=== PATIENT | female | born 1985 | race African-American/Black ===

== ENCOUNTER 2016-09-30 21:04 | Emergency (ER) | payer SELFPAY ==
[~2016-09-30] VITALS: Ht 172.7 cm; Wt 75.0 kg
[~2016-09-30 21:04] MED LIST: ACYC200C66 PO; AZIT600T PO; BACT800T5 PO; CYCL1TAB29 PO; DIFL200T PO; MAGICADU2 SWISH-SWAL; MAGN400T2 PO; OMEP40CA2 PO; SUCR1S PO; [UNRECOGNIZED DRUG - CODE] PO
[2016-09-30 21:11] VITALS: BP 135/87; PULSE 88; RESP 18; TEMP 98.5; O2SAT 100
--- NOTE | 2016-09-30 21:22 | PD ---
HPI Chief Complaint: Chest Pain Time Seen by Provider: 21:22 (Sharron Weiner) Time Seen by Provider: 21:09 (Elvis Doan MD) Travel History International Travel<30 days: No Contact w/Intl Traveler<30days: No Traveled to known affect area: No (Sharron Weiner) International Travel<30 days: No Contact w/Intl Traveler<30days: No (Elvis Doan MD) History of Present Illness HPI 30-year-old female with a history of HIV, hypertension and crack cocaine abuse presents to the emergency department for evaluation of chest pressure. States she has had this pressure since yesterday. She admits to using crack cocaine but states she hasn't smoked any in 2 days. She denies any fever, chills, nausea, vomiting, shortness of breath, abdominal pain, lightheadedness, dizziness. She states she is not taking any medications because she doesn't have a PCP, not on CALL therapy. No other complaints. (Sharron Weiner) HPI I, Dr. Doan, have reviewed the advance practice practitioner's documentation and am in agreement, met with the patient face to face, made the diagnosis, and the medical decision making was done by me. *My assessment and Findings: Patient is seen here quite often. Case management spoke with the patient. The patient relieved she was homeless. Case management spoke with patient in some length and provision of information regarding local/available resources was provided. Reassurance and counselling was provided. (Elvis Doan MD) [facility] Past Medical History Asthma: Yes Autoimmune Disease: Yes (HIV +, AIDS ) Anxiety: No Depression: Yes Cancer: No Cardiovascular Problems: No Diminished Hearing: No Gastrointestinal Disorders: Yes (pancreatitis) Genitourinary: No Headaches: Yes Hypertension: Yes Implanted Vascular Access Dvce: No Musculoskeletal: No Neurologic: No Psychiatric: No Respiratory: Yes (BRONCHITIS) Immunizations Current: Yes Pancreatitis: Yes Tetanus Vaccination: Unknown Influenza Vaccination: No ?: Unknown : 3 Para: 3 Miscarriage: 0 : 0 (Sharron Weiner) Past Surgical History Section: Yes ( CS X 2 ) Gynecologic Surgery: Yes (c section) Oral Surgery: Yes (jaw surgery 2016) Other Surgery: Yes (Sharron Weiner) Social History Alcohol Use: Yes (FORMERLY DAILY) Tobacco Use: Yes (SOME DAYS CIGARETTES (1 PACK/MONTH)) Substance Use: Yes (Crack Cocaine) (Sharron Weiner) Allergies-Medications (Allergen,Severity, Reaction): Coded Allergies: No Known Allergies (Verified , 10/02/16) Reported Meds & Prescriptions Reported Meds & Active Scripts Active Flexeril (Cyclobenzaprine HCl) 10 Mg Tab 10 Mg PO TID Magic Mouthwash Adult Liq (Multi-Ingredient Mouthwash/Gargle) 120 Ml Susp 10 Ml SWISH-SWAL QID PRN 7 Days Pancreaze (Pancrelipase) 21,000-37,000-61,000 Units Cap 1 Cap PO TIDPC Acyclovir 200 Mg Cap 400 Mg PO Q8HR 14 Days Azithromycin 600 Mg Tab 1,200 Mg PO Q7D 30 Days Magnesium Oxide 400 Mg Tab 400 Mg PO DAILY 30 Days Diflucan (Fluconazole) 200 Mg Tab 200 Mg PO Q24H 3 Days Sucralfate Liq (Sucralfate) 1 Gm/10 Ml Susana 1 Gm PO ACHS 30 Days Omeprazole 40 Mg Cap 40 Mg PO DAILY Bactrim DS (Sulfamethoxazole-Trimethoprim) 800-160 Mg Tab 1 Tab PO MOWEFR@09 30 Days (Elvis Doan MD) Review of Systems Except as stated in HPI: all other systems reviewed are Neg (Sharron Weiner) Physical Exam Narrative GENERAL: Well-nourished and well-developed pleasant female patient in no acute distress who is nontoxic appearing. SKIN: Warm and dry. HEAD: Normocephalic and atraumatic. EYES: No injection, drainage, or hyphema noted. PERRLA. EOMI. ENT: No nasal drainage noted. Oropharynx is clear. NECK: Supple and the trachea is midline. CARDIOVASCULAR: Regular rate and rhythm. RESPIRATORY: Breath sounds are equal bilaterally with no accessory muscle use, wheezing, rhonchi, or crackles. GASTROINTESTINAL: Abdomen is soft, non-tender, and nondistended. MUSCULOSKELETAL: No obvious deformities, swelling, cyanosis, or ecchymosis is present throughout the upper and lower extremities. NEUROLOGICAL: Awake, alert, and oriented. Normal speech and gait. Cranial nerves are grossly intact. (Sharron Weiner) Narrative Please refer to the above documentation. (Elvis Doan MD) Data Data Orders Basic Metabolic Panel (Bmp) (09/30/16 21:20) Complete Blood Count With Diff (09/30/16 21:20) Troponin I (09/30/16 21:20) Chest, Single Ap (09/30/16 21:20) Ecg Monitoring (09/30/16 21:20) Iv Access Insert/Monitor (09/30/16 21:20) Oximetry (09/30/16 21:20) Sodium Chloride 0.9% Flush (Ns Flush) (09/30/16 21:30) Potassium Cl 40 Meq/30 Ml Liq (Kcl 40 Me (09/30/16 23:00) Potassium Cl 40 Meq/30 Ml Liq (Kcl 40 Me (09/30/16 23:00) Electrocardiogram (09/30/16 21:13) (Elvis Doan MD) MDM Medical Decision Making Medical Screen Exam Complete: Yes Emergency Medical Condition: Yes Differential Diagnosis Pleurisy versus chest wall pain versus bronchitis versus ACS unlikely versus malingering Narrative Course 30-year-old female with history of HIV and crack cocaine abuse presents to the emergency department for evaluation of chest pain. Patient is afebrile, vital signs are stable. She has been seen 3 times in our emergency department in the last 24 hours, this being her fourth visit. IV access is obtained, labs have been drawn and sent. EKG shows normal sinus rhythm with no acute ST elevations or depressions. CBC shows a slightly decreased white blood for count of 3.5, anemia with a hemoglobin of 9.4, hematocrit 27.7. This is the patient's baseline. BMP shows hypokalemia with a potassium of 2.9. This is repleted with 60 mEq orally per recommendation of my attending physician Dr. Doan. Chest x-ray is unremarkable. Patient has remained stable and without complaint while here in the emergency department. Labs and imaging are all reassuring. Patient will be allowed to rest here in our emergency department for a few hours and then she will be stable for discharge. I discussed the case with my attending physician Dr. Doan who is aware of the patients history, physical examination findings, and treatment plan. ( Sharron Weiner) Medical Screen Exam Complete: Yes Emergency Medical Condition: Yes Differential Diagnosis As listed by alternate provider Narrative Course Please refer to HPI. At this time there is no indication for admission or additional diagnostic/therapeutic utilization. Pt is considered medically stable for discharge. (Elvis Doan MD) Diagnosis Primary Impression: Atypical chest pain Additional Impression: Hypokalemia Referrals: [facility] Patient Instructions: General Instructions Additional Instructions: Follow-up with your Primary Care Physician. Return to the ED for any acute worsening of symptoms. Med/Other Pt SpecificInfo: No Change to Meds (Sharron Weiner) Disposition: 01 DISCHARGE HOME Condition: Stable Sharron Weiner Sep 30, 2016 21:22 Elvis Doan MD Oct 06, 2016 19:30 Blood Urea Nitrogen 6 MG/DL Creatinine 0.62 MG/DL Estimat Glomerular Filtration 139 ML/MIN Rate Random Glucose 77 MG/DL Calcium Level 9.0 MG/DL [facility] Medical Decision Making Medical Screen Exam Complete: Yes Emergency Medical Condition: Yes Differential Diagnosis Pleurisy versus chest wall pain versus bronchitis versus ACS unlikely versus malingering Narrative Course 30-year-old female with history of HIV and crack cocaine abuse presents to the emergency department for evaluation of chest pain. Patient is afebrile, vital signs are stable. She has been seen 3 times in our emergency department in the last 24 hours, this being her fourth visit. IV access is obtained, labs have been drawn and sent. EKG shows normal sinus rhythm with no acute ST elevations or depressions. CBC shows a slightly decreased white blood for count of 3.5, anemia with a hemoglobin of 9.4, hematocrit 27.7. This is the patient's baseline. BMP shows hypokalemia with a potassium of 2.9. This is repleted with 60 mEq orally per recommendation of my attending physician Dr. Doan. Chest x-ray is unremarkable. Diagnosis Primary Impression: Atypical chest pain Additional Impression: Hypokalemia Referrals: [facility] Patient Instructions: General Instructions Additional Instructions: Follow-up with your Primary Care Physician. Return to the ED for any acute worsening of symptoms. Med/Other Pt SpecificInfo: No Change to Meds Disposition: 01 DISCHARGE HOME Condition: Stable Sharron Weiner Sep 30, 2016 21:22
[2016-09-30] MEDS ORDERED: SODIUM CHLORIDE 0.9% FLUSH 5 ML FLUSH IVF PRN (21:30)
[2016-09-30 21:44] VITALS: RESP 16; O2SAT 99
--- NOTE | 2016-09-30 21:50 | RADRPT ---
EXAM DATE/TIME: 09/30/2016 21:21 [facility] COMPARISON: No previous studies available for comparison. INDICATIONS : Chest Pain, Short of Breath. MEDICAL HISTORY : Hypertension. HIV. SURGICAL HISTORY : None. ENCOUNTER: Subsequent ACUITY: 2 days PAIN SCORE: 10/10 LOCATION: Bilateral chest FINDINGS: A single view of the chest demonstrates the lungs to be symmetrically aerated without evidence of mas s, infiltrate or effusion. The cardiomediastinal contours are unremarkable. Osseous structures are intact. CONCLUSION: No evidence of acute cardiopulmonary disease. Fredo Nicole MD on September 30, 2016 at 21:48 Board Certified Radiologist. This report was verified electronically.
[2016-09-30 22:18] LABS: AUTOMATED NEUTROPHIL # 2.1 TH/MM3 (1.8-7.7); BASOPHIL % 1.3 % (0.0-2.0); HEMATOCRIT 27.7 % (35.0-46.0); HEMO FLAGS DIFF FINAL; LYMPH % 28.5 % (9.0-44.0); MEAN CELL VOLUME 81.2 FL (80.0-100.0); MEAN CORPUSCULAR HEMOGLOBIN 27.5 PG (27.0-34.0); MEAN CORPUSCULAR HGB CONC 33.9 % (32.0-36.0); MONO % 10.6 % (0.0-8.0); NEUT % 59.6 % (16.0-70.0); PLATELET COUNT 252 TH/MM3 (150-450); RED BLOOD COUNT 3.42 MIL/MM3 (4.00-5.30); RED CELL DISTRIBUTION WIDTH 17.3 % (11.6-17.2); WHITE BLOOD COUNT 3.5 TH/MM3 (4.0-11.0)
[2016-09-30 22:49] LABS: ANION GAP 13 MEQ/L (5-15); BICARBONATE 21.5 MEQ/L (21.0-32.0); BLOOD UREA NITROGEN 6 MG/DL (7-18); CHLORIDE 105 MEQ/L (98-107); GLOMERULAR FILTRATION RATE 139 ML/MIN (>89); SODIUM (NA) 139 MEQ/L (136-145)
[2016-09-30 22:51] LABS: POTASSIUM 2.9 MEQ/L (3.5-5.1)
[2016-09-30] MEDS ORDERED: POTASSIUM CL 40 MEQ/30 ML LIQ UDC PO ONE ×2 (23:00)
--- NOTE | 2016-10-01 13:40 | EKG ---
Date Performed: 09/30/2016 Time Performed: 21:13:40 PTAGE: 30 years EKG: Sinus rhythm WITH FIRST DEGREE AV BLOCK Since previous tracing, no significant change noted ABNORMAL ECG PREVIOUS TRACING : 09/30/2016 13.46.07 DOCTOR: Christine Avina Interpretating Date/Time 10/01/2016 13:38:17
== END 2016-10-01 02:49 | disposition home or self-care (01) ==
LOC: NEPC 21:04 → NEPA 10-01 02:49
DX: R07.89 Other chest pain (principal); B20 Human immunodeficiency virus [HIV] disease; E87.6 Hypokalemia; F14.10 Cocaine abuse, uncomplicated; I10 Essential (primary) hypertension; F17.210 Nicotine dependence, cigarettes, uncomplicated
CPT/HCPCS: 71010; 80048; 84484; 85025; 93005; 99285

== ENCOUNTER 2016-10-01 15:00 | Emergency (ER) | payer SELFPAY ==
[~2016-10-01] VITALS: Ht 175.3 cm; Wt 100.0 kg
[2016-10-01 15:05] VITALS: BP 138/88; PULSE 107; RESP 16; TEMP 97.8; O2SAT 100
--- NOTE | 2016-10-01 16:20 | PD ---
HPI Chief Complaint: Chest Pain Time Seen by Provider: 16:08 Travel History International Travel<30 days: No Contact w/Intl Traveler<30days: No Traveled to known affect area: No History of Present Illness HPI This is a 30-year-old female who presents for evaluation of chest pain. She says that symptoms started 1 hour ago. She points to the middle of her chest as the location of the pain. She says that it is an aching pain with no obvious aggravating or relieving factors. She endorses some dyspnea as well. Denies cough, congestion, abdominal pain, nausea, vomiting. She was seen here 4 times yesterday for evaluation of these symptoms and also once had an outside emergency room. She had normal EKGs, negative cardiac enzymes, 2 normal chest x -rays. Her potassium was 2.9 yesterday and she was given 60 mEq of oral potassium chloride. She denies calf swelling, recent travel, recent surgery. She denies being on any oral contraceptives. She is a poor historian. She admits to smoking crack a few days ago but denies smoking any crack yesterday or today. She has no other complaints. PFSH Past Medical History Asthma: Yes Autoimmune Disease: Yes (HIV +, AIDS ) Anxiety: No Depression: Yes Cancer: No Cardiovascular Problems: No Diminished Hearing: No Gastrointestinal Disorders: Yes (pancreatitis) Genitourinary: No Headaches: Yes Hypertension: Yes Implanted Vascular Access Dvce: No Musculoskeletal: No Neurologic: No Psychiatric: No Respiratory: Yes (BRONCHITIS) Immunizations Current: Yes Pancreatitis: Yes ?: Not : 3 Para: 3 Miscarriage: 0 : 0 Past Surgical History Section: Yes ( CS X 2 ) Gynecologic Surgery: Yes (c section) Oral Surgery: Yes (jaw surgery 2016) Other Surgery: Yes Social History Alcohol Use: Yes (FORMERLY DAILY) Tobacco Use: Yes (SOME DAYS CIGARETTES (1 PACK/MONTH)) Substance Use: Yes (Crack Cocaine) Allergies-Medications (Allergen,Severity, Reaction): Coded Allergies: No Known Allergies (Verified , 09/30/16) Reported Meds & Prescriptions Reported Meds & Active Scripts Active Flexeril (Cyclobenzaprine HCl) 10 Mg Tab 10 Mg PO TID Magic Mouthwash Adult Liq (Multi-Ingredient Mouthwash/Gargle) 120 Ml Susp 10 Ml SWISH-SWAL QID PRN 7 Days Pancreaze (Pancrelipase) 21,000-37,000-61,000 Units Cap 1 Cap PO TIDPC Acyclovir 200 Mg Cap 400 Mg PO Q8HR 14 Days Azithromycin 600 Mg Tab 1,200 Mg PO Q7D 30 Days Magnesium Oxide 400 Mg Tab 400 Mg PO DAILY 30 Days Diflucan (Fluconazole) 200 Mg Tab 200 Mg PO Q24H 3 Days Sucralfate Liq (Sucralfate) 1 Gm/10 Ml Susana 1 Gm PO ACHS 30 Days Omeprazole 40 Mg Cap 40 Mg PO DAILY Bactrim DS (Sulfamethoxazole-Trimethoprim) 800-160 Mg Tab 1 Tab PO MOWEFR@09 30 Days Review of Systems ROS Limitations: Poor Historian Physical Exam Exam Limitations: Poor Historian Narrative GENERAL: This is a well-developed well-nourished female who is in no acute distress. SKIN: Warm and dry. HEAD: Atraumatic. Normocephalic. EYES: Pupils equal and round. No scleral icterus. No injection or drainage. ENT: No nasal bleeding or discharge. Mucous membranes pink and moist. NECK: Trachea midline. No JVD. CARDIOVASCULAR: Regular rate and rhythm. No murmur appreciated. RESPIRATORY: No accessory muscle use. Clear to auscultation. Breath sounds equal bilaterally. GASTROINTESTINAL: Abdomen soft, non-tender, nondistended. Hepatic and splenic margins not palpable. No guarding. MUSCULOSKELETAL: No obvious deformities. She has some midsternal tenderness to palpation. No lower extremity edema. NEUROLOGICAL: Awake and alert. No obvious cranial nerve deficits. Motor grossly within normal limits. Normal speech. Data Data Last Documented VS Vital Signs Date Time Temp Pulse Resp B/P Pulse Ox O2 Delivery O2 Flow Rate FiO2 10/01/16 16:25 76 18 98 Room Air 10/01/16 15:05 97.8 138/88 Orders Electrocardiogram (10/01/16 ) D-Dimer (10/01/16 16:16) Ed Urine Pregnancytest Poc (10/01/16 16:16) Ct Pulmonary Angiogram (10/01/16 17:28) Iohexol 350 Inj (Omnipaque 350 Inj) (10/01/16 18:31) Labs Laboratory Tests Test 10/01/16 16:10 D-Dimer Quantitative (PE/DVT) 0.56 MG/L [facility] Medical Decision Making Medical Screen Exam Complete: Yes Emergency Medical Condition: Yes Medical Record Reviewed: Yes Interpretation(s) EKG sinus rhythm CT pulmonary angiogram CONCLUSION: No pulmonary embolus or other acute cardiopulmonary disease demonstrated. Left ventricular enlargement. Differential Diagnosis Malingering, PE, pneumothorax, costochondritis, pericarditis, myocarditis Narrative Course 30-year-old female returns for evaluation of chest pain. She was here 4 times yesterday. This examination is unremarkable, she appears comfortable. Reviewed her chart from yesterday with 2 normal chest x-rays, lab work notable for potassium of 2.9, given 60 mEq of potassium chloride yesterday. In triage she is mildly tachycardic and therefore d-dimer has been ordered. I don't feel that the patient needs repeat cardiac enzyme testing or repeat chest x-ray. Her EKG is reassuring with no ischemic pattern. The patient's d-dimer was mildly elevated and therefore CT pulmonary angiogram was ordered and this was negative. The patient is stable for discharge. Procedures EKG Prior to Arrival: Yes Diagnosis Primary Impression: Atypical chest pain Additional Instructions: Avoid crack use. Follow-up with primary care physician. Return for any emergent medical conditions. Med/Other Pt SpecificInfo: No Change to Meds Disposition: 01 DISCHARGE HOME Condition: Stable Deepak Ba Oct 01, 2016 16:20
--- NOTE | 2016-10-01 16:30 | PD ---
Physical Exam Date Seen by Provider: Oct 01, 2016 Narrative I, Dr. Mcmahon, have reviewed the advance practice practitioner's documentation and am in agreement, met with the patient face to face, made the diagnosis, and the medical decision making was done by me. *My assessment and Findings: This patient is being seen in our system for the fifth time in 24 hours. One of the nurses here also works at another facility and reports that the patient has been seen there as well. The patient is ambulatory about the department with no distress. Data Data Last Documented VS Vital Signs Date Time Temp Pulse Resp B/P Pulse Ox O2 Delivery O2 Flow Rate FiO2 10/01/16 15:05 97.8 107 16 138/88 100 Orders Electrocardiogram (10/01/16 ) D-Dimer (10/01/16 16:16) Ed Urine Pregnancytest Poc (10/01/16 16:16) MDM Supervised Visit with ESTRELLA: Yes Georgia Mcmahon MD Oct 01, 2016 16:30
[2016-10-01] MEDS ORDERED: IOHEXOL 350 MG/ML 10 ML VIAL (for RAD DIAG) IV ONE (18:31)
--- NOTE | 2016-10-01 18:48 | RADRPT ---
EXAM DATE/TIME: 10/01/2016 18:30 [facility] COMPARISON: No previous studies available for comparison. INDICATIONS : Chest pain; evaluate for pulmonary emboli. IV CONTRAST: 75 cc Omnipaque 350 (iohexol) IV RADIATION DOSE: 23.06 CTDIvol (mGy) MEDICAL HISTORY : None SURGICAL HISTORY : None. ENCOUNTER: Initial ACUITY: 1 day PAIN SCALE: 5/10 LOCATION: Bilateral chest TECHNIQUE: Volumetric scanning of the chest was performed using a pulmonary embolism protocol MIP images were re constructed. Using automated exposure control and adjustment of the mA and/or kV according to patien t size, radiation dose was kept as low as reasonably achievable to obtain optimal diagnostic quality images. FINDINGS: PULMONARY ARTERIES: No filling defects are seen in the pulmonary arteries through the segmental level. LUNGS: There is no consolidation or pneumothorax . No concerning pulmonary nodule is visualized. PLEURAE: There is no pleural thickening or pleural effusion. MEDIASTINUM: There is good visualization of the great vessels of the middle mediastinum. No evidence of mediastin al or hilar adenopathy/mass. Left ventricle appears enlarged. MUSCULOSKELETAL: Within normal limits for patient age. MISCELLANEOUS: The visualized upper abdominal organs demonstrate no acute abnormality. CONCLUSION: No pulmonary embolus or other acute cardiopulmonary disease demonstrated. Left ventricular enlargemen t. Fredo Nicole MD on October 01, 2016 at 18:46 Board Certified Radiologist. This report was verified electronically.
[2016-10-01 19:08] VITALS: BP 120/77; TEMP 97.8
--- NOTE | 2016-10-02 18:15 | EKG ---
Date Performed: 10/01/2016 Time Performed: 15:23:39 PTAGE: 30 years EKG: Sinus rhythm Since previous tracing, no significant change noted NORMAL ECG PREVIOUS TRACING 09/30/16 @ 21.13.40 DOCTOR: Yesi Wolfe Interpretating Date/Time 10/02/2016 18:14:35
== END 2016-10-01 19:08 | disposition home or self-care (01) ==
LOC: NEPE 15:00
DX: R07.89 Other chest pain (principal)
CPT/HCPCS: 71275; 84703; 85379; 93005; 99285; Q9967

== ENCOUNTER 2016-10-01 20:27 | Emergency (ER) | payer SELFPAY ==
[2016-10-01 20:33] VITALS: BP 131/77; PULSE 92; RESP 12; TEMP 96.7; O2SAT 100
--- NOTE | 2016-10-01 21:48 | PD ---
HPI Chief Complaint: Chest Pain Time Seen by Provider: 21:35 Travel History International Travel<30 days: No Contact w/Intl Traveler<30days: No Traveled to known affect area: No History of Present Illness HPI This is a 30-year-old female with history of HIV, crack abuse, asthma who presents for evaluation of chest pain. This is the sixth visit for these symptoms in the past 2 days at this facility and she was seen once at an outside emergency room for the same symptoms yesterday. She describes it as a tightness in the center of her chest which is constant. She was discharged here a few hours ago. At the time of discharge she said that she was having no pain. She reports that she went home and her mother's boyfriend brought her a plate of food. She reports that he was smoking cigarettes and the cigarette smoke caused her to have chest pain again. She is requesting some food. No nausea, vomiting, abdominal pain, fevers, chills. She has no other complaints at this time. PFSH Past Medical History Asthma: Yes Autoimmune Disease: Yes (HIV +, AIDS ) Anxiety: Yes Depression: Yes Cancer: No Cardiovascular Problems: No Diminished Hearing: No Gastrointestinal Disorders: Yes (pancreatitis) Genitourinary: No Headaches: Yes Hypertension: Yes Implanted Vascular Access Dvce: No Musculoskeletal: No Neurologic: No Psychiatric: No Respiratory: Yes (BRONCHITIS) Immunizations Current: Yes Pancreatitis: Yes : 3 Para: 3 Miscarriage: 0 : 0 Past Surgical History Section: Yes ( CS X 2 ) Gynecologic Surgery: Yes (c section) Oral Surgery: Yes (jaw surgery 2016) Other Surgery: Yes Social History Alcohol Use: Yes (FORMERLY DAILY) Tobacco Use: Yes (SOME DAYS CIGARETTES (1 PACK/MONTH)) Substance Use: Yes (Crack Cocaine) Allergies-Medications (Allergen,Severity, Reaction): Coded Allergies: No Known Allergies (Verified , 10/01/16) Reported Meds & Prescriptions Reported Meds & Active Scripts Active Flexeril (Cyclobenzaprine HCl) 10 Mg Tab 10 Mg PO TID Magic Mouthwash Adult Liq (Multi-Ingredient Mouthwash/Gargle) 120 Ml Susp 10 Ml SWISH-SWAL QID PRN 7 Days Pancreaze (Pancrelipase) 21,000-37,000-61,000 Units Cap 1 Cap PO TIDPC Acyclovir 200 Mg Cap 400 Mg PO Q8HR 14 Days Azithromycin 600 Mg Tab 1,200 Mg PO Q7D 30 Days Magnesium Oxide 400 Mg Tab 400 Mg PO DAILY 30 Days Diflucan (Fluconazole) 200 Mg Tab 200 Mg PO Q24H 3 Days Sucralfate Liq (Sucralfate) 1 Gm/10 Ml Susana 1 Gm PO ACHS 30 Days Omeprazole 40 Mg Cap 40 Mg PO DAILY Bactrim DS (Sulfamethoxazole-Trimethoprim) 800-160 Mg Tab 1 Tab PO MOWEFR@09 30 Days Review of Systems Except as stated in HPI: all other systems reviewed are Neg Physical Exam Narrative GENERAL: Well-developed well-nourished female in no acute distress SKIN: Warm and dry. HEAD: Atraumatic. Normocephalic. EYES: Pupils equal and round. No scleral icterus. No injection or drainage. ENT: No nasal bleeding or discharge. Mucous membranes pink and moist. NECK: Trachea midline. No JVD. CARDIOVASCULAR: Regular rate and rhythm. No murmur appreciated. RESPIRATORY: No accessory muscle use. Clear to auscultation. Breath sounds equal bilaterally. No crackles no wheezing or rhonchi GASTROINTESTINAL: Abdomen soft, non-tender, nondistended. Hepatic and splenic margins not palpable. MUSCULOSKELETAL: No obvious deformities. No edema NEUROLOGICAL: Awake and alert. No obvious cranial nerve deficits. Motor grossly within normal limits. Normal speech. Data Data Last Documented VS Vital Signs Date Time Temp Pulse Resp B/P Pulse Ox O2 Delivery O2 Flow Rate FiO2 10/01/16 21:48 18 10/01/16 20:33 96.7 92 131/77 100 Room Air Orders NPO (10/01/16 21:33) [facility] Medical Decision Making Medical Screen Exam Complete: Yes Emergency Medical Condition: Yes Medical Record Reviewed: Yes Differential Diagnosis Malingering, anxiety, bronchospasm, asthma exacerbation, bronchitis, pulmonary embolism, spontaneous pneumothorax Narrative Course 30-year-old female presents after developing chest pain from breathing in secondhand smoke. This is her seventh visit for evaluation of chest pain symptoms in the emergency room setting in the past 48 hours. Most recently she was seen here a few hours ago and had a negative CT pulmonary angiogram. She has had negative cardiac enzymes, normal chest x-rays in this facility. She has had normal 12-lead EKGs. The patient has requested food within the first few minutes of my examination of her and during her last ER visit I observed her eating several packets of tyshawn crackers. I feel that malingering may be contributed to her multiple visits to this facility. I have suggested that she follow-up with medication the clinic as needed. She requires no further emergent studies at this time. Diagnosis Primary Impression: Atypical chest pain Referrals: Anahy Yousif MD Additional Instructions: Follow-up with Dr. Yousif. Return for any emergent medical conditions. Med/Other Pt SpecificInfo: No Change to Meds Disposition: 01 DISCHARGE HOME Condition: Stable Deepak Ba Oct 01, 2016 21:47
== END 2016-10-01 22:14 | disposition home or self-care (01) ==
LOC: NEPE 20:27
DX: R07.89 Other chest pain (principal)
CPT/HCPCS: 99283

== ENCOUNTER 2016-10-02 15:09 | Emergency (ER) | payer SELFPAY ==
[~2016-10-02] VITALS: Ht 172.7 cm; Wt 100.0 kg
[2016-10-02 15:10] VITALS: BP 124/80; PULSE 92; RESP 14; TEMP 98; O2SAT 99
== END 2016-10-02 18:50 | disposition left against medical advice (07) ==
LOC: NED 15:09
DX: R07.9 Chest pain, unspecified (principal); Z53.21 Procedure and treatment not carried out due to patient leaving prior to being seen by health care provider
CPT/HCPCS: 99281

== ENCOUNTER 2016-10-07 06:48 | Emergency (ER) | payer SELFPAY ==
[~2016-10-07] VITALS: Ht 170.2 cm; Wt 100.0 kg
[2016-10-07 07:21] VITALS: BP 156/87; PULSE 110; RESP 18; TEMP 97.9; O2SAT 100
[2016-10-07 07:25] VITALS: BP 156/87; PULSE 108; RESP 18; TEMP 97.9; O2SAT 100
--- NOTE | 2016-10-07 08:29 | PD ---
HPI Chief Complaint: Chest Pain Time Seen by Provider: 08:18 Travel History International Travel<30 days: No Contact w/Intl Traveler<30days: No Traveled to known affect area: No History of Present Illness HPI 30-year-old female here with complaint of chest pain. Patient is a frequent flier to our emergency department well-known by myself and ER staff. She presents the emergency department today with complaint of severe sharp chest pain that has been present for several weeks in duration. Patient has been seen here 9 times recently for similar complaints with negative EKG, laboratory workup for both cardiac pathology as well as negative CT pulmonary angiograms. Patient states that the pain is unbearable, and requests something for pain. She also requests getting access to a homeless half-way or somewhere to live as she is currently domiciled and an area with frequent use of crack cocaine. Patient states that it feels like "my heart is crawling around in my body". PFSH Past Medical History Asthma: Yes Autoimmune Disease: Yes (HIV +, AIDS ) Anxiety: Yes Depression: Yes Cancer: No Cardiovascular Problems: No Diminished Hearing: No Gastrointestinal Disorders: Yes (pancreatitis) Genitourinary: No Headaches: Yes Hypertension: Yes Implanted Vascular Access Dvce: No Musculoskeletal: No Neurologic: No Psychiatric: No Respiratory: Yes (BRONCHITIS) Immunizations Current: Yes Pancreatitis: Yes ?: Not : 3 Para: 3 Miscarriage: 0 : 0 Past Surgical History Section: Yes ( CS X 2 ) Gynecologic Surgery: Yes (c section) Oral Surgery: Yes (jaw surgery 2016) Other Surgery: Yes Social History Alcohol Use: Yes (FORMERLY DAILY) Tobacco Use: Yes (SOME DAYS CIGARETTES (1 PACK/MONTH)) Substance Use: Yes (Crack Cocaine daily) Allergies-Medications (Allergen,Severity, Reaction): Coded Allergies: No Known Allergies (Verified , 10/02/16) Reported Meds & Prescriptions Reported Meds & Active Scripts Active Flexeril (Cyclobenzaprine HCl) 10 Mg Tab 10 Mg PO TID Magic Mouthwash Adult Liq (Multi-Ingredient Mouthwash/Gargle) 120 Ml Susp 10 Ml SWISH-SWAL QID PRN 7 Days Pancreaze (Pancrelipase) 21,000-37,000-61,000 Units Cap 1 Cap PO TIDPC Acyclovir 200 Mg Cap 400 Mg PO Q8HR 14 Days Azithromycin 600 Mg Tab 1,200 Mg PO Q7D 30 Days Magnesium Oxide 400 Mg Tab 400 Mg PO DAILY 30 Days Diflucan (Fluconazole) 200 Mg Tab 200 Mg PO Q24H 3 Days Sucralfate Liq (Sucralfate) 1 Gm/10 Ml Susana 1 Gm PO ACHS 30 Days Omeprazole 40 Mg Cap 40 Mg PO DAILY Bactrim DS (Sulfamethoxazole-Trimethoprim) 800-160 Mg Tab 1 Tab PO MOWEFR@09 30 Days Review of Systems Except as stated in HPI: all other systems reviewed are Neg Physical Exam Narrative GENERAL: Disheveled female in no acute distress. Patient is restless in bed, frequently yelling out for nursing for her analgesics, food. Patient is on her call mclean no less frequent than every 2 minutes. SKIN: Warm and dry. HEAD: Normocephalic. EYES: No scleral icterus. No injection or drainage. ENT: Mucous membranes pink and moist. NECK: Supple CARDIOVASCULAR: Borderline tachycardia with heart rate in the 90s to 100s, regular rhythm. No murmur appreciated. Reproducible tenderness. RESPIRATORY: No accessory muscle use. Clear to auscultation. Breath sounds equal bilaterally. GASTROINTESTINAL: Abdomen soft, non-tender, nondistended. MUSCULOSKELETAL: Moves all extremities normally. NEUROLOGICAL: Awake and alert. Normal speech. PSYCHIATRIC: Poor insight and judgment Data Data Last Documented VS Vital Signs Date Time Temp Pulse Resp B/P Pulse Ox O2 Delivery O2 Flow Rate FiO2 10/07/16 07:25 97.9 108 18 156/87 100 Nasal Cannula 2 MDM Medical Decision Making Medical Screen Exam Complete: Yes Emergency Medical Condition: Yes Medical Record Reviewed: Yes Differential Diagnosis 30-year-old female here with complaint that her "heart is crawling around inside my chest". Patient has been seen here multiple times recently with negative cardiac and pulmonary embolism workups. Her pain is reproducible, as it typically is. Differential includes musculoskeletal versus malingering versus atypical chest pain. I do not think patient warrants any further workup for cardiac or pulmonary pathology at this time. She does not have symptoms consistent with GI symptomatology. Patient primarily at this time is requesting assistance given her lack of domicile. I spoke with case management , and unfortunately our only options are to for the address for the [facility] [email or web address], where she can present before 4 PM to standing in line for potential bed for overnight. Narrative Course Patient placed on monitor. Twelve-lead EKG shows sinus tachycardia, rate [address] abnormalities, normal intervals. I spoke with case management, as above, and patient will be discharged home. Diagnosis Primary Impression: Malingering Additional Impressions: Atypical chest pain Crack cocaine poisoning Qualified Code: T40.5X1A - Crack cocaine poisoning, accidental or unintentional, initial encounter Additional Instructions: Go to the [facility] as discussed in order to get a bed for tonight. You need to be present there by 4 PM. Med/Other Pt SpecificInfo: No Change to Meds Disposition: 01 DISCHARGE HOME Condition: Stable Mayte Merritt MD Oct 07, 2016 08:29
--- NOTE | 2016-10-07 14:09 | EKG ---
Date Performed: 10/07/2016 Time Performed: 07:01:43 PTAGE: 30 years EKG: SINUS TACHYCARDIA POSSIBLE LEFT ATRIAL ENLARGEMENT NONSPECIFIC ST & T-WAVE ABNORMALITY ABNO RMAL RHYTHM ECG PREVIOUS TRACING : 10/01/2016 15.23 Compared to the previous tracing, rate has increased DOCTOR: Chucho Doan Interpretating Date/Time 10/07/2016 14:08:18
== END 2016-10-07 09:28 | disposition home or self-care (01) ==
LOC: NEPE 06:48
DX: R07.89 Other chest pain (principal); R00.0 Tachycardia, unspecified; Z72.0 Tobacco use; F14.90 Cocaine use, unspecified, uncomplicated; T40.5X1A Poisoning by cocaine, accidental (unintentional), initial encounter; Z76.5 Malingerer [conscious simulation]
CPT/HCPCS: 93005

== ENCOUNTER 2016-10-09 18:28 | Emergency (ER) | payer SELFPAY ==
[2016-10-09 19:48] VITALS: BP 166/85; PULSE 83; RESP 16; TEMP 98.5; O2SAT 100
[2016-10-10] MEDS ORDERED: IBUPROFEN 400 MG TAB PO ONE (00:15)
--- NOTE | 2016-10-10 01:10 | PD ---
HPI Chief Complaint: Musculoskeletal Complaint Time Seen by Provider: 23:46 Travel History International Travel<30 days: No Contact w/Intl Traveler<30days: No Traveled to known affect area: No History of Present Illness HPI The patient is 30 year old female who presents to the [facility] emergency department with a history of left-sided sharp chest pain that she reports has been coming and going for weeks. The patient has been seen in the emergency department 9 times prior to this for evaluation. The patient has undergone a full workup including multiple sets of cardiac enzymes and EKGs, and a CTA to rule out PE which was negative. The patient reports that she has an appointment with the primary care doctor through patient assistance scheduled for October 12. She reports that she became concerned when the pain recurred. The patient denies taking anything for pain or any other medications as an outpatient at this time. The patient reports a history of having HIV. She reports that she was diagnosed with HIV several years ago. She reports that she was on retroviral medications in the past. The patient also reports having history of bronchitis and pancreatitis. The patient denies any recent fevers, cough, congestion, neck pain, abdominal pain, vomiting, diarrhea, urinary symptoms, or neurologic symptoms. LMP: She is currently on her cycle PFSH Past Medical History Narrative Medical The patient's past medical history is significant for bronchitis, history of HIV , history of asthma, anxiety disorder, depression, pancreatitis, headaches. Asthma: Yes Autoimmune Disease: Yes (HIV +, AIDS ) Anxiety: Yes Depression: Yes Cancer: No Cardiovascular Problems: No Diminished Hearing: No Gastrointestinal Disorders: Yes (pancreatitis) Genitourinary: No Headaches: Yes Hypertension: Yes Implanted Vascular Access Dvce: No Musculoskeletal: No Neurologic: No Psychiatric: No Respiratory: Yes (BRONCHITIS) Immunizations Current: Yes Pancreatitis: Yes Influenza Vaccination: No ?: Not : 3 Para: 3 Miscarriage: 0 : 0 Past Surgical History Narrative Surgical The patient's past surgical history is significant for C-sections 3, history of jaw surgery. Section: Yes ( CS X 2 ) Gynecologic Surgery: Yes (c section) Oral Surgery: Yes (jaw surgery 2015) Other Surgery: Yes Social History Alcohol Use: Yes (FORMERLY DAILY) Tobacco Use: Yes (SOME DAYS CIGARETTES (1 PACK/MONTH)) Substance Use: Yes (Crack Cocaine daily) Allergies-Medications (Allergen,Severity, Reaction): Coded Allergies: No Known Allergies (Verified , 10/09/16) Reported Meds & Prescriptions Reported Meds & Active Scripts Active Flexeril (Cyclobenzaprine HCl) 10 Mg Tab 10 Mg PO TID Magic Mouthwash Adult Liq (Multi-Ingredient Mouthwash/Gargle) 120 Ml Susp 10 Ml SWISH-SWAL QID PRN 7 Days Pancreaze (Pancrelipase) 21,000-37,000-61,000 Units Cap 1 Cap PO TIDPC Acyclovir 200 Mg Cap 400 Mg PO Q8HR 14 Days Azithromycin 600 Mg Tab 1,200 Mg PO Q7D 30 Days Magnesium Oxide 400 Mg Tab 400 Mg PO DAILY 30 Days Diflucan (Fluconazole) 200 Mg Tab 200 Mg PO Q24H 3 Days Sucralfate Liq (Sucralfate) 1 Gm/10 Ml Susana 1 Gm PO ACHS 30 Days Omeprazole 40 Mg Cap 40 Mg PO DAILY Bactrim DS (Sulfamethoxazole-Trimethoprim) 800-160 Mg Tab 1 Tab PO MOWEFR@09 30 Days Review of Systems Except as stated in HPI: all other systems reviewed are Neg General / Constitutional: No: Fever Eyes: No: Visual changes HENT: No: Headaches Cardiovascular: Positive: Chest Pain or Discomfort (chest wall pain) Respiratory: No: Shortness of Breath Gastrointestinal: No: Abdominal Pain Genitourinary: No: Dysuria Musculoskeletal: No: Pain Skin: No Rash Neurologic: No: Weakness Psychiatric: No: Depression Endocrine: No: Polydipsia Hematologic/Lymphatic: No: Easy Bruising Physical Exam Narrative General: The patient is well-developed well-nourished female in no acute distress.. Head and Neck exam: Head is normocephalic atraumatic. Eyes: Pupils are equal round and reactive to light. Nose: Midline septum with pink mucous membranes Mouth: Dentition unremarkable. Moist mucus membranes. Posterior oropharynx is not erythematous. No tonsillar hypertrophy. Uvula midline. Airway patent. Neck: No palpable lymphadenopathy. No nuchal rigidity. No thyromegaly. Cardiovascular: Regular rate and rhythm without murmurs, gallops, or rubs. No pulse deficit to the extremities and simultaneous auscultation and palpation of her radial artery. The patient reports having left-sided chest wall tenderness on palpation along the sternal border. There is no crepitus or step-off. No erythema or ecchymosis. No flail segment. Lungs: Clear to auscultation bilaterally. No wheezes, rhonchi, or rales. Abdomen: Soft, without tenderness to palpation in all 4 quadrants of the abdomen. No guarding, rebound, or rigidity. Normal bowel sounds are audible. Extremities: No clubbing, cyanosis, or edema. 2+ pulses in all 4 extremities. No Tenderness on palpation. Back: No spinous process tenderness to palpation. No costovertebral angle tenderness to palpation. Neurologic Exam: Grossly nonfocal. Skin Exam: No rash noted. Intact skin that is warm and dry. Data Data Last Documented VS Vital Signs Date Time Temp Pulse Resp B/P Pulse Ox O2 Delivery O2 Flow Rate FiO2 10/09/16 19:48 98.5 83 16 166/85 100 Orders Electrocardiogram (10/09/16 23:54) Ibuprofen (Motrin) (10/10/16 00:15) [facility] Medical Decision Making Medical Screen Exam Complete: Yes Emergency Medical Condition: No Medical Record Reviewed: Yes Differential Diagnosis Malingering, versus drug-seeking behavior, versus asthma exacerbation, versus costochondritis, versus pleurisy Narrative Course During the course of the patients emergency department visit, the patients history, examination, and differential diagnosis were reviewed with the patient. The patient's electronic medical record was reviewed. The patient has had multiple workups regarding the symptoms. I reiterated the importance of following up with a primary care physician for additional outpatient testing and treatment. The patient had an EKG done at this time that shows a sinus rhythm, no acute ST segment elevation, T waves inverted in V1 and V2. The patient was given ibuprofen 400 mg by mouth 1. The patient is diagnosed with chest wall pain. The patient is instructed regarding the importance of following up with the patient assistance doctor on October 12 as previously scheduled. The patient is resting comfortably and feels better, is alert and in no distress. The patients results and examination findings were discussed with the patient. The repeat examination is unremarkable and benign. The history, exam, diagnostic testing, and current condition do not suggest any significant pathology to warrant further testing, continued ED treatment, admission, or surgical evaluation at this point. The vital signs have been stable. The patient does not have uncontrollable pain, intractable vomiting, or other significant symptoms. The patient's condition is stable and appropriate for discharge. The patient will pursue further outpatient evaluation with a primary care physician or other designated or consulting physician as indicated in the discharge instructions. The patient expressed understanding and was agreeable with this plan. Diagnosis Primary Impression: Chest wall pain Referrals: Patient Assistance Program 3 days Patient Instructions: Chest Wall Pain (ED), General Instructions Additional Instructions: Take Motrin or Tylenol as needed for discomfort. Disposition: 01 DISCHARGE HOME Condition: Stable Akilah King MD Oct 10, 2016 01:10
--- NOTE | 2016-10-10 14:03 | EKG ---
Date Performed: 10/10/2016 Time Performed: 00:24:48 PTAGE: 30 years EKG: Sinus rhythm NORMAL ECG Since PREVIOUS TRACING , no significant change noted PREVIOUS TRACIN10/07/2016 07.01 DOCTOR: Ross Martin Interpretating Date/Time 10/10/2016 13:58:52
== END 2016-10-10 01:57 | disposition home or self-care (01) ==
LOC: NEPC 18:28
DX: R07.89 Other chest pain (principal); B20 Human immunodeficiency virus [HIV] disease
CPT/HCPCS: 93005

== ENCOUNTER 2016-10-11 22:03 | Emergency (ER) | payer SELFPAY ==
[~2016-10-11] VITALS: Ht 172.7 cm; Wt 100.0 kg
[2016-10-11 22:08] VITALS: BP 171/101; PULSE 71; RESP 21; TEMP 97.4; O2SAT 100
--- NOTE | 2016-10-11 22:16 | PD ---
HPI Chief Complaint: Chest Pain Time Seen by Provider: 22:16 Travel History International Travel<30 days: No Contact w/Intl Traveler<30days: No Traveled to known affect area: No History of Present Illness HPI 30 year-old female presents to emergency department for evaluation of chest pain. Patient has been seen several times in the emergency department for the exact same complaint. In fact she has been seen 11 times recently with complete cardiac workup; PE has been ruled out as well as any traumatic injury. She has not yet followed up outpatient. Denies any new symptoms. No recent illnesses, fever, chills. No other symptoms to report. PFSH Past Medical History Asthma: Yes Autoimmune Disease: Yes (HIV +, AIDS ) Anxiety: Yes Depression: Yes Cancer: No Cardiovascular Problems: No Diminished Hearing: No Gastrointestinal Disorders: Yes (pancreatitis) Genitourinary: No Headaches: Yes Hypertension: Yes Implanted Vascular Access Dvce: No Musculoskeletal: No Neurologic: No Psychiatric: No Respiratory: Yes (BRONCHITIS) Immunizations Current: Yes Pancreatitis: Yes ?: Not LMP: 10/07/16 : 3 Para: 3 Miscarriage: 0 : 0 Past Surgical History Section: Yes ( CS X 2 ) Gynecologic Surgery: Yes (c section) Oral Surgery: Yes (jaw surgery 2016) Other Surgery: Yes Social History Alcohol Use: Yes (FORMERLY DAILY) Tobacco Use: Yes (SOME DAYS CIGARETTES (1 PACK/MONTH)) Substance Use: Yes (Crack Cocaine daily) Allergies-Medications (Allergen,Severity, Reaction): Coded Allergies: No Known Allergies (Verified , 10/11/16) Reported Meds & Prescriptions Reported Meds & Active Scripts Active Flexeril (Cyclobenzaprine HCl) 10 Mg Tab 10 Mg PO TID Magic Mouthwash Adult Liq (Multi-Ingredient Mouthwash/Gargle) 120 Ml Susp 10 Ml SWISH-SWAL QID PRN 7 Days Pancreaze (Pancrelipase) 21,000-37,000-61,000 Units Cap 1 Cap PO TIDPC Acyclovir 200 Mg Cap 400 Mg PO Q8HR 14 Days Azithromycin 600 Mg Tab 1,200 Mg PO Q7D 30 Days Magnesium Oxide 400 Mg Tab 400 Mg PO DAILY 30 Days Diflucan (Fluconazole) 200 Mg Tab 200 Mg PO Q24H 3 Days Sucralfate Liq (Sucralfate) 1 Gm/10 Ml Susana 1 Gm PO ACHS 30 Days Omeprazole 40 Mg Cap 40 Mg PO DAILY Bactrim DS (Sulfamethoxazole-Trimethoprim) 800-160 Mg Tab 1 Tab PO MOWEFR@09 30 Days Review of Systems Except as stated in HPI: all other systems reviewed are Neg Physical Exam Narrative GENERAL: Well-nourished, well-developed FEmale patient lying in bed in no acute distress SKIN: Warm and dry. HEAD: Normocephalic. EYES: No scleral icterus. No injection or drainage. NECK: Supple, trachea midline. No JVD or lymphadenopathy. CARDIOVASCULAR: Regular rate and rhythm without murmurs, gallops, or rubs. RESPIRATORY: Breath sounds equal bilaterally. No accessory muscle use. GASTROINTESTINAL: Abdomen soft, non-tender, nondistended. MUSCULOSKELETAL: No cyanosis, or edema. BACK: Nontender without obvious deformity. No CVA tenderness. Data Data Last Documented VS Vital Signs Date Time Temp Pulse Resp B/P Pulse Ox O2 Delivery O2 Flow Rate FiO2 10/11/16 22:14 71 21 100 Room Air 10/11/16 22:08 97.4 171/101 MDM Medical Decision Making Medical Screen Exam Complete: Yes Emergency Medical Condition: Yes Medical Record Reviewed: Yes Differential Diagnosis Chest wall pain versus atypical chest pain versus malingering versus strain Narrative Course 30 year-old female presents to the emergency department for evaluation of chest pain. Patient has been seen several times in the emergency department and has had complete workup with positive findings. Patient appears well and without distress. There is no need for further emergent workup at this time. The patient needs to follow-up outpatient with primary care provider. She agrees to return immediately with any acute worsening of symptoms. Diagnosis Primary Impression: Atypical chest pain Additional Impression: Malingering Referrals: Primary Care Physician Patient Instructions: Chest Wall Pain (GEN), General Instructions Additional Instructions: It is important that you follow up with a primary care provider Return immediately to the emergency department with any acute worsening of symptoms Med/Other Pt SpecificInfo: No Change to Meds Disposition: 01 DISCHARGE HOME Condition: Stable GardunoMadelaineMarilynomid ARIAS Oct 11, 2016 22:16
[2016-10-11 22:53] VITALS: BP 160/79; PULSE 83; RESP 16; O2SAT 100
== END 2016-10-11 23:15 | disposition home or self-care (01) ==
LOC: NEDAMB 22:03
DX: R07.89 Other chest pain (principal); J45.909 Unspecified asthma, uncomplicated; I10 Essential (primary) hypertension; F17.210 Nicotine dependence, cigarettes, uncomplicated; B20 Human immunodeficiency virus [HIV] disease; Z76.5 Malingerer [conscious simulation]
CPT/HCPCS: 99284

== ENCOUNTER 2016-10-12 04:31 | Emergency (ER) | payer SELFPAY ==
[~2016-10-12] VITALS: Ht 172.7 cm; Wt 98.0 kg
[2016-10-12 04:58] VITALS: BP 120/80; PULSE 80; RESP 16; TEMP 97.5; O2SAT 99
[2016-10-12] MEDS ORDERED: SODIUM CHLORID 0.9% 500 ML INJ 500 ML IV ONE (07:45)
[2016-10-12] MEDS ORDERED: SODIUM CHLORIDE 0.9% FLUSH 5 ML FLUSH IVF PRN (07:45)
--- NOTE | 2016-10-12 07:47 | PD ---
HPI Chief Complaint: Pain: Acute or Chronic Time Seen by Provider: 07:27 Travel History International Travel<30 days: No Contact w/Intl Traveler<30days: No Traveled to known affect area: No History of Present Illness HPI Patient is a 30-year-old female who presents to emergency room with complaints of chest pain. This is patient's 11th visit to the emergency room for complaints of chest pain. Patient reports that for the past few months, she has been having persistent chest pain, reports that her chest pain is substernal in nature and feels like a sharp and stabbing pain. Patient reports the chest pain is nonradiating in nature. Patient with no cough or congestion. No fevers or chills. Patient reports that she sometimes feels short of breath with the pain. Patient reports that nothing makes pain better or worse. Patient was seen in the emergency room and had a workup including CT of her chest to rule out pulmonary embolism on October 01, 2016, CAT scan at that time showed no pulmonary embolus or acute cardiopulmonary disease. Previous labs as well as toxicology was reviewed. Patient does have history of opiates and cocaine abuse, patient reports that she last used cocaine a few weeks ago. She denies use of drugs in the past few days. Patient does have history of HIV, reports that she currently is not on any retrovirals. Patient did have immunology on September 05, 2016, patient has an absolute CD4 count of less than 20 and percent CD4 cells of less than 5. Patient reports that she follows with Dr. Yousif in the office. PFS Past Medical History Asthma: Yes Autoimmune Disease: Yes (HIV +, AIDS ) Anxiety: Yes Depression: Yes Cancer: No Cardiovascular Problems: No Diminished Hearing: No Gastrointestinal Disorders: Yes (pancreatitis) Genitourinary: No Headaches: Yes Hypertension: Yes Implanted Vascular Access Dvce: No Musculoskeletal: No Neurologic: No Psychiatric: No Respiratory: Yes (BRONCHITIS) Immunizations Current: Yes Pancreatitis: Yes ?: Not LMP: IRREGULAR : 3 Para: 3 Miscarriage: 0 : 0 Past Surgical History Section: Yes ( CS X 2 ) Gynecologic Surgery: Yes (c section) Oral Surgery: Yes (jaw surgery 2016) Other Surgery: Yes Social History Alcohol Use: Yes (FORMERLY DAILY) Tobacco Use: Yes (SOME DAYS CIGARETTES (1 PACK/MONTH)) Substance Use: Yes (Crack Cocaine daily) Allergies-Medications (Allergen,Severity, Reaction): Coded Allergies: No Known Allergies (Verified , 10/12/16) Reported Meds & Prescriptions Reported Meds & Active Scripts Active Flexeril (Cyclobenzaprine HCl) 10 Mg Tab 10 Mg PO TID Magic Mouthwash Adult Liq (Multi-Ingredient Mouthwash/Gargle) 120 Ml Susp 10 Ml SWISH-SWAL QID PRN 7 Days Pancreaze (Pancrelipase) 21,000-37,000-61,000 Units Cap 1 Cap PO TIDPC Acyclovir 200 Mg Cap 400 Mg PO Q8HR 14 Days Azithromycin 600 Mg Tab 1,200 Mg PO Q7D 30 Days Magnesium Oxide 400 Mg Tab 400 Mg PO DAILY 30 Days Diflucan (Fluconazole) 200 Mg Tab 200 Mg PO Q24H 3 Days Sucralfate Liq (Sucralfate) 1 Gm/10 Ml Susana 1 Gm PO ACHS 30 Days Omeprazole 40 Mg Cap 40 Mg PO DAILY Bactrim DS (Sulfamethoxazole-Trimethoprim) 800-160 Mg Tab 1 Tab PO MOWEFR@09 30 Days Review of Systems General / Constitutional: No: Fever Eyes: No: Visual changes HENT: No: Headaches Cardiovascular: Positive: Chest Pain or Discomfort Respiratory: Positive: Shortness of Breath Gastrointestinal: No: Abdominal Pain Genitourinary: No: Dysuria Musculoskeletal: No: Pain Skin: No Rash Neurologic: No: Weakness Psychiatric: Positive: Anxiety, No: Depression Endocrine: No: Polydipsia Hematologic/Lymphatic: No: Easy Bruising Physical Exam Narrative GENERAL: No acute distress SKIN: Warm and dry. HEAD: Atraumatic. Normocephalic. EYES: Pupils equal and round. No scleral icterus. No injection or drainage. ENT: No nasal bleeding or discharge. Mucous membranes pink and moist. NECK: Trachea midline. No JVD. CARDIOVASCULAR: Regular rate and rhythm. No murmur appreciated. RESPIRATORY: No accessory muscle use. Clear to auscultation. Breath sounds equal bilaterally. GASTROINTESTINAL: Abdomen soft, non-tender, nondistended. Hepatic and splenic margins not palpable. MUSCULOSKELETAL: No obvious deformities. No clubbing. No cyanosis. No edema. NEUROLOGICAL: Awake and alert. No obvious cranial nerve deficits. Motor grossly within normal limits. Normal speech. PSYCHIATRIC: Patient anxious on exam Data Data Last Documented VS Vital Signs Date Time Temp Pulse Resp B/P Pulse Ox O2 Delivery O2 Flow Rate FiO2 10/12/16 09:00 71 16 146/106 98 Room Air 10/12/16 04:58 97.5 Orders Electrocardiogram (10/12/16 05:48) Ckmb (Isoenzyme) Profile (10/12/16 07:36) Complete Blood Count With Diff (10/12/16 07:36) Comprehensive Metabolic Panel (10/12/16 07:36) Prothrombin Time / Inr (Pt) (10/12/16 07:36) Act Partial Throm Time (Ptt) (10/12/16 07:36) Troponin I (10/12/16 07:36) Chest, Single Ap (10/12/16 07:36) Ecg Monitoring (10/12/16 07:36) Iv Access Insert/Monitor (10/12/16 07:36) Sodium Chloride 0.9% Flush (Ns Flush) (10/12/16 07:45) Sodium Chlorid 0.9% 500 Ml Inj (Ns 500 M (10/12/16 07:45) Drug Screen, Random Urine (10/12/16 07:36) Ed Urine Pregnancytest Poc (10/12/16 07:37) Ketorolac Inj (Toradol Inj) (10/12/16 08:00) Labs Laboratory Tests Test 10/12/16 08:40 White Blood Count 1.9 TH/MM3 Red Blood Count 3.03 MIL/MM3 Hemoglobin 8.6 GM/DL Hematocrit 25.9 % Mean Corpuscular Volume 85.3 FL Mean Corpuscular Hemoglobin 28.4 PG Mean Corpuscular Hemoglobin 33.2 % Concent Red Cell Distribution Width 21.3 % Platelet Count 186 TH/MM3 Mean Platelet Volume 8.0 FL Neutrophils (%) (Auto) 57.1 % Lymphocytes (%) (Auto) 28.6 % Monocytes (%) (Auto) 11.3 % Eosinophils (%) (Auto) 2.5 % Basophils (%) (Auto) 0.5 % Neutrophils # (Auto) 1.1 TH/MM3 Lymphocytes # (Auto) 0.5 TH/MM3 Monocytes # (Auto) 0.2 TH/MM3 Eosinophils # (Auto) 0.0 TH/MM3 Basophils # (Auto) 0.0 TH/MM3 CBC Comment AUTO DIFF Differential Total Cells 100 Counted Neutrophils % (Manual) 59 % Band Neutrophils % 5 % Lymphocytes % 33 % Monocytes % 3 % Neutrophils # (Manual) 1.2 TH/MM3 Differential Comment FINAL DIFF MANUAL Platelet Estimate NORMAL Platelet Morphology Comment NORMAL Tear Drop Cells 1+ Ovalocytes 2+ Prothrombin Time 10.7 SEC Prothromb Time International 1.0 RATIO Ratio Activated Partial 24.3 SEC Thromboplast Time Sodium Level 141 MEQ/L Potassium Level 3.1 MEQ/L Chloride Level 106 MEQ/L Carbon Dioxide Level 26.5 MEQ/L Anion Gap 9 MEQ/L Blood Urea Nitrogen 6 MG/DL Creatinine 0.64 MG/DL Estimat Glomerular Filtration 134 ML/MIN Rate Random Glucose 80 MG/DL Calcium Level 8.3 MG/DL Total Bilirubin 0.4 MG/DL Aspartate Amino Transf 22 U/L (AST/SGOT) Alanine Aminotransferase 17 U/L (ALT/SGPT) Alkaline Phosphatase 59 U/L Total Creatine Kinase 65 U/L Troponin I LESS THAN 0.02 NG/ML Total Protein 6.6 GM/DL Albumin 2.7 GM/DL MDM Medical Decision Making Medical Screen Exam Complete: Yes Emergency Medical Condition: Yes Interpretation(s) EKG at 0636: Sinus bradycardia at 56 bpm, QT/QTc 477/470. No acute ST or T- wave changes. EKG comparable to EKG from October 07, 2016. Vital Signs Date Time Temp Pulse Resp B/P Pulse Ox O2 Delivery O2 Flow Rate FiO2 10/12/16 07:26 17 10/12/16 04:58 97.5 80 16 120/80 99 Room Air Differential Diagnosis Chest pain, cocaine abuse, arrhythmia, electrolyte abnormality, pneumothorax Narrative Course Patient is a 30-year-old female with hx of HIV, cocaine abuse, presents to ER with c/o of chest pain. Patient reports that her chest pain is sharp and stabbing in nature and is similar in nature as to her previous ER visits for chest pain. Patient was placed on vehicle monitor technician upon presentation to ER. EKG obtained, patient sinus bradycardia with no acute ST or T-wave changes. EKG compared to previous EKGs and there are no changes. X-ray chest ordered. CBC, BMP, cardiac enzymes, urine drug screen ordered for further evaluation symptoms. All labs and all studies reviewed with patient in detail. All incidental findings reviewed with patient. Patient currently with no chest pain in ER and reports complete resolution of symptoms. Patient currently refusing to give urine sample, patient continuous to use the restroom and keeps "forgetting" to give urine sample. Patient last use of cocaine was a few weeks ago. I do not think the patient is currently having cocaine chest pain at this time. EKG is stable with no changes when compared to previous EKGs. Patient most likely with atypical chest pain. Discussed need for patient to follow up with her primary care doctor as well as research pharmacist as outpatient. Signs and symptoms of when to return to the emergency room reviewed with patient. Patient also understands importance of following up with her infectious disease specialist for HIV is I did review her CD4 count from August with her. Diagnosis Primary Impression: Atypical chest pain Additional Impressions: Malingering Hypokalemia Referrals: Dereck Mercer MD, Eloisa G MD Patient Instructions: General Instructions Additional Instructions: *Please provide patient with a copy of her labs at discharge* Please follow-up with your primary care doctor as well as infectious disease and research pharmacist as soon as possible Please return to ER as needed Disposition: 01 DISCHARGE HOME Condition: Stable Joslyn Tamayo DO Oct 12, 2016 07:47
[2016-10-12] MEDS ORDERED: KETOROLAC TROMETHAMINE 30 MG/ML (IVP) VIAL IV PUSH ONE (08:00)
--- NOTE | 2016-10-12 08:12 | RADRPT ---
EXAM DATE/TIME: 10/12/2016 07:39 [facility] COMPARISON: CHEST SINGLE AP, September 30, 2016, 21:21. INDICATIONS : Chest pains radiating into left lateral rib area. MEDICAL HISTORY : None. SURGICAL HISTORY : None. ENCOUNTER: Initial ACUITY: 2 days PAIN SCORE: 8/10 LOCATION: Left chest FINDINGS: A single view of the chest demonstrates the lungs to be symmetrically aerated without evidence of mas s, infiltrate or effusion. The cardiomediastinal contours are unremarkable. Osseous structures are intact. CONCLUSION: No evidence of acute cardiopulmonary disease. Fredo Nicole MD on October 12, 2016 at 8:10 Board Certified Radiologist. This report was verified electronically.
[2016-10-12 08:55] LABS: AUTOMATED NEUTROPHIL # 1.1 TH/MM3 (1.8-7.7); BASOPHIL % 0.5 % (0.0-2.0); EOSINOPHIL % 2.5 % (0.0-4.0); HEMATOCRIT 25.9 % (35.0-46.0); LYMPH % 28.6 % (9.0-44.0); LYMPHOCYTE # 0.5 TH/MM3 (1.0-4.8); MEAN CELL VOLUME 85.3 FL (80.0-100.0); MEAN CORPUSCULAR HEMOGLOBIN 28.4 PG (27.0-34.0); MEAN CORPUSCULAR HGB CONC 33.2 % (32.0-36.0); MONO % 11.3 % (0.0-8.0); NEUT % 57.1 % (16.0-70.0); PLATELET COUNT 186 TH/MM3 (150-450); RED BLOOD COUNT 3.03 MIL/MM3 (4.00-5.30); RED CELL DISTRIBUTION WIDTH 21.3 % (11.6-17.2); WHITE BLOOD COUNT 1.9 TH/MM3 (4.0-11.0)
[2016-10-12 08:58] LABS: APTT (PATIENT) 24.3 SEC (24.3-30.1); PROTHROMBIN TIME - PATIENT 10.7 SEC (9.8-11.6)
[2016-10-12 09:00] VITALS: BP 146/106; PULSE 71; RESP 16; O2SAT 98
[2016-10-12 09:01] LABS: HEMO FLAGS AUTO DIFF
[2016-10-12 09:09] LABS: ANION GAP 9 MEQ/L (5-15); AST (GOT) 22 U/L (15-37); BICARBONATE 26.5 MEQ/L (21.0-32.0); BLOOD UREA NITROGEN 6 MG/DL (7-18); CHLORIDE 106 MEQ/L (98-107); GLOMERULAR FILTRATION RATE 134 ML/MIN (>89); SODIUM (NA) 141 MEQ/L (136-145)
[2016-10-12 09:12] LABS: POTASSIUM 3.1 MEQ/L (3.5-5.1)
[2016-10-12 09:16] LABS: ALKALINE PHOSPHATASE 59 U/L (45-117); ALT (GPT) 17 U/L (10-53); TOTAL BILIRUBIN ADULT 0.4 MG/DL (0.2-1.0)
[2016-10-12 09:20] LABS: CREATINE KINASE 65 U/L (26-192)
[2016-10-12 10:05] LABS: BANDS 5 % (0-6); NEUTROPHIL # MANUAL DIFF 1.2 TH/MM3 (1.8-7.7); POLYS (SEG NEUTROPHILS) 59 % (16-70); WBC DIFF SAMPLE 100
[2016-10-12 10:07] LABS: OVALOCYTES 2+ (NORMAL); PLATELET ESTIMATE SMEAR NORMAL (NORMAL); PLATELET MORPHOLOGY NORMAL (NORMAL); SCAN/DIFF FINAL DIFF MANUAL; TEARDROP RBCS 1+ (NORMAL)
--- NOTE | 2016-10-12 11:31 | EKG ---
Date Performed: 10/12/2016 Time Performed: 06:36:25 PTAGE: 30 years EKG: SINUS BRADYCARDIA PROLONGED QT INTERVAL Compared to previous tracing, QT interval has incre ased. ABNORMAL ECG PREVIOUS TRACING : 10/10/2016 00.24.48 DOCTOR: Brendon King Interpretating Date/Time 10/12/2016 11:31:04
[2016-10-13] MEDS ORDERED: LIDO4CRE5 RECTAL ×2 (00:55→00:56)
== END 2016-10-12 11:35 | disposition home or self-care (01) ==
LOC: NEPE 04:31
DX: R07.89 Other chest pain (principal); B20 Human immunodeficiency virus [HIV] disease; E87.6 Hypokalemia; Z76.5 Malingerer [conscious simulation]
CPT/HCPCS: 71010; 80053; 82550; 84484; 85007; 85027; 85610; 85730; 93005; 96361; 96374; 99284; J1885; J7040

== ENCOUNTER 2016-10-12 23:22 | Emergency (ER) | payer SELFPAY ==
[~2016-10-12] VITALS: Ht 175.3 cm; Wt 98.0 kg
[2016-10-12 23:31] VITALS: BP 141/93; PULSE 79; RESP 20; TEMP 97.8; O2SAT 99
[2016-10-12 23:39] VITALS: BP 141/93; PULSE 73; RESP 20; O2SAT 100
--- NOTE | 2016-10-13 00:54 | PD ---
HPI Chief Complaint: Chest Pain Time Seen by Provider: 23:37 Travel History International Travel<30 days: No Contact w/Intl Traveler<30days: No Traveled to known affect area: No History of Present Illness HPI 22-year-old female well known to this department for recurrent admissions for chest pain presents today with 2 complaints. First of all she's having her normal chest pain episodes. She has had multiple workups including a workup today which was negative troponin and negative EKG. She has a second complaint which is new for her which is rectal pain. Patient does have a history of HIV. Denies any rectal bleeding or rectal discharge. Denies any nausea vomiting or diarrhea or abdominal pain. Review of the records show the patient was seen earlier today had full workup including labs chest x-ray as well has EKG and troponin all of which were reassuring. She was discharged home. Patient has multiple complaints this month for very similar and has been worked up multiple times. PFSH Past Medical History Asthma: Yes Autoimmune Disease: Yes (HIV +, AIDS ) Anxiety: Yes Depression: Yes Cancer: No Cardiovascular Problems: No Diminished Hearing: No Gastrointestinal Disorders: Yes (pancreatitis) Genitourinary: No Headaches: Yes Hypertension: Yes Implanted Vascular Access Dvce: No Musculoskeletal: No Neurologic: No Psychiatric: No Respiratory: Yes (BRONCHITIS) Immunizations Current: Yes Pancreatitis: Yes ?: Not LMP: UNKNOWN : 3 Para: 3 Miscarriage: 0 : 0 Past Surgical History Section: Yes ( CS X 2 ) Gynecologic Surgery: Yes (c section) Oral Surgery: Yes (jaw surgery 2016) Other Surgery: Yes Social History Alcohol Use: Yes (FORMERLY DAILY) Tobacco Use: Yes (SOME DAYS CIGARETTES (1 PACK/MONTH)) Substance Use: Yes (Crack Cocaine daily) Allergies-Medications (Allergen,Severity, Reaction): Coded Allergies: No Known Allergies (Verified , 10/14/16) Reported Meds & Prescriptions Reported Meds & Active Scripts Active Lidocaine Rectal 5 % Cream 1 Applic RECTAL BID PRN Flexeril (Cyclobenzaprine HCl) 10 Mg Tab 10 Mg PO TID Magic Mouthwash Adult Liq (Multi-Ingredient Mouthwash/Gargle) 120 Ml Susp 10 Ml SWISH-SWAL QID PRN 7 Days Pancreaze (Pancrelipase) 21,000-37,000-61,000 Units Cap 1 Cap PO TIDPC Acyclovir 200 Mg Cap 400 Mg PO Q8HR 14 Days Azithromycin 600 Mg Tab 1,200 Mg PO Q7D 30 Days Magnesium Oxide 400 Mg Tab 400 Mg PO DAILY 30 Days Diflucan (Fluconazole) 200 Mg Tab 200 Mg PO Q24H 3 Days Sucralfate Liq (Sucralfate) 1 Gm/10 Ml Susana 1 Gm PO ACHS 30 Days Omeprazole 40 Mg Cap 40 Mg PO DAILY Bactrim DS (Sulfamethoxazole-Trimethoprim) 800-160 Mg Tab 1 Tab PO MOWEFR@09 30 Days Review of Systems Except as stated in HPI: all other systems reviewed are Neg Physical Exam Narrative GENERAL: Well-developed well-nourished in no apparent distress SKIN: Warm and dry. HEAD: Atraumatic. Normocephalic. EYES: Pupils equal and round. No scleral icterus. No injection or drainage. ENT: No nasal bleeding or discharge. Mucous membranes pink and moist. NECK: Trachea midline. No JVD. CARDIOVASCULAR: Regular rate and rhythm. No murmur appreciated. RESPIRATORY: No accessory muscle use. Clear to auscultation. Breath sounds equal bilaterally. GASTROINTESTINAL: Abdomen soft, non-tender, nondistended. Hepatic and splenic margins not palpable. Rectal exam: There is some mild irritation of the skin perirectally. There is no abscess no anal tears no discharge. Minimally tender to palpation. MUSCULOSKELETAL: No obvious deformities. No clubbing. No cyanosis. No edema. NEUROLOGICAL: Awake and alert. No obvious cranial nerve deficits. Motor grossly within normal limits. Normal speech. PSYCHIATRIC: Appropriate mood and affect; insight and judgment normal. Data Data Last Documented VS Vital Signs Date Time Temp Pulse Resp B/P Pulse Ox O2 Delivery O2 Flow Rate FiO2 10/13/16 01:22 65 17 132/87 100 Room Air 10/12/16 23:31 97.8 Orders Electrocardiogram (10/12/16 ) Lidocaine 2% Jelly (Xylocaine 2% Jelly) (10/13/16 01:00) [facility] Medical Decision Making Medical Screen Exam Complete: Yes Emergency Medical Condition: Yes Interpretation(s) EKG shows normal sinus rhythm with normal axis and normal R-wave progression. No concerning ST T changes time intervals within normal limits. This is a normal EKG and unchanged from previous. Differential Diagnosis Rectal pain, rectal fissure, rectal abscess highly unlikely, rectal mass highly unlikely, ACS is highly unlikely, PE highly unlikely. Narrative Course Patient was remembers department, she has multiple presentations emergency department for chest pain. Her new presentation today is rectal pain which is apparently started since this morning when she was seen here. She had complete labs at that time which are reassuring. She has no mass and no abscess that I can appreciate on her rectal exam. She is stable for discharge at this time. Discussed symptomatically management follow-up with the primary care physician and return to ED criteria. She was prescribed viscous lidocaine for her rectal pain. Diagnosis Primary Impression: Rectal pain Additional Impression: Chest pain Med/Other Pt SpecificInfo: Prescription(s) given Scripts Lidocaine Rectal 5 % Cream1 Applic RECTAL BID PRN (PAIN) #1 TUBE Ref 0 Prov:Terell Thompson MD 10/13/16 Disposition: 01 DISCHARGE HOME Condition: Stable Terell Thompson MD Oct 13, 2016 00:54
[2016-10-13] MEDS ORDERED: LIDO4CRE5 RECTAL ×2 (00:55→00:56)
[2016-10-13] MEDS ORDERED: LIDOCAINE 2% JELLY 30 ML TUBE TOPICAL ONE (01:00)
[2016-10-13 01:22] VITALS: BP 132/87; PULSE 65; RESP 17; O2SAT 100
--- NOTE | 2016-10-13 17:37 | EKG ---
Date Performed: 10/12/2016 Time Performed: 23:47:19 PTAGE: 30 years EKG: Sinus rhythm Possible left ventricular hypertrophy. When compared to previous tracing, the QT prolongation has Re solved. NORMAL ECG PREVIOUS TRACING : 10/12/2016 06.36 DOCTOR: Christine Avina Interpretating Date/Time 10/13/2016 17:37:13
== END 2016-10-13 01:25 | disposition home or self-care (01) ==
LOC: NEPE 23:22
DX: K62.89 Other specified diseases of anus and rectum (principal); B20 Human immunodeficiency virus [HIV] disease; R07.9 Chest pain, unspecified
CPT/HCPCS: 93005

== ENCOUNTER 2016-10-14 01:55 | Emergency (ER) | payer SELFPAY ==
[~2016-10-14] VITALS: Ht 172.7 cm; Wt 80.0 kg
[~2016-10-14 01:55] MED LIST changes: +LIDO4CRE5 RECTAL
[2016-10-14 01:58] VITALS: BP 162/97; PULSE 67; RESP 18; TEMP 98.9; O2SAT 100
[2016-10-14 03:39] LABS: AMPHETAMINE, URINE NEG (NEG); AUTOMATED NEUTROPHIL # 1.3 TH/MM3 (1.8-7.7); BARBITURATES, URINE NEG (NEG); BASOPHIL % 0.6 % (0.0-2.0); COCAINE, URINE NEG (NEG); EOSINOPHIL % 2.4 % (0.0-4.0); HEMATOCRIT 24.8 % (35.0-46.0); HEMO FLAGS DIFF FINAL; LYMPH % 25.7 % (9.0-44.0); LYMPHOCYTE # 0.5 TH/MM3 (1.0-4.8); MEAN CELL VOLUME 85.5 FL (80.0-100.0); MEAN CORPUSCULAR HEMOGLOBIN 28.8 PG (27.0-34.0); MEAN CORPUSCULAR HGB CONC 33.7 % (32.0-36.0); MONO % 9.6 % (0.0-8.0); NEUT % 61.7 % (16.0-70.0); PLATELET COUNT 189 TH/MM3 (150-450); RED BLOOD COUNT 2.89 MIL/MM3 (4.00-5.30); RED CELL DISTRIBUTION WIDTH 20.9 % (11.6-17.2)
[2016-10-14 03:53] LABS: ANION GAP 9 MEQ/L (5-15); AST (GOT) 26 U/L (15-37); BICARBONATE 26.7 MEQ/L (21.0-32.0); BLOOD UREA NITROGEN 5 MG/DL (7-18); CHLORIDE 108 MEQ/L (98-107); GLOMERULAR FILTRATION RATE 111 ML/MIN (>89); POTASSIUM 3.2 MEQ/L (3.5-5.1); SODIUM (NA) 144 MEQ/L (136-145)
[2016-10-14 03:56] LABS: ACETAMINOPHEN 5.6 MCG/ML (10.0-30.0); ALKALINE PHOSPHATASE 64 U/L (45-117); ALT (GPT) 21 U/L (10-53); TOTAL BILIRUBIN ADULT 0.4 MG/DL (0.2-1.0)
--- NOTE | 2016-10-14 06:35 | PD ---
HPI Chief Complaint: Psychiatric Symptoms Time Seen by Provider: 02:23 Travel History International Travel<30 days: No Contact w/Intl Traveler<30days: No Traveled to known affect area: No History of Present Illness HPI Patient is a 30-year-old female who has been to the emergency department multiple times the last few days. She was here yesterday morning yesterday evening and again now. She says she has been hallucinating and seeing animals where there are no animals. She is very vague on any complaints at this time. First she says she has some pain, then she says she can't sleep because she is having nightmares. She cannot really tell me why she is here what she wants. PFSH Past Medical History Asthma: Yes Autoimmune Disease: Yes (HIV +, AIDS ) Anxiety: Yes Depression: Yes Cancer: No Cardiovascular Problems: No Diminished Hearing: No Gastrointestinal Disorders: Yes (pancreatitis) Genitourinary: No Headaches: Yes Hypertension: Yes Implanted Vascular Access Dvce: No Musculoskeletal: No Neurologic: No Psychiatric: No Respiratory: Yes (BRONCHITIS) Immunizations Current: Yes Pancreatitis: Yes ?: Not : 4 Para: 4 Miscarriage: 0 : 0 Past Surgical History Section: Yes ( CS X 2 ) Gynecologic Surgery: Yes (c section) Oral Surgery: Yes (jaw surgery 2016) Other Surgery: Yes Social History Alcohol Use: Yes (FORMERLY DAILY) Tobacco Use: Yes (SOME DAYS CIGARETTES (1 PACK/MONTH)) Substance Use: Yes (Crack Cocaine daily) Allergies-Medications (Allergen,Severity, Reaction): Coded Allergies: No Known Allergies (Verified , 10/15/16) Reported Meds & Prescriptions Reported Meds & Active Scripts Active No Active Prescriptions or Reported Medications Review of Systems Except as stated in HPI: all other systems reviewed are Neg General / Constitutional: No: Fever, Chills Eyes: No: Diploplia HENT: No: Headaches, Lightheadedness Cardiovascular: No: Chest Pain or Discomfort Respiratory: No: Shortness of Breath Gastrointestinal: No: Nausea, Vomiting Musculoskeletal: Positive: Myalgias Skin: No Rash, No Change in Pigmentation Neurologic: No: Weakness, Dizziness Physical Exam Narrative GENERAL: Awake and alert in no acute distress. SKIN: Warm and dry. HEAD: Atraumatic. Normocephalic. EYES: Pupils equal and round. No scleral icterus. ENT: Mucous membranes pink and moist. NECK: Trachea midline. No JVD. CARDIOVASCULAR: Regular rate and rhythm. No murmur appreciated. RESPIRATORY: No accessory muscle use. Clear to auscultation. Breath sounds equal bilaterally. MUSCULOSKELETAL: No obvious deformities. No clubbing. No cyanosis. No edema. NEUROLOGICAL: Awake and alert. No obvious cranial nerve deficits. Motor grossly within normal limits. Normal speech. PSYCHIATRIC: Appropriate mood and affect; insight and judgment normal. Data Data Last Documented VS Vital Signs Date Time Temp Pulse Resp B/P Pulse Ox O2 Delivery O2 Flow Rate FiO2 10/14/16 08:44 66 16 150/70 99 Room Air 10/14/16 01:58 98.9 Orders Complete Blood Count With Diff (10/14/16 02:25) Comprehensive Metabolic Panel (10/14/16 02:25) Drug Screen, Random Urine (10/14/16 02:25) Alcohol (Ethanol) (10/14/16 02:25) Salicylates (Aspirin) (10/14/16 02:25) Tylenol (Acetaminophen) (10/14/16 02:25) Psych Screen (10/14/16 02:25) Labs Laboratory Tests Test 10/14/16 02:50 White Blood Count 2.0 TH/MM3 Red Blood Count 2.89 MIL/MM3 Hemoglobin 8.3 GM/DL Hematocrit 24.8 % Mean Corpuscular Volume 85.5 FL Mean Corpuscular Hemoglobin 28.8 PG Mean Corpuscular Hemoglobin 33.7 % Concent Red Cell Distribution Width 20.9 % Platelet Count 189 TH/MM3 Mean Platelet Volume 7.6 FL Neutrophils (%) (Auto) 61.7 % Lymphocytes (%) (Auto) 25.7 % Monocytes (%) (Auto) 9.6 % Eosinophils (%) (Auto) 2.4 % Basophils (%) (Auto) 0.6 % Neutrophils # (Auto) 1.3 TH/MM3 Lymphocytes # (Auto) 0.5 TH/MM3 Monocytes # (Auto) 0.2 TH/MM3 Eosinophils # (Auto) 0.0 TH/MM3 Basophils # (Auto) 0.0 TH/MM3 CBC Comment DIFF FINAL Differential Comment Sodium Level 144 MEQ/L Potassium Level 3.2 MEQ/L Chloride Level 108 MEQ/L Carbon Dioxide Level 26.7 MEQ/L Anion Gap 9 MEQ/L Blood Urea Nitrogen 5 MG/DL Creatinine 0.75 MG/DL Estimat Glomerular Filtration 111 ML/MIN Rate Random Glucose 75 MG/DL Calcium Level 8.3 MG/DL Total Bilirubin 0.4 MG/DL Aspartate Amino Transf 26 U/L (AST/SGOT) Alanine Aminotransferase 21 U/L (ALT/SGPT) Alkaline Phosphatase 64 U/L Total Protein 6.5 GM/DL Albumin 3.0 GM/DL Salicylates Level LESS THAN 1.7 MG/DL Urine Opiates Screen NEG Acetaminophen Level 5.6 MCG/ML Urine Barbiturates Screen NEG Urine Amphetamines Screen NEG Urine Benzodiazepines Screen NEG Urine Cocaine Screen NEG Urine Cannabinoids Screen NEG Ethyl Alcohol Level LESS THAN 3 MG/DL MDM Medical Decision Making Medical Screen Exam Complete: Yes Emergency Medical Condition: Yes Differential Diagnosis Psychosis versus drug abuse versus malingering Narrative Course Patient is a 30-year-old female who comes in with nonspecific complaints. Patient has been here many many times including 3 times within the past 24 hours. She has had extensive workups that have all been negative. Exam shows no acute abnormalities. Labs sent are unchanged from her previous labs. She was seen by the psych screener who does not feel she has any psychiatric issues at this time. Patient given community resource information. Patient will be discharged home. Diagnosis Primary Impression: Malingering Patient Instructions: General Instructions Additional Instructions: Follow up in a community clinic. Return as needed for any worsening symptoms. Scripts No Active Prescriptions or Reported Meds Disposition: DISCHARGE HOME Condition: Jessica Villa MD Oct 14, 2016 06:35 Additional Instructions: Follow up in a community clinic. Return as needed for any worsening symptoms. Disposition: 01 DISCHARGE HOME Condition: Jessica Villa MD Oct 14, 2016 06:35
[2016-10-14 08:44] VITALS: BP 150/70; PULSE 66; RESP 16; O2SAT 99
== END 2016-10-14 08:45 | disposition home or self-care (01) ==
LOC: NEPE 01:55
DX: Z76.5 Malingerer [conscious simulation] (principal); J45.909 Unspecified asthma, uncomplicated; I10 Essential (primary) hypertension; Z72.0 Tobacco use
CPT/HCPCS: 80053; 80307; 80320; 80329; 85025; 99284; G0480

== ENCOUNTER 2016-10-15 02:23 | Emergency (ER) | payer SELFPAY ==
[~2016-10-15] VITALS: Ht 172.7 cm; Wt 98.0 kg
[2016-10-15 02:25] VITALS: BP 168/92; PULSE 84; RESP 18; TEMP 98; O2SAT 99
--- NOTE | 2016-10-15 02:44 | PD ---
HPI Chief Complaint: Chest Pain Time Seen by Provider: 02:37 Travel History International Travel<30 days: No Contact w/Intl Traveler<30days: No Traveled to known affect area: No History of Present Illness HPI 30-year-old female here for the 15th time this month with complaint of chest pain. Pain is sharp, worse with movement. Patient has known history of crack abuse but states that she has not used recently. States that the pain is present for the better part of a month and she hasn't found anything that seems to help. Patient has had multiple ER workups with negative EKGs, cardiac enzymes and to previous CT pulmonary angiograms that were unremarkable. She is currently homeless and requests assistance with lack of domicile. PFSH Past Medical History Asthma: Yes Autoimmune Disease: Yes (HIV +, AIDS ) Anxiety: Yes Depression: Yes Cancer: No Cardiovascular Problems: No Diminished Hearing: No Gastrointestinal Disorders: Yes (pancreatitis) Genitourinary: No Headaches: Yes Hypertension: Yes Implanted Vascular Access Dvce: No Musculoskeletal: No Neurologic: No Psychiatric: No Respiratory: Yes (BRONCHITIS) Immunizations Current: Yes Pancreatitis: Yes ?: Not LMP: 10/12/16 : 4 Para: 4 Miscarriage: 0 : 0 Past Surgical History Section: Yes ( CS X 2 ) Gynecologic Surgery: Yes (c section) Oral Surgery: Yes (jaw surgery 2016) Other Surgery: Yes Social History Alcohol Use: Yes (FORMERLY DAILY) Tobacco Use: Yes (SOME DAYS CIGARETTES (1 PACK/MONTH)) Substance Use: Yes (Crack Cocaine daily) Allergies-Medications (Allergen,Severity, Reaction): Coded Allergies: No Known Allergies (Verified , 10/15/16) Reported Meds & Prescriptions Reported Meds & Active Scripts Active No Active Prescriptions or Reported Medications Review of Systems ROS Limitations: Poor Historian Except as stated in HPI: all other systems reviewed are Neg Physical Exam Exam Limitations: Poor Historian Narrative GENERAL: female in no acute distress, disheveled SKIN: Warm and dry. HEAD: Normocephalic. EYES: No scleral icterus. No injection or drainage. ENT: Mucous membranes pink and moist. NECK: Supple CARDIOVASCULAR: Regular rate and rhythm. No murmur appreciated. Reproducible tenderness to palpation of the chest wall RESPIRATORY: No accessory muscle use. Clear to auscultation. Breath sounds equal bilaterally. GASTROINTESTINAL: Abdomen soft, obese MUSCULOSKELETAL: Normal gait NEUROLOGICAL: Awake and alert. Normal speech. PSYCHIATRIC: Poor insight and judgment Data Data Last Documented VS Vital Signs Date Time Temp Pulse Resp B/P Pulse Ox O2 Delivery O2 Flow Rate FiO2 10/15/16 02:25 98.0 84 18 168/92 99 Room Air Orders Electrocardiogram (10/15/16 ) MDM Medical Decision Making Medical Screen Exam Complete: Yes Emergency Medical Condition: Yes Medical Record Reviewed: Yes Differential Diagnosis 30-year-old homeless female here for the 15th time this month with complaint of chest pain. Pain is very reproducible on exam, as it always is, consistent with musculoskeletal etiology. She has had a repetitive workups for coronary vascular disease, PEs all of which have been negative. Patient is currently homeless and requests assistance with lack of halfway, I suspect this is much of wits causing her to her frequent our emergency department. Narrative Course Twelve-lead EKG shows sinus rhythm without notable ST abnormalities, normal intervals. Patient reassured, instructed to take Tylenol and ibuprofen and discharged home. Diagnosis Primary Impression: Malingering Additional Impression: Chest wall pain Referrals: [facility] Additional Instructions: The emergency department is for use of emergent medical conditions. Recurrent visits for chronic pain and nonemergent complaints is an inappropriate use of the emergency department. You need to establish care with a primary care provider. Med/Other Pt SpecificInfo: No Change to Meds Scripts No Active Prescriptions or Reported Meds Disposition: DISCHARGE HOME Condition: Mayte Price MD Oct 15, 2016 02:44 The emergency department is for use of emergent medical conditions. Recurrent visits for chronic pain and nonemergent complaints is an inappropriate use of the emergency department. You need to establish care with a primary care provider. Med/Other Pt SpecificInfo: No Change to Meds Disposition: 01 DISCHARGE HOME Condition: Mayte Price MD Oct 15, 2016 02:44
[2016-10-15 03:09] VITALS: BP 160/90
--- NOTE | 2016-10-15 15:49 | EKG ---
Date Performed: 10/15/2016 Time Performed: 02:48:22 PTAGE: 30 years EKG: Sinus rhythm NONSPECIFIC T-WAVE ABNORMALITY Possible left ventricular hypertrophy with ST changes Largely unchang ed from prior tracing BORDERLINE ECG PREVIOUS TRACING : 10/12/2016 23.47 DOCTOR: Raymond Madrigal Interpretating Date/Time 10/15/2016 15:48:31
== END 2016-10-15 03:28 | disposition home or self-care (01) ==
LOC: NEPE 02:23
DX: R07.89 Other chest pain (principal); F17.210 Nicotine dependence, cigarettes, uncomplicated; B20 Human immunodeficiency virus [HIV] disease; I10 Essential (primary) hypertension; J45.909 Unspecified asthma, uncomplicated; R94.31 Abnormal electrocardiogram [ECG] [EKG]
CPT/HCPCS: 93005

== ENCOUNTER 2016-10-17 21:28 | Emergency (ER) | payer SELFPAY ==
[~2016-10-17] VITALS: Ht 175.3 cm; Wt 99.0 kg
[2016-10-17 21:30] VITALS: BP 139/85; PULSE 72; RESP 16; TEMP 98.3; O2SAT 100
[2016-10-17] MEDS ORDERED: NAPROXEN 500 MG TAB PO ONE (22:15)
[2016-10-17] MEDS ORDERED: diphenhydrAMINE HCL 50 MG CAP PO ONE (22:15)
--- NOTE | 2016-10-17 22:15 | PD ---
HPI Chief Complaint: Headache Time Seen by Provider: 22:12 Travel History International Travel<30 days: No Contact w/Intl Traveler<30days: No Traveled to known affect area: No History of Present Illness HPI 30-year-old black female presents to emergency department with complaints of headache. This is her 16th visit this past month. She has a history of substance abuse and chronic chest pain. She states that she developed a headache this evening when she went to lay down. She states it was in the back of her head around to the right side and behind her eyes. She denies any nausea vomiting. No numbness, tingling or weakness. No fever chills. No visual changes. PFSH Past Medical History Asthma: Yes Autoimmune Disease: Yes (HIV +, AIDS ) Anxiety: Yes Depression: Yes Cancer: No Cardiovascular Problems: Yes (CHEST PAIN) Diminished Hearing: No Gastrointestinal Disorders: Yes (pancreatitis) Genitourinary: No Headaches: Yes Hypertension: Yes Implanted Vascular Access Dvce: No Musculoskeletal: No Neurologic: No Psychiatric: No Respiratory: Yes (BRONCHITIS) Immunizations Current: Yes Pancreatitis: Yes : 4 Para: 4 Miscarriage: 0 : 0 Past Surgical History Section: Yes ( CS X 2 ) Gynecologic Surgery: Yes (c section) Oral Surgery: Yes (jaw surgery 2016) Other Surgery: Yes Social History Alcohol Use: Yes (FORMERLY DAILY) Tobacco Use: Yes (SOME DAYS CIGARETTES (1 PACK/MONTH)) Substance Use: Yes (Crack Cocaine daily) Allergies-Medications (Allergen,Severity, Reaction): Coded Allergies: No Known Allergies (Verified , 10/17/16) Reported Meds & Prescriptions Reported Meds & Active Scripts Active No Active Prescriptions or Reported Medications Review of Systems Except as stated in HPI: all other systems reviewed are Neg Physical Exam Narrative GENERAL: Well-developed, well-nourished in no acute distress. Nontoxic appearing. The patient is resting comfortable in examination room. She does not appear to be in any distress. HEAD: Normocephalic, atraumatic. EYES: Pupils equal round and reactive. Extraocular motions intact. No scleral icterus. No injection or drainage. ENT: TMs clear without erythema. The external auditory canals clear. Nose: clear . Posterior pharynx is pink and moist. No tonsillar edema or exudate. Uvula midline. Airway patent. NECK: Trachea midline.Supple, nontender, moves head freely. No central bony tenderness or spasm. CARDIOVASCULAR: Regular rate and rhythm without murmurs, gallops, or rubs. RESPIRATORY: Clear to auscultation. Breath sounds equal bilaterally. No wheezes , rales, or rhonchi. GASTROINTESTINAL: Abdomen soft, non-tender, nondistended. No hepato-splenomegaly , or palpable masses. No guarding. EXTREMITIES: No clubbing, cyanosis, or edema. No joint tenderness, effusion, or edema noted. BACK: Nontender without deformity or crepitance. No flank tenderness. Data Data Last Documented VS Vital Signs Date Time Temp Pulse Resp B/P Pulse Ox O2 Delivery O2 Flow Rate FiO2 10/17/16 21:30 98.3 72 16 139/85 100 Orders Diphenhydramine (Benadryl) (10/17/16 22:15) Naproxen (Naprosyn) (10/17/16 22:15) [facility] Medical Decision Making Medical Screen Exam Complete: Yes Emergency Medical Condition: Yes Medical Record Reviewed: Yes Differential Diagnosis MDM: High Differential diagnoses: Subarachnoid hemorrhage, intracranial bleed, aneurysm, pseudotumor, migraine, cluster headache, atypical migraine, temporal arteritis, connective tissue disorder, hypertension, temporal arteritis, sinusitis, sinus headache,malingering Narrative Course The patient is given Benadryl 50 mg and Naprosyn 500 mg by mouth. This is cephalgia Diagnosis Primary Impression: Cephalgia Qualified Code: R51 - Acute nonintractable headache, unspecified headache type Patient Instructions: General Instructions Additional Instructions: Rest. Increase fluids. Follow-up with a medical doctor in one week. Return to the ER for emergencies. Med/Other Pt SpecificInfo: No Meds Exist/No RX given Scripts No Active Prescriptions or Reported Meds Disposition: 01 DISCHARGE HOME Condition: Stable Samy Reyes Oct 17, 2016 22:15
== END 2016-10-17 22:34 | disposition home or self-care (01) ==
LOC: NEPB 21:28
DX: R51 Headache (principal); J45.909 Unspecified asthma, uncomplicated; I10 Essential (primary) hypertension; K85.90 Acute pancreatitis without necrosis or infection, unspecified; Z72.0 Tobacco use; F14.10 Cocaine abuse, uncomplicated
CPT/HCPCS: 99283; Q0163

== ENCOUNTER 2016-10-18 23:18 | Emergency (ER) | payer SELFPAY ==
[~2016-10-18] VITALS: Ht 177.8 cm; Wt 92.0 kg
[2016-10-18 23:25] VITALS: BP 125/63; PULSE 82; RESP 16; TEMP 98.3; O2SAT 100
[2016-10-19] MEDS ORDERED: KETOROLAC TROMETHAMINE 60 MG/2 ML (IM) VIAL IM ONE (01:15)
--- NOTE | 2016-10-19 01:16 | PD ---
HPI Chief Complaint: Pain: Acute or Chronic Time Seen by Provider: 01:08 Travel History International Travel<30 days: No Contact w/Intl Traveler<30days: No Traveled to known affect area: No History of Present Illness HPI 30-year-old female who has been seen here multiple times over the course of the past few months with the same complaint of chest pain. She presents here for evaluation of the same. She had a sharp midsternal chest pain this evening at 10 PM when she was in a car. It has mostly subsided. She wants to make sure that she can safely travel to [place] tomorrow. She occasionally uses Tylenol for symptom relief. She has a history of crack abuse in the past but says that she has not used it for "a while." Denies shortness of breath, abdominal pain, cough, congestion. No other complaints. PFSH Past Medical History Asthma: Yes Autoimmune Disease: Yes (HIV +, AIDS ) Anxiety: Yes Depression: Yes Cancer: No Cardiovascular Problems: Yes (CHEST PAIN) Diminished Hearing: No Gastrointestinal Disorders: Yes (pancreatitis) Genitourinary: No Headaches: Yes Hypertension: Yes Implanted Vascular Access Dvce: No Musculoskeletal: No Neurologic: No Psychiatric: No Respiratory: Yes (BRONCHITIS) Immunizations Current: Yes Pancreatitis: Yes Tetanus Vaccination: Unknown Influenza Vaccination: No ?: Unknown : 4 Para: 4 Miscarriage: 0 : 0 Past Surgical History Section: Yes ( CS X 2 ) Gynecologic Surgery: Yes (c section) Oral Surgery: Yes (jaw surgery 2016) Other Surgery: Yes Social History Alcohol Use: Yes (FORMERLY DAILY) Tobacco Use: Yes (SOME DAYS CIGARETTES (1 PACK/MONTH)) Substance Use: Yes (Crack Cocaine daily) Allergies-Medications (Allergen,Severity, Reaction): Coded Allergies: No Known Allergies (Verified , 10/18/16) Reported Meds & Prescriptions Reported Meds & Active Scripts Active No Active Prescriptions or Reported Medications Review of Systems Except as stated in HPI: all other systems reviewed are Neg Physical Exam Narrative GENERAL: Well-nourished female in no acute distress SKIN: Warm and dry. HEAD: Atraumatic. Normocephalic. EYES: Pupils equal and round. No scleral icterus. No injection or drainage. ENT: No nasal bleeding or discharge. Mucous membranes pink and moist. NECK: Trachea midline. No JVD. CARDIOVASCULAR: Regular rate and rhythm. No murmur appreciated. RESPIRATORY: No accessory muscle use. Clear to auscultation. Breath sounds equal bilaterally. GASTROINTESTINAL: Abdomen soft, non-tender, nondistended. Hepatic and splenic margins not palpable. MUSCULOSKELETAL: No obvious deformities. Tender to palpation right upper chest wall. NEUROLOGICAL: Awake and alert. No obvious cranial nerve deficits. Motor grossly within normal limits. Normal speech. PSYCHIATRIC: Appropriate mood and affect; insight and judgment normal. Data Data Last Documented VS Vital Signs Date Time Temp Pulse Resp B/P Pulse Ox O2 Delivery O2 Flow Rate FiO2 10/18/16 23:25 98.3 82 16 125/63 100 Orders Electrocardiogram (10/18/16 ) [facility] Medical Decision Making Medical Screen Exam Complete: Yes Emergency Medical Condition: Yes Medical Record Reviewed: Yes Interpretation(s) EKG sinus rhythm Differential Diagnosis Costochondritis, acute coronary syndrome, pulmonary embolism, rib fracture, pneumothorax, hemothorax Narrative Course 30-year-old female has been seen here multiple times for evaluation of chest pain. She has reproducible chest wall pain. Normal EKG. Toradol initiated. Stable for discharge. Diagnosis Primary Impression: Atypical chest pain Med/Other Pt SpecificInfo: No Change to Meds Scripts No Active Prescriptions or Reported Meds Disposition: DISCHARGE HOME Condition: Stable Deeapk Ba Oct 19, 2016 01:15
--- NOTE | 2016-10-19 21:03 | EKG ---
Date Performed: 10/18/2016 Time Performed: 22:37:17 PTAGE: 30 years EKG: Sinus rhythm POSSIBLE LEFT ATRIAL ENLARGEMENT BORDERLINE ECG PREVIOUS TRACING : 10/15/2016 02.48 DOCTOR: Dereck Mercer Interpretating Date/Time 10/19/2016 21:00:54
== END 2016-10-19 01:50 | disposition home or self-care (01) ==
LOC: NEPB 23:18
DX: R07.89 Other chest pain (principal); R94.31 Abnormal electrocardiogram [ECG] [EKG]; I10 Essential (primary) hypertension; B20 Human immunodeficiency virus [HIV] disease; Z87.09 Personal history of other diseases of the respiratory system; Z86.59 Personal history of other mental and behavioral disorders; Z87.19 Personal history of other diseases of the digestive system; Z72.0 Tobacco use
CPT/HCPCS: 93005; 96372; 99285; J1885

== ENCOUNTER 2016-10-20 20:50 | Emergency (ER) | payer SELFPAY ==
[2016-10-20 20:52] VITALS: BP 142/93; PULSE 82; RESP 14; TEMP 97.5; O2SAT 100
--- NOTE | 2016-10-20 21:36 | PD ---
HPI Chief Complaint: Medical Clearance Travel History International Travel<30 days: No Contact w/Intl Traveler<30days: No Traveled to known affect area: No History of Present Illness HPI This is a 30-year-old female frequent visitor to this emergency department for various complaints. She presents today requesting that her temperature rechecked. She reports that this evening she was at home lying on the couch with a blanket on. She felt "warm" and this lasted for several minutes. She now feels better. She was concerned that she may have a fever but she did not have a thermometer. She has no symptoms. She has no upper respiratory symptoms , sore throat, rash, abdominal pain, chest pain, nausea or vomiting, joint swelling, recent travel. This patient has been seen here [facility] Past Medical History Asthma: Yes Autoimmune Disease: Yes (HIV +, AIDS ) Anxiety: Yes Depression: Yes Cancer: No Cardiovascular Problems: Yes (CHEST PAIN) Diminished Hearing: No Gastrointestinal Disorders: Yes (pancreatitis) Genitourinary: No Headaches: Yes Hypertension: Yes Implanted Vascular Access Dvce: No Musculoskeletal: No Neurologic: No Psychiatric: No Respiratory: Yes (BRONCHITIS) Immunizations Current: Yes Pancreatitis: Yes : 4 Para: 4 Miscarriage: 0 : 0 Past Surgical History Section: Yes ( CS X 2 ) Gynecologic Surgery: Yes (c section) Oral Surgery: Yes (jaw surgery 2016) Other Surgery: Yes Social History Alcohol Use: Yes (FORMERLY DAILY) Tobacco Use: Yes (SOME DAYS CIGARETTES (1 PACK/MONTH)) Substance Use: Yes (Crack Cocaine daily) Allergies-Medications (Allergen,Severity, Reaction): Coded Allergies: No Known Allergies (Verified , 10/20/16) Reported Meds & Prescriptions Reported Meds & Active Scripts Active No Active Prescriptions or Reported Medications Data Data Last Documented VS Vital Signs Date Time Temp Pulse Resp B/P Pulse Ox O2 Delivery O2 Flow Rate FiO2 10/20/16 20:52 97.5 82 14 142/93 100 Room Air MDM Scripts No Active Prescriptions or Reported Meds Deepak Ba Oct 20, 2016 21:36
--- NOTE | 2016-10-20 21:38 | PD ---
HPI Chief Complaint: Medical Clearance Time Seen by Provider: 21:30 Travel History International Travel<30 days: No Contact w/Intl Traveler<30days: No Traveled to known affect area: No History of Present Illness HPI This is a 30-year-old female frequent visitor to this emergency department for various complaints. She presents today requesting that her temperature rechecked. She reports that this evening she was at home lying on the couch with a blanket on. She felt "warm" and this lasted for several minutes. She now feels better. She was concerned that she may have a fever but she did not have a thermometer. She has no symptoms. She has no upper respiratory symptoms , sore throat, rash, abdominal pain, chest pain, nausea or vomiting, joint swelling, recent travel. This patient has been seen here 17 times this month, most recently yesterday evening. She has no other complaints at this time. History Past Medical Histgory Hx Cancer: No Social History Alcohol Use: Yes (FORMERLY DAILY) Tobacco Use: Yes (SOME DAYS CIGARETTES (1 PACK/MONTH)) Allergies-Medications (Allergen,Severity, Reaction): Coded Allergies: No Known Allergies (Verified , 10/20/16) Reported Meds & Prescriptions Reported Meds & Active Scripts Active No Active Prescriptions or Reported Medications Review of Systems Except as stated in HPI: all other systems reviewed are Neg Physical Exam Narrative GENERAL: Well-developed well-nourished female in no acute distress talking on cellphone. Her vital signs have been reviewed. SKIN: Warm and dry. HEAD: Atraumatic. Normocephalic. EYES: Pupils equal and round. No scleral icterus. No injection or drainage. ENT: No nasal bleeding or discharge. Mucous membranes pink and moist. NECK: Trachea midline. No JVD. CARDIOVASCULAR: Regular rate and rhythm. No murmur appreciated. RESPIRATORY: No accessory muscle use. Clear to auscultation. Breath sounds equal bilaterally. GASTROINTESTINAL: Abdomen soft, non-tender, nondistended. Hepatic and splenic margins not palpable. MUSCULOSKELETAL: No obvious deformities. Normal steady gait. NEUROLOGICAL: Awake and alert. No obvious cranial nerve deficits. Motor grossly within normal limits. Normal speech. PSYCHIATRIC: Somewhat anxious. Data Data Last Documented VS Vital Signs Date Time Temp Pulse Resp B/P Pulse Ox O2 Delivery O2 Flow Rate FiO2 10/20/16 20:52 97.5 82 14 142/93 100 Room Air [facility] Medical Screen Exam Complete: Yes Emergency Medical Condition: No Narrative Course 30-year-old female frequent visitor to this emergency department presents because she felt subjectively "warm" while lying at home with a blanket on. She does not have a thermometer to check her temperature. She has no symptoms to suggest infectious process. Her vital signs are within normal limits. She is not tachycardic, febrile, tachypneic. The patient was reassured. She was encouraged to return here if she develops any acutely new or worsening symptoms. A medical screening exam was performed: At the time of evaluation the presenting medical condition was determined not to be of an emergent nature. The patient was given the option of receiving additional care, but declined. Patient was given options for additional community resources from which to obtain care. The Patient Has Been advised to seek medical attention for their presenting complaint. The patient has been advised to return to the ER at any time if an emergent condition develops. Primary Impression: Encounter for medical screening examination Scripts No Active Prescriptions or Reported Meds Deepak Ba Oct 20, 2016 21:38
== END 2016-10-20 21:47 | disposition left against medical advice (07) ==
LOC: NEPB 20:50
DX: Z03.89 Encounter for observation for other suspected diseases and conditions ruled out (principal)
CPT/HCPCS: 99281

== ENCOUNTER 2016-10-21 16:11 | Emergency (ER) | payer SELFPAY ==
[~2016-10-21] VITALS: Ht 175.3 cm; Wt 80.0 kg
[2016-10-21 16:14] VITALS: BP 124/83; PULSE 80; RESP 16; TEMP 98.2; O2SAT 100
--- NOTE | 2016-10-21 16:58 | PD ---
HPI Chief Complaint: Headache Time Seen by Provider: 16:30 Travel History International Travel<30 days: No Contact w/Intl Traveler<30days: No Traveled to known affect area: No History of Present Illness HPI Patient comes in complaining of headache ongoing for several months as well as chest pain ongoing for a while. Patient was seen and evaluated for this in the emergency department multiple times previously. Patient has been seen multiple times for same symptoms and she reports they are unchanged. Patient denies any new symptoms with this. Denies anything making it better or worse. Patient denies doing anything for this. Denies following up with anyone outside of the emergency department. History Past Medical Histgory Tetanus Vaccination: Unknown Hx Cancer: No Social History Alcohol Use: Yes (4 pk beer daily) Tobacco Use: Yes (SOME DAYS CIGARETTES (1 PACK/MONTH)) Allergies-Medications (Allergen,Severity, Reaction): Coded Allergies: No Known Allergies (Verified , 10/21/16) Reported Meds & Prescriptions Reported Meds & Active Scripts Active No Active Prescriptions or Reported Medications Review of Systems Except as stated in HPI: all other systems reviewed are Neg Physical Exam Narrative GENERAL: Well-developed, overly nourished, in no acute distress, and non-ill appearing. SKIN: Warm and dry. HEAD: Atraumatic. Normocephalic. EYES: Pupils equal and round. EOMI. No scleral icterus. No injection or drainage. ENT: No nasal bleeding or discharge. Mucous membranes pink and moist. NECK: Trachea midline. Supple. No nuclear rigidity. CARDIOVASCULAR: Regular rate and rhythm. No murmur appreciated. RESPIRATORY: No accessory muscle use. No respiratory distress. Clear to auscultation. Breath sounds equal bilaterally. MUSCULOSKELETAL: No obvious deformities. No clubbing. No cyanosis. No edema. Full range of motion. NEUROLOGICAL: Awake and alert. No obvious cranial nerve deficits. Motor grossly within normal limits. Normal speech. PSYCHIATRIC: Appropriate mood and affect; insight and judgment normal. Data Data Last Documented VS Vital Signs Date Time Temp Pulse Resp B/P Pulse Ox O2 Delivery O2 Flow Rate FiO2 10/21/16 16:14 98.2 80 16 124/83 100 Room Air MDM Medical Screen Exam Complete: Yes Emergency Medical Condition: No Narrative Course History and physical exam findings are not consistent with an emergent medical condition. Patient vital signs are stable. Previous medical records were reviewed. I did find a reason to do additional laboratory or radiological studies at this time. Discussed patient with Dr. Poon, who saw and evaluated patient and agrees patient does not need additional laboratory or radiological studies at this time. She was given the option of receiving additional care, but has declined. Therefore the appropriate counseling recommendations were discussed with the patient and she was instructed to follow-up with her primary care physician as soon as possible for reevaluation. Patient was also informed of community resources from which she can obtain additional care. She is agreeable and verbalizes an understanding of the proposed plan. The patient states she will immediately return to the emergency department if her current complaints do not improve, new symptoms arise, or emergent condition develops. Patient ambulated out of the emergency department without difficulty. Primary Impression: Encounter for medical screening examination Scripts No Active Prescriptions or Reported Meds Disposition: [facility]GO-ED USE ONLY Condition: Keagan Gómez Oct 21, 2016 16:58
== END 2016-10-21 17:09 | disposition left against medical advice (07) ==
LOC: NEPE 16:11
DX: R51 Headache (principal); Z72.0 Tobacco use
CPT/HCPCS: 99281

== ENCOUNTER 2016-10-24 07:47 | Emergency (ER) | payer SELFPAY ==
[~2016-10-24] VITALS: Ht 172.7 cm; Wt 97.5 kg
[2016-10-24 07:49] VITALS: BP 126/72; PULSE 77; RESP 16; TEMP 97.3; O2SAT 100
--- NOTE | 2016-10-24 09:12 | PD ---
HPI Chief Complaint: Injury Time Seen by Provider: 09:05 Travel History International Travel<30 days: No Contact w/Intl Traveler<30days: No Traveled to known affect area: No History of Present Illness HPI 31-year-old female presents to the emergency Department with complaint of left knee pain and swelling since last night. Denies injury. Said she was standing and cooking and noticed that her knee was swollen. She states that she had high blood pressure last night and thinks that the high blood pressure caused her need to swell and she wanted to get it checked out and make sure that she was okay. She has not taking any medications or tried any chance to review her symptoms. She denies paresthesias or loss of sensation, decreased range of motion, decreased strength to the affected extremity. Denies fever, chills, nausea, vomiting. No known aggravating or relieving factors. No known allergies. Dr. Yousif is her primary care provider. No other modifying factors or associated signs and symptoms. History Past Medical Histgory Hx Cancer: No Social History Alcohol Use: Yes (4 pk beer daily) Tobacco Use: Yes (SOME DAYS CIGARETTES (1 PACK/MONTH)) Allergies-Medications (Allergen,Severity, Reaction): Coded Allergies: No Known Allergies (Verified , 10/24/16) Reported Meds & Prescriptions Reported Meds & Active Scripts Active No Active Prescriptions or Reported Medications Review of Systems Except as stated in HPI: all other systems reviewed are Neg Physical Exam Narrative GENERAL: Well-nourished, well-developed female patient, in no acute distress SKIN: Warm and dry. HEAD: Atraumatic. Normocephalic. EYES: Pupils equal and round. No scleral icterus. No injection or drainage. ENT: Mucosa pink and moist. Airway patent. NECK: Trachea midline. CARDIOVASCULAR: Regular rate. RESPIRATORY: No accessory muscle use. MUSCULOSKELETAL: Left knee nonedematous and nonerythematous, without tenderness on palpation; with full range of motion and flexion to 90; no obvious deformity. Knee joints stable. Negative drawer test. Left lower extremity supple and non-tense without erythema, edema and with 2+ pedal pulses and sensory intact. Ambulatory at bedside with normal gait. NEUROLOGICAL: Awake and alert. Oriented 3. No obvious cranial nerve deficits. Motor grossly within normal limits. Normal speech. PSYCHIATRIC: Appropriate mood and affect; insight and judgment normal. Data Data Last Documented VS Vital Signs Date Time Temp Pulse Resp B/P Pulse Ox O2 Delivery O2 Flow Rate FiO2 10/24/16 07:49 97.3 77 16 126/72 100 Room Air [facility] Medical Screen Exam Complete: Yes Emergency Medical Condition: No Differential Diagnosis Malingering, medical clearance, normal exam Narrative Course 31-year-old female complaining of left knee pain and swelling since last night after standing and cooking. This was related to high blood pressure that she apparently had last night and wanted to be evaluated. Unremarkable examination of the left knee. It is nonerythematous and nonedematous when compared to the right knee. She is afebrile and vital signs are stable. She denies fever, chills, nausea, vomiting. She is ambulatory with a normal gait. The left lower extremity is supple and non-tense with 2+ pulses and sensory intact without erythema or edema. Vital signs are stable and the patient is stable for outpatient follow-up and treatment. The patient has no urgent or emergent medical complaints. There is no emergent or urgent medical need at this time. I instructed the patient to follow up with their primary care provider. A medical screening exam was performed: At the time of evaluation the presenting medical condition was determined not to be of an emergent nature. The patient was given the option of receiving additional care, but declined. Patient was given options for additional community resources from which to obtain care. The Patient Has Been advised to seek medical attention for their presenting complaint. The patient has been advised to return to the ER at any time if an emergent condition develops. Primary Impression: Encounter for medical screening examination Scripts No Active Prescriptions or Reported Meds Condition: Stable Sharron Marmolejo Oct 24, 2016 09:12
== END 2016-10-24 09:33 | disposition left against medical advice (07) ==
LOC: NEPB 07:47
DX: M25.562 Pain in left knee (principal); R22.42 Localized swelling, mass and lump, left lower limb; R03.0 Elevated blood-pressure reading, without diagnosis of hypertension; Z72.0 Tobacco use
CPT/HCPCS: 99281

== ENCOUNTER 2016-10-24 18:46 | Emergency (ER) | payer SELFPAY ==
[~2016-10-24] VITALS: Ht 172.7 cm; Wt 97.9 kg
[2016-10-24 18:49] VITALS: BP 172/93; PULSE 101; RESP 24; TEMP 98.6; O2SAT 100
[2016-10-24 19:25] VITALS: BP 129/80; PULSE 89; RESP 16; TEMP 97.1; O2SAT 100
--- NOTE | 2016-10-24 20:15 | PD ---
HPI Chief Complaint: Headache Time Seen by Provider: 20:12 Travel History International Travel<30 days: No Contact w/Intl Traveler<30days: No Traveled to known affect area: No History of Present Illness HPI 31 year-old female presents to emergency department for evaluation of chest pain. Patient has been seen multiple times emergency department for the same complaint. She states that the chest pain is right sided and when you push on the right anterior chest it makes it worse. She describes as an itching on the inside. Denies any shortness of breath. Pain does not radiate anywhere. No recent illnesses, fever, chills. No other symptoms to report. PFSH Past Medical History Asthma: Yes Autoimmune Disease: Yes (HIV +, AIDS ) Anxiety: Yes Depression: Yes Cancer: No Cardiovascular Problems: Yes (CHEST PAIN) Diminished Hearing: No Gastrointestinal Disorders: Yes (pancreatitis) Genitourinary: No Headaches: Yes Hypertension: Yes Implanted Vascular Access Dvce: No Musculoskeletal: No Neurologic: No Psychiatric: No Respiratory: Yes (BRONCHITIS) Immunizations Current: Yes Pancreatitis: Yes ?: Not LMP: 12-15-16 : 4 Para: 4 Miscarriage: 0 : 0 Past Surgical History Section: Yes ( CS X 2 ) Gynecologic Surgery: Yes (c section) Oral Surgery: Yes (jaw surgery 2016) Other Surgery: Yes Social History Alcohol Use: Yes (4 pk beer daily) Tobacco Use: Yes (SOME DAYS CIGARETTES (1 PACK/MONTH)) Substance Use: Yes (Crack Cocaine STATES UNSURE WHEN) Allergies-Medications (Allergen,Severity, Reaction): Coded Allergies: No Known Allergies (Verified , 10/24/16) Reported Meds & Prescriptions Reported Meds & Active Scripts Active No Active Prescriptions or Reported Medications Review of Systems Except as stated in HPI: all other systems reviewed are Neg Physical Exam Narrative GENERAL: Well-nourished female patient, ambulatory no acute distress SKIN: Warm and dry. HEAD: Atraumatic. Normocephalic. EYES: Pupils equal and round. No scleral icterus. No injection or drainage. ENT: No nasal bleeding or discharge. Mucous membranes pink and moist. NECK: Trachea midline. No JVD. CARDIOVASCULAR: Regular rate and rhythm. No murmur appreciated. RESPIRATORY: No accessory muscle use. Clear to auscultation. Breath sounds equal bilaterally. Tenderness elicited to palpation of the right anterior chest. No crepitus. GASTROINTESTINAL: Abdomen soft, non-tender, nondistended. Hepatic and splenic margins not palpable. MUSCULOSKELETAL: No obvious deformities. No clubbing. No cyanosis. No edema. NEUROLOGICAL: Awake and alert. No obvious cranial nerve deficits. Motor grossly within normal limits. Normal speech. Data Data Last Documented VS Vital Signs Date Time Temp Pulse Resp B/P Pulse Ox O2 Delivery O2 Flow Rate FiO2 10/24/16 19:25 97.1 89 16 129/80 100 10/24/16 18:49 Room Air MDM Medical Decision Making Medical Screen Exam Complete: Yes Emergency Medical Condition: Yes Medical Record Reviewed: Yes Differential Diagnosis Malingering versus chest wall pain versus muscle strain versus spasm versus local reaction Narrative Course 31 year-old female presents to emergency department for evaluation a right sided chest pain, exacerbated by touch. Patient appears well and had a stress. EKG is without acute concern. Patient will be discharged home at this time. Diagnosis Primary Impression: Chest wall pain Additional Impressions: Itching Malingering Referrals: Primary Care Physician Patient Instructions: Chest Wall Pain (ED), General Instructions Additional Instructions: [id number] Benadryl as directed on package as needed for itching Follow-up with primary care provider Return immediately with any acute worsening symptoms Med/Other Pt SpecificInfo: No Change to Meds Scripts No Active Prescriptions or Reported Meds Disposition: 01 DISCHARGE HOME Condition: Stable Marilyn Garduno Oct 24, 2016 20:15
--- NOTE | 2016-10-25 05:40 | EKG ---
Date Performed: 10/24/2016 Time Performed: 19:48:36 PTAGE: 31 years EKG: Sinus rhythm NONSPECIFIC T-WAVE ABNORMALITY BORDERLINE ECG NO SIGNIFICANT CHANGE FROM PRIOR ELECTROCARDIOGRAM. PREVIOUS TRACING : 10/18/2016 22.37 DOCTOR: Walt Gutierrez Interpretating Date/Time 10/25/2016 05:40:09
== END 2016-10-24 22:32 | disposition home or self-care (01) ==
LOC: NETRI 18:46
DX: R07.89 Other chest pain (principal); L29.9 Pruritus, unspecified; R94.31 Abnormal electrocardiogram [ECG] [EKG]; B20 Human immunodeficiency virus [HIV] disease; I10 Essential (primary) hypertension; Z76.5 Malingerer [conscious simulation]; Z72.0 Tobacco use; Z87.09 Personal history of other diseases of the respiratory system; Z86.59 Personal history of other mental and behavioral disorders; Z87.19 Personal history of other diseases of the digestive system
CPT/HCPCS: 93005

== ENCOUNTER 2016-10-25 17:47 | Emergency (ER) | payer SELFPAY ==
[~2016-10-25] VITALS: Ht 172.7 cm; Wt 100.0 kg
[2016-10-25 17:49] VITALS: BP 115/70; PULSE 90; RESP 20; TEMP 98.1; O2SAT 100
--- NOTE | 2016-10-25 18:07 | PD ---
HPI Chief Complaint: GI Complaint Time Seen by Provider: 18:07 Travel History International Travel<30 days: No Contact w/Intl Traveler<30days: No Traveled to known affect area: No History of Present Illness HPI 31-year-old female with history of crack cocaine abuse, migraine headaches, repeated visits to the emergency department for chest pain, presents again to this evening for possible anxiety. Patient states that she was prescribed Vistaril and she has not yet started to take it. She is uncertain if she can take it and how it will affect her. She states that she has been so anxious that is constantly nauseous. She denies any other recent illnesses, fever, or chills. States that she has not used crack cocaine recently. Denies any other symptoms at this time. PFSH Past Medical History Asthma: Yes Autoimmune Disease: Yes (HIV +, AIDS ) Anxiety: Yes Depression: Yes Cancer: No Cardiovascular Problems: Yes (CHEST PAIN) Diminished Hearing: No Gastrointestinal Disorders: Yes (pancreatitis) Genitourinary: No Headaches: Yes Hypertension: Yes Implanted Vascular Access Dvce: No Musculoskeletal: No Neurologic: No Psychiatric: No Respiratory: Yes (BRONCHITIS) Immunizations Current: Yes Pancreatitis: Yes ?: Not : 4 Para: 4 Miscarriage: 0 : 0 Past Surgical History Section: Yes ( CS X 2 ) Gynecologic Surgery: Yes (c section) Oral Surgery: Yes (jaw surgery 2016) Other Surgery: Yes Social History Alcohol Use: Yes (4 pk beer daily) Tobacco Use: Yes (SOME DAYS CIGARETTES (1 PACK/MONTH)) Substance Use: Yes (Crack Cocaine STATES UNSURE WHEN) Allergies-Medications (Allergen,Severity, Reaction): Coded Allergies: No Known Allergies (Verified , 10/25/16) Reported Meds & Prescriptions Reported Meds & Active Scripts Active Active Prescriptions or Reported Medications Unobtainable Review of Systems Except as stated in HPI: all other systems reviewed are Neg Physical Exam Narrative GENERAL: Well-nourished, well-developed female patient, ambulatory in no acute distress SKIN: Warm and dry. HEAD: Normocephalic. EYES: No scleral icterus. No injection or drainage. NECK: Supple, trachea midline. No JVD or lymphadenopathy. CARDIOVASCULAR: Regular rate and rhythm without murmurs, gallops, or rubs. RESPIRATORY: Breath sounds equal bilaterally. No accessory muscle use. GASTROINTESTINAL: Abdomen soft, non-tender, nondistended. MUSCULOSKELETAL: No cyanosis, or edema. BACK: Nontender without obvious deformity. No CVA tenderness. Data Data Last Documented VS Vital Signs Date Time Temp Pulse Resp B/P Pulse Ox O2 Delivery O2 Flow Rate FiO2 10/25/16 19:40 20 10/25/16 17:49 98.1 90 115/70 100 Room Air MDM Medical Decision Making Medical Screen Exam Complete: Yes Emergency Medical Condition: Yes Medical Record Reviewed: Yes Differential Diagnosis Malingering versus anxiety versus follicular abnormality versus normal examination Narrative Course 31-year-old female presents to emergency department for evaluation. Patient has been seen multiple times here in the emergency department for various vague complaints. Patient appears without distress. Vital signs are stable. She is offered reassurance and discharged home. Diagnosis Primary Impression: Malingering Additional Impression: Anxiety Referrals: Primary Care Physician Patient Instructions: Anxiety (ED), General Instructions Additional Instructions: Follow-up with a primary care provider Return immediately with any acute worsening of symptoms Med/Other Pt SpecificInfo: No Change to Meds Scripts No Active Prescriptions or Reported Meds Disposition: 01 DISCHARGE HOME Condition: Stable Marilyn Garduno JUANA Oct 25, 2016 18:07
== END 2016-10-25 20:54 | disposition home or self-care (01) ==
LOC: NETRI 17:47
DX: Z76.5 Malingerer [conscious simulation] (principal); F41.9 Anxiety disorder, unspecified; I10 Essential (primary) hypertension
CPT/HCPCS: 99283

== ENCOUNTER 2016-10-26 15:54 | Emergency (ER) | payer SELFPAY ==
[~2016-10-26] VITALS: Ht 172.7 cm; Wt 52.0 kg
[2016-10-26 15:55] VITALS: BP 116/69; PULSE 81; RESP 14; TEMP 98.4; O2SAT 100
--- NOTE | 2016-10-26 18:55 | PD ---
HPI Chief Complaint: Medication Refill Request Time Seen by Provider: 18:53 Travel History International Travel<30 days: No Contact w/Intl Traveler<30days: No Traveled to known affect area: No History of Present Illness HPI 31-year-old female with history of AIDS presents to the ED with multiple complaints. She states that she is anxious, despite taking Vistaril that was prescribed recently. She complains that she has been unable to establish primary care and "needs AIDS medications." She denies headaches, fevers, chills , chest pain, shortness breath, abdominal pain, nausea, vomiting, dysuria, vaginal discharge, weakness of the lower extremities. PFSH Past Medical History Asthma: Yes Autoimmune Disease: Yes (HIV +, AIDS ) Anxiety: Yes Depression: Yes Cancer: No Cardiovascular Problems: Yes (CHEST PAIN) Diabetes: No Diminished Hearing: No Gastrointestinal Disorders: Yes (pancreatitis) Genitourinary: No Headaches: Yes Hypertension: Yes Immune Disorder: Yes (AIDS) Implanted Vascular Access Dvce: No Musculoskeletal: No Neurologic: No Psychiatric: No Respiratory: Yes (BRONCHITIS) Immunizations Current: Yes Pancreatitis: Yes Tetanus Vaccination: Unknown Influenza Vaccination: No ?: Not : 4 Para: 4 Miscarriage: 0 : 0 Past Surgical History Section: Yes ( CS X 2 ) Gynecologic Surgery: Yes (c section) Oral Surgery: Yes (jaw surgery 2016) Other Surgery: Yes Social History Alcohol Use: Yes (4 pk beer daily) Tobacco Use: Yes (SOME DAYS CIGARETTES (1 PACK/MONTH)) Substance Use: Yes (Crack Cocaine ) Allergies-Medications (Allergen,Severity, Reaction): Coded Allergies: No Known Allergies (Verified , 10/27/16) Reported Meds & Prescriptions Reported Meds & Active Scripts Active No Active Prescriptions or Reported Medications Review of Systems Except as stated in HPI: all other systems reviewed are Neg Physical Exam Narrative GENERAL: Well-nourished, well-developed black female in no acute distress.. SKIN: Warm and dry. HEAD: Normocephalic. EYES: No scleral icterus. No injection or drainage. NECK: Supple, trachea midline. No JVD or lymphadenopathy. CARDIOVASCULAR: Regular rate and rhythm without murmurs, gallops, or rubs. Equal pulses in the extremities bilaterally. RESPIRATORY: Breath sounds clear and equal bilaterally. No accessory muscle use. GASTROINTESTINAL: Abdomen soft, non-tender, nondistended. Active bowel sounds MUSCULOSKELETAL: No cyanosis, or edema. Patient is ambulatory, moves extremities spontaneously. BACK: Nontender without obvious deformity. No CVA tenderness. Data Data Last Documented VS Vital Signs Date Time Temp Pulse Resp B/P Pulse Ox O2 Delivery O2 Flow Rate FiO2 10/26/16 15:55 98.4 81 14 116/69 100 Room Air MDM Medical Decision Making Medical Screen Exam Complete: Yes Emergency Medical Condition: Yes Differential Diagnosis Medication refill versus malingering versus drug seeking behavior versus medical screening exam versus other Narrative Course 31-year-old female presents to the ED for evaluation of anxiety, multiple vague complaints. Patient complains that she is still anxious despite taking Vistaril. After reviewing her medications I found that the patient has taken one dose of Vistaril, has been noncompliant with instructions to take every 6 hours as needed. Patient also complains that she has not established primary care. I asked the patient if she had completed the patient assistance program paperwork. She states that she has not. The ED financial counselor provided the patient with the needed paperwork and information. Review of the record reveals the patient has been seen in this ED 21 times in the last month. Vitals reviewed. Physical exam is reassuring. No medical emergency exists at this time. A medical screening exam was performed: At the time of evaluation the presenting medical condition was determined not to be of an emergent nature. The patient was given the option of receiving additional care, but declined. Patient was given options for additional community resources from which to obtain care. The Patient Has Been advised to seek medical attention for their presenting complaint. The patient has been advised to return to the ER at any time if an emergent condition develops. Diagnosis Primary Impression: Encounter for medical screening examination Additional Instructions: Take Vistaril as prescribed. When it known stressors where possible. Complete the patient assistance program paperwork so that you may establish primary care in the area. Return to the ED for any urgent or emergent medical condition. Scripts No Active Prescriptions or Reported Meds Disposition: 01 DISCHARGE HOME Condition: Stable Marylou Schumacher Oct 26, 2016 18:55
== END 2016-10-26 19:23 | disposition home or self-care (01) ==
LOC: NETRI 15:54
DX: F41.9 Anxiety disorder, unspecified (principal)
CPT/HCPCS: 99281

== ENCOUNTER 2016-10-27 01:53 | Emergency (ER) | payer SELFPAY ==
[~2016-10-27] VITALS: Ht 172.7 cm; Wt 95.0 kg
[2016-10-27 01:57] VITALS: BP 136/75; PULSE 84; RESP 18; TEMP 97.9; O2SAT 100
--- NOTE | 2016-10-27 03:03 | PD ---
HPI Chief Complaint: Medication Refill Request Time Seen by Provider: 02:54 Travel History International Travel<30 days: No Contact w/Intl Traveler<30days: No Traveled to known affect area: No History of Present Illness HPI This is a 31-year-old female who presents to the emergency department with a history of AIDS with multiple complaints including chest pain, abdominal pain, nausea, vomiting, headache, anxiety and having run out of her AIDS medication. I asked her what one thing I can do for her in the emergency department today would be that would help her the most and she said refill her AIDS medicine. She says that she's tried to get it through the [facility] but "nothing works out for her". She denies any fevers. PFSH Past Medical History Asthma: Yes Autoimmune Disease: Yes (HIV +, AIDS ) Anxiety: Yes Depression: Yes Cancer: No Cardiovascular Problems: Yes (CHEST PAIN) Diabetes: No Diminished Hearing: No Gastrointestinal Disorders: Yes (pancreatitis) Genitourinary: No Headaches: Yes Hypertension: Yes Immune Disorder: Yes (AIDS) Implanted Vascular Access Dvce: No Musculoskeletal: No Neurologic: No Psychiatric: No Respiratory: Yes (BRONCHITIS) Immunizations Current: Yes Pancreatitis: Yes Tetanus Vaccination: Unknown Influenza Vaccination: No ?: Unknown LMP: Beg of Oct : 4 Para: 4 Miscarriage: 0 : 0 Past Surgical History Section: Yes ( CS X 2 ) Gynecologic Surgery: Yes (c section) Oral Surgery: Yes (jaw surgery 2016) Other Surgery: Yes Social History Alcohol Use: Yes (4 pk beer daily) Tobacco Use: Yes (SOME DAYS CIGARETTES (1 PACK/MONTH)) Substance Use: Yes (Crack Cocaine ) Allergies-Medications (Allergen,Severity, Reaction): Coded Allergies: No Known Allergies (Verified , 10/27/16) Reported Meds & Prescriptions Reported Meds & Active Scripts Active No Active Prescriptions or Reported Medications Review of Systems Except as stated in HPI: all other systems reviewed are Neg Physical Exam Narrative GENERAL: Well-nourished, well-developed patient. SKIN: Warm and dry. HEAD: Normocephalic. EYES: No scleral icterus. No injection or drainage. NECK: Supple, trachea midline. CARDIOVASCULAR: Regular rate and rhythm without murmurs. RESPIRATORY: Breath sounds equal bilaterally. No accessory muscle use. GASTROINTESTINAL: Abdomen soft, non-tender, nondistended. MUSCULOSKELETAL: No cyanosis, or edema. Data Data Last Documented VS Vital Signs Date Time Temp Pulse Resp B/P Pulse Ox O2 Delivery O2 Flow Rate FiO2 10/27/16 01:57 97.9 84 18 136/75 100 Orders Complete Blood Count With Diff (10/27/16 03:03) Comprehensive Metabolic Panel (10/27/16 03:03) Lipase (10/27/16 03:03) Labs Laboratory Tests Test 10/27/16 03:15 White Blood Count 2.2 TH/MM3 Red Blood Count 3.30 MIL/MM3 Hemoglobin 9.8 GM/DL Hematocrit 29.2 % Mean Corpuscular Volume 88.5 FL Mean Corpuscular Hemoglobin 29.7 PG Mean Corpuscular Hemoglobin 33.6 % Concent Red Cell Distribution Width 18.8 % Platelet Count 187 TH/MM3 Mean Platelet Volume 7.1 FL Neutrophils (%) (Auto) 53.8 % Lymphocytes (%) (Auto) 29.9 % Monocytes (%) (Auto) 14.0 % Eosinophils (%) (Auto) 1.7 % Basophils (%) (Auto) 0.6 % Neutrophils # (Auto) 1.2 TH/MM3 Lymphocytes # (Auto) 0.6 TH/MM3 Monocytes # (Auto) 0.3 TH/MM3 Eosinophils # (Auto) 0.0 TH/MM3 Basophils # (Auto) 0.0 TH/MM3 CBC Comment DIFF FINAL Differential Comment Sodium Level 142 MEQ/L Potassium Level 3.5 MEQ/L Chloride Level 107 MEQ/L Carbon Dioxide Level 26.6 MEQ/L Anion Gap 8 MEQ/L Blood Urea Nitrogen 6 MG/DL Creatinine 0.69 MG/DL Estimat Glomerular Filtration 122 ML/MIN Rate Random Glucose 86 MG/DL Calcium Level 9.0 MG/DL Total Bilirubin 0.3 MG/DL Aspartate Amino Transf 14 U/L (AST/SGOT) Alanine Aminotransferase 20 U/L (ALT/SGPT) Alkaline Phosphatase 49 U/L Total Protein 6.7 GM/DL Albumin 3.3 GM/DL Lipase 603 U/L [facility] Medical Decision Making Medical Screen Exam Complete: Yes Emergency Medical Condition: Yes Interpretation(s) Afebrile, no tachycardia, normotensive, no hypoxia Differential Diagnosis Meningitis, gastritis, pancreatitis, appendicitis Narrative Course This is a 31-year-old female who has a history of AIDS who presents to the emergency department with multiple nonspecific complaints including headache, chest pain, abdominal pain, nausea or vomiting as well as malaise. When I asked her what her biggest problem was she said she needs to get back on her AIDS medication. This is the patient's 18th visit to the emergency department in the month of October. I did obtain labs as her last blood work was over a week ago and she certainly has the potential to get very sick given her poorly controlled HIV. Her exam is reassuring and her labs or other baseline. She has no meningismus on exam and is afebrile. I Don't think any further diagnostic testing is warranted. Patient will be discharged home. Diagnosis Primary Impression: Malaise and fatigue Patient Instructions: General Instructions Additional Instructions: If you develop severe chest pain, shortness of breath, sweating, lightheadedness , dizziness or difficulty breathing return to the emergency department immediately. Followup with your primary care physician in 2-3 days if your symptoms are not resolved. Med/Other Pt SpecificInfo: No Change to Meds Scripts No Active Prescriptions or Reported Meds Disposition: 01 DISCHARGE HOME Condition: Stable Michelle Saavedra MD Oct 27, 2016 03:03
[2016-10-27 03:23] LABS: AUTOMATED NEUTROPHIL # 1.2 TH/MM3 (1.8-7.7); BASOPHIL % 0.6 % (0.0-2.0); EOSINOPHIL % 1.7 % (0.0-4.0); HEMATOCRIT 29.2 % (35.0-46.0); HEMO FLAGS DIFF FINAL; LYMPH % 29.9 % (9.0-44.0); LYMPHOCYTE # 0.6 TH/MM3 (1.0-4.8); MEAN CELL VOLUME 88.5 FL (80.0-100.0); MEAN CORPUSCULAR HEMOGLOBIN 29.7 PG (27.0-34.0); MEAN CORPUSCULAR HGB CONC 33.6 % (32.0-36.0); NEUT % 53.8 % (16.0-70.0); PLATELET COUNT 187 TH/MM3 (150-450); RED CELL DISTRIBUTION WIDTH 18.8 % (11.6-17.2); WHITE BLOOD COUNT 2.2 TH/MM3 (4.0-11.0)
[2016-10-27 03:52] LABS: ANION GAP 8 MEQ/L (5-15); AST (GOT) 14 U/L (15-37); BICARBONATE 26.6 MEQ/L (21.0-32.0); BLOOD UREA NITROGEN 6 MG/DL (7-18); CHLORIDE 107 MEQ/L (98-107); GLOMERULAR FILTRATION RATE 122 ML/MIN (>89); POTASSIUM 3.5 MEQ/L (3.5-5.1); SODIUM (NA) 142 MEQ/L (136-145)
[2016-10-27 03:59] LABS: ALKALINE PHOSPHATASE 49 U/L (45-117); ALT (GPT) 20 U/L (10-53); TOTAL BILIRUBIN ADULT 0.3 MG/DL (0.2-1.0)
== END 2016-10-27 04:29 | disposition home or self-care (01) ==
LOC: NEPE 01:53
DX: R53.81 Other malaise (principal); R53.83 Other fatigue; B20 Human immunodeficiency virus [HIV] disease; R51 Headache; R07.9 Chest pain, unspecified; R10.9 Unspecified abdominal pain; R11.2 Nausea with vomiting, unspecified; I10 Essential (primary) hypertension; Z72.0 Tobacco use; Z87.09 Personal history of other diseases of the respiratory system; Z86.59 Personal history of other mental and behavioral disorders; Z87.19 Personal history of other diseases of the digestive system
CPT/HCPCS: 80053; 83690; 85025; 99284

== ENCOUNTER 2016-10-29 01:35 | Emergency (ER) | payer SELFPAY ==
[~2016-10-29] VITALS: Ht 175.3 cm; Wt 98.0 kg
[2016-10-29 01:40] VITALS: BP 125/78; PULSE 78; RESP 18; TEMP 97.5; O2SAT 100
--- NOTE | 2016-10-29 01:57 | PD ---
HPI Chief Complaint: Headache Time Seen by Provider: 01:54 Travel History International Travel<30 days: No Contact w/Intl Traveler<30days: No Traveled to known affect area: No History of Present Illness HPI 31-year-old black female returns to the ER stating that she does not feel safe in her room. She states that she rents a room in a boarding house. She states that the other people smoke crack cocaine. Multiple people are in training inning exiting the house. She is here requesting help finding a place to stay. No suicidal homicidal ideation. PFSH Past Medical History Asthma: Yes Autoimmune Disease: Yes (HIV +, AIDS ) Anxiety: Yes Depression: Yes Cancer: No Cardiovascular Problems: Yes (CHEST PAIN) Diabetes: No Diminished Hearing: No Gastrointestinal Disorders: Yes (pancreatitis) Genitourinary: No Headaches: Yes Hypertension: Yes Immune Disorder: Yes (AIDS) Implanted Vascular Access Dvce: No Musculoskeletal: No Neurologic: No Psychiatric: No Respiratory: Yes (BRONCHITIS) Immunizations Current: Yes Pancreatitis: Yes : 4 Para: 4 Miscarriage: 0 : 0 Past Surgical History Section: Yes ( CS X 2 ) Gynecologic Surgery: Yes (c section) Oral Surgery: Yes (jaw surgery 2016) Other Surgery: Yes Social History Alcohol Use: Yes (4 pk beer daily) Tobacco Use: Yes (SOME DAYS CIGARETTES (1 PACK/MONTH)) Substance Use: Yes (Crack Cocaine ) Allergies-Medications (Allergen,Severity, Reaction): Coded Allergies: No Known Allergies (Verified , 10/29/16) Reported Meds & Prescriptions Reported Meds & Active Scripts Active No Active Prescriptions or Reported Medications Review of Systems Except as stated in HPI: all other systems reviewed are Neg Physical Exam Narrative GENERAL: This is a well-nourished, well-developed patient, in no apparent distress. SKIN: No rashes, ecchymoses or lesions. Warm and dry. HEAD: Atraumatic. Normocephalic. EYES: PERRL, EOMI, no discharge or injection. No scleral icterus. EARS: Clear NOSE: Nasal turbinates appear normal. THROAT: Mucosa pink and moist. Airway patent. NECK: Trachea midline. supple, moves head freely. LUNGS: Clear to auscultation. CV: Regular in rhythm. ABDOMEN: Soft nontender. EXT: No clubbing cyanosis or edema. Data Data Last Documented VS Vital Signs Date Time Temp Pulse Resp B/P Pulse Ox O2 Delivery O2 Flow Rate FiO2 10/29/16 01:40 97.5 78 18 125/78 100 MDM Medical Decision Making Medical Screen Exam Complete: Yes Emergency Medical Condition: Yes Medical Record Reviewed: Yes Differential Diagnosis Differential diagnosis: Homelessness, anxiety, depression, malingering Narrative Course I see no emergent medical condition in this patient. She'll be given a packet of information regarding outpatient help. This is malingering Diagnosis Primary Impression: Malingering Patient Instructions: General Instructions Additional Instructions: Rest. Follow-up with the source packet information. Med/Other Pt SpecificInfo: No Meds Exist/No RX given Scripts No Active Prescriptions or Reported Meds Disposition: DISCHARGE HOME Condition: Stable Samy Reyes Oct 29, 2016 01:57
== END 2016-10-29 02:14 | disposition home or self-care (01) ==
LOC: NEPB 01:35
DX: Z76.5 Malingerer [conscious simulation] (principal); J45.909 Unspecified asthma, uncomplicated; R51 Headache; I10 Essential (primary) hypertension; Z72.0 Tobacco use; F14.90 Cocaine use, unspecified, uncomplicated
CPT/HCPCS: 99283

== ENCOUNTER 2016-10-30 07:12 | Emergency (ER) | payer SELFPAY ==
[~2016-10-30] VITALS: Ht 172.7 cm; Wt 100.0 kg
[2016-10-30 07:14] VITALS: BP 124/72; PULSE 81; RESP 15; TEMP 97.9; O2SAT 99
[2016-10-30] MEDS ORDERED: KETOROLAC TROMETHAMINE 60 MG/2 ML (IM) VIAL IM ONE (08:00)
[2016-10-30] MEDS ORDERED: diphenhydrAMINE HCL 50 MG/ML VIAL IM ONE (08:00)
[2016-10-30] MEDS ORDERED: PROCHLORPERAZINE INJ 10 MG/2 ML VIAL IM ONE (08:00)
--- NOTE | 2016-10-30 08:08 | PD ---
HPI Chief Complaint: Medical Clearance Time Seen by Provider: 07:30 Travel History International Travel<30 days: No Contact w/Intl Traveler<30days: No Traveled to known affect area: No History of Present Illness HPI Patient is a 31-year-old female who presents emergency Department for evaluation of a headache. She states her pain is a 9/10. She states the pain started yesterday, she took one dose of Tylenol with no relief of her symptoms last night. She denies any photophobia, visual changes. She is also requesting to see a lead case manager about her HIV medications. PFSH Past Medical History Asthma: Yes Autoimmune Disease: Yes (HIV +, AIDS ) Anxiety: Yes Depression: Yes Cancer: No Cardiovascular Problems: Yes (CHEST PAIN) Diabetes: No Diminished Hearing: No Gastrointestinal Disorders: Yes (pancreatitis) Genitourinary: No Headaches: Yes Hypertension: Yes Immune Disorder: Yes (AIDS) Implanted Vascular Access Dvce: No Musculoskeletal: No Neurologic: No Psychiatric: No Respiratory: Yes (BRONCHITIS) Immunizations Current: Yes Pancreatitis: Yes Tetanus Vaccination: Unknown Influenza Vaccination: No ?: Not : 4 Para: 4 Miscarriage: 0 : 0 Past Surgical History Section: Yes ( CS X 2 ) Gynecologic Surgery: Yes (c section) Oral Surgery: Yes (jaw surgery 2016) Other Surgery: Yes Social History Alcohol Use: Yes (4 pk beer daily) Tobacco Use: Yes (SOME DAYS CIGARETTES (1 PACK/MONTH)) Substance Use: Yes (Crack Cocaine ) Allergies-Medications (Allergen,Severity, Reaction): Coded Allergies: No Known Allergies (Verified , 10/29/16) Reported Meds & Prescriptions Reported Meds & Active Scripts Active No Active Prescriptions or Reported Medications Review of Systems Except as stated in HPI: all other systems reviewed are Neg Eyes: No: Blurred Vision, Photophobia, Visual changes HENT: Positive: Headaches Cardiovascular: No: Chest Pain or Discomfort Respiratory: No: Shortness of Breath Gastrointestinal: No: Abdominal Pain Physical Exam Narrative GENERAL: Well-nourished, well-developed patient. SKIN: Warm and dry. HEAD: Normocephalic. EYES: No scleral icterus. No injection or drainage. NECK: Supple, trachea midline. No JVD or lymphadenopathy. CARDIOVASCULAR: Regular rate and rhythm without murmurs, gallops, or rubs. RESPIRATORY: Breath sounds equal bilaterally. No accessory muscle use. GASTROINTESTINAL: Abdomen soft, non-tender, nondistended. MUSCULOSKELETAL: No cyanosis, or edema. BACK: Nontender without obvious deformity. No CVA tenderness. NEUROLOGICAL: Awake and alert. Cranial nerves II through XII intact. Motor and sensory grossly within normal limits. Five out of 5 muscle strength in all muscle groups. Normal speech. Data Data Last Documented VS Vital Signs Date Time Temp Pulse Resp B/P Pulse Ox O2 Delivery O2 Flow Rate FiO2 10/30/16 07:14 97.9 81 15 124/72 99 Orders Ketorolac Inj (Toradol Inj) (10/30/16 08:00) Diphenhydramine Inj (Benadryl Inj) (10/30/16 08:00) Prochlorperazine Inj (Compazine Inj) (10/30/16 08:00) [facility] Medical Decision Making Medical Screen Exam Complete: Yes Emergency Medical Condition: Yes Interpretation(s) Vital Signs Date Time Temp Pulse Resp B/P Pulse Ox O2 Delivery O2 Flow Rate FiO2 10/30/16 07:14 97.9 81 15 124/72 99 Differential Diagnosis Cluster headache versus migraine versus tension-type headache versus malingering versus other Narrative Course Patient is a 31-year-old female who is well-known to the emergency department presenting today with complaint of a headache. Patient called EMS to bring her to the emergency department. She states that she has no ride to get to her primary doctor. She is requesting to speak with a lead case manager concerning her HIV medications. When asked how long she has been off of her HIV medication she states for years. Medications order to treat headache, prior to discharge lead case manager will be notified. social science manager has spoken to patient as recently as , patient was given thorough instructions on how to obtain her medications as well as follow-up. Patient's headache has improved. She is encouraged to follow-up with her primary doctor. Patient is stable for discharge. Diagnosis Primary Impression: Headache Qualified Code: R51 - Nonintractable headache, unspecified chronicity pattern , unspecified headache type Referrals: Anahy Yousif MD Patient Instructions: General Instructions Additional Instructions: Follow-up with your primary doctor Return to emergency department for any new or worsening symptoms Med/Other Pt SpecificInfo: No Change to Meds Scripts No Active Prescriptions or Reported Meds Disposition: DISCHARGE HOME Condition: Stable Julienne Frank Oct 30, 2016 08:08
== END 2016-10-30 10:01 | disposition home or self-care (01) ==
LOC: NEPB 07:12
DX: R51 Headache (principal); B20 Human immunodeficiency virus [HIV] disease; I10 Essential (primary) hypertension
CPT/HCPCS: 96372; 99284; J0780; J1200; J1885

== ENCOUNTER 2017-05-16 00:13 | Emergency (ER) | payer SELFPAY ==
[2017-05-16 00:20] VITALS: BP 158/72; PULSE 119; RESP 21; TEMP 98; O2SAT 100
[2017-05-16] MEDS ORDERED: ELVITAB PO (00:26)
[2017-05-16] MEDS ORDERED: LORazepam 2 MG/ML VIAL IV PUSH ONE (00:45)
--- NOTE | 2017-05-16 00:56 | PD ---
HPI Chief Complaint: OD/ Ingestion Time Seen by Provider: 00:34 Travel History International Travel<30 days: No Contact w/Intl Traveler<30days: No Traveled to known affect area: No History of Present Illness HPI The patient is a 31 year old female who presents to the [facility] emergency department with a history of reportedly using too much crack cocaine prior to arrival. She reports that she's been using continuously for the last 2 days. She reports that she then began to have sensation of her heart racing. She reports that she was feeling colors. She reports that her "hands feel blue". The patient reports that she feels anxious. The patient was brought in by ambulance services and initially her rate was in the 140s. The patient was given Ativan 2 mg IM prior to arrival by ambulance services. The patient reports having a history of hypertension and HIV. She reports that she is taking a retroviral medication for this. She can't recall what her CD4 count last was or her viral load. On review of systems otherwise, the patient denies any recent fevers, cough, congestion, neck pain, chest pain, shortness of breath , abdominal pain, vomiting, diarrhea, urinary symptoms, or neurologic symptoms. LMP unsure when her last cycle was PFSH Past Medical History Narrative Medical The patient's past medical history is significant for crack cocaine use, history of HIV, hypertension Asthma: Yes Autoimmune Disease: Yes (HIV +, AIDS ) Anxiety: Yes Depression: Yes Cancer: No Cardiovascular Problems: Yes (CHEST PAIN) Diabetes: No Diminished Hearing: No Gastrointestinal Disorders: Yes (pancreatitis) Genitourinary: No Headaches: Yes Hypertension: Yes Immune Disorder: Yes (AIDS) Implanted Vascular Access Dvce: No Musculoskeletal: No Neurologic: No Psychiatric: No Respiratory: Yes (BRONCHITIS) Immunizations Current: Yes Pancreatitis: Yes Tetanus Vaccination: Unknown Influenza Vaccination: No ?: Not LMP: 05/10/17 : 4 Para: 4 Miscarriage: 0 : 0 Past Surgical History Narrative Surgical The patient's past surgical history is significant for C-sections 3. Section: Yes (X2) Gynecologic Surgery: Yes (c section) Oral Surgery: Yes (jaw surgery 2016) Other Surgery: Yes Social History Alcohol Use: Yes (4 pk beer daily) Tobacco Use: Yes (SOME DAYS CIGARETTES (1 PACK/MONTH)) Substance Use: Yes (CRACK COCAINE, MARIJUANA) Allergies-Medications (Allergen,Severity, Reaction): Coded Allergies: No Known Allergies (Verified , 05/16/17) Reported Meds & Prescriptions Reported Meds & Active Scripts Active Reported Stribild (Bndvjiqhtkic-Sqcziabqny-Etyeqwzlzlws-Tenofvir) [phone] Mg Tab 1 Tab PO DAILY With food Review of Systems Except as stated in HPI: all other systems reviewed are Neg General / Constitutional: No: Fever Eyes: No: Visual changes HENT: No: Headaches Cardiovascular: Positive: Palpitations, Tachycardia, No: Chest Pain or Discomfort Respiratory: No: Shortness of Breath Gastrointestinal: No: Abdominal Pain Genitourinary: No: Dysuria Musculoskeletal: No: Pain Skin: No Rash Neurologic: No: Weakness, Focal Abnormalities, Change in Mentation, Slurred Speech, Sensory Disturbance Psychiatric: Positive: Anxiety, No: Depression Endocrine: No: Polydipsia Hematologic/Lymphatic: No: Easy Bruising Physical Exam Narrative General: The patient is a well-developed well-nourished female, anxious appearing on arrival with pressured speech. Head and Neck exam: Head is normocephalic atraumatic. Eyes: EOMI, pupils are equal round and reactive to light. Nose: Midline septum with pink mucous membranes Mouth: Dentition unremarkable. Moist mucus membranes. Posterior oropharynx is not erythematous. No tonsillar hypertrophy. Uvula midline. Airway patent. Neck: No palpable lymphadenopathy. No nuchal rigidity. No thyromegaly. Cardiovascular: Sinus tachycardia in the 120 without murmurs, gallops, or rubs. No pulse deficit to the extremities and simultaneous auscultation and palpation of her radial artery. Lungs: Clear to auscultation bilaterally. No wheezes, rhonchi, or rales. Abdomen: Soft, without tenderness to palpation in all 4 quadrants of the abdomen. No guarding, rebound, or rigidity. No tenderness on palpation of McBurney's point. Normal bowel sounds are audible. Negative Isabela sign. Extremities: No clubbing, cyanosis, or edema. 2+ pulses in all 4 extremities. No calf tenderness on palpation. Back: No costovertebral angle tenderness to palpation. Neurologic Exam: Grossly nonfocal. Skin Exam: No rash noted. Intact skin that is warm and dry. Data Data Last Documented VS Vital Signs Date Time Temp Pulse Resp B/P Pulse Ox O2 Delivery O2 Flow Rate FiO2 05/16/17 00:27 118 22 100 Nasal Cannula 2 05/16/17 00:20 98.0 158/72 Orders Electrocardiogram (05/16/17 00:34) Complete Blood Count With Diff (05/16/17 00:34) Comprehensive Metabolic Panel (05/16/17 00:34) Troponin I (05/16/17 00:34) Prothrombin Time / Inr (Pt) (05/16/17 00:34) Act Partial Throm Time (Ptt) (05/16/17 00:34) Lipase (05/16/17 00:34) Urinalysis - C+S If Indicated (05/16/17 00:34) Magnesium (Mg) (05/16/17 00:34) Thyroid Stimulating Hormone (05/16/17 00:34) Chest, Single Ap (05/16/17 00:34) Iv Access Insert/Monitor (05/16/17 00:34) Ecg Monitoring (05/16/17 00:34) Oximetry (05/16/17 00:34) Ed Urine Pregnancytest Poc (05/16/17 00:34) Drug Screen, Random Urine (05/16/17 00:34) Alcohol (Ethanol) (05/16/17 00:34) Salicylates (Aspirin) (05/16/17 00:34) Tylenol (Acetaminophen) (05/16/17 00:34) Lorazepam Inj (Ativan Inj) (05/16/17 00:45) Sodium Chlor 0.9% 1000 Ml Inj (Ns 1000 M (05/16/17 01:15) Labs Laboratory Tests Test 05/16/17 05/16/17 00:45 02:35 White Blood Count 10.6 TH/MM3 Red Blood Count 3.63 MIL/MM3 Hemoglobin 11.2 GM/DL Hematocrit 32.5 % Mean Corpuscular Volume 89.5 FL Mean Corpuscular Hemoglobin 30.8 PG Mean Corpuscular Hemoglobin 34.4 % Concent Red Cell Distribution Width 13.6 % Platelet Count 280 TH/MM3 Mean Platelet Volume 7.2 FL Neutrophils (%) (Auto) 73.0 % Lymphocytes (%) (Auto) 18.5 % Monocytes (%) (Auto) 6.9 % Eosinophils (%) (Auto) 1.4 % Basophils (%) (Auto) 0.2 % Neutrophils # (Auto) 7.7 TH/MM3 Lymphocytes # (Auto) 2.0 TH/MM3 Monocytes # (Auto) 0.7 TH/MM3 Eosinophils # (Auto) 0.1 TH/MM3 Basophils # (Auto) 0.0 TH/MM3 CBC Comment DIFF FINAL Differential Comment Prothrombin Time 10.9 SEC Prothromb Time International 1.0 RATIO Ratio Activated Partial 25.1 SEC Thromboplast Time Sodium Level 140 MEQ/L Potassium Level 3.8 MEQ/L Chloride Level 107 MEQ/L Carbon Dioxide Level 18.7 MEQ/L Anion Gap 14 MEQ/L Blood Urea Nitrogen 12 MG/DL Creatinine 1.24 MG/DL Estimat Glomerular Filtration 62 ML/MIN Rate Random Glucose 109 MG/DL Calcium Level 8.7 MG/DL Magnesium Level 2.0 MG/DL Total Bilirubin 0.3 MG/DL Aspartate Amino Transf 36 U/L (AST/SGOT) Alanine Aminotransferase 17 U/L (ALT/SGPT) Alkaline Phosphatase 67 U/L Troponin I LESS THAN 0.02 NG/ML Total Protein 8.8 GM/DL Albumin 3.9 GM/DL Lipase 118 U/L Thyroid Stimulating Hormone 6.390 uIU/ML 3rd Gen Salicylates Level 1.9 MG/DL Acetaminophen Level LESS THAN 2.0 MCG/ML Ethyl Alcohol Level 66 MG/DL Urine Color YELLOW Urine Turbidity CLEAR Urine pH 5.5 Urine Specific Albers 1.025 Urine Protein 30 mg/dL Urine Glucose (UA) NEG mg/dL Urine Ketones NEG mg/dL Urine Occult Blood TRACE Urine Nitrite NEG Urine Bilirubin NEG Urine Urobilinogen LESS THAN 2.0 MG/DL Urine Leukocyte Esterase NEG Urine RBC LESS THAN 1 /hpf Urine WBC 1 /hpf Urine Squamous Epithelial 1 /hpf Cells Urine Hyaline Casts 2 /lpf Urine Granular Casts 8 /lpf Urine Mucus FEW /lpf Microscopic Urinalysis Comment CULT NOT INDICATED Urine Opiates Screen NEG Urine Barbiturates Screen NEG Urine Amphetamines Screen NEG Urine Benzodiazepines Screen NEG Urine Cocaine Screen POS Urine Cannabinoids Screen NEG [facility] Medical Decision Making Medical Screen Exam Complete: Yes Emergency Medical Condition: Yes Medical Record Reviewed: Yes Interpretation(s) Last Impressions Chest X-Ray 05/16/17 0034 Signed Impressions: Service Date/Time: Tuesday, May 16, 2017 00:38 - CONCLUSION: The lungs are clear. Gonsalo Talavera MD Differential Diagnosis Cocaine toxicity, versus other amphetamine toxicity, versus psychiatric disorder Narrative Course During the course of the patients emergency department visit, the patients history, examination, and differential diagnosis were reviewed with the patient. The patient had IV access obtained and blood work sent for analysis. The patient is on a engine monitor with oximetry and blood pressure monitoring. The patient had an ECG done on arrival that shows a sinus tachycardia rate of 120, T waves are inverted in V1, V2, V3, V4, V5, V6, and V3. The patient was initially provided Ativan 1 mg IV, normal saline 1 L IV fluid bolus. The patients laboratory studies were reviewed and remarkable for a white count 10.6, hemoglobin 11.2, platelets 280 with 73 neutrophils, CMP is remarkable for CO2 of 18.7, creatinine 1.24, glucose 109, troponin I is less than 0.02, total protein 8.8, lipase 118, TSH 6.39, PT 10.9, PTT 25, urine drug screen is positive for cocaine, alcohol level is 66, acetaminophen less than 2, salicylate 1.9, urinalysis shows 30 protein, trace occult blood Radiology studies were reviewed and remarkable for a chest x-ray that shows no acute abnormality. The patient will be observed in the emergency department until she has improvement in her mentation and is able to ambulate without assistance. The patient is instructed regarding the importance of avoiding cocaine use. The patient is resting comfortably and feels better, is alert and in no distress. The patients results and examination findings were discussed with the patient. The repeat examination is unremarkable and benign. The history, exam, diagnostic testing, and current condition do not suggest any significant pathology to warrant further testing, continued ED treatment, admission, or surgical evaluation at this point. The vital signs have been stable. The patient does not have uncontrollable pain, intractable vomiting, or other significant symptoms. The patient's condition is stable and appropriate for discharge. The patient will pursue further outpatient evaluation with a primary care physician or other designated or consulting physician as indicated in the discharge instructions. The patient expressed understanding and was agreeable with this plan. Diagnosis Primary Impression: Cocaine abuse Referrals: Primary Care Physician Patient Instructions: Cocaine Abuse (ED), General Instructions Med/Other Pt SpecificInfo: No Change to Meds Disposition: 01 DISCHARGE HOME Condition: Stable Akilah King MD May 16, 2017 00:56
--- NOTE | 2017-05-16 00:56 | RADRPT ---
EXAM DATE/TIME: 05/16/2017 00:38 [facility] COMPARISON: CHEST SINGLE AP, October 12, 2016, 7:39. INDICATIONS : Chest pain. MEDICAL HISTORY : None. SURGICAL HISTORY : None. ENCOUNTER: Initial ACUITY: 1 day PAIN SCORE: 10/10 LOCATION: Bilateral chest FINDINGS: A single view of the chest demonstrates the lungs to be symmetrically aerated without evidence of mas s, infiltrate or effusion. The cardiomediastinal contours are unremarkable. Osseous structures are intact. CONCLUSION: The lungs are clear. Gonsalo Talavera MD on May 16, 2017 at 0:54 Board Certified Radiologist. This report was verified electronically.
[2017-05-16 01:04] LABS: AUTOMATED NEUTROPHIL # 7.7 TH/MM3 (1.8-7.7); BASOPHIL % 0.2 % (0.0-2.0); EOSINOPHIL # 0.1 TH/MM3 (0-0.4); EOSINOPHIL % 1.4 % (0.0-4.0); HEMATOCRIT 32.5 % (35.0-46.0); HEMO FLAGS DIFF FINAL; LYMPH % 18.5 % (9.0-44.0); MEAN CELL VOLUME 89.5 FL (80.0-100.0); MEAN CORPUSCULAR HEMOGLOBIN 30.8 PG (27.0-34.0); MEAN CORPUSCULAR HGB CONC 34.4 % (32.0-36.0); MONO % 6.9 % (0.0-8.0); PLATELET COUNT 280 TH/MM3 (150-450); RED BLOOD COUNT 3.63 MIL/MM3 (4.00-5.30); RED CELL DISTRIBUTION WIDTH 13.6 % (11.6-17.2); WHITE BLOOD COUNT 10.6 TH/MM3 (4.0-11.0)
[2017-05-16 01:11] LABS: APTT (PATIENT) 25.1 SEC (24.3-30.1); PROTHROMBIN TIME - PATIENT 10.9 SEC (9.8-11.6)
[2017-05-16] MEDS ORDERED: SODIUM CHLOR 0.9% 1000 ML INJ 1,000 ML IV ONE (01:15)
[2017-05-16 01:25] LABS: ALT (GPT) 17 U/L (10-53); ANION GAP 14 MEQ/L (5-15); AST (GOT) 36 U/L (15-37); BICARBONATE 18.7 MEQ/L (21.0-32.0); BLOOD UREA NITROGEN 12 MG/DL (7-18); CHLORIDE 107 MEQ/L (98-107); GLOMERULAR FILTRATION RATE 62 ML/MIN (>89); POTASSIUM 3.8 MEQ/L (3.5-5.1); SODIUM (NA) 140 MEQ/L (136-145)
[2017-05-16 01:26] LABS: ALCOHOL 66 MG/DL (0-5)
[2017-05-16 01:32] LABS: ALKALINE PHOSPHATASE 67 U/L (45-117); TOTAL BILIRUBIN ADULT 0.3 MG/DL (0.2-1.0)
[2017-05-16 01:41] LABS: ACETAMINOPHEN LESS THAN 2.0 MCG/ML (10.0-30.0)
[2017-05-16 03:05] LABS: BLOOD, URINE TRACE (NEG); COMMENT (UR) CULT NOT INDICATED; CULTURE IF INDICATED CULT NOT INDICATED; GLUCOSE,URINE NEG (NEG); GRANULAR CAST, URINE 8 /lpf; HYALINE CAST, URINE 2 /lpf (RARE); KETONE, URINE NEG (NEG); MUCUS URINE FEW /lpf (OCC); NITRITE,URINE NEG (NEG); PH, URINE 5.5 (5.0-8.5); SQUAMOUS EPITHELIAL CELL URINE 1 /hpf (0-5); URINE COLOR YELLOW (YELLW/STRAW)
[2017-05-16 05:46] VITALS: BP 130/60; PULSE 102; RESP 16; O2SAT 97
--- NOTE | 2017-05-16 15:09 | EKG ---
Date Performed: 05/16/2017 Time Performed: 01:27:34 PTAGE: 31 years EKG: SINUS TACHYCARDIA POSSIBLE LEFT ATRIAL ENLARGEMENT NONSPECIFIC T-WAVE ABNORMALITY ABNORMAL RHYTHM ECG PREVIOUS TRACING : 10/24/2016 19.48 Compared to the previous tracing rate has increased DOCTOR: Chucho Doan Interpretating Date/Time 05/16/2017 15:06:57
== END 2017-05-16 06:54 | disposition home or self-care (01) ==
LOC: NEPE 00:13 → NEPD 06:54
DX: F14.10 Cocaine abuse, uncomplicated (principal); B20 Human immunodeficiency virus [HIV] disease; K85.90 Acute pancreatitis without necrosis or infection, unspecified; I10 Essential (primary) hypertension; J45.909 Unspecified asthma, uncomplicated
CPT/HCPCS: 71010; 80053; 80307; 81001; 83690; 83735; 84443; 84484; 85025; 85610; 85730; 93005; 96361; 96374; 99285; J2060; J7030

== ENCOUNTER 2017-06-26 21:54 | Emergency (ER) | payer SELFPAY ==
[~2017-06-26] VITALS: Ht 172.7 cm; Wt 105.0 kg
[~2017-06-26 21:54] MED LIST changes: -ACYC200C66 PO; -AZIT600T PO; -BACT800T5 PO; -CYCL1TAB29 PO; -DIFL200T PO; +ELVITAB PO; -LIDO4CRE5 RECTAL; -MAGICADU2 SWISH-SWAL; -MAGN400T2 PO; -OMEP40CA2 PO; -SUCR1S PO; -[UNRECOGNIZED DRUG - CODE] PO
[2017-06-26 21:59] VITALS: RESP 18
[2017-06-26 22:02] VITALS: BP 125/63; PULSE 90; RESP 18; O2SAT 99
[2017-06-26] MEDS ORDERED: PAXI10TA2 PO (22:09)
[2017-06-26] MEDS ORDERED: SERO25TA PO (22:10)
--- NOTE | 2017-06-26 22:21 | PD ---
HPI Chief Complaint: Chest Pain Time Seen by Provider: 22:01 Travel History International Travel<30 days: No Contact w/Intl Traveler<30days: No Traveled to known affect area: No History of Present Illness HPI 31-year-old female with history of cocaine use, asthma, hypertension, HIV, presents to emergency department for evaluation of substernal chest pain. Patient states his mind that this evening when she began to feel nauseous. She vomited. And since then her chest is her. It is reproducible on palpation, mostly in the sternal region. No other trauma. Patient denies any hematemesis. No significant abdominal pain. Denies any urinary or bowel symptoms. Denies fever or chills. She has no other symptoms to report. [facility] Past Medical History Asthma: Yes Autoimmune Disease: Yes (HIV +, AIDS ) Anxiety: Yes Depression: Yes Cancer: No Cardiovascular Problems: Yes (CHEST PAIN) Diabetes: No Diminished Hearing: No Gastrointestinal Disorders: Yes (pancreatitis) Genitourinary: No Headaches: Yes Hypertension: Yes Immune Disorder: Yes (AIDS) Implanted Vascular Access Dvce: No Musculoskeletal: No Neurologic: No Psychiatric: No Respiratory: Yes (BRONCHITIS) Immunizations Current: Yes Pancreatitis: Yes ?: Not LMP: 06/19/17 : 4 Para: 4 Miscarriage: 0 : 0 Past Surgical History Section: Yes (X2) Gynecologic Surgery: Yes (c section) Oral Surgery: Yes (jaw surgery 2016) Other Surgery: Yes Social History Alcohol Use: Yes (OCCASIONALLY) Tobacco Use: No Substance Use: No Allergies-Medications (Allergen,Severity, Reaction): Coded Allergies: No Known Allergies (Verified , 06/26/17) Reported Meds & Prescriptions Reported Meds & Active Scripts Active Reported Seroquel (Quetiapine Fumarate) 25 Mg Tab Unknown Dose PO Paxil (Paroxetine HCl) 10 Mg Tab Unknown Dose PO DAILY Stribild (Ttcutslugslx-Qrnmovtdqe-Obcuxhqusrah-Tenofvir) [phone] Mg Tab 1 Tab PO DAILY With food Review of Systems Except as stated in HPI: all other systems reviewed are Neg Physical Exam Narrative GENERAL: Well-nourished female patient, sitting up in the bed, in no acute distress SKIN: Focused skin assessment warm/dry. HEAD: Atraumatic. Normocephalic. EYES: Pupils equal and round. No scleral icterus. No injection or drainage. ENT: No nasal bleeding or discharge. Mucous membranes pink and moist. NECK: Trachea midline. No JVD. CARDIOVASCULAR: Regular rate and rhythm. No murmur appreciated. RESPIRATORY: No accessory muscle use. Clear to auscultation. Breath sounds equal bilaterally. GASTROINTESTINAL: Abdomen soft, non-tender, nondistended. Hepatic and splenic margins not palpable. No guarding. No rebound tenderness. MUSCULOSKELETAL: No obvious deformities. No clubbing. No cyanosis. No edema. NEUROLOGICAL: Awake and alert. No obvious cranial nerve deficits. Motor grossly within normal limits. Normal speech. Data Data Last Documented VS Vital Signs Date Time Temp Pulse Resp B/P (MAP) Pulse Ox O2 Delivery O2 Flow Rate FiO2 06/27/17 00:03 06/26/17 22:02 90 18 99 Room Air Orders Orders Ketorolac Inj (Toradol Inj) (06/26/17 22:30) Al-Mag Hy-Si 40-40-4 Mg/Ml Liq (Mag-Al P (06/26/17 22:30) Lidocaine 2% Viscous (Xylocaine 2% Visco (06/26/17 22:30) Electrocardiogram (06/26/17 ) MDM Medical Decision Making Medical Screen Exam Complete: Yes Emergency Medical Condition: Yes Medical Record Reviewed: Yes Differential Diagnosis Atypical chest pain versus chest wall pain versus pleurisy versus muscle strain Narrative Course 31-year-old female with no cardiac history but history of cocaine use, presents to the emergency department for evaluation. Patient appears without distress. EKG is completely reviewed with my attending physician with no ectopy noted. Abrasion is given Toradol. Upon reassessment she is resting comfortably with her eyes closed in the bed. With resolution of her symptoms. She'll be discharged at this time. Diagnosis Primary Impression: Atypical chest pain Referrals: Primary Care Physician Patient Instructions: Chest Pain (ED), General Instructions Additional Instructions: Follow up with a primary care provider Return to ED with acute worsening of symptoms Med/Other Pt SpecificInfo: No Change to Meds Disposition: 01 DISCHARGE HOME Condition: Stable LaureenMarilyn ARIAS Jun 26, 2017 22:21
[2017-06-26] MEDS ORDERED: LIDOCAINE VISCOUS 2% SOLN 15 ML UDC PO ONE (22:30)
[2017-06-26] MEDS ORDERED: KETOROLAC TROMETHAMINE 60 MG/2 ML (IM) VIAL IM ONE (22:30)
[2017-06-26] MEDS ORDERED: ALUMINUM/MAGNESIUM/SIMETH 30 ML CUP PO ONE (22:30)
--- NOTE | 2017-06-27 14:52 | EKG ---
Date Performed: 06/26/2017 Time Performed: 23:15:43 PTAGE: 31 years EKG: Sinus rhythm WITH FIRST DEGREE AV BLOCK ABNORMAL ECG PREVIOUS TRACING : 05/16/2017 01.27 Compared to the previous tracing rate slower DOCTOR: Koby Ramos Interpretating Date/Time 06/27/2017 14:51:37
== END 2017-06-27 00:06 | disposition home or self-care (01) ==
LOC: NEPD 21:54
DX: R07.89 Other chest pain (principal); I10 Essential (primary) hypertension; I44.0 Atrioventricular block, first degree; Z21 Asymptomatic human immunodeficiency virus [HIV] infection status
CPT/HCPCS: 93005; 96372; 99284; J1885

== ENCOUNTER 2017-07-30 19:54 | Observation (INO) | payer OTHER ==
[~2017-07-30] VITALS: Ht 175.3 cm; Wt 105.0 kg
[~2017-07-30 19:54] MED LIST changes: +PAXI10TA2 PO; +SERO25TA PO
[2017-07-30] MEDS ORDERED: SODIUM CHLOR 0.9% 1000 ML INJ 1,000 ML IV SCH (20:07)
[2017-07-30 20:16] VITALS: BP 142/92; PULSE 111; RESP 18; TEMP 98.1; O2SAT 100
--- NOTE | 2017-07-30 20:17 | PD ---
HPI Chief Complaint: anxiety Time Seen by Provider: 20:00 Travel History International Travel<30 days: No Contact w/Intl Traveler<30days: No Traveled to known affect area: No History of Present Illness HPI This patient was given the presence of a female nurse at all times. 31-year- old female with a history of HIV, currently not on any antiretroviral medication , presents for evaluation. She reports that this evening she was watching TV when she developed palpitations, paresthesias in the upper and lower extremities , anxiety and substernal chest pain. She describes it as a sharp pain with no obvious aggravating or alleviating factors. She reports that she's been under a lot of social stress over the past few months that she has been living with her boyfriend and his mother and this is been very stressful for her. She denies shortness of breath but she does endorse a slight cough over the past several days. She denies abdominal pain, nausea or vomiting, flank pain, dysuria, fevers or chills. The patient has a history of crack cocaine abuse in the past but reports that she has abstained from illicit drug use for 2 months. Most recently this patient was seen here in June for evaluation of atypical chest pain. The patient was seen here in May for evaluation of cocaine abuse. Prior to that in October she was seen multiple times for evaluation of atypical chest pain and she had numerous cardiac workups which are reassuring. She has no other complaints at this time. PFSH Past Medical History Asthma: Yes Autoimmune Disease: Yes (HIV +, AIDS ) Anxiety: Yes Depression: Yes Cancer: No Cardiovascular Problems: Yes (CHEST PAIN) Diabetes: No Diminished Hearing: No Gastrointestinal Disorders: Yes (pancreatitis) Genitourinary: No Headaches: Yes Hypertension: Yes Immune Disorder: Yes (AIDS) Implanted Vascular Access Dvce: No Musculoskeletal: No Neurologic: No Psychiatric: No Respiratory: Yes (BRONCHITIS) Immunizations Current: Yes Pancreatitis: Yes : 4 Para: 4 Miscarriage: 0 : 0 Past Surgical History Section: Yes (X2) Gynecologic Surgery: Yes (c section) Oral Surgery: Yes (jaw surgery 2016) Other Surgery: Yes Social History Alcohol Use: Yes (OCCASIONALLY) Tobacco Use: No Substance Use: No Allergies-Medications (Allergen,Severity, Reaction): Coded Allergies: No Known Allergies (Verified Adverse Reaction, Unknown, 07/30/17) Reported Meds & Prescriptions Reported Meds & Active Scripts Active Reported Seroquel (Quetiapine Fumarate) 25 Mg Tab Unknown Dose PO Paxil (Paroxetine HCl) 10 Mg Tab Unknown Dose PO DAILY Stribild (Nkzlhynxltsa-Zdmdzbltby-Qwconvrhbbtr-Tenofvir) [phone] Mg Tab 1 Tab PO DAILY With food Review of Systems Except as stated in HPI: all other systems reviewed are Neg Physical Exam Narrative GENERAL: Well-developed well-nourished female who appears anxious on initial examination. Tachycardia, rate 103. SKIN: Warm and dry. HEAD: Atraumatic. Normocephalic. EYES: Pupils equal and round. No scleral icterus. No injection or drainage. ENT: No nasal bleeding or discharge. Mucous membranes pink and moist. NECK: Trachea midline. No JVD. CARDIOVASCULAR: Regular rate and rhythm. No murmur appreciated. RESPIRATORY: No accessory muscle use. Clear to auscultation. Breath sounds equal bilaterally. GASTROINTESTINAL: Abdomen soft, non-tender, nondistended. Hepatic and splenic margins not palpable. MUSCULOSKELETAL: No obvious deformities. No clubbing. No cyanosis. No edema. NEUROLOGICAL: Awake and alert. No obvious cranial nerve deficits. Motor grossly within normal limits. Normal speech. PSYCHIATRIC: Appropriate mood and affect; insight and judgment normal. Data Data Last Documented VS Vital Signs Date Time Temp Pulse Resp B/P (MAP) Pulse Ox O2 Delivery O2 Flow Rate FiO2 07/30/17 20:18 111 100 Room Air 07/30/17 20:16 98.1 18 142/92 (109) Orders Orders Electrocardiogram (07/30/17 20:07) Basic Metabolic Panel (Bmp) (07/30/17 20:07) Ckmb (Isoenzyme) Profile (07/30/17 20:07) Complete Blood Count With Diff (07/30/17 20:07) Magnesium (Mg) (07/30/17 20:07) Troponin I (07/30/17 20:07) Chest, Single Ap (07/30/17 20:07) Ecg Monitoring (07/30/17 20:07) Bilateral Bp Monitoring (07/30/17 20:07) Iv Access Insert/Monitor (07/30/17 20:07) Oximetry (07/30/17 20:07) Sodium Chlor 0.9% 1000 Ml Inj (Ns 1000 M (07/30/17 20:07) Ed Urine Pregnancytest Poc (07/30/17 20:07) Drug Screen, Random Urine (07/30/17 20:07) Potassium Chloride (Kcl) (07/30/17 21:45) Aspirin Chew (Aspirin Chew) (07/30/17 21:45) Nitroglycerin Sl (Nitrostat Sl) (07/30/17 21:45) Labs Laboratory Tests Test 07/30/17 20:35 07/30/17 20:50 White Blood Count 3.6 TH/MM3 Red Blood Count 4.05 MIL/MM3 Hemoglobin 11.8 GM/DL Hematocrit 34.9 % Mean Corpuscular Volume 86.1 FL Mean Corpuscular Hemoglobin 29.1 PG Mean Corpuscular Hemoglobin Concent 33.8 % Red Cell Distribution Width 14.1 % Platelet Count 220 TH/MM3 Mean Platelet Volume 8.6 FL Neutrophils (%) (Auto) 62.3 % Lymphocytes (%) (Auto) 26.2 % Monocytes (%) (Auto) 7.3 % Eosinophils (%) (Auto) 3.6 % Basophils (%) (Auto) 0.6 % Neutrophils # (Auto) 2.2 TH/MM3 Lymphocytes # (Auto) 0.9 TH/MM3 Monocytes # (Auto) 0.3 TH/MM3 Eosinophils # (Auto) 0.1 TH/MM3 Basophils # (Auto) 0.0 TH/MM3 CBC Comment DIFF FINAL Differential Comment Blood Urea Nitrogen 6 MG/DL Creatinine 0.90 MG/DL Random Glucose 103 MG/DL Calcium Level 8.7 MG/DL Magnesium Level 1.7 MG/DL Sodium Level 139 MEQ/L Potassium Level 3.3 MEQ/L Chloride Level 107 MEQ/L Carbon Dioxide Level 23.5 MEQ/L Anion Gap 9 MEQ/L Estimat Glomerular Filtration Rate 90 ML/MIN Total Creatine Kinase 75 U/L Troponin I LESS THAN 0.02 NG/ML Urine Opiates Screen NEG Urine Barbiturates Screen NEG Urine Amphetamines Screen NEG Urine Benzodiazepines Screen NEG Urine Cocaine Screen NEG Urine Cannabinoids Screen NEG MDM Medical Decision Making Medical Screen Exam Complete: Yes Emergency Medical Condition: Yes Medical Record Reviewed: Yes Interpretation(s) EKG sinus tachycardia with a rate of 103, nonspecific ST changes. Differential Diagnosis Anxiety, palpitations, electrolyte abnormality, cocaine abuse, pulmonary embolism, dehydration, acute coronary syndrome Narrative Course The patient is placed on ECG monitoring and pulse oximetry. Twelve-lead EKG was obtained. Plan is for basic lab work, the patient was given IV fluids. The patient's initial lab work reveals a WBC count of 3.6, potassium of 3.3, otherwise remarkable. I discussed with my attending and, given her history of HIV, cocaine abuse, the plan will be to admit the patient of the chest pain center for serial cardiac enzymes and rule out purposes. The patient is agreeable. Aspirin, nitroglycerin administered. Diagnosis Primary Impression: Atypical chest pain Additional Impression: Anxiety Admitting Information Admitting Physician Requests: Observation Deepak Ba Jul 30, 2017 20:17
--- NOTE | 2017-07-30 20:30 | RADRPT ---
EXAM DATE/TIME: 07/30/2017 20:09 [facility] COMPARISON: CHEST SINGLE AP, May 16, 2017, 0:38. INDICATIONS : Chest pain. MEDICAL HISTORY : None. SURGICAL HISTORY : None. ENCOUNTER: Initial ACUITY: 1 day PAIN SCORE: 5/10 LOCATION: Bilateral chest FINDINGS: A single view of the chest demonstrates the lungs to be symmetrically aerated without evidence of mas s, infiltrate or effusion. The cardiomediastinal contours are unremarkable. Osseous structures are intact. CONCLUSION: No acute disease. Ben Whitfield MD on July 30, 2017 at 20:28 Board Certified Radiologist. This report was verified electronically.
[2017-07-30 21:14] LABS: AUTOMATED NEUTROPHIL # 2.2 TH/MM3 (1.8-7.7); BASOPHIL % 0.6 % (0.0-2.0); EOSINOPHIL # 0.1 TH/MM3 (0-0.4); EOSINOPHIL % 3.6 % (0.0-4.0); HEMATOCRIT 34.9 % (35.0-46.0); HEMO FLAGS DIFF FINAL; LYMPH % 26.2 % (9.0-44.0); LYMPHOCYTE # 0.9 TH/MM3 (1.0-4.8); MEAN CELL VOLUME 86.1 FL (80.0-100.0); MEAN CORPUSCULAR HEMOGLOBIN 29.1 PG (27.0-34.0); MEAN CORPUSCULAR HGB CONC 33.8 % (32.0-36.0); MONO % 7.3 % (0.0-8.0); NEUT % 62.3 % (16.0-70.0); PLATELET COUNT 220 TH/MM3 (150-450); RED BLOOD COUNT 4.05 MIL/MM3 (4.00-5.30); RED CELL DISTRIBUTION WIDTH 14.1 % (11.6-17.2); WHITE BLOOD COUNT 3.6 TH/MM3 (4.0-11.0)
[2017-07-30 21:22] LABS: ANION GAP 9 MEQ/L (5-15); BICARBONATE 23.5 MEQ/L (21.0-32.0); BLOOD UREA NITROGEN 6 MG/DL (7-18); CHLORIDE 107 MEQ/L (98-107); GLOMERULAR FILTRATION RATE 90 ML/MIN (>89); MAGNESIUM 1.7 MG/DL (1.5-2.5); SODIUM (NA) 139 MEQ/L (136-145)
[2017-07-30 21:27] LABS: POTASSIUM 3.3 MEQ/L (3.5-5.1)
[2017-07-30 21:31] LABS: CREATINE KINASE 75 U/L (26-192)
[2017-07-30] MEDS ORDERED: POTASSIUM CHLORIDE 20 MEQ CONTROLLED RELEASE TAB PO ONE (21:45)
[2017-07-30] MEDS ORDERED: SODIUM CHLORIDE 0.9% FLUSH 10 ML FLUSH IV FLUSH PRN (21:45)
[2017-07-30] MEDS ORDERED: ASPIRIN 81 MG CHEW TAB PO ONE (21:45)
[2017-07-30] MEDS ORDERED: NITROGLYCERIN 0.4 MG SL 25 TABS/BTL SL ONE (21:45)
[2017-07-31] VITALS (7 sets, daily range): BP systolic 101–123; BP diastolic 69–81; PULSE 65–80; RESP 18–20; TEMP 98–98.1; O2SAT 97–100
[2017-07-31 03:12] LABS: CKMB 5.4 NG/ML (0.5-3.6)
[2017-07-31 05:10] LABS: CREATINE KINASE 62 U/L (26-192)
--- NOTE | 2017-07-31 08:37 | HHI.HP ---
HPI Primary Care Physician No Primary Care Physician Chief Complaint Chest pain History of Present Illness 31-year-old female with history of HIV and noncompliance with antiviral medications presents to emergency room for further evaluation of chest pain. Onset yesterday evening, unable to remember exact time while watching TV. States her palms became sweaty, developed palpations felt in her throat, followed by substernal sharp, chest pain, and tingling all over her body. No radiation of pain. Duration 2-3 hours. Associated symptoms include nausea and dyspnea. Denied vomiting or diaphoresis. No known precipitating factors. Relieving factors coming to the emergency room and the ER staff helped called me down." Denies similar pain in the past. Endorses past panic attacks, but states this episode different from previous panic attacks. Currently does not have a primary care provider and states "I just don't have my antivirals." After discussing importance of compliance of antiviral medications, she endorses other providers have also stressed the importance of taking her medications. Review of Systems General: No fatigue,weakness, fever, chills, or recent illness. Has been in her general state of health. Currently is unemployed. Reports being on SSI. HEENT: No MATTHEWS CV: Continues to have mild, intermittent sharp substernal chest pain. Stating pain much improved. RESP: No SOB, cough, recent upper respiratory infection, sputum production, or history of asthma. Former smoker. GI: Nausea resolved. No Vomiting, bowel changes, or diarrhea. No change in appetite, no unintentional weight gain or weight loss. : Endorses dysuria of burning and pressure with urination, unable to give timeframe of when symptoms began. [employer]EM[employer] AFFA[employer] DEAN: Denies chance of . History of tubal ligation. Currently on her menses. EXT: No lower leg edema MS: No discomfort or change in ROM NEURO: No change in memory, difficulty with balance, LOC, or motor/sensory deficits PSYCH: History of anxiety attacks. Denies depression, suicidal ideation, or situational stress. SKIN: No rashes, no concerning lesions Past Family Social History Allergies: Coded Allergies: No Known Allergies (Verified Allergy, Unknown, 07/31/17) Past Medical History HIV positive (according to [facility] medical records patient was HIV in 2007), hypertension, noncompliance with medications Past Surgical History Tubal ligation, "jaw" surgery Reported Medications Reported Meds & Active Scripts Active Reported Seroquel (Quetiapine Fumarate) 25 Mg Tab Unknown Dose PO Paxil (Paroxetine HCl) 10 Mg Tab Unknown Dose PO DAILY Stribild (Pahdkxaoxlzb-Espqvyojjw-Soiltniksyzy-Tenofvir) [phone] Mg Tab 1 Tab PO DAILY With food Active Ordered Medications Current Medications Medications (Trade) Dose Ordered Sig/Amari Route Start Time Stop Time Status Last Admin (NS Flush) 2 ml UNSCH PRN IV FLUSH 07/30/17 21:45 (NS Flush) 2 ml BID IV FLUSH 07/31/17 09:00 07/31/17 07:50 Family History Noncontributory for early onset cardiovascular disease. Social History Reports hypertension, currently not on medication. Denies any known coronary artery disease, diabetes, or hyperlipidemia. Former smoker of 1 pack/daily. Quit "a few years ago." Past cocaine/crack use, reporting last use in 2 months. Denies alcohol. Endorses a sedentary lifestyle. Unemployed. Disabled. Past cardiac testing None Physical Exam Vital Signs Vital Signs Date Time Temp Pulse Resp B/P (MAP) Pulse Ox O2 Delivery O2 Flow Rate FiO2 07/31/17 06:05 21 07/31/17 05:08 67 07/31/17 03:47 98.1 69 18 120/81 (94) 100 07/31/17 00:16 79 07/31/17 00:16 98.1 80 18 123/81 (95) 100 07/30/17 20:18 111 100 Room Air 07/30/17 20:16 98.1 111 18 142/92 (109) 100 Physical Exam GENERAL: Alert WN, WD, NAD, obese, female HEAD: NC, AT EYES: Sclera clear, conjunctiva without injection, pupils equal and round ENT: Mucous membranes pink and moist NECK: Supple, no masses, trachea midline CV: RRR, without murmur, rub, gallop, no JVD, S1-S2 no S3-S4. Chest wall nontender with palpation. RESP: Clear lungs throughout bilateral, no crackles, wheeze, rhonchi, symmetrical chest rise, nonlabored, able to speak in full sentences ABD: Soft, NT, ND, positive bowel tones, obese BACK: No CVAT EXT: Pulses +24, no dependent edema MS: Normal tone 4 extremities, no obvious deformities, full range of motion NEURO: CN II through CN XII grossly intact, motor strength 5/5, gait WNL PSYCH: A+O 3, flat affect, appropriate speech. Questionable insight and judgment especially due to noncompliance of anti-viral medications for HIV. SKIN: Normal turgor, normal texture, no lesions, no rashes Laboratory Laboratory Tests Test 07/30/17 20:35 07/30/17 20:50 07/31/17 01:46 07/31/17 03:30 White Blood Count 3.6 Red Blood Count 4.05 Hemoglobin 11.8 Hematocrit 34.9 Mean Corpuscular Volume 86.1 Mean Corpuscular Hemoglobin 29.1 Mean Corpuscular Hemoglobin Concent 33.8 Red Cell Distribution Width 14.1 Platelet Count 220 Mean Platelet Volume 8.6 Neutrophils (%) (Auto) 62.3 Lymphocytes (%) (Auto) 26.2 Monocytes (%) (Auto) 7.3 Eosinophils (%) (Auto) 3.6 Basophils (%) (Auto) 0.6 Neutrophils # (Auto) 2.2 Lymphocytes # (Auto) 0.9 Monocytes # (Auto) 0.3 Eosinophils # (Auto) 0.1 Basophils # (Auto) 0.0 CBC Comment DIFF FINAL Differential Comment Blood Urea Nitrogen 6 Creatinine 0.90 Random Glucose 103 Calcium Level 8.7 Magnesium Level 1.7 Sodium Level 139 Potassium Level 3.3 Chloride Level 107 Carbon Dioxide Level 23.5 Anion Gap 9 Estimat Glomerular Filtration Rate 90 Total Creatine Kinase 75 209 62 Troponin I LESS THAN 0.02 0.02 LESS THAN 0.02 Urine Opiates Screen NEG Urine Barbiturates Screen NEG Urine Amphetamines Screen NEG Urine Benzodiazepines Screen NEG Urine Cocaine Screen NEG Urine Cannabinoids Screen NEG Creatine Kinase MB 5.4 Creatine Kinase MB % 2.6 Result Diagram: 07/30/17203407/30/172034 Imaging Last Impressions Chest X-Ray 07/30/172006 Signed Impressions: Service Date/Time: Sunday, July 30, 2017 20:09 - CONCLUSION: No acute disease. Ben Whitfield MD Course EKG First EKG-normal sinus tachycardia with nonspecific T-wave changes Second and third- Normal sinus rhythm, no ST or T-segment changes Caprini VTE Risk Assessment Caprini VTE Risk Assessment: No/Low Risk (score <= 1) Caprini Risk Assessment Model Point Value = 1 Point Value = 2 Point Value = 3 Point Value = 5 Age 41-60 Minor surgery BMI > 25 kg/m2 Swollen legs Varicose veins or History of unexplained or recurrent spontaneous Oral contraceptives or hormone replacement Sepsis (< 1 month) Serious lung disease, including pneumonia (< 1 month) Abnormal pulmonary function Acute myocardial infarction Congestive heart failure (< 1 month) History of inflammatory bowel disease Medical patient at bed rest Age 61-74 Arthroscopic surgery Major open surgery (> 45 min) Laparoscopic surgery (> 45 min) Malignancy Confined to bed (> 72 hours) Immobilizing plaster cast Central venous access Age >= 75 History of VTE Family history of VTE Factor V Leiden Prothrombin [id number] Lupus anticoagulant Anticardiolipin antibodies Elevated serum homocysteine Heparin-induced thrombocytopenia Other congenital or acquired thrombophilia Stroke (< 1 month) Elective arthroplasty Hip, pelvis, or leg fracture Acute spinal cord injury (< 1 month) Prophylaxis Regimen Total Risk Factor Score Risk Level Prophylaxis Regimen 0-1 Low Early ambulation 2 Moderate Order ONE of the following: *Sequential Compression Device (SCD) *Heparin 5000 units SQ BID 3-4 Higher Order ONE of the following medications: *Heparin 5000 units SQ TID *Enoxaparin/Lovenox 40 mg SQ daily (WT < 150 kg, CrCl > 30 mL/min) *Enoxaparin/Lovenox 30 mg SQ daily (WT < 150 kg, CrCl > 10-29 mL/min) *Enoxaparin/Lovenox 30 mg SQ BID (WT < 150 kg, CrCl > 30 mL/min) AND/OR *Sequential Compression Device (SCD) 5 or more Highest Order ONE of the following medications: *Heparin 5000 units SQ TID (Preferred with Epidurals) *Enoxaparin/Lovenox 40 mg SQ daily (WT < 150 kg, CrCl > 30 mL/min) *Enoxaparin/Lovenox 30 mg SQ daily (WT < 150 kg, CrCl > 10-29 mL/min) *Enoxaparin/Lovenox 30 mg SQ BID (WT < 150 kg, CrCl > 30 mL/min) AND *Sequential Compression Device (SCD) Assessment and Plan Assessment and Plan #1 Atypical chest pain-admitted to [facility]. Ruled out with 3 sets of EKGs, cardiac enzymes, and monitored on telemetry. Seen and evaluated by Dr. Yesi Wolfe. Proceed with exercise stress test. If unremarkable will discharge later this afternoon. Patient agreeable to plan of care. #2 HIV-strongly encouraged and stressed the importance of compliance with HIV medications, following with an infectious disease doctor and with a PCP. HIV is a life-threatening disease without proper treatment. #3 Hypertension-continue to monitor, discussed importance of following a low sodium diet, no medications needed at this time. Tonya Denny Jul 31, 2017 08:37
[2017-07-31] MEDS ORDERED: SODIUM CHLORIDE 0.9% FLUSH 10 ML FLUSH IV FLUSH SCH ×2 (09:00→21:00)
[2017-07-31] MEDS ORDERED: RESP: ALBUTEROL 2.5 MG/3 ML NEB (PRN) NEB (10:00)
[2017-07-31 13:00] LABS: BETA HCG QUANT LESS THAN 1 MIU/ML (0-5)
[2017-07-31] MEDS ORDERED: ONDANSETRON HCL 4 MG/2 ML VIAL IV PUSH PRN (13:45)
[2017-07-31] MEDS ORDERED: ACETAMINOPHEN 500 MG CPLT PO PRN (13:45)
[2017-07-31] MEDS ORDERED: NITROGLYCERIN 0.4 MG SL 25 TABS/BTL SL PRN (13:45)
--- NOTE | 2017-07-31 14:26 | TR ---
Date Performed: 07/31/2017 Time Performed: 12:17:02 DOCTOR: Yesi Wolfe DRUG LIST: CLINICAL HISTORY: CHEST PAIN REASON FOR TEST: REASON FOR ENDING: OBSERVATION: CONCLUSION: Luis protocol attempted. Stopped exam within 45 seconds into exam due patient inabi lity to walk safely on treadmill. Test will be converted to Lexiscan. COMMENTS:
--- NOTE | 2017-07-31 14:35 | EKG ---
Date Performed: 07/31/2017 Time Performed: 03:43:46 PTAGE: 31 years EKG: Sinus rhythm WITH FIRST DEGREE AV BLOCK ABNORMAL ECG Since PREVIOUS TRACING , no significant change noted PREVIOUS TRACIN07/31/2017 00.08 DOCTOR: Yesi Wolfe Interpretating Date/Time 07/31/2017 14:33:46
--- NOTE | 2017-07-31 14:36 | EKG ---
Date Performed: 07/31/2017 Time Performed: 00:05:16 PTAGE: 31 years EKG: Sinus rhythm NORMAL ECG Since PREVIOUS TRACING , ST segments are back to baseline PREVIOUS TRACIN07/30/2017 20.04 DOCTOR: Yesi Wolfe Interpretating Date/Time 07/31/2017 14:34:28
--- NOTE | 2017-07-31 14:36 | EKG ---
Date Performed: 07/30/2017 Time Performed: 20:04:36 PTAGE: 31 years EKG: SINUS TACHYCARDIA ST DEVIATION AND MODERATE T-WAVE ABNORMALITY, CONSIDER ANTEROLATERAL ISCH EMIA ST DEVIATION AND MODERATE T-WAVE ABNORMALITY, CONSIDER INFERIOR ISCHEMIA ABNORMAL ECG Since PREVIOUS TRACING , now with ST changes PREVIOUS TRACIN07/30/2017 20.02 DOCTOR: Yesi Wolfe Interpretating Date/Time 07/31/2017 14:35:47
[2017-07-31] MEDS ORDERED: REGADENOSON INJ 0.4 MG/5 ML SYR ONE (16:15)
--- NOTE | 2017-07-31 17:31 | TR ---
Date Performed: 07/31/2017 Time Performed: 16:21:30 DOCTOR: Yesi Wolfe DRUG LIST: CLINICAL HISTORY: ANGINA REASON FOR TEST: REASON FOR ENDING: OBSERVATION: CONCLUSION: Lexiscan stress test was performed under standard four minute protocol. Radionuclid e was injected one minute prior to ending the test. No electrocardiographic abormalities were present to suggest ischemia. Nuclear imaging and interpretation are pending. COMMENTS:
--- NOTE | 2017-07-31 17:49 | RADRPT ---
EXAM DATE/TIME: 07/31/2017 15:39 [facility] COMPARISON: No previous studies available for comparison. INDICATIONS : Angina. DOSE: 35 mCi Tc99m Myoview at stress. 11 mCi Tc99m Myoview at rest. 0.4 mg Lexiscan STRESS SYMPTOMS: Shortness of breath, chest pressure. EJECTION FRACTION: 63% MEDICAL HISTORY : Hypertension. HIV. SURGICAL HISTORY : section. Jaw surgery. ENCOUNTER: Initial ACUITY: 2 days PAIN SCALE: 2/10 LOCATION: Substernal chest discomfort TECHNIQUE: The patient underwent pharmacologic stress with infusion of prescribed dose. Continuous ECG tracing was monitored during stress. Gated SPECT imaging was performed after stress and conventional SPECT i maging was performed at rest. The examination was performed on a SPECT/CT scanner, both attenuation and non-corrected datasets were reviewed. FINDINGS: DISTRIBUTION: The maximum perfused segment at stress is in the inferior wall. PERFUSION STUDY: The pattern of perfusion at stress is within normal limits. GATED STUDY: There is intact wall motion and thickening without hypokinetic or dyskinetic segments. CONCLUSION: 1. Unremarkable myocardial perfusion scan. RISK CATEGORY: Low (<1% Annual Mortality Rate) Benton Montano MD on July 31, 2017 at 17:46 Board Certified Radiologist. This report was verified electronically.
--- NOTE | 2017-07-31 17:50 | HHI.DCPOC ---
Discharge Care Plan Diagnosis: (1) HIV (human immunodeficiency virus infection) (2) Noncompliance with medication regimen (3) Atypical chest pain Goals to Promote Your Health * To prevent worsening of your condition and complications * To maintain your health at the optimal level Directions to Meet Your Goals Take your medications as prescribed Follow your dietary instruction Follow activity as directed Keep your appointments as scheduled Take your immunizations and boosters as scheduled If your symptoms worsen call your PCP, if no PCP go to Urgent Care Center or Emergency Room Smoking is Dangerous to Your Health. Avoid second hand smoke Call the 24-hour hour crisis hotline for domestic abuse at Tonya Denny Jul 31, 2017 17:50
[2017-08-01] MEDS ORDERED: ASPIRIN 325 MG TAB PO SCH (09:00)
== END 2017-07-31 18:43 | disposition home or self-care (01) ==
LOC: NEPC 19:54 → NEDA 21:37 → NEPFCDU 22:27
PROVIDERS: ADMIT Internal Medicine Cardiovascular Disease; ATTEND Internal Medicine Cardiovascular Disease
DX: R07.89 Other chest pain (principal); B20 Human immunodeficiency virus [HIV] disease; Z91.14 Patient's other noncompliance with medication regimen; R51 Headache; R07.2 Precordial pain; J45.909 Unspecified asthma, uncomplicated; I10 Essential (primary) hypertension; F41.9 Anxiety disorder, unspecified; R94.31 Abnormal electrocardiogram [ECG] [EKG]; K86.1 Other chronic pancreatitis
CPT/HCPCS: 71010; 78452; 80048; 80307; 82550; 82552; 83735; 84484; 84702; 84703; 85025; 93005; 93017; 94664; 96360; 99285; A9502; G0378; J2785; J7030; J7613

== ENCOUNTER 2017-08-30 12:23 | Inpatient (IN) | payer MEDICAID, OTHER ==
[~2017-08-30] VITALS: Ht 170.2 cm; Wt 118.9 kg
[~2017-08-30 12:23] MED LIST changes: -PAXI10TA2 PO; +PAXI10TA8 PO
[2017-08-30 12:27] VITALS: BP 107/74; PULSE 148; RESP 16; TEMP 98.4; O2SAT 99
--- NOTE | 2017-08-30 13:27 | PD ---
HPI Chief Complaint: Medical Clearance Time Seen by Provider: 13:19 Travel History International Travel<30 days: No Contact w/Intl Traveler<30days: No Traveled to known affect area: No History of Present Illness HPI patient c/o chest pain, constant, for past 2 days continuously, described as sharp, substernal, 04/09, no n/v/d/mann/abd pain/.... PFSH Past Medical History Asthma: Yes Autoimmune Disease: Yes (HIV +, AIDS ) Anxiety: Yes Depression: Yes Cancer: No Cardiovascular Problems: No Diabetes: No Diminished Hearing: No Gastrointestinal Disorders: Yes (pancreatitis) Genitourinary: No Headaches: Yes Hypertension: Yes Immune Disorder: Yes (AIDS) Implanted Vascular Access Dvce: No Musculoskeletal: No Neurologic: No Psychiatric: No Respiratory: Yes (BRONCHITIS) Immunizations Current: Yes Pancreatitis: Yes ?: Not : 4 Para: 4 Miscarriage: 0 : 0 Past Surgical History Section: Yes (X2) Gynecologic Surgery: Yes (c section) Oral Surgery: Yes (jaw surgery 2015) Other Surgery: Yes Social History Alcohol Use: Yes (OCCASIONALLY) Tobacco Use: No Substance Use: No Allergies-Medications (Allergen,Severity, Reaction): Coded Allergies: No Known Allergies (Verified Allergy, Unknown, 07/31/17) Reported Meds & Prescriptions Reported Meds & Active Scripts Active Reported Seroquel (Quetiapine Fumarate) 25 Mg Tab Unknown Dose PO Paxil (Paroxetine HCl) 10 Mg Tab Unknown Dose PO DAILY Stribild (Bxbrxjncbthg-Hfcvycpfah-Ctamyqvhcirb-Tenofvir) [phone] Mg Tab 1 Tab PO DAILY With food Review of Systems Except as stated in HPI: all other systems reviewed are Neg General / Constitutional: No: Fever Eyes: No: Visual changes HENT: No: Headaches Cardiovascular: Positive: Chest Pain or Discomfort Respiratory: No: Shortness of Breath Gastrointestinal: No: Abdominal Pain Genitourinary: No: Dysuria Musculoskeletal: No: Pain Skin: No Rash Neurologic: No: Weakness Psychiatric: No: Depression Endocrine: No: Polydipsia Hematologic/Lymphatic: No: Easy Bruising Physical Exam Narrative GENERAL: SKIN: Warm and dry. HEAD: Atraumatic. Normocephalic. EYES: Pupils equal and round. No scleral icterus. No injection or drainage. ENT: No nasal bleeding or discharge. Mucous membranes pink and moist. NECK: Trachea midline. No JVD. CARDIOVASCULAR: Regular rate and rhythm. RESPIRATORY: No accessory muscle use. Clear to auscultation. Breath sounds equal bilaterally. GASTROINTESTINAL: Abdomen soft, non-tender, nondistended. MUSCULOSKELETAL: Extremities without clubbing, cyanosis, or edema. No obvious deformities. NEUROLOGICAL: Awake and alert. No obvious cranial nerve deficits. Motor grossly within normal limits. Five out of 5 muscle strength in the arms and legs. Normal speech. PSYCHIATRIC: Appropriate mood and affect; insight and judgment normal. Data Data Last Documented VS Vital Signs Date Time Temp Pulse Resp B/P (MAP) Pulse Ox O2 Delivery O2 Flow Rate FiO2 08/30/17 12:27 98.4 148 16 107/74 (85) 99 Orders Orders Complete Blood Count With Diff (08/30/17 12:34) Comprehensive Metabolic Panel (08/30/17 12:34) Urinalysis - C+S If Indicated (08/30/17 12:34) Ed Urine Pregnancytest Poc (08/30/17 12:34) Psych Screen (08/30/17 12:34) Drug Screen, Random Urine (08/30/17 12:34) Troponin I (08/30/17 13:02) Labs Laboratory Tests Test 08/30/17 12:15 08/30/17 13:17 Urine Color DARK-BROWN Urine Turbidity CLOUDY Urine pH 6.0 Urine Specific [place] 1.026 Urine Protein 300 mg/dL Urine Glucose (UA) NEG mg/dL Urine Ketones 40 mg/dL Urine Occult Blood LARGE Urine Nitrite POS Urine Bilirubin SMALL Urine Urobilinogen 8.0 MG/DL Urine Leukocyte Esterase LARGE Urine RBC 44 /hpf Urine WBC /hpf Urine WBC Clumps MANY Urine Squamous Epithelial Cells 15 /hpf Urine Bacteria MOD /hpf Urine Hyaline Casts 119 /lpf Urine Mucus MANY /lpf Microscopic Urinalysis Comment CULTURE INDICATED MDM Medical Decision Making Medical Screen Exam Complete: Yes Emergency Medical Condition: Yes Medical Record Reviewed: Yes Differential Diagnosis atypical cp v stemi v nonstemi v chest wall pain v schizophrenia v Polo Ledezma MD Aug 30, 2017 13:27
[2017-08-30 13:39] LABS: BACTERIA, URINE MOD /hpf; BLOOD, URINE LARGE (NEG); COMMENT (UR) CULTURE INDICATED; CULTURE IF INDICATED CULTURE INDICATED; GLUCOSE,URINE NEG (NEG); HYALINE CAST, URINE 119 /lpf (RARE); KETONE, URINE 40 mg/dL (NEG); MUCUS URINE MANY /lpf (OCC); NITRITE,URINE POS (NEG); SQUAMOUS EPITHELIAL CELL URINE 15 /hpf (0-5)
[2017-08-30 13:40] LABS: URINE COLOR DARK-BROWN (YELLW/STRAW)
[2017-08-30 14:13] LABS: ALT (GPT) 45 U/L (10-53)
[2017-08-30 14:34] LABS: AUTOMATED NEUTROPHIL # 2.7 TH/MM3 (1.8-7.7); BASOPHIL % 0.7 % (0.0-2.0); EOSINOPHIL # 0.1 TH/MM3 (0-0.4); EOSINOPHIL % 2.7 % (0.0-4.0); HEMATOCRIT 36.7 % (35.0-46.0); HEMO FLAGS DIFF FINAL; LYMPHOCYTE # 0.5 TH/MM3 (1.0-4.8); MEAN CELL VOLUME 84.4 FL (80.0-100.0); MEAN CORPUSCULAR HEMOGLOBIN 28.3 PG (27.0-34.0); MEAN CORPUSCULAR HGB CONC 33.5 % (32.0-36.0); MONO % 5.8 % (0.0-8.0); NEUT % 75.8 % (16.0-70.0); PLATELET COUNT 246 TH/MM3 (150-450); RED BLOOD COUNT 4.35 MIL/MM3 (4.00-5.30); RED CELL DISTRIBUTION WIDTH 13.6 % (11.6-17.2); WHITE BLOOD COUNT 3.6 TH/MM3 (4.0-11.0)
[2017-08-30 15:27] LABS: ALKALINE PHOSPHATASE 42 U/L (45-117); TOTAL BILIRUBIN ADULT 0.9 MG/DL (0.2-1.0)
[2017-08-30 15:37] LABS: BLOOD UREA NITROGEN 7 MG/DL (7-18); GLOMERULAR FILTRATION RATE 101 ML/MIN (>89)
[2017-08-30 15:38] LABS: ANION GAP 9 MEQ/L (5-15); AST (GOT) 62 U/L (15-37); BICARBONATE 24.1 MEQ/L (21.0-32.0); CHLORIDE 108 MEQ/L (98-107); SODIUM (NA) 141 MEQ/L (136-145)
[2017-08-30 16:11] VITALS: BP 106/61; PULSE 89; RESP 16; O2SAT 100
[2017-08-30 16:42] VITALS: BP 108/63; PULSE 106; RESP 18; TEMP 97.8; O2SAT 90
--- NOTE | 2017-08-30 18:45 | PD ---
History of Present Illness Chief Complaint: Medical Clearance Time Seen by Provider: 17:45 Travel History International Travel<30 Days: No Contact w/Intl Traveler<30days: No Known affected area: No Legal Status Legal Status: Voluntary History of Present Illness: History of Present Illness HPI 31-year-old female with history of HIV, a reported history of anxiety who presented to the emergency department on a voluntary basis complaining of chest pain, headache, as well as complaining of auditory hallucinations. The patient was medically clear by ED provider and was referred for psychiatric evaluation. Electronic medical record is reviewed. The patient had approximately 25 visits to the emergency room in October 2016 for various complaints including chest pain, malingering, headache, substance abuse related complaints. She had another ED visit in May 2017 for cocaine abuse. She has never been referred to psychiatry for evaluation or has never presented any psychiatric complaints. Current toxicology is negative. Patient is seen in [facility]. She is alert, oriented, dressed in hospital gown with fair hygiene. She has been calm and cooperative. Speech is clear, logical. She answers questions but does not initiate conversation. Decreased eye contact. Patient reports to me that she came to the hospital because she was having chest pain and was hearing voices that tell her to hurt herself. Reports voices have been present for the past 1-2 years, that she hears them most of the time. The voices prevent her from sleeping well. She reports her mood as being anxious. Denies suicidal ideation. Denies homicidal ideation. She reports that she took medication approximately 1 year ago while she was living in [place] after a hospitalization for treatment of hallucinations. Patient last took Risperdal approximately 1 year ago. She does not remember the dosage of that medication. She has not been compliant with her HIV medication as well. Patient a substance hospitalization for medication stabilization. Collateral information was obtained from the patient's boyfriend after she gave authorization. Mr. Elvis Snyder was contacted at [phone]. He states that she has "crazy moments" but did not elaborate on what that meant only to state that "she has an attitude". PFSH Past Medical History Asthma: Yes Autoimmune Disease: Yes (HIV +, AIDS ) Anxiety: Yes Depression: Yes Cancer: No Cardiovascular Problems: No Diabetes: No Diminished Hearing: No Gastrointestinal Disorders: Yes (pancreatitis) Genitourinary: No Headaches: Yes Hypertension: Yes Immune Disorder: Yes (AIDS) Implanted Vascular Access Dvce: No Musculoskeletal: No Neurologic: No Psychiatric: No Respiratory: Yes (BRONCHITIS) Immunizations Current: Yes Pancreatitis: Yes Tetanus Vaccination: Unknown Influenza Vaccination: No ?: Not LMP: NOW : 4 Para: 4 Miscarriage: 0 : 0 Past Surgical History Section: Yes (X 3) Gynecologic Surgery: Yes (c section X 3) Oral Surgery: Yes (jaw surgery 2016) Other Surgery: Yes Psychiatric History Psychiatric History Hx Psychiatric Treatment: 1 previous hospitalization approximately 1-1/2 year ago in [place]. Denies any previous suicidal attempts. History of Inpatient Treatment: Yes Guns or firearms in home: No Social History Born and raised in [place]. Has been in [place] for approximately 1 year. Has lived here previously as well. She is currently living with her boyfriend and his mother. She is on disability due to medical illness. Denies any history of abuse. Hx Alcohol Use: Yes (OCCASIONALLY) Hx Tobacco Use: No (quit ) Hx Substance Use: Yes (pt has a hx of cociane abuse) Substance Use Type: Crack Other Substances Used: states she hasn't used in 3 to 4 months Hx of Substance Use Treatment: No Family Psychiatric History Denies any Allergies-Medications (Allergen,Severity, Reaction): Coded Allergies: No Known Allergies (Verified Allergy, Unknown, 07/31/17) Reported Meds & Prescriptions Reported Meds & Active Scripts Active Reported Seroquel (Quetiapine Fumarate) 25 Mg Tab Unknown Dose PO Paxil (Paroxetine HCl) 10 Mg Tab Unknown Dose PO DAILY Stribild (Ubgjgrpyzwgg-Bzlhjnuyhr-Ceebiserfqbk-Tenofvir) [phone] Mg Tab 1 Tab PO DAILY With food Review of Systems Cardiovascular: COMPLAINS OF: Chest pain Psychiatric: COMPLAINS OF: Anxiety, Hallucinations Mental Status Examination Appearance: Appropriate Consciousness: Alert Orientation: x4 Motor Activity: Normal gait Speech: Unremarkable Language: Adequate Fund of Knowledge: Adequate Attention and Concentration: Easily Distracted Memory: Impaired (poor historian) Mood: Anxious Affect: Blunt Thought Process & Associations: Intact, Logical, Goal directed Thought Content: Hallucinations Hallucination Type: Auditory (tell her to harm herself.) [facility] Medical Decision Making Medical Record Reviewed: Yes Assessment/Plan 31-year-old female with history of HIV, a reported history of anxiety who presented to the emergency department on a voluntary basis complaining of chest pain, headache, as well as complaining of auditory hallucinations. After the patient received medical clearance she was referred for psychiatric evaluation. Patient reports auditory hallucinations which are constant for the past 1-2 years that tell her to harm herself. She has not made any attempt at harming herself . Patient has been noncompliant with both medical and psychiatric medications for at least the past year. She is agreeable to voluntary admission to psychiatric unit for further observation and evaluation, medication, and stabilization of symptoms. A consult for infectious disease will be requested. Patient with UTI. Orders Orders Complete Blood Count With Diff (08/30/17 12:34) Comprehensive Metabolic Panel (08/30/17 12:34) Urinalysis - C+S If Indicated (08/30/17 12:34) Ed Urine Pregnancytest Poc (08/30/17 12:34) Psych Screen (08/30/17 12:34) Drug Screen, Random Urine (08/30/17 12:34) Troponin I (08/30/17 13:02) Urine Culture (08/30/17 12:15) Ceftriaxone Inj (Rocephin Inj) (08/30/17 15:15) Electrocardiogram (08/30/17 12:38) Diet Regular Basic (08/30/17 Dinner) Results Vital Signs Date Time Temp Pulse Resp B/P (MAP) Pulse Ox O2 Delivery O2 Flow Rate FiO2 08/30/17 16:42 97.8 106 18 108/63 (78) 90 Room Air 08/30/17 16:16 08/30/17 16:11 89 16 106/61 (76) 100 Room Air 08/30/17 12:27 98.4 148 16 107/74 (85) 99 Laboratory Tests Test 08/30/17 12:15 08/30/17 13:17 08/30/17 14:30 Urine Color DARK-BROWN Urine Turbidity CLOUDY Urine pH 6.0 Urine Specific [place] 1.026 Urine Protein 300 Urine Glucose (UA) NEG Urine Ketones 40 Urine Occult Blood LARGE Urine Nitrite POS Urine Bilirubin SMALL Urine Urobilinogen 8.0 Urine Leukocyte Esterase LARGE Urine RBC 44 Urine WBC Urine WBC Clumps MANY Urine Squamous Epithelial Cells 15 Urine Bacteria MOD Urine Hyaline Casts 119 Urine Mucus MANY Microscopic Urinalysis Comment CULTURE INDICATED Urine Opiates Screen NEG Urine Barbiturates Screen NEG Urine Amphetamines Screen NEG Urine Benzodiazepines Screen NEG Urine Cocaine Screen NEG Urine Cannabinoids Screen NEG White Blood Count 3.6 Red Blood Count 4.35 Hemoglobin 12.3 Hematocrit 36.7 Mean Corpuscular Volume 84.4 Mean Corpuscular Hemoglobin 28.3 Mean Corpuscular Hemoglobin Concent 33.5 Red Cell Distribution Width 13.6 Platelet Count 246 Mean Platelet Volume 8.5 Neutrophils (%) (Auto) 75.8 Lymphocytes (%) (Auto) 15.0 Monocytes (%) (Auto) 5.8 Eosinophils (%) (Auto) 2.7 Basophils (%) (Auto) 0.7 Neutrophils # (Auto) 2.7 Lymphocytes # (Auto) 0.5 Monocytes # (Auto) 0.2 Eosinophils # (Auto) 0.1 Basophils # (Auto) 0.0 CBC Comment DIFF FINAL Differential Comment Troponin I LESS THAN 0.02 Blood Urea Nitrogen 7 Creatinine 0.81 Random Glucose 73 Total Protein 8.2 Albumin 3.8 Calcium Level 9.2 Alkaline Phosphatase 42 Aspartate Amino Transf (AST/SGOT) 62 Alanine Aminotransferase (ALT/SGPT) 45 Total Bilirubin 0.9 Sodium Level 141 Potassium Level 4.0 Chloride Level 108 Carbon Dioxide Level 24.1 Anion Gap 9 Estimat Glomerular Filtration Rate 101 Date/Time Source Procedure Growth Status 08/30/17 12:15 Urine Clean Catch Urine Culture Pending Worksheet Diagnosis Primary Impression: Unspecified psychosis Admitting Information Admitting Physician Requests: Admit Kiana Carrizales [facility] Aug 30, 2017 18:45
[2017-08-30] MEDS ORDERED: MAGNESIUM HYDROXIDE SUSP 30 ML CUP PO PRN (19:30)
[2017-08-30 21:50] VITALS: BP 103/68; PULSE 89; RESP 17; TEMP 97.5; O2SAT 99
--- NOTE | 2017-08-31 03:45 | PD.CONS ---
[facility] Flores . Reason for Consult Treatment of UTI . Primary Care Physician No Primary Care Physician . Diagnoses: (1) Urinary tract infection (2) HIV (human immunodeficiency virus infection) (3) AIDS History of Present Illness Written by Cat Mcnally, acting as scribe for Dr. Gallegos on 08/31/17 at 03:45. The patient was seen in the psychiatric unit. She reports history of HIV/AIDS though she is unable to tell me what her CD4 count is. She tells me that she has been off of her anti-retroviral medications for "months" because it's too difficult to get her medications here in [place]. She is a somewhat poor historian. She reports chest pain and head pain that have been present for a year. She had a myocardial perfusion study on 07/31/2017 here at the [facility] and it was negative for myocardial perfusion defects. She reports fever. She reports feeling her heart beat "running around (my) neck". She also reports nausea without vomiting and diarrhea 1 "the other day". She denies bloody or black stools. She denies hematuria. She denies dysuria. Review of Systems Except as stated in HPI: all other systems reviewed are Neg Past Family Social History Allergies: Coded Allergies: No Known Allergies (Verified Allergy, Unknown, 07/31/17) Past Medical History HIV/AIDS Hypertension - does not take medications for Denies heart problems, diabetes mellitus, liver problems, kidney problems, DVT, PE, CVA, seizures, thyroid dysfunction, or cancers . Past Surgical History 3 Jaw surgery for dental abscess . Reported Medications Reported Meds & Active Scripts Active Reported Seroquel (Quetiapine Fumarate) 25 Mg Tab Unknown Dose PO Paxil (Paroxetine HCl) 10 Mg Tab Unknown Dose PO DAILY Stribild (Sawvghitblgk-Tnccnuswzz-Jsnceolodlmn-Tenofvir) [phone] Mg Tab 1 Tab PO DAILY With food . Active Ordered Medications Current Medications Ceftriaxone Sodium (Rocephin Inj) 1,000 mg ONCE ONCE IM Last administered on 08/30/17t 16:13; Start 08/30/17 at 15:15; Stop 08/30/17 at 15:16; Status DC Acetaminophen (Tylenol) 650 mg Q4H PRN PO Pain 1-5 or Temp >101F; Start at 19:30 Magnesium Hydroxide (Milk Of Magnesia Liq) 30 ml DAILY PRN PO CONSTIPATION; Start 08/30/17 at 19:30 Al Hydrox/Mg Hydrox/Simethicone (Mag-Al Plus Susp Liq) 30 ml Q6H PRN PO DYSPEPSIA; Start 08/30/17 at 19:30 . Family History Sr. from a brain tumor at age 28 . Social History Tobacco: Quit smoking "several years ago" Alcohol: Occasional alcohol intake, denies any intake in the last 2 weeks Illicit Drugs: Cocaine with last use "a couple months ago" . Physical Exam Vital Signs Vital Signs Date Time Temp Pulse Resp B/P (MAP) Pulse Ox O2 Delivery O2 Flow Rate FiO2 08/30/17 21:50 97.5 89 17 103/68 (80) 99 08/30/17 21:03 08/30/17 16:42 97.8 106 18 108/63 (78) 90 Room Air 08/30/17 16:16 08/30/17 16:11 89 16 106/61 (76) 100 Room Air 08/30/17 12:27 98.4 148 16 107/74 (85) 99 Physical Exam GENERAL: This is an obese female patient, in no apparent distress. SKIN: No rashes. Cool and dry. HEAD: Atraumatic. Normocephalic. EYES: No scleral icterus. No injection or drainage. ENT: Nose without bleeding, purulent drainage. NECK: Trachea midline. No JVD or lymphadenopathy. CARDIOVASCULAR: Regular rate and rhythm without murmurs, gallops, or rubs. RESPIRATORY: Clear to auscultation. Breath sounds equal bilaterally. No wheezes , rales, or rhonchi. GASTROINTESTINAL: Abdomen soft, non-tender, nondistended. No guarding. MUSCULOSKELETAL: Extremities without clubbing, cyanosis, or edema. No calf tenderness. NEUROLOGICAL: Awake and alert. Motor and sensory grossly within normal limits. Normal speech. . Laboratory Laboratory Tests Test 08/30/17 12:15 08/30/17 13:17 08/30/17 14:30 Urine Color DARK-BROWN Urine Turbidity CLOUDY Urine pH 6.0 Urine Specific [place] 1.026 Urine Protein 300 Urine Glucose (UA) NEG Urine Ketones 40 Urine Occult Blood LARGE Urine Nitrite POS Urine Bilirubin SMALL Urine Urobilinogen 8.0 Urine Leukocyte Esterase LARGE Urine RBC 44 Urine WBC Urine WBC Clumps MANY Urine Squamous Epithelial Cells 15 Urine Bacteria MOD Urine Hyaline Casts 119 Urine Mucus MANY Microscopic Urinalysis Comment CULTURE INDICATED Urine Opiates Screen NEG Urine Barbiturates Screen NEG Urine Amphetamines Screen NEG Urine Benzodiazepines Screen NEG Urine Cocaine Screen NEG Urine Cannabinoids Screen NEG White Blood Count 3.6 Red Blood Count 4.35 Hemoglobin 12.3 Hematocrit 36.7 Mean Corpuscular Volume 84.4 Mean Corpuscular Hemoglobin 28.3 Mean Corpuscular Hemoglobin Concent 33.5 Red Cell Distribution Width 13.6 Platelet Count 246 Mean Platelet Volume 8.5 Neutrophils (%) (Auto) 75.8 Lymphocytes (%) (Auto) 15.0 Monocytes (%) (Auto) 5.8 Eosinophils (%) (Auto) 2.7 Basophils (%) (Auto) 0.7 Neutrophils # (Auto) 2.7 Lymphocytes # (Auto) 0.5 Monocytes # (Auto) 0.2 Eosinophils # (Auto) 0.1 Basophils # (Auto) 0.0 CBC Comment DIFF FINAL Differential Comment Troponin I LESS THAN 0.02 Blood Urea Nitrogen 7 Creatinine 0.81 Random Glucose 73 Total Protein 8.2 Albumin 3.8 Calcium Level 9.2 Alkaline Phosphatase 42 Aspartate Amino Transf (AST/SGOT) 62 Alanine Aminotransferase (ALT/SGPT) 45 Total Bilirubin 0.9 Sodium Level 141 Potassium Level 4.0 Chloride Level 108 Carbon Dioxide Level 24.1 Anion Gap 9 Estimat Glomerular Filtration Rate 101 Date/Time Source Procedure Growth Status 08/30/17 12:15 Urine Clean Catch Urine Culture Pending Worksheet Result Diagram: 08/30/17 1317 08/30/17 1430 Assessment and Plan Problem List: (1) Urinary tract infection ICD Code: N39.0 - Urinary tract infection, site not specified (2) HIV (human immunodeficiency virus infection) ICD Code: B20 - Human immunodeficiency virus [HIV] disease (3) AIDS ICD Code: B20 - Human immunodeficiency virus [HIV] disease Status: Chronic Assessment and Plan Ms. Dhaliwal is a 31 y/o female with HIV/AIDS who has been off antiretroviral medications for "months" who presented to ED with complaints of chest pain and auditory hallucinations. She was medically cleared in the ED and admitted to psychiatry for unspecified psychosis and [facility] were consulted to treat a UTI found on admission urinalysis: UTI - UA c/w UTI, urine culture has been sent and results are pending - Ceftriaxone 1 gm IM given in ED - Antibiotics: Ciprofloxacin 500 mg p.o. BID - verbally ordered - await urine culture results and adjust treatment accordingly HIV/AIDS - patient has been off medications for "months" - ID consulted by psychiatric technician - counseled patient regarding antiretroviral availability and f/u available at health department and resistance to medicine if starting and stopping/ noncompliant Psychosis - Urine drug screen negative - to be managed by psychiatry This note was transcribed by khalif [Cat Mcnally]. I, Dr. Fatmata Gallegos personally performed the history, physical exam, and medical decision making; and confirmed the accuracy of the information in the transcribed note. Authenticated by Dr. Fatmata Gallegos on 08/31/17 at 03:45. Discussed Condition With Patient and RN . Cat Mcnally Aug 31, 2017 03:45 Fatmata Gallegos MD Aug 31, 2017 07:30
[2017-08-31 05:42] VITALS: BP 137/67; PULSE 136; RESP 20; O2SAT 99
[2017-08-31] MEDS ORDERED: NITROGLYCERIN 0.4 MG SL 25 TABS/BTL SL ONE (05:45)
[2017-08-31 05:55] VITALS: BP 109/69; PULSE 103; RESP 17; TEMP 98.2; O2SAT 98
[2017-08-31 06:18] VITALS: BP 109/69; PULSE 63
[2017-08-31] MEDS: CIPROFLOXACIN 500 MG TAB PO SCH ×2 (09:07→21:23)
[2017-08-31 09:45] LABS: ANION GAP 10 MEQ/L (5-15); BICARBONATE 24.6 MEQ/L (21.0-32.0); BLOOD UREA NITROGEN 8 MG/DL (7-18); CHLORIDE 104 MEQ/L (98-107); GLOMERULAR FILTRATION RATE 118 ML/MIN (>89); POTASSIUM 3.2 MEQ/L (3.5-5.1); SODIUM (NA) 139 MEQ/L (136-145)
[2017-08-31 09:49] LABS: HDL CHOLESTEROL 36.7 MG/DL (40.0-60.0); LDL CHOLESTEROL 49 MG/DL (0-99)
[2017-08-31 09:53] LABS: CREATINE KINASE 43 U/L (26-192)
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
[2017-08-31 12:13] LABS: HEMOGLOBIN A1a 1.5 %; HEMOGLOBIN A1b 0.8 %; HEMOGLOBIN Ao 85.4 %; HEMOGLOBIN F 1.1 %; HEMOGLOBIN P3 3.3 %
[2017-08-31] MEDS: QUEtiapine FUMARATE 25 MG TAB PO SCH ×2 (13:34→21:23)
[2017-08-31] MEDS: ESCITALOPRAM OXALATE 10 MG TAB PO SCH (13:35)
[2017-08-31 14:30] LABS: CREATINE KINASE 43 U/L (26-192)
--- NOTE | 2017-08-31 16:18 | EKG ---
Date Performed: 08/30/2017 Time Performed: 12:38:28 PTAGE: 31 years EKG: SINUS TACHYCARDIA NONSPECIFIC ST & T-WAVE ABNORMALITY ABNORMAL ECG Compared to PREVIOUS TRACING , the patient is now tachycardic with nonspecific changes. PREVIOUS TRAC IN07/31/2017 03.43 DOCTOR: Yesi Wolfe Interpretating Date/Time 08/31/2017 16:17:41
--- NOTE | 2017-08-31 16:18 | EKG ---
Date Performed: 08/31/2017 Time Performed: 07:48:40 PTAGE: 31 years EKG: Sinus rhythm NONSPECIFIC ST & T-WAVE ABNORMALITY BORDERLINE ECG Compared to PREVIOUS TRACING , the patient is no longer tachycardic. PREVIOUS TRACIN08/30/2017 12. 38 DOCTOR: Yesi Wolfe Interpretating Date/Time 08/31/2017 16:18:04
[2017-08-31 17:09] VITALS: BP 113/75; PULSE 81; RESP 17; TEMP 97.6; O2SAT 98
[2017-08-31] MEDS: LACTOBACILLUS ACIDOPHILUS TAB PO SCH (18:00)
[2017-08-31 18:07] LABS: CREATINE KINASE 42 U/L (26-192)
[2017-08-31] MEDS: AZITHROMYCIN 600 MG TAB PO SCH (18:19)
[2017-08-31] MEDS: ALUMINUM/MAGNESIUM/SIMETH 30 ML CUP PO PRN (21:23)
[2017-09-01] MEDS: ALUMINUM/MAGNESIUM/SIMETH 30 ML CUP PO PRN (03:56)
[2017-09-01] MEDS: ACETAMINOPHEN 325 MG TAB PO PRN ×2 (03:57→20:36)
[2017-09-01 04:08] VITALS: BP 120/81; PULSE 88; TEMP 97.6; O2SAT 99
[2017-09-01 06:10] VITALS: BP 100/62; PULSE 68; RESP 16; TEMP 97.1; O2SAT 98
[2017-09-01] MEDS: QUEtiapine FUMARATE 25 MG TAB PO SCH ×3 (08:26→20:36)
[2017-09-01] MEDS: CIPROFLOXACIN 500 MG TAB PO SCH ×2 (08:26→20:36)
[2017-09-01] MEDS: LACTOBACILLUS ACIDOPHILUS TAB PO SCH ×3 (08:26→17:39)
[2017-09-01] MEDS: ESCITALOPRAM OXALATE 10 MG TAB PO SCH (08:26)
[2017-09-01 08:39] LABS: AUTOMATED NEUTROPHIL # 1.2 TH/MM3 (1.8-7.7); BASOPHIL % 0.9 % (0.0-2.0); EOSINOPHIL # 0.1 TH/MM3 (0-0.4); EOSINOPHIL % 4.3 % (0.0-4.0); HEMATOCRIT 32.9 % (35.0-46.0); HEMO FLAGS DIFF FINAL; LYMPH % 30.5 % (9.0-44.0); LYMPHOCYTE # 0.7 TH/MM3 (1.0-4.8); MEAN CELL VOLUME 83.4 FL (80.0-100.0); MEAN CORPUSCULAR HGB CONC 34.8 % (32.0-36.0); MONO % 8.9 % (0.0-8.0); NEUT % 55.4 % (16.0-70.0); PLATELET COUNT 200 TH/MM3 (150-450); RED BLOOD COUNT 3.95 MIL/MM3 (4.00-5.30); RED CELL DISTRIBUTION WIDTH 13.4 % (11.6-17.2); WHITE BLOOD COUNT 2.2 TH/MM3 (4.0-11.0)
[2017-09-01 09:01] LABS: ANION GAP 9 MEQ/L (5-15); AST (GOT) 41 U/L (15-37); BICARBONATE 24.8 MEQ/L (21.0-32.0); BLOOD UREA NITROGEN 8 MG/DL (7-18); CHLORIDE 106 MEQ/L (98-107); GLOMERULAR FILTRATION RATE 109 ML/MIN (>89); POTASSIUM 3.1 MEQ/L (3.5-5.1); SODIUM (NA) 140 MEQ/L (136-145)
[2017-09-01 09:02] LABS: ALT (GPT) 37 U/L (10-53)
[2017-09-01 09:12] LABS: ALKALINE PHOSPHATASE 48 U/L (45-117); TOTAL BILIRUBIN ADULT 0.5 MG/DL (0.2-1.0)
--- NOTE | 2017-09-01 15:49 | HHI.PYPN ---
Subjective Chief Complaint: increase auditory hallucinations depression with vague suicidal ideation Remarks Pt seen and discussed with staff. She remains anxious and has been isolative to her room. No somatic complaints today. She c/o that her thoughts were making her head hurt and she has been responding to internal stimuli. She reports AH persist. Mental Status Examination Appearance: Appropriate, Disheveled Consciousness: Alert Orientation: x4 Motor Activity: Normal gait Speech: Unremarkable Language: Adequate Fund of Knowledge: Adequate Attention and Concentration: Other (there is some delayed responses but appropriate responses) Memory: Impaired (poor historian) Mood: Other (dysphoric) Affect: Other (decreased range and intensity) Thought Process & Associations: Intact, Logical, Goal directed Thought Content: Hallucinations (command auditory) Hallucination Type: Auditory (tell her to harm herself.) Delusion Type: None Suicidal Ideation: Yes (vague secondary to auditory hallucinations) Suicidal Plan: No (patient would not take the suicide pill) Suicidal Intention: No (patient with command auditory hallucinations but denies intent) Homicidal Ideation: No Homicidal Plan: No Homicidal Intention: No Insight: Poor Judgment: Poor Results Labs Test 08/31/17 17:20 09/01/17 08:16 Total Creatine Kinase 42 U/L Troponin I LESS THAN 0.02 NG/ML White Blood Count 2.2 TH/MM3 Red Blood Count 3.95 MIL/MM3 Hemoglobin 11.5 GM/DL Hematocrit 32.9 % Mean Corpuscular Volume 83.4 FL Mean Corpuscular Hemoglobin 29.0 PG Mean Corpuscular Hemoglobin Concent 34.8 % Red Cell Distribution Width 13.4 % Platelet Count 200 TH/MM3 Mean Platelet Volume 8.4 FL Neutrophils (%) (Auto) 55.4 % Lymphocytes (%) (Auto) 30.5 % Monocytes (%) (Auto) 8.9 % Eosinophils (%) (Auto) 4.3 % Basophils (%) (Auto) 0.9 % Neutrophils # (Auto) 1.2 TH/MM3 Lymphocytes # (Auto) 0.7 TH/MM3 Monocytes # (Auto) 0.2 TH/MM3 Eosinophils # (Auto) 0.1 TH/MM3 Basophils # (Auto) 0.0 TH/MM3 CBC Comment DIFF FINAL Differential Comment Blood Urea Nitrogen 8 MG/DL Creatinine 0.76 MG/DL Random Glucose 127 MG/DL Total Protein 8.2 GM/DL Albumin 3.8 GM/DL Calcium Level 8.9 MG/DL Alkaline Phosphatase 48 U/L Aspartate Amino Transf (AST/SGOT) 41 U/L Alanine Aminotransferase (ALT/SGPT) 37 U/L Total Bilirubin 0.5 MG/DL Sodium Level 140 MEQ/L Potassium Level 3.1 MEQ/L Chloride Level 106 MEQ/L Carbon Dioxide Level 24.8 MEQ/L Anion Gap 9 MEQ/L Estimat Glomerular Filtration Rate 109 ML/MIN Thyroid Stimulating Hormone 3rd Gen 2.070 uIU/ML Date/Time Source Procedure Growth Status 08/30/17 12:15 Urine Clean Catch Urine Culture - Final Complete Vitals/IOs Vital Signs Date Time Temp Pulse Resp B/P (MAP) Pulse Ox O2 Delivery O2 Flow Rate FiO2 09/01/17 06:10 97.1 68 16 100/62 (75) 98 08/30/17 16:42 Room Air Assessment & Plan Problem List: (1) Schizoaffective disorder, depressive type ICD Codes: F25.1 - Schizoaffective disorder, depressive type Assessment & Plan continue current tx plan. Estimated LOS: days Justification for Cont. Inpt. impairments in safety and reality testing Kiley Velasquez MD Sep 01, 2017 15:49
[2017-09-01 18:00] VITALS: BP 127/99; PULSE 93; RESP 18; TEMP 97.7; O2SAT 98
[2017-09-02] MEDS: ALUMINUM/MAGNESIUM/SIMETH 30 ML CUP PO PRN ×2 (02:01→10:39)
[2017-09-02] MEDS: ACETAMINOPHEN 325 MG TAB PO PRN ×3 (02:02→20:42)
[2017-09-02 03:20] VITALS: BP 127/75; PULSE 85; RESP 18; O2SAT 99
[2017-09-02] MEDS ORDERED: POTASSIUM CHLORIDE 25 MEQ EFFERVESCENT TAB PO ONE (03:30)
[2017-09-02 04:03] LABS: HEMATOCRIT 33.1 % (35.0-46.0); MEAN CELL VOLUME 83.4 FL (80.0-100.0); MEAN CORPUSCULAR HEMOGLOBIN 28.2 PG (27.0-34.0); MEAN CORPUSCULAR HGB CONC 33.9 % (32.0-36.0); PLATELET COUNT 197 TH/MM3 (150-450); RED BLOOD COUNT 3.96 MIL/MM3 (4.00-5.30); RED CELL DISTRIBUTION WIDTH 13.5 % (11.6-17.2); WHITE BLOOD COUNT 2.1 TH/MM3 (4.0-11.0)
[2017-09-02 04:08] LABS: HEMO FLAGS AUTO DIFF
[2017-09-02 04:25] LABS: ANION GAP 7 MEQ/L (5-15); BICARBONATE 26.4 MEQ/L (21.0-32.0); BLOOD UREA NITROGEN 7 MG/DL (7-18); CHLORIDE 105 MEQ/L (98-107); GLOMERULAR FILTRATION RATE 122 ML/MIN (>89); SODIUM (NA) 138 MEQ/L (136-145)
[2017-09-02 04:34] LABS: CREATINE KINASE 38 U/L (26-192)
[2017-09-02 05:24] LABS: NEUTROPHIL # MANUAL DIFF 1.5 TH/MM3 (1.8-7.7); POLYS (SEG NEUTROPHILS) 71 % (16-70); WBC DIFF SAMPLE 100
[2017-09-02 05:25] LABS: SCAN/DIFF FINAL DIFF MANUAL
[2017-09-02 06:01] VITALS: BP 105/70; PULSE 76; RESP 18; TEMP 97.5; O2SAT 99
[2017-09-02] MEDS: QUEtiapine FUMARATE 25 MG TAB PO SCH ×3 (08:00→20:42)
[2017-09-02] MEDS: ESCITALOPRAM OXALATE 10 MG TAB PO SCH (08:24)
[2017-09-02] MEDS: CIPROFLOXACIN 500 MG TAB PO SCH ×2 (08:24→20:42)
[2017-09-02] MEDS: LACTOBACILLUS ACIDOPHILUS TAB PO SCH ×3 (08:24→18:20)
[2017-09-02] MEDS ORDERED: POTASSIUM CHLORIDE 20 MEQ PWD PACKET PO ONE (09:00)
--- NOTE | 2017-09-02 14:35 | HHI.PYPN ---
Subjective Chief Complaint: increase auditory hallucinations depression with vague suicidal ideation Remarks Pt seen and discussed with staff. She has been more withdrawn today. She continues to respond to internal stimuli and auditory hallucinations but reports mood is a bit better. No HI. Mental Status Examination Appearance: Appropriate, Disheveled Consciousness: Alert Orientation: x4 Motor Activity: Normal gait Speech: Unremarkable Language: Adequate Fund of Knowledge: Adequate Attention and Concentration: Other (there is some delayed responses but appropriate responses) Memory: Unremarkable Mood: Other (dysphoric) Affect: Other (decreased range and intensity) Thought Process & Associations: Intact, Logical, Goal directed Thought Content: Hallucinations (command auditory) Hallucination Type: Auditory (tell her to harm herself.) Delusion Type: None Suicidal Ideation: Yes (vague secondary to auditory hallucinations) Suicidal Plan: No (patient would not take the suicide pill) Suicidal Intention: No (patient with command auditory hallucinations but denies intent) Homicidal Ideation: No Homicidal Plan: No Homicidal Intention: No Insight: Poor Judgment: Poor Results Labs Test 09/02/17 03:51 White Blood Count 2.1 TH/MM3 Red Blood Count 3.96 MIL/MM3 Hemoglobin 11.2 GM/DL Hematocrit 33.1 % Mean Corpuscular Volume 83.4 FL Mean Corpuscular Hemoglobin 28.2 PG Mean Corpuscular Hemoglobin Concent 33.9 % Red Cell Distribution Width 13.5 % Platelet Count 197 TH/MM3 Mean Platelet Volume 7.9 FL CBC Comment AUTO DIFF Differential Total Cells Counted 100 Neutrophils % (Manual) 71 % Lymphocytes % 26 % Monocytes % 3 % Neutrophils # (Manual) 1.5 TH/MM3 Differential Comment FINAL DIFF MANUAL Blood Urea Nitrogen 7 MG/DL Creatinine 0.69 MG/DL Random Glucose 121 MG/DL Calcium Level 8.8 MG/DL Sodium Level 138 MEQ/L Potassium Level 3.0 MEQ/L Chloride Level 105 MEQ/L Carbon Dioxide Level 26.4 MEQ/L Anion Gap 7 MEQ/L Estimat Glomerular Filtration Rate 122 ML/MIN Total Creatine Kinase 38 U/L Troponin I LESS THAN 0.02 NG/ML Date/Time Source Procedure Growth Status 08/30/17 12:15 Urine Clean Catch Urine Culture - Final Complete Vitals/IOs Vital Signs Date Time Temp Pulse Resp B/P (MAP) Pulse Ox O2 Delivery O2 Flow Rate FiO2 09/02/17 06:01 97.5 76 18 105/70 (82) 99 11/30/17 16:42 Room Air Assessment & Plan Problem List: (1) Schizoaffective disorder, depressive type ICD Codes: F25.1 - Schizoaffective disorder, depressive type Assessment & Plan Continue current tx plan. Estimated LOS: days Justification for Cont. Inpt. risk of decompensation Kiley Velasquez MD Sep 02, 2017 14:35
[2017-09-02 18:00] VITALS: BP 130/93; PULSE 89; RESP 18; TEMP 97.4; O2SAT 100
--- NOTE | 2017-09-02 22:14 | EKG ---
Date Performed: 09/02/2017 Time Performed: 04:07:13 PTAGE: 31 years EKG: Sinus rhythm NORMAL ECG PREVIOUS TRACING : 08/31/2017 16.44 Compared to prior tracing no significant change DOCTOR: Ilan Lopez Interpretating Date/Time 09/02/2017 22:14:02
--- NOTE | 2017-09-02 23:22 | EKG ---
Date Performed: 08/31/2017 Time Performed: 16:44:07 PTAGE: 31 years EKG: Sinus rhythm WITH FIRST DEGREE AV BLOCK ABNORMAL ECG PREVIOUS TRACING : 08/31/2017 10.55 Compared to prior tracing no significant change DOCTOR: Ilan Lopez Interpretating Date/Time 09/02/2017 23:20:50
--- NOTE | 2017-09-02 23:42 | EKG ---
Date Performed: 08/31/2017 Time Performed: 10:55:01 PTAGE: 31 years EKG: Sinus rhythm WITH FIRST DEGREE AV BLOCK MODERATE T-WAVE ABNORMALITY, CONSIDER ANTERIOR ISCHEMIA ABNORMAL ECG PREVIOUS TRACING : 08/31/2017 07.48 Compared to prior tracing no significant change DOCTOR: Ilan Lopez Interpretating Date/Time 09/02/2017 23:41:52
[2017-09-03] MEDS: ACETAMINOPHEN 325 MG TAB PO PRN (01:51)
[2017-09-03 06:19] VITALS: BP 122/73; PULSE 81; RESP 17; TEMP 98.3; O2SAT 99
[2017-09-03 08:06] LABS: BASOPHIL % 0.6 % (0.0-2.0); EOSINOPHIL % 2.9 % (0.0-4.0); HEMATOCRIT 33.2 % (35.0-46.0); LYMPH % 24.2 % (9.0-44.0); LYMPHOCYTE # 0.4 TH/MM3 (1.0-4.8); MEAN CELL VOLUME 84.1 FL (80.0-100.0); MEAN CORPUSCULAR HEMOGLOBIN 28.8 PG (27.0-34.0); MEAN CORPUSCULAR HGB CONC 34.2 % (32.0-36.0); NEUT % 62.3 % (16.0-70.0); PLATELET COUNT 207 TH/MM3 (150-450); RED BLOOD COUNT 3.95 MIL/MM3 (4.00-5.30); RED CELL DISTRIBUTION WIDTH 13.4 % (11.6-17.2); WHITE BLOOD COUNT 1.7 TH/MM3 (4.0-11.0)
[2017-09-03 08:08] LABS: HEMO FLAGS AUTO DIFF
[2017-09-03 08:35] LABS: ANION GAP 9 MEQ/L (5-15); AST (GOT) 54 U/L (15-37); BICARBONATE 25.6 MEQ/L (21.0-32.0); BLOOD UREA NITROGEN 7 MG/DL (7-18); CHLORIDE 103 MEQ/L (98-107); GLOMERULAR FILTRATION RATE 122 ML/MIN (>89); MAGNESIUM 2.1 MG/DL (1.5-2.5); POTASSIUM 3.5 MEQ/L (3.5-5.1); SODIUM (NA) 138 MEQ/L (136-145)
[2017-09-03 08:36] LABS: ALT (GPT) 46 U/L (10-53)
[2017-09-03 08:38] LABS: ALKALINE PHOSPHATASE 47 U/L (45-117); TOTAL BILIRUBIN ADULT 0.6 MG/DL (0.2-1.0)
[2017-09-03] MEDS: QUEtiapine FUMARATE 25 MG TAB PO SCH ×2 (09:11→13:35)
[2017-09-03] MEDS: ESCITALOPRAM OXALATE 10 MG TAB PO SCH (09:11)
[2017-09-03] MEDS: CIPROFLOXACIN 500 MG TAB PO SCH ×2 (09:11→21:20)
[2017-09-03] MEDS: LACTOBACILLUS ACIDOPHILUS TAB PO SCH ×3 (09:11→18:13)
[2017-09-03] MEDS: SULFAMETHOXAZOLE-TRIMETHOPRIM DS 800-160 MG TAB PO SCH (09:11)
[2017-09-03 09:28] LABS: BANDS 1 % (0-6); NEUTROPHIL # MANUAL DIFF 1.3 TH/MM3 (1.8-7.7); OVALOCYTES 1+ (NORMAL); PLATELET ESTIMATE SMEAR NORMAL (NORMAL); PLATELET MORPHOLOGY NORMAL (NORMAL); POLYS (SEG NEUTROPHILS) 75 % (16-70); SCAN/DIFF FINAL DIFF MANUAL; WBC DIFF SAMPLE 100
--- NOTE | 2017-09-03 12:36 | PD.TTN ---
Patient Problems 1. Discharge planning 2. Medication compliance 3. Knowledge deficit 4. Lack of coping skills Progress Toward Goals Provider Present: Dr. Donis Roberson Provider Input: Dr. Roberson's treatment team met to discuss patient's treatment plan, discharge, and medication. Patient meets criteria at this time. Nurse(s) Input: Patient's nurse Blaine reports patient seen after breakfast asleep in a chair in the dayroom. Currently denies auditory and visual hallucinations. but states that yesterdaty she heard voices telling me to kill myself. Despirt this she denies suicidal and homicidal ideatoin . Patient is blunt and withdrawn Psychiatric Counselors Present: [facility] Input: Patient seen in dayroom. Patient is restricting her food and water intake. Patient states she feels suicidal and is having auditory hallucinations. Patient presents childlike, tired, withdrawn, guarded, paranoid, affect blunted. Patient's speech is clear, organized with pressure. Patient made fair eye contact. Group Spec/RT/OT/WEST Present: JENNA Cooper Group Spec/RT/OT/WEST Input: Patient does not attend groups Cece Lawrence Sep 03, 2017 12:36
[2017-09-03 12:49] VITALS: BP 122/63; PULSE 109; RESP 16; O2SAT 100
--- NOTE | 2017-09-03 14:25 | HHI.PYPN ---
Subjective Chief Complaint: increase auditory hallucinations depression with vague suicidal ideation Remarks Patient seen in day room with nurse Blaine, patient markedly vigilant with significant psychomotor retardation very poor eye contact. Responses are delayed as if responding to internal stimuli. She acknowledges auditory hallucinations of a command nature with suicidal ideation. She has been compliant with her medication. Will be increasing her Seroquel to 100 mg 3 times a day at 8 PM 4 PM and 10 PM Review of Systems Except as stated in HPI: all other systems reviewed are Neg Mental Status Examination Appearance: Appropriate, Disheveled Consciousness: Alert Orientation: x4 Motor Activity: Normal gait Speech: Unremarkable Language: Adequate Fund of Knowledge: Adequate Attention and Concentration: Other (there is some delayed responses but appropriate responses) Memory: Unremarkable Mood: Other (dysphoric) Affect: Other (decreased range and intensity) Thought Process & Associations: Intact, Logical, Goal directed Thought Content: Hallucinations (command auditory) Hallucination Type: Auditory (tell her to harm herself.) Delusion Type: None Suicidal Ideation: Yes (vague secondary to auditory hallucinations) Suicidal Plan: No (patient would not take the suicide pill) Suicidal Intention: No (patient with command auditory hallucinations but denies intent) Homicidal Ideation: No Homicidal Plan: No Homicidal Intention: No Insight: Poor Judgment: Poor Results Labs Test 09/03/17 07:28 White Blood Count 1.7 TH/MM3 Red Blood Count 3.95 MIL/MM3 Hemoglobin 11.4 GM/DL Hematocrit 33.2 % Mean Corpuscular Volume 84.1 FL Mean Corpuscular Hemoglobin 28.8 PG Mean Corpuscular Hemoglobin Concent 34.2 % Red Cell Distribution Width 13.4 % Platelet Count 207 TH/MM3 Mean Platelet Volume 7.9 FL Neutrophils (%) (Auto) 62.3 % Lymphocytes (%) (Auto) 24.2 % Monocytes (%) (Auto) 10.0 % Eosinophils (%) (Auto) 2.9 % Basophils (%) (Auto) 0.6 % Neutrophils # (Auto) 1.0 TH/MM3 Lymphocytes # (Auto) 0.4 TH/MM3 Monocytes # (Auto) 0.2 TH/MM3 Eosinophils # (Auto) 0.0 TH/MM3 Basophils # (Auto) 0.0 TH/MM3 CBC Comment AUTO DIFF Differential Total Cells Counted 100 Neutrophils % (Manual) 75 % Band Neutrophils % 1 % Lymphocytes % 20 % Monocytes % 4 % Neutrophils # (Manual) 1.3 TH/MM3 Differential Comment FINAL DIFF MANUAL Platelet Estimate NORMAL Platelet Morphology Comment NORMAL Ovalocytes 1+ Red Cell Morphology Comment Blood Urea Nitrogen 7 MG/DL Creatinine 0.69 MG/DL Random Glucose 97 MG/DL Total Protein 8.0 GM/DL Albumin 3.9 GM/DL Calcium Level 8.9 MG/DL Phosphorus Level 3.3 MG/DL Magnesium Level 2.1 MG/DL Alkaline Phosphatase 47 U/L Aspartate Amino Transf (AST/SGOT) 54 U/L Alanine Aminotransferase (ALT/SGPT) 46 U/L Total Bilirubin 0.6 MG/DL Sodium Level 138 MEQ/L Potassium Level 3.5 MEQ/L Chloride Level 103 MEQ/L Carbon Dioxide Level 25.6 MEQ/L Anion Gap 9 MEQ/L Estimat Glomerular Filtration Rate 122 ML/MIN Date/Time Source Procedure Growth Status 08/30/17 12:15 Urine Clean Catch Urine Culture - Final Complete Vitals/IOs Vital Signs Date Time Temp Pulse Resp B/P (MAP) Pulse Ox O2 Delivery O2 Flow Rate FiO2 09/03/17 12:49 109 16 122/63 (82) 100 09/03/17 06:19 98.3 08/30/17 16:42 Room Air Intake and Output 09/03/17 09/03/17 09/04/17 08:00 16:00 00:00 Intake Total 0 ml Balance 0 ml Assessment & Plan Problem List: (1) Schizoaffective disorder, depressive type ICD Codes: F25.1 - Schizoaffective disorder, depressive type Assessment & Plan Estimated LOS: days patient remained psychotic with auditory hallucinations of command nature and suicidal. She continues moderately psychomotor retarded with thought blocking and significant delay in verbal responses seem medication adjustments above Justification for Cont. Inpt. At this time patient will decompensate the placed in a lower level of care Discharge Planning Patient remains quite psychotic delusional paranoid placement needs to be determined perhaps depending on the level of her response and stabilization Fredo Roberson MD Sep 03, 2017 14:25
[2017-09-03] MEDS: QUEtiapine FUMARATE 100 MG TAB PO SCH ×2 (16:31→21:19)
[2017-09-03 18:00] VITALS: BP 116/71; PULSE 106; RESP 18; TEMP 98.1; O2SAT 99
--- NOTE | 2017-09-03 22:58 | HHI.PR ---
Subjective Remarks NOT SEEN Objective Vitals Vital Signs Date Time Temp Pulse Resp B/P (MAP) Pulse Ox O2 Delivery O2 Flow Rate FiO2 09/03/17 18:00 98.1 106 18 116/71 (86) 99 09/03/17 12:49 109 16 122/63 (82) 100 09/03/17 06:19 98.3 81 17 122/73 (89) 99 I/O 09/02/17 09/02/17 09/02/17 09/03/17 09/03/17 09/03/17 07:00 15:00 23:00 07:00 15:00 23:00 Intake Total 0 ml Balance 0 ml Intake Oral 0 ml Result Diagram: 09/03/1772709/03/17727 Objective Remarks GENERAL: This is an obese female patient, in no apparent distress. SKIN: No rashes. Cool and dry. HEAD: Atraumatic. Normocephalic. EYES: No scleral icterus. No injection or drainage. ENT: Nose without bleeding, purulent drainage. NECK: Trachea midline. No JVD or lymphadenopathy. CARDIOVASCULAR: Regular rate and rhythm without murmurs, gallops, or rubs. RESPIRATORY: Clear to auscultation. Breath sounds equal bilaterally. No wheezes , rales, or rhonchi. GASTROINTESTINAL: Abdomen soft, non-tender, nondistended. No guarding. MUSCULOSKELETAL: Extremities without clubbing, cyanosis, or edema. No calf tenderness. NEUROLOGICAL: Awake and alert. Motor and sensory grossly within normal limits. Normal speech. A/P Problem List: (1) Urinary tract infection ICD Code: N39.0 - Urinary tract infection, site not specified (2) HIV (human immunodeficiency virus infection) ICD Code: B20 - Human immunodeficiency virus [HIV] disease (3) AIDS ICD Code: B20 - Human immunodeficiency virus [HIV] disease Status: Chronic Assessment and Plan Ms. Dhaliwal is a 31 y/o female with HIV/AIDS who has been off antiretroviral medications for "months" who presented to ED with complaints of chest pain and auditory hallucinations. She was medically cleared in the ED and admitted to psychiatry for unspecified psychosis and [facility] were consulted to treat a UTI found on admission urinalysis: AIDS - patient has been off medications for "months" - F/u pending CD4. Prophylactic Azithromycin and Bactrim have been started, given her history of AIDS and low CD4 history. Consult ID - counseled patient regarding antiretroviral availability and f/u available at health department and resistance to medicine if starting and stopping/ noncompliant bnormal UA. Ucx with contaminants - dc abx Psychosis - Urine drug screen negative - to be managed by psychiatry Crispin Gupta MD Sep 03, 2017 22:58
[2017-09-04] MEDS: ACETAMINOPHEN 325 MG TAB PO PRN ×2 (03:36→22:33)
[2017-09-04 05:55] VITALS: BP 119/79; PULSE 101; RESP 18; TEMP 97.9; O2SAT 100
[2017-09-04] MEDS: ESCITALOPRAM OXALATE 10 MG TAB PO SCH (09:16)
[2017-09-04] MEDS: LACTOBACILLUS ACIDOPHILUS TAB PO SCH ×3 (09:16→17:50)
[2017-09-04] MEDS: QUEtiapine FUMARATE 100 MG TAB PO SCH ×3 (09:16→22:33)
--- NOTE | 2017-09-04 12:48 | HHI.PYPN ---
Subjective Chief Complaint: increase auditory hallucinations depression with vague suicidal ideation Remarks Patient seen in day room with nurse Valladares, chart review, patient compliant medications. Patient remains vigilant with thought blocking marked delays in responses. She is acknowledging continued auditory hallucinations that are worse towards bedtime. She is vague about continued suicidality. Today is the first full day of medication adjustment ordered yesterday. Continue medications no change at this time Review of Systems Except as stated in HPI: all other systems reviewed are Neg Mental Status Examination Appearance: Appropriate, Disheveled Consciousness: Alert Orientation: x4 Motor Activity: Normal gait Speech: Unremarkable Language: Adequate Fund of Knowledge: Adequate Attention and Concentration: Other (there is some delayed responses but appropriate responses) Memory: Unremarkable Mood: Other (dysphoric) Affect: Other (decreased range and intensity) Thought Process & Associations: Intact, Logical, Goal directed Thought Content: Hallucinations (command auditory) Hallucination Type: Auditory (tell her to harm herself.) Delusion Type: None Suicidal Ideation: Yes (vague secondary to auditory hallucinations) Suicidal Plan: No (patient would not take the suicide pill) Suicidal Intention: No (patient with command auditory hallucinations but denies intent) Homicidal Ideation: No Homicidal Plan: No Homicidal Intention: No Insight: Poor Judgment: Poor Results Labs Date/Time Source Procedure Growth Status 08/30/17 12:15 Urine Clean Catch Urine Culture - Final Complete Vitals/IOs Vital Signs Date Time Temp Pulse Resp B/P (MAP) Pulse Ox O2 Delivery O2 Flow Rate FiO2 09/04/17 05:55 97.9 101 18 119/79 (92) 100 Assessment & Plan Problem List: (1) Schizoaffective disorder, depressive type ICD Codes: F25.1 - Schizoaffective disorder, depressive type Assessment & Plan Estimated LOS: days patient continues quite psychotic and paranoid. Is quite vigilant also in the day room. She is compliant medications. For now continue medication no change since medication was adjusted in the past 24 hours Justification for Cont. Inpt. At this time patient will decompensate if placed in a lower level of care Discharge Planning Placement remains ambiguous at this time Fredo Roberson MD Sep 04, 2017 12:48
--- NOTE | 2017-09-04 17:56 | HHI.PR ---
Subjective Remarks patient states she is "scared", "hearing voices" Objective Vitals Vital Signs Date Time Temp Pulse Resp B/P (MAP) Pulse Ox O2 Delivery O2 Flow Rate FiO2 09/04/17 05:55 97.9 101 18 119/79 (92) 100 09/03/17 18:00 98.1 106 18 116/71 (86) 99 I/O 09/03/17 09/03/17 09/03/17 09/04/17 09/04/17 09/04/17 07:00 15:00 23:00 07:00 15:00 23:00 Intake Total 0 ml Balance 0 ml Intake Oral 0 ml Result Diagram: 09/03/1772709/03/17727 Objective Remarks awake and alert, calm no oral sores lungs clear regular rhythm abdomen -sfot nontender extremities no edema gait steady A/P Problem List: (1) Urinary tract infection ICD Code: N39.0 - Urinary tract infection, site not specified (2) HIV (human immunodeficiency virus infection) ICD Code: B20 - Human immunodeficiency virus [HIV] disease (3) AIDS ICD Code: B20 - Human immunodeficiency virus [HIV] disease Status: Chronic Assessment and Plan Ms. Dhaliwal is a 31 y/o female with HIV/AIDS who has been off antiretroviral medications for "months" who presented to ED with complaints of chest pain and auditory hallucinations. She was medically cleared in the ED and admitted to psychiatry for unspecified psychosis and [facility] were consulted to treat a UTI found on admission urinalysis: Pyuria - cultures mixed- likely contaminant - Ceftriaxone 1 gm IM given in ED -S/P 3 days course of Ciprofloxacin 500 mg p.o. BID - asymptomatic HIV/AIDS - patient has been off medications for "months" - ID consulted by tack puller - counseled patient regarding antiretroviral availability and f/u available at health department and resistance to medicine if starting and stopping/ noncompliant Psychosis - Urine drug screen negative - to be managed by psychiatry Kevin Schwab MD Sep 04, 2017 17:56
[2017-09-04 18:36] VITALS: BP 145/73; PULSE 126; RESP 18; TEMP 98.6; O2SAT 100
[2017-09-05 03:51] LABS: CD4/CD8 RATIO 0.1 (0.86-5.00)
[2017-09-05 05:54] VITALS: BP 120/67; PULSE 97; RESP 18; TEMP 98; O2SAT 100
[2017-09-05] MEDS: QUEtiapine FUMARATE 100 MG TAB PO SCH ×2 (08:00→18:00)
[2017-09-05] MEDS: ESCITALOPRAM OXALATE 10 MG TAB PO SCH (09:41)
[2017-09-05] MEDS: LACTOBACILLUS ACIDOPHILUS TAB PO SCH ×3 (09:41→18:00)
[2017-09-05] MEDS: SULFAMETHOXAZOLE-TRIMETHOPRIM DS 800-160 MG TAB PO SCH (09:41)
--- NOTE | 2017-09-05 13:49 | HHI.PYPN ---
Subjective Chief Complaint: increase auditory hallucinations depression with vague suicidal ideation Remarks Patient seen in day room with counselor Cece, chart review, patient continues to sit quite still the continue some psychomotor retardation, she appears to be responding to internal stimuli at times there is marked thought blocking. She does acknowledge continued auditory hallucinations frightening demanding nature. She is vague about suicidality related to this. At this time will increase the Seroquel to 100 mg 8 AM noon and 4 PM, and add Seroquel 20 mg at bedtime Review of Systems Except as stated in HPI: all other systems reviewed are Neg Mental Status Examination Appearance: Appropriate, Disheveled Consciousness: Alert Orientation: x4 Motor Activity: Normal gait Speech: Unremarkable Language: Adequate Fund of Knowledge: Adequate Attention and Concentration: Other (there is some delayed responses but appropriate responses) Memory: Unremarkable Mood: Other (dysphoric) Affect: Other (decreased range and intensity) Thought Process & Associations: Intact, Logical, Goal directed Thought Content: Hallucinations (command auditory) Hallucination Type: Auditory (tell her to harm herself.) Delusion Type: None Suicidal Ideation: Yes (vague secondary to auditory hallucinations) Suicidal Plan: No (patient would not take the suicide pill) Suicidal Intention: No (patient with command auditory hallucinations but denies intent) Homicidal Ideation: No Homicidal Plan: No Homicidal Intention: No Insight: Poor Judgment: Poor Results Labs Date/Time Source Procedure Growth Status 08/30/17 12:15 Urine Clean Catch Urine Culture - Final Complete Vitals/IOs Vital Signs Date Time Temp Pulse Resp B/P (MAP) Pulse Ox O2 Delivery O2 Flow Rate FiO2 09/05/17 05:54 98.0 97 18 120/67 (84) 100 Assessment & Plan Problem List: (1) Schizoaffective disorder, depressive type ICD Codes: F25.1 - Schizoaffective disorder, depressive type Assessment & Plan Estimated LOS: days patient continue psychotic with command auditory hallucinations. See medication adjustment above Justification for Cont. Inpt. At the present time the patient will decompensate the placed in a lower level of care Discharge Planning Difficult to ascertain at this time though some type restrictive setting would be appropriate Fredo Roberson MD Sep 05, 2017 13:49
--- NOTE | 2017-09-05 15:12 | HHI.PR ---
Subjective Remarks patient still "feels scared, voices telling me to hurt myself" no nausea or vomiting Objective Vitals Vital Signs Date Time Temp Pulse Resp B/P (MAP) Pulse Ox O2 Delivery O2 Flow Rate FiO2 09/05/17 05:54 98.0 97 18 120/67 (84) 100 09/05/17 04:37 18 09/04/17 18:36 98.6 126 18 145/73 (97) 100 Result Diagram: 09/03/1728 09/03/17 07 Objective Remarks awake and alert, calm , soft spoken no oral sores lungs clear regular rhythm- HR- 84/min extremities no edema gait steady A/P Problem List: (1) Urinary tract infection ICD Code: N39.0 - Urinary tract infection, site not specified (2) HIV (human immunodeficiency virus infection) ICD Code: B20 - Human immunodeficiency virus [HIV] disease (3) AIDS ICD Code: B20 - Human immunodeficiency virus [HIV] disease Status: Chronic Assessment and Plan Ms. Dhaliwal is a 31 y/o female with HIV/AIDS who has been off antiretroviral medications for "months" who presented to ED with complaints of chest pain and auditory hallucinations. She was medically cleared in the ED and admitted to psychiatry for unspecified psychosis and [facility] were consulted to treat a UTI found on admission urinalysis: HIV/AIDS - patient has been off medications for "months" - continue on Bactrim PCP prophylaxis. Zithromax - counseled patient regarding antiretroviral availability and f/u available at health department and resistance to medicine if starting and stopping/ noncompliant S/P Tx for pyuria - urine culture - mixed- contaminants - S/p 3 days course Ciprofloxacin 500 mg p.o. BID - patient no urinary complains Psychosis - Urine drug screen negative - to be managed by psychiatry Patient up and ambulating independently Kevin Schwab MD Sep 05, 2017 15:12
[2017-09-05 18:34] VITALS: BP 116/82; PULSE 106; RESP 17; TEMP 98.3; O2SAT 100
[2017-09-05] MEDS: QUEtiapine FUMARATE 200 MG TAB PO SCH (20:58)
[2017-09-06 06:33] VITALS: BP 146/86; PULSE 92; RESP 18; TEMP 97.8; O2SAT 98
[2017-09-06] MEDS: QUEtiapine FUMARATE 100 MG TAB PO SCH ×3 (09:00→18:57)
[2017-09-06] MEDS: LACTOBACILLUS ACIDOPHILUS TAB PO SCH ×3 (09:00→18:57)
[2017-09-06] MEDS: ESCITALOPRAM OXALATE 10 MG TAB PO SCH (09:00)
--- NOTE | 2017-09-06 15:13 | HHI.PR ---
Subjective Remarks patient still hearing voices "to hurt myself", tearful she denies any dysuria per patient recently just had her menstrual period- though irregular Objective Vitals Vital Signs Date Time Temp Pulse Resp B/P (MAP) Pulse Ox O2 Delivery O2 Flow Rate FiO2 09/06/17 06:33 97.8 92 18 146/86 (106) 98 09/05/17 18:34 98.3 106 17 116/82 (93) 100 Result Diagram: 09/03/1772709/03/17 07 Objective Remarks awake and alert,tearful a little this am, soft spoken no oral sores lungs clear regular rhythm- extremities no edema gait steady A/P Problem List: (1) Urinary tract infection ICD Code: N39.0 - Urinary tract infection, site not specified (2) HIV (human immunodeficiency virus infection) ICD Code: B20 - Human immunodeficiency virus [HIV] disease (3) AIDS ICD Code: B20 - Human immunodeficiency virus [HIV] disease Status: Chronic Assessment and Plan Ms. Dhaliwal is a 31 y/o female with HIV/AIDS who has been off antiretroviral medications for "months" who presented to ED with complaints of chest pain and auditory hallucinations. She was medically cleared in the ED and admitted to psychiatry for unspecified psychosis and [facility] were consulted to treat a UTI found on admission urinalysis: Pyuria - cultures mixed- likely contaminant - recently just had her menstrual period- though irregular - Ceftriaxone 1 gm IM given in ED - Cipro- DC - asymptomatic HIV/AIDS - patient has been off medications for "months" - counseled patient regarding antiretroviral availability and f/u available at health department and resistance to medicine if starting and stopping/ noncompliant - continue PCP prophylaxis Psychosis - Urine drug screen negative - to be managed by psychiatry Kevin Schwab MD Sep 06, 2017 15:13
--- NOTE | 2017-09-06 16:07 | HHI.PYPN ---
Subjective Chief Complaint: increase auditory hallucinations depression with vague suicidal ideation Remarks Patient seen in dayroom with floor staff, chart reviewed, patient compliant medications. Patient continues to show marked psychomotor retardation, though she is slightly increased verbal output. She states the voices still persist and there is still the suicidality. Says medication just adjusted yesterday we' ll continue monitoring at the present time Review of Systems Except as stated in HPI: all other systems reviewed are Neg Mental Status Examination Appearance: Appropriate, Disheveled Consciousness: Alert Orientation: x4 Motor Activity: Normal gait Speech: Unremarkable Language: Adequate Fund of Knowledge: Adequate Attention and Concentration: Other (there is some delayed responses but appropriate responses) Memory: Unremarkable Mood: Other (dysphoric) Affect: Other (decreased range and intensity) Thought Process & Associations: Intact, Logical, Goal directed Thought Content: Hallucinations (command auditory) Hallucination Type: Auditory (tell her to harm herself.) Delusion Type: None Suicidal Ideation: Yes (vague secondary to auditory hallucinations) Suicidal Plan: No (patient would not take the suicide pill) Suicidal Intention: No (patient with command auditory hallucinations but denies intent) Homicidal Ideation: No Homicidal Plan: No Homicidal Intention: No Insight: Poor Judgment: Poor Results Labs Date/Time Source Procedure Growth Status 08/30/17 12:15 Urine Clean Catch Urine Culture - Final Complete Vitals/IOs Vital Signs Date Time Temp Pulse Resp B/P (MAP) Pulse Ox O2 Delivery O2 Flow Rate FiO2 09/06/17 06:33 97.8 92 18 146/86 (106) 98 Assessment & Plan Problem List: (1) Schizoaffective disorder, depressive type ICD Codes: F25.1 - Schizoaffective disorder, depressive type Assessment & Plan Estimated LOS: days patient continues psychotic and depressed. Marked psychomotor retardation. For now continue treatment Justification for Cont. Inpt. At this time patient decompensate if placed in a lower level of care Discharge Planning Placement undecided at this time the patient and patient's response to treatment and her degree of recovery Fredo Roberson MD Sep 06, 2017 16:07
[2017-09-06 20:46] VITALS: BP 146/86; PULSE 126; RESP 17; TEMP 97.5; O2SAT 98
[2017-09-06] MEDS: QUEtiapine FUMARATE 200 MG TAB PO SCH (21:11)
[2017-09-07 06:24] VITALS: BP 106/59; PULSE 110; RESP 18; TEMP 98.4; O2SAT 96
[2017-09-07] MEDS: QUEtiapine FUMARATE 100 MG TAB PO SCH ×2 (08:00→12:51)
[2017-09-07] MEDS: ESCITALOPRAM OXALATE 10 MG TAB PO SCH (08:27)
[2017-09-07] MEDS: LACTOBACILLUS ACIDOPHILUS TAB PO SCH ×3 (08:27→18:00)
[2017-09-07] MEDS: SULFAMETHOXAZOLE-TRIMETHOPRIM DS 800-160 MG TAB PO SCH (08:28)
--- NOTE | 2017-09-07 14:23 | HHI.PYPN ---
Subjective Chief Complaint: increase auditory hallucinations depression with vague suicidal ideation Remarks Patient seen in day room with nurse Lety. Patient continues to marked psychomotor retardation responses still delayed soft and whisper. She is compliant with the medication. Though that appears the auditory hallucinations have not diminished. I feel the Seroquel this regimen and is not sufficient. Will adjust Seroquel to 400 mg at at bedtime and add Haldol 5 mg twice a day at 8 AM and 4 PM Review of Systems Except as stated in HPI: all other systems reviewed are Neg Mental Status Examination Appearance: Appropriate, Disheveled Consciousness: Alert Orientation: x4 Motor Activity: Normal gait Speech: Unremarkable Language: Adequate Fund of Knowledge: Adequate Attention and Concentration: Other (there is some delayed responses but appropriate responses) Memory: Unremarkable Mood: Other (dysphoric) Affect: Other (decreased range and intensity) Thought Process & Associations: Intact, Logical, Goal directed Thought Content: Hallucinations (command auditory) Hallucination Type: Auditory (tell her to harm herself.) Delusion Type: None Suicidal Ideation: Yes (vague secondary to auditory hallucinations) Suicidal Plan: No (patient would not take the suicide pill) Suicidal Intention: No (patient with command auditory hallucinations but denies intent) Homicidal Ideation: No Homicidal Plan: No Homicidal Intention: No Insight: Poor Judgment: Poor Results Labs Date/Time Source Procedure Growth Status 08/30/17 12:15 Urine Clean Catch Urine Culture - Final Complete Vitals/IOs Vital Signs Date Time Temp Pulse Resp B/P (MAP) Pulse Ox O2 Delivery O2 Flow Rate FiO2 09/07/17 06:24 98.4 110 18 106/59 (75) 96 Intake and Output 09/07/17 09/07/17 09/08/17 08:00 16:00 00:00 Intake Total 240 ml Balance 240 ml Assessment & Plan Problem List: (1) Schizoaffective disorder, depressive type ICD Codes: F25.1 - Schizoaffective disorder, depressive type Assessment & Plan Estimated LOS: days patient continues quite psychotic paranoid with psychomotor retardation. Please see medication adjustments above Justification for Cont. Inpt. At this time patient will decompensate of placed in a lower level of care Discharge Planning Need for the medication stabilization on exploring placement issues Fredo Roberson MD Sep 07, 2017 14:23
--- NOTE | 2017-09-07 14:31 | HHI.PR ---
Subjective Remarks still feels "so-so" denies any pain, nausea or vomiting encourage po Objective Vitals Vital Signs Date Time Temp Pulse Resp B/P (MAP) Pulse Ox O2 Delivery O2 Flow Rate FiO2 09/07/17 06:24 98.4 110 18 106/59 (75) 96 09/06/17 20:46 97.5 126 17 146/86 (106) 98 I/O 09/06/17 09/06/17 09/06/17 09/07/17 09/07/17 09/07/17 07:00 15:00 23:00 07:00 15:00 23:00 Intake Total 100 ml 240 ml Balance 100 ml 240 ml Intake Oral 100 ml 240 ml Result Diagram: 09/03/1772709/03/17727 Objective Remarks awake and alert, "so- so" no oral sores, no thrush lungs clear regular rhythm- HR 84/min extremities no edema gait steady A/P Problem List: (1) Urinary tract infection ICD Code: N39.0 - Urinary tract infection, site not specified (2) HIV (human immunodeficiency virus infection) ICD Code: B20 - Human immunodeficiency virus [HIV] disease (3) AIDS ICD Code: B20 - Human immunodeficiency virus [HIV] disease Status: Chronic Assessment and Plan Ms. Dhaliwal is a 31 y/o female with HIV/AIDS who has been off antiretroviral medications for "months" who presented to ED with complaints of chest pain and auditory hallucinations. She was medically cleared in the ED and admitted to psychiatry for unspecified psychosis and [facility] were consulted to treat a UTI found on admission urinalysis: Pyuria - cultures mixed- likely contaminant patient had her cycle - Ceftriaxone 1 gm IM given in ED - Cipro- DC - asymptomatic HIV/AIDS - patient has been off medications for "months" - counseled patient regarding antiretroviral availability and f/u available at health department and resistance to medicine if starting and stopping/ noncompliant - continue PCP prophylaxis Psychosis - Urine drug screen negative - to be managed by psychiatry patient up and ambulating Kevin Schwab MD Sep 07, 2017 14:31
[2017-09-07] MEDS: HALOPERIDOL 5 MG TAB PO SCH (16:44)
[2017-09-07] MEDS: AZITHROMYCIN 600 MG TAB PO SCH (16:44)
[2017-09-07 19:03] VITALS: BP 116/68; PULSE 107; RESP 17; TEMP 98; O2SAT 97
[2017-09-07] MEDS: QUEtiapine FUMARATE 200 MG TAB PO SCH (21:13)
[2017-09-08 05:56] VITALS: BP 103/59; PULSE 98; RESP 17; TEMP 98.6; O2SAT 97
[2017-09-08] MEDS: ESCITALOPRAM OXALATE 10 MG TAB PO SCH (09:13)
[2017-09-08] MEDS: HALOPERIDOL 5 MG TAB PO SCH ×2 (09:13→15:12)
[2017-09-08] MEDS: LACTOBACILLUS ACIDOPHILUS TAB PO SCH ×3 (09:13→18:13)
--- NOTE | 2017-09-08 14:53 | HHI.PYPN ---
Subjective Chief Complaint: increase auditory hallucinations depression with vague suicidal ideation Remarks Patient was seen and case discussed with nursing. Patient interviewed in bed this afternoon. Continues to complain of auditory hallucinations telling her to harm herself. She also admits cocaine use for the past year. She has suicidal ideation with no intent or plan. Affect is blunted. Slow soft speech. Tolerating medications well Mental Status Examination Appearance: Appropriate, Disheveled Consciousness: Alert Orientation: x4 Motor Activity: Normal gait Speech: Unremarkable Language: Adequate Fund of Knowledge: Adequate Attention and Concentration: Other (there is some delayed responses but appropriate responses) Memory: Unremarkable Mood: Other (dysphoric) Affect: Other (decreased range and intensity) Thought Process & Associations: Intact, Logical, Goal directed Thought Content: Hallucinations (command auditory) Hallucination Type: Auditory (tell her to harm herself.) Delusion Type: None Suicidal Ideation: Yes (vague secondary to auditory hallucinations) Suicidal Plan: No (patient would not take the suicide pill) Suicidal Intention: No (patient with command auditory hallucinations but denies intent) Homicidal Ideation: No Homicidal Plan: No Homicidal Intention: No Insight: Poor Judgment: Poor Results Labs Date/Time Source Procedure Growth Status 08/30/17 12:15 Urine Clean Catch Urine Culture - Final Complete Vitals/IOs Vital Signs Date Time Temp Pulse Resp B/P (MAP) Pulse Ox O2 Delivery O2 Flow Rate FiO2 09/08/17 05:56 98.6 98 17 103/59 (74) 97 Intake and Output 09/08/17 09/08/17 09/09/17 08:00 16:00 00:00 Intake Total 240 ml 480 ml Balance 240 ml 480 ml Assessment & Plan Problem List: (1) Schizoaffective disorder, depressive type ICD Codes: F25.1 - Schizoaffective disorder, depressive type Assessment & Plan Medication was adjusted yesterday. Continue current treatment plan Justification for Cont. Inpt. Patient would decompensate in a less restrictive setting Garrett Boo DO Sep 08, 2017 14:53
--- NOTE | 2017-09-08 16:57 | HHI.PR ---
Subjective Remarks patient appears depressed "not happy" up and ambulating- steady gait no pain complains ate good per staff Objective Vitals Vital Signs Date Time Temp Pulse Resp B/P (MAP) Pulse Ox O2 Delivery O2 Flow Rate FiO2 09/08/17 05:56 98.6 98 17 103/59 (74) 97 09/07/17 19:03 98.0 107 17 116/68 (84) 97 I/O 09/07/17 09/07/17 09/07/17 09/08/17 09/08/17 09/08/17 07:00 15:00 23:00 07:00 15:00 23:00 Intake Total 240 ml 240 ml 720 ml Balance 240 ml 240 ml 720 ml Intake Oral 240 ml 240 ml 720 ml Objective Remarks awake and alert, no oral sores, no thrush lungs clear regular rhythm- extremities no edema gait steady A/P Problem List: (1) Urinary tract infection ICD Code: N39.0 - Urinary tract infection, site not specified (2) HIV (human immunodeficiency virus infection) ICD Code: B20 - Human immunodeficiency virus [HIV] disease (3) AIDS ICD Code: B20 - Human immunodeficiency virus [HIV] disease Status: Chronic Assessment and Plan Ms. Dhaliwal is a 31 y/o female with HIV/AIDS who has been off antiretroviral medications for "months" who presented to ED with complaints of chest pain and auditory hallucinations. She was medically cleared in the ED and admitted to psychiatry for unspecified psychosis and [facility] were consulted to treat a UTI found on admission urinalysis: HIV/AIDS - patient has been off medications for "months" - counseled patient regarding antiretroviral availability and f/u available at health [facility] and resistance to medicine if starting and stopping/ noncompliant - continue PCP prophylaxis Pyuria - cultures mixed- likely contaminant - recently just had her menstrual period- though irregular - Ceftriaxone 1 gm IM given in ED - Cipro- Discontinued - asymptomatic Hypokalemia- corrected - recheck in am Psychosis - Urine drug screen negative - to be managed by psychiatry Kevin Schwab MD Sep 08, 2017 16:57
[2017-09-08] MEDS: QUEtiapine FUMARATE 200 MG TAB PO SCH (21:09)
[2017-09-09 06:03] VITALS: BP 100/52; PULSE 78; RESP 18; TEMP 98.2; O2SAT 97
[2017-09-09] MEDS: ESCITALOPRAM OXALATE 10 MG TAB PO SCH (09:18)
[2017-09-09] MEDS: HALOPERIDOL 5 MG TAB PO SCH ×2 (09:18→16:00)
[2017-09-09] MEDS: LACTOBACILLUS ACIDOPHILUS TAB PO SCH ×3 (09:18→18:00)
[2017-09-09 10:14] LABS: AUTOMATED NEUTROPHIL # 1.1 TH/MM3 (1.8-7.7); BASOPHIL % 0.4 % (0.0-2.0); EOSINOPHIL # 0.1 TH/MM3 (0-0.4); EOSINOPHIL % 5.9 % (0.0-4.0); HEMATOCRIT 29.9 % (35.0-46.0); LYMPH % 32.4 % (9.0-44.0); LYMPHOCYTE # 0.6 TH/MM3 (1.0-4.8); MEAN CELL VOLUME 84.4 FL (80.0-100.0); MEAN CORPUSCULAR HGB CONC 34.4 % (32.0-36.0); MONO % 7.5 % (0.0-8.0); NEUT % 53.8 % (16.0-70.0); PLATELET COUNT 186 TH/MM3 (150-450); RED BLOOD COUNT 3.54 MIL/MM3 (4.00-5.30); RED CELL DISTRIBUTION WIDTH 13.2 % (11.6-17.2)
[2017-09-09 10:22] LABS: HEMO FLAGS AUTO DIFF
[2017-09-09 10:34] LABS: BICARBONATE 25.8 MEQ/L (21.0-32.0); POTASSIUM 3.2 MEQ/L (3.5-5.1)
[2017-09-09 11:11] LABS: OVALOCYTES 1+ (NORMAL)
[2017-09-09 11:12] LABS: SCAN/DIFF AUTO DIFF CONFIRMED
--- NOTE | 2017-09-09 13:02 | HHI.PYPN ---
Subjective Chief Complaint: increase auditory hallucinations depression with vague suicidal ideation Remarks Patient was seen and case discussed with nursing. Patient is quite disheveled and appears to be internally preoccupied. She is sitting in a dayroom with her eyes closed throughout the day. Complaining of auditory hallucinations telling her to hurt herself but earlier told nursing that she could not make out what they are saying. Describes her mood today is "kind of bad." Patient continues to be managed by the medical team Mental Status Examination Appearance: Disheveled Consciousness: Somnolent Orientation: x4 Motor Activity: Normal gait Speech: Unremarkable Language: Adequate Fund of Knowledge: Adequate Attention and Concentration: Other (there is some delayed responses but appropriate responses) Memory: Unremarkable Mood: Other (dysphoric) Affect: Flat Thought Process & Associations: Other (poverty of thought) Thought Content: Hallucinations (command auditory) Hallucination Type: Auditory (tell her to harm herself.) Delusion Type: None Suicidal Ideation: No Suicidal Plan: No (patient would not take the suicide pill) Suicidal Intention: No (patient with command auditory hallucinations but denies intent) Homicidal Ideation: No Homicidal Plan: No Homicidal Intention: No Insight: Poor Judgment: Poor Results Labs Test 09/09/17 08:35 09/09/17 08:45 Blood Urea Nitrogen 9 MG/DL Creatinine 0.81 MG/DL Random Glucose 126 MG/DL Calcium Level 8.7 MG/DL Sodium Level 141 MEQ/L Potassium Level 3.2 MEQ/L Chloride Level 105 MEQ/L Carbon Dioxide Level 25.8 MEQ/L Anion Gap 10 MEQ/L Estimat Glomerular Filtration Rate 101 ML/MIN White Blood Count 2.0 TH/MM3 Red Blood Count 3.54 MIL/MM3 Hemoglobin 10.3 GM/DL Hematocrit 29.9 % Mean Corpuscular Volume 84.4 FL Mean Corpuscular Hemoglobin 29.0 PG Mean Corpuscular Hemoglobin Concent 34.4 % Red Cell Distribution Width 13.2 % Platelet Count 186 TH/MM3 Mean Platelet Volume 7.9 FL Neutrophils (%) (Auto) 53.8 % Lymphocytes (%) (Auto) 32.4 % Monocytes (%) (Auto) 7.5 % Eosinophils (%) (Auto) 5.9 % Basophils (%) (Auto) 0.4 % Neutrophils # (Auto) 1.1 TH/MM3 Lymphocytes # (Auto) 0.6 TH/MM3 Monocytes # (Auto) 0.1 TH/MM3 Eosinophils # (Auto) 0.1 TH/MM3 Basophils # (Auto) 0.0 TH/MM3 CBC Comment AUTO DIFF Differential Comment AUTO DIFF CONFIRMED Ovalocytes 1+ Date/Time Source Procedure Growth Status 08/30/17 12:15 Urine Clean Catch Urine Culture - Final Complete Vitals/IOs Vital Signs Date Time Temp Pulse Resp B/P (MAP) Pulse Ox O2 Delivery O2 Flow Rate FiO2 09/09/17 06:03 98.2 78 18 100/52 (68) 97 Assessment & Plan Problem List: (1) Schizoaffective disorder, depressive type ICD Codes: F25.1 - Schizoaffective disorder, depressive type Assessment & Plan Continue current treatment plan Justification for Cont. Inpt. Patient will decompensate in a less restrictive setting Garrett Boo DO Sep 09, 2017 13:02
--- NOTE | 2017-09-09 15:31 | HHI.PR ---
Subjective Remarks Follow-up pancytopenia, hypokalemia. Patient has no complaints at this time. Denies chest pain or dyspnea. Objective Vitals Vital Signs Date Time Temp Pulse Resp B/P (MAP) Pulse Ox O2 Delivery O2 Flow Rate FiO2 09/09/17 06:03 98.2 78 18 100/52 (68) 97 I/O 09/08/17 09/08/17 09/08/17 09/09/17 09/09/17 09/09/17 06:59 14:59 22:59 06:59 14:59 22:59 Intake Total 720 ml Balance 720 ml Intake Oral 720 ml Result Diagram: 09/09/17 0845 09/09/17 0835 Objective Remarks General: No acute distress. Heart: Regular rate and rhythm. No murmur. Lungs: Clear to auscultation bilaterally. No wheezes, rales, or rhonchi. Breathing is nonlabored. Abdomen: Soft, nontender, nondistended. Extremities: No lower extremity edema. Psych: Alert and oriented. Urinary Catheter: No Vascular Central Line Catheter: No A/P Problem List: (1) Urinary tract infection ICD Code: N39.0 - Urinary tract infection, site not specified (2) HIV (human immunodeficiency virus infection) ICD Code: B20 - Human immunodeficiency virus [HIV] disease (3) AIDS ICD Code: B20 - Human immunodeficiency virus [HIV] disease Status: Chronic Assessment and Plan 1. HIV/AIDS: Patient has been off of her medications for "months". She was counseled regarding follow-up at the health department and importance of taking her medications as prescribed. Continue PCP prophylaxis. 2. UTI: Culture showing likely contaminant. Patient received ceftriaxone in the ER. Cipro has been discontinued. She is currently asymptomatic. 3. Hypokalemia: Supplement potassium. Recheck labs tomorrow. 4. Psychosis: Management per psychiatry. Hermilo Enrique MD Sep 09, 2017 15:31
[2017-09-09] MEDS ORDERED: POTASSIUM CHLORIDE 20 MEQ CONTROLLED RELEASE TAB PO ONE (15:45)
[2017-09-09 18:40] VITALS: BP 157/83; PULSE 93; RESP 17; TEMP 98.1; O2SAT 98
[2017-09-09] MEDS: QUEtiapine FUMARATE 200 MG TAB PO SCH (20:50)
[2017-09-10 06:03] VITALS: BP 100/57; PULSE 83; RESP 17; TEMP 98.3; O2SAT 96
[2017-09-10] MEDS: ESCITALOPRAM OXALATE 10 MG TAB PO SCH (09:46)
[2017-09-10] MEDS: HALOPERIDOL 5 MG TAB PO SCH ×2 (09:46→16:51)
[2017-09-10] MEDS: SULFAMETHOXAZOLE-TRIMETHOPRIM DS 800-160 MG TAB PO SCH (09:46)
[2017-09-10] MEDS: LACTOBACILLUS ACIDOPHILUS TAB PO SCH ×3 (09:46→18:00)
[2017-09-10 10:20] LABS: AUTOMATED NEUTROPHIL # 1.1 TH/MM3 (1.8-7.7); BASOPHIL % 0.5 % (0.0-2.0); EOSINOPHIL # 0.1 TH/MM3 (0-0.4); EOSINOPHIL % 6.5 % (0.0-4.0); HEMATOCRIT 29.9 % (35.0-46.0); LYMPH % 23.9 % (9.0-44.0); LYMPHOCYTE # 0.4 TH/MM3 (1.0-4.8); MEAN CELL VOLUME 85.2 FL (80.0-100.0); MEAN CORPUSCULAR HEMOGLOBIN 28.9 PG (27.0-34.0); MONO % 11.1 % (0.0-8.0); PLATELET COUNT 190 TH/MM3 (150-450); RED BLOOD COUNT 3.51 MIL/MM3 (4.00-5.30); RED CELL DISTRIBUTION WIDTH 12.9 % (11.6-17.2); WHITE BLOOD COUNT 1.9 TH/MM3 (4.0-11.0)
[2017-09-10 10:22] LABS: HEMO FLAGS AUTO DIFF
[2017-09-10 10:40] LABS: BICARBONATE 28.1 MEQ/L (21.0-32.0); MAGNESIUM 1.9 MG/DL (1.5-2.5); POTASSIUM 3.6 MEQ/L (3.5-5.1)
[2017-09-10 11:02] LABS: EOSINOPHILS 6 % (0-4); MYELOCYTES 1 % (0-0); NEUTROPHIL # MANUAL DIFF 1.2 TH/MM3 (1.8-7.7); OVALOCYTES 1+ (NORMAL); PLATELET ESTIMATE SMEAR NORMAL (NORMAL); PLATELET MORPHOLOGY NORMAL (NORMAL); POLYS (SEG NEUTROPHILS) 64 % (16-70); SCAN/DIFF FINAL DIFF MANUAL; WBC DIFF SAMPLE 100
--- NOTE | 2017-09-10 14:17 | HHI.PYPN ---
Subjective Chief Complaint: increase auditory hallucinations depression with vague suicidal ideation Remarks Patient seen in her room with nurse Jin. Patient continues to acknowledge auditory hallucinations somewhat command nature but perhaps slightly softer. Still remains a suicidality. I did discuss with her the chronicity intensity and severity of her psychosis and depression. That she may need long-term placement treatment. I did discuss with her possible placement of the [facility]. I will start referral process for the [facility] today. Will increase her Haldol to 7.5 mg twice a day Review of Systems Except as stated in HPI: all other systems reviewed are Neg Mental Status Examination Appearance: Disheveled Consciousness: Somnolent Orientation: x4 Motor Activity: Normal gait Speech: Unremarkable Language: Adequate Fund of Knowledge: Adequate Attention and Concentration: Other (there is some delayed responses but appropriate responses) Memory: Unremarkable Mood: Other (dysphoric) Affect: Flat Thought Process & Associations: Other (poverty of thought) Thought Content: Hallucinations (command auditory) Hallucination Type: Auditory (tell her to harm herself.) Delusion Type: None Suicidal Ideation: No Suicidal Plan: No (patient would not take the suicide pill) Suicidal Intention: No (patient with command auditory hallucinations but denies intent) Homicidal Ideation: No Homicidal Plan: No Homicidal Intention: No Insight: Poor Judgment: Poor Results Labs Test 09/10/17 09:50 White Blood Count 1.9 TH/MM3 Red Blood Count 3.51 MIL/MM3 Hemoglobin 10.1 GM/DL Hematocrit 29.9 % Mean Corpuscular Volume 85.2 FL Mean Corpuscular Hemoglobin 28.9 PG Mean Corpuscular Hemoglobin Concent 34.0 % Red Cell Distribution Width 12.9 % Platelet Count 190 TH/MM3 Mean Platelet Volume 7.5 FL Neutrophils (%) (Auto) 58.0 % Lymphocytes (%) (Auto) 23.9 % Monocytes (%) (Auto) 11.1 % Eosinophils (%) (Auto) 6.5 % Basophils (%) (Auto) 0.5 % Neutrophils # (Auto) 1.1 TH/MM3 Lymphocytes # (Auto) 0.4 TH/MM3 Monocytes # (Auto) 0.2 TH/MM3 Eosinophils # (Auto) 0.1 TH/MM3 Basophils # (Auto) 0.0 TH/MM3 CBC Comment AUTO DIFF Differential Total Cells Counted 100 Neutrophils % (Manual) 64 % Lymphocytes % 23 % Monocytes % 6 % Eosinophils % 6 % Neutrophils # (Manual) 1.2 TH/MM3 Myelocytes 1 % Differential Comment FINAL DIFF MANUAL Platelet Estimate NORMAL Platelet Morphology Comment NORMAL Ovalocytes 1+ Blood Urea Nitrogen 8 MG/DL Creatinine 0.70 MG/DL Random Glucose 105 MG/DL Calcium Level 8.7 MG/DL Magnesium Level 1.9 MG/DL Sodium Level 142 MEQ/L Potassium Level 3.6 MEQ/L Chloride Level 107 MEQ/L Carbon Dioxide Level 28.1 MEQ/L Anion Gap 7 MEQ/L Estimat Glomerular Filtration Rate 120 ML/MIN Date/Time Source Procedure Growth Status 08/30/17 12:15 Urine Clean Catch Urine Culture - Final Complete Vitals/IOs Vital Signs Date Time Temp Pulse Resp B/P (MAP) Pulse Ox O2 Delivery O2 Flow Rate FiO2 09/10/17 06:03 98.3 83 17 100/57 (71) 96 Assessment & Plan Problem List: (1) Schizoaffective disorder, depressive type ICD Codes: F25.1 - Schizoaffective disorder, depressive type Assessment & Plan Estimated LOS: days patient remained psychotic and suicidal, depressed, will start state referral packet. Will increase Haldol to 7.5 mg twice a day Justification for Cont. Inpt. At this time patient will decompensate placed in the lower level of care Discharge Planning Start state referral packet Fredo Roberson MD Sep 10, 2017 14:17
[2017-09-10] MEDS ORDERED: PILL SPLITTER OTHER PRN (14:30)
--- NOTE | 2017-09-10 15:15 | HHI.PR ---
Subjective Remarks Follow-up hypokalemia. Patient has no complaints at this time. She states that she feels better than yesterday. No nausea, vomiting, chest pain, dyspnea. Objective Vitals Vital Signs Date Time Temp Pulse Resp B/P (MAP) Pulse Ox O2 Delivery O2 Flow Rate FiO2 09/10/17 06:03 98.3 83 17 100/57 (71) 96 09/09/17 18:40 98.1 93 17 157/83 (107) 98 Result Diagram: 09/10/17 0950 09/10/17 0950 Objective Remarks General: No acute distress. Heart: Regular rate and rhythm. No murmur. Lungs: Clear to auscultation bilaterally. No wheezes, rales, or rhonchi. Breathing is nonlabored. Abdomen: Soft, nontender, nondistended. Extremities: No lower extremity edema. Psych: Alert and oriented. Procedures None Urinary Catheter: No Vascular Central Line Catheter: No A/P Problem List: (1) Urinary tract infection ICD Code: N39.0 - Urinary tract infection, site not specified (2) HIV (human immunodeficiency virus infection) ICD Code: B20 - Human immunodeficiency virus [HIV] disease (3) AIDS ICD Code: B20 - Human immunodeficiency virus [HIV] disease Status: Chronic Assessment and Plan 1. HIV/AIDS: Patient has been off of her medications for "months". She has been counseled regarding follow-up at the health department and importance of taking her medications as prescribed. Continue PCP prophylaxis. 2. UTI: Culture showing likely contaminant. Patient received ceftriaxone in the ER. Cipro has been discontinued. She is currently asymptomatic. 3. Hypokalemia: Improved. 4. Psychosis: Management per psychiatry. Hermilo Enrique MD Sep 10, 2017 15:15
--- NOTE | 2017-09-10 15:29 | PD.TTN ---
Patient Problems 1. Discharge planning 2. Medication compliance 3. Knowledge deficit 4. Lack of coping skills Progress Toward Goals Provider Present: Dr. Donis Roberson Provider Input: Dr. Roberson's treatment team met to discuss patient's treatment plan, discharge, and medication. Patient meets criteria at this time. 09/10/17 Patient continues to meet criteria. Patient is being referred to State. Increasing medication Nurse(s) Input: Patient's nurse Blaine reports patient seen after breakfast asleep in a chair in the dayroom. Currently denies auditory and visual hallucinations. but states that yesterdaty she heard voices telling me to kill myself. Despirt this she denies suicidal and homicidal ideatoin . Patient is blunt and withdrawn 09/10/17 Patient's nurse Jin reports patient is childlike, attention seeking. Medication complaint eating and sleeping ok. Internally preoccupied. Psychiatric Counselors Present: [facility]ce Lawrence [facility] Input: Patient seen in dayroom. Patient is restricting her food and water intake. Patient states she feels suicidal and is having auditory hallucinations. Patient presents childlike, tired, withdrawn, guarded, paranoid, affect blunted. Patient's speech is clear, organized with pressure. Patient made fair eye contact. 09/10/17 Patient presents childlike, cooperative but guared, affect blunted. Patient seen in day room. Patient is medication compliant, eating and sleeping ok. Patient continues to report internal stimulation to harm self. Patient continues to meet criteria. [facility] Group Spec/RT/OT/WEST Present: JENNA Cooper Andrew Harrison, JOCE Group Spec/RT/OT/WEST Input: Patient does not attend groups 09/10/17 Patient does not attend groups Cece Lawrence [facility] Sep 10, 2017 15:29
[2017-09-10 17:03] VITALS: BP 108/56; PULSE 117; RESP 18; TEMP 98.3; O2SAT 99
[2017-09-10 20:00] VITALS: BP 108/56; PULSE 117; RESP 18; TEMP 98.3; O2SAT 99
[2017-09-10] MEDS: QUEtiapine FUMARATE 200 MG TAB PO SCH (22:02)
[2017-09-11] MEDS: ESCITALOPRAM OXALATE 10 MG TAB PO SCH (09:30)
[2017-09-11] MEDS: LACTOBACILLUS ACIDOPHILUS TAB PO SCH ×3 (09:30→17:51)
[2017-09-11] MEDS: HALOPERIDOL 5 MG TAB PO SCH ×2 (09:31→17:51)
--- NOTE | 2017-09-11 14:19 | HHI.PYPN ---
Subjective Chief Complaint: increase auditory hallucinations depression with vague suicidal ideation Remarks Patient seen today in her room with nurse Ann and counselor Cece. Chart reviewed. Patient compliant medication. Consideration today showing some slight increase in affect. Some slight increase in her verbalizations. The auditory hallucinations now seem to be somewhat intermittent. Today she is also somewhat vague about her suicidal intent. However patient still remained psychotic and suicidal. We'll continue the process of initiating a [facility] act on this lady with the possibility of long-term placement to help treat her psychosis. Review of Systems Except as stated in HPI: all other systems reviewed are Neg Mental Status Examination Appearance: Disheveled Consciousness: Somnolent Orientation: x4 Motor Activity: Normal gait Speech: Unremarkable Language: Adequate Fund of Knowledge: Adequate Attention and Concentration: Other (there is some delayed responses but appropriate responses) Memory: Unremarkable Mood: Other (dysphoric) Affect: Flat Thought Process & Associations: Other (poverty of thought) Thought Content: Hallucinations (command auditory) Hallucination Type: Auditory (tell her to harm herself.) Delusion Type: None Suicidal Ideation: No Suicidal Plan: No (patient would not take the suicide pill) Suicidal Intention: No (patient with command auditory hallucinations but denies intent) Homicidal Ideation: No Homicidal Plan: No Homicidal Intention: No Insight: Poor Judgment: Poor Results Labs Date/Time Source Procedure Growth Status 08/30/17 12:15 Urine Clean Catch Urine Culture - Final Complete Vitals/IOs Vital Signs Date Time Temp Pulse Resp B/P (MAP) Pulse Ox O2 Delivery O2 Flow Rate FiO2 09/10/17 20:00 98.3 117 18 108/56 (73) 99 Assessment & Plan Problem List: (1) Schizoaffective disorder, depressive type ICD Codes: F25.1 - Schizoaffective disorder, depressive type Assessment & Plan Estimated LOS: days patient remained psychotic depressed with vague suicidal ideation, compliant medications. Will continue with the [facility] act process with consideration for possible referral to the state hospital Justification for Cont. Inpt. At this time patient will decompensate the placed in a lower level of care Discharge Planning Consider state referral if patient does not improve Fredo Roberson MD Sep 11, 2017 14:19
[2017-09-11 18:00] VITALS: BP 128/83; PULSE 100; RESP 18; TEMP 98.9; O2SAT 100
[2017-09-11] MEDS: QUEtiapine FUMARATE 200 MG TAB PO SCH (21:14)
[2017-09-12 06:21] VITALS: BP 113/98; PULSE 91; RESP 18; TEMP 98.7
[2017-09-12] MEDS: HALOPERIDOL 5 MG TAB PO SCH ×2 (09:05→15:53)
[2017-09-12] MEDS: LACTOBACILLUS ACIDOPHILUS TAB PO SCH ×3 (09:05→16:59)
[2017-09-12] MEDS: ESCITALOPRAM OXALATE 10 MG TAB PO SCH (09:05)
[2017-09-12] MEDS: SULFAMETHOXAZOLE-TRIMETHOPRIM DS 800-160 MG TAB PO SCH (09:05)
[2017-09-12] MEDS: ACETAMINOPHEN 325 MG TAB PO PRN (09:06)
--- NOTE | 2017-09-12 09:10 | HHI.PR ---
Subjective Remarks Follow up on patient with hypokalemia. Patient seen and examined. Patient reports headache this morning. States she gets headaches infrequently. She is requesting Tylenol. Denies any vision changes, dizziness or lightheadedness. Denies any chest pain or shortness of breath. Denies any nausea, vomiting or abdominal pain. VSS. Objective Vitals Vital Signs Date Time Temp Pulse Resp B/P (MAP) Pulse Ox O2 Delivery O2 Flow Rate FiO2 09/12/17 06:21 98.7 91 18 113/98 (103) 09/11/17 18:00 98.9 100 18 128/83 (98) 100 Result Diagram: 09/10/17 0950 09/10/17 0950 Objective Remarks GENERAL: Well-nourished, well-developed female patient in NAD. Lying in bed. Awake and alert. SKIN: Warm and dry. HEAD: Normocephalic. Atraumatic. EYES: EOMI. No scleral icterus. No injection or drainage. ENT: No nasal bleeding or discharge. Mucous membranes pink and moist. NECK: Trachea midline. CARDIOVASCULAR: Regular rate and rhythm. S1, S2 noted. No murmur appreciated. RESPIRATORY: Nonlabored. Clear to auscultation. Breath sounds equal bilaterally. GASTROINTESTINAL: Abdomen soft, non-tender, nondistended. Normoactive bowel sounds x4. MUSCULOSKELETAL: No obvious deformities. Extremities without clubbing, cyanosis , or edema. NEUROLOGICAL: Awake and alert. Able to move all extremities spontaneously. Normal speech. PSYCHIATRIC: Calm, cooperative. Flat affect. Procedures None Medications and IVs Current Medications Medications (Trade) Dose Ordered Sig/Amari Route Start Time Stop Time Status Last Admin (Tylenol) 650 mg Q4H PRN PO 08/30/17 19:30 09/12/17 09:06 (Milk Of Magnesia Liq) 30 ml DAILY PRN PO 08/30/17 19:30 (Mag-Al Plus Susp Liq) 30 ml Q6H PRN PO 08/30/17 19:30 09/02/17 10:39 (Lexapro) 10 mg DAILY PO 08/31/17 11:30 09/12/17 09:05 (Zithromax) 1,200 mg Q7D PO 08/31/17 16:00 09/07/17 16:44 (Bactrim Ds 800-160 Mg) 1 tab MoWeFr@09 PO 09/03/17 09:00 09/12/17 09:05 (Lactinex) 1 tab TID PO 08/31/17 18:00 09/12/17 09:05 (SEROquel) 400 mg HS PO 09/07/17 21:00 09/11/17 21:14 (Haldol) 7.5 mg BID@0800,1600 PO 09/10/17 16:00 09/12/17 09:05 (Pill Splitter) 1 ea UNSCH PRN OTHER 09/10/17 14:30 A/P Problem List: (1) Urinary tract infection ICD Code: N39.0 - Urinary tract infection, site not specified (2) HIV (human immunodeficiency virus infection) ICD Code: B20 - Human immunodeficiency virus [HIV] disease (3) AIDS ICD Code: B20 - Human immunodeficiency virus [HIV] disease Status: Chronic Assessment and Plan 31yo female with PMHX of HIV/AIDS medication noncompliant admitted with psychosis. Psychosis - Management per psychiatry HIV/AIDS Medication noncompliant - Patient reports being off her medication for "months". Patient counseled on importance of follow-up with health Department in taking her medications as prescribed. - Continue PCP prophylaxis Hypokalemia - Resolved status post repletion Tachycardia - intermittent - EKG showing sinus rhythm Headache - Tylenol prn DVT prophylaxis - Patient is ambulatory Discussed with nursing staff, patient and Vilma Inman Sep 12, 2017 09:10
[2017-09-12] MEDS ORDERED: LACT PO (13:00)
[2017-09-12] MEDS ORDERED: ESCI10TA PO (13:00)
[2017-09-12] MEDS ORDERED: SERO400T PO (13:00)
[2017-09-12] MEDS ORDERED: ELVITAB PO (13:00)
[2017-09-12] MEDS ORDERED: SULF1TAB23 PO (13:00)
[2017-09-12] MEDS ORDERED: AZIT600T PO (13:00)
[2017-09-12] MEDS ORDERED: HALO10TA PO (13:00)
--- NOTE | 2017-09-12 13:06 | HHI.DS ---
Psychiatry Discharge Summary Inpatient Psychiatric care?: Yes Advance Directive: No Reason Not Provided: NOT AVAILABLE Mental Health AdvanceDirective: No Health Care Proxy: No Admission Admission Date Aug 30, 2017 at 19:23 Admission Diagnosis: (1) Schizoaffective disorder, depressive type ICD Code: F25.1 - Schizoaffective disorder, depressive type (2) AIDS ICD Code: B20 - Human immunodeficiency virus [HIV] disease Brief History Patient is a 31-year-old Afro-Ugand[place] female who initially came emergency department with a complaint of chest pain, she was medically cleared in the emergency department she then meet complaints of auditory hallucinations of a suicidality leading to her being psychiatrically screened by our nurse practitioner. She recommended hospitalization. Of interest this is month the th visit to the emergency department for this patient in 2016. There've been multiple impressions of atypical chest pain, she is having multiple visits preceding 2017 with diagnoses of malingering, vitamin diagnosis of cocaine abuse. Patient is HIV positive who has AIDS, and he has recently been abusing cocaine and alcohol. Patient had positive urinary toxicology for cocaine and May of this year along with a blood alcohol level of 66. Patient giving a somewhat vague confusing perhaps manipulative history of living with a boyfriend of about 5 years and his mother. She states the mother is controlling and she doesn't along well with them she states she is having auditory hallucinations for well over a year though has not been documented prior to this visit, she continues to focus on various somatic issues including chest pain neck pain headaches hot flashes. She states her menses are fairly regular. She states the voices are of a command nature telling her to kill herself. She states she has had a psychiatric hospitalization in [place] over a year ago. She is quite vague about any significant psychiatric follow- up since then. Patient did show some increase affect we talked about her 4 children all of whom had been placed up for adoption. She states her father and brothers live in [place], she is vague about their relationship. Her mother lives locally it appears she may be estranged from her mother and that there were drugs and her mother's house. We did discuss admission and medications. At this point feel patient does meet criteria for a brief inpatient hospitalization to initiate medication management. We will start her on Lexapro 10 mg in the morning and Seroquel 25 mg 3 times a day. Will refrain from any benzodiazepines or opiates. This causes what appeared to been a brief moment of anger inherited that she suppressed. We have the hospitalists consulting with us concerning management of her HIV. We will refer patient through to the appropriate resources upon discharge Tobacco Use In Past 30 Days: No Tobacco Past 30 Days Alcohol Use: Monthly or Less Hospital Course Patient's hospital course was uneventful initial isolation, auditory hallucinations and suicidal ideation, marked thought blocking slowly decreased. She show compliance with medication he with adjustments of the medication. Over the past 2 days patient has had significant reduction the auditory hallucinations. She states they still persist within not is intrusive demanding as on admission. Patient states she has never been without some type of auditory hallucination. She denies suicidality homicidality at this time. She does wish to be discharged today she states she can go live with her boyfriend and his "mommy". Patient is willing also to continue her aids medication. Thus patient to be discharged today Rx 1 month the follow-up with her primary care physician and also follow-up [facility] Results Blood Pressure 113 / 98 Vital Signs Date Time Temp Pulse Resp B/P (MAP) Pulse Ox O2 Delivery O2 Flow Rate FiO2 09/12/17 06:21 98.7 91 18 113/98 (103) 09/11/17 18:00 100 Laboratory Tests Test 09/10/17 09:50 White Blood Count 1.9 TH/MM3 (4.0-11.0) Red Blood Count 3.51 MIL/MM3 (4.00-5.30) Hemoglobin 10.1 GM/DL (11.6-15.3) Hematocrit 29.9 % (35.0-46.0) Monocytes (%) (Auto) 11.1 % (0.0-8.0) Eosinophils (%) (Auto) 6.5 % (0.0-4.0) Neutrophils # (Auto) 1.1 TH/MM3 (1.8-7.7) Lymphocytes # (Auto) 0.4 TH/MM3 (1.0-4.8) Eosinophils % 6 % (0-4) Neutrophils # (Manual) 1.2 TH/MM3 (1.8-7.7) Myelocytes 1 % (0-0) Ovalocytes 1+ (NORMAL) Laboratory Results Test 08/31/17 08:59 Cholesterol Level 99 MG/DL (120-200) HDL Cholesterol 36.7 MG/DL (40.0-60.0) Hemoglobin A1c 5.3 % (4.3-6.0) LDL Cholesterol 49 MG/DL (0-99) Triglycerides Level 66 MG/DL (42-150) Summary of Procedures None done Pending results at discharge: No Medications # of Antipsychotic meds at D/C: 2 Appropriate >1 Antipsych meds?: 2 (would recommend outpatient clinician sure gradual taper with the Haldol once her auditory hallucinations have diminished further) Approp Antipsych med options 1 - Minimum of three failed multiple trials of monotherapy. 2 - Documented plan to taper to monotherapy due to previous use of multiple meds OR cross-taper in progress at D/C. 3 - Documentation of augmentation of Clozapine. 4 - Justification other than those listed in allowable values 1-3, document here : Discharge Discharge Date: Sep 12, 2017 Discharge Diagnosis: (1) Schizoaffective disorder, depressive type Diagnosis: Principal ICD Code: F25.1 - Schizoaffective disorder, depressive type (2) AIDS Diagnosis: Secondary ICD Code: B20 - Human immunodeficiency virus [HIV] disease Status: Chronic Pt Condition on Discharge: Stable Discharge Disposition: Discharge Home Discharge Instructions Diet Instructions: As Tolerated, No Restrictions Activities you can perform: Regular-No Restrictions Scheduled Appointment: [facility] (also follow-up with medical services and community monitor her aids) Discharge Time > 30 minutes Mental Status Examination Appearance: Disheveled Consciousness: Somnolent Orientation: x4 Motor Activity: Normal gait Speech: Unremarkable Language: Adequate Fund of Knowledge: Adequate Attention and Concentration: Other (there is some delayed responses but appropriate responses) Memory: Unremarkable Mood: Other (dysphoric) Affect: Flat Thought Process & Associations: Other (poverty of thought) Thought Content: Hallucinations (command auditory) Hallucination Type: Auditory (tell her to harm herself.) Delusion Type: None Suicidal Ideation: No Suicidal Plan: No (patient would not take the suicide pill) Suicidal Intention: No (patient with command auditory hallucinations but denies intent) Homicidal Ideation: No Homicidal Plan: No Homicidal Intention: No Insight: Poor Judgment: Poor Discharge/Advance Care Plan Health Problems: (1) Schizoaffective disorder, depressive type Goals to promote your health * To prevent worsening of your condition and complications * To maintain your health at the optimal level Directions to meet your goals Take your medications as prescribed Follow your dietary instruction Follow activity as directed Keep your appointments as scheduled Take your immunizations and boosters as scheduled If your symptoms worsen call your PCP, if no PCP go to Urgent Care Center or Emergency Room For 23/04 questions related to your inpatient stay or results of tests pending at discharge, please contact Dr. Fredo Roberson at Smoking is Dangerous to Your Health. Avoid second hand smoking Fredo Roberson MD Sep 12, 2017 13:06
--- NOTE | 2017-09-12 15:31 | PD.TTN ---
Patient Problems 1. Discharge planning 2. Medication compliance 3. Knowledge deficit 4. Lack of coping skills Progress Toward Goals Provider Present: Dr. Donis Roberson Provider Input: Dr. Roberson's treatment team met to discuss patient's treatment plan, discharge, and medication. Patient meets criteria at this time. 09/10/17 Patient continues to meet criteria. Patient is being referred to [facility]. Increasing medication 09/12/17 Patient is doing better will discharge today. Follow up with [facility] Nurse(s) Input: Patient's nurse Blaine reports patient seen after breakfast asleep in a chair in the dayroom. Currently denies auditory and visual hallucinations. but states that yesterdaty she heard voices telling me to kill myself. Despirt this she denies suicidal and homicidal ideatoin . Patient is blunt and withdrawn 09/10/17 Patient's nurse Jin reports patient is childlike, attention seeking. Medication complaint eating and sleeping ok. Internally preoccupied. 09/12/17 Patient's nurse Dayne reports patient is doing well, attending groups, [facility] Psychiatric Counselors Present: HOLLY Barnes Psych Therapist Input: Patient seen in dayroom. Patient is restricting her food and water intake. Patient states she feels suicidal and is having auditory hallucinations. Patient presents childlike, tired, withdrawn, guarded, paranoid, affect blunted. Patient's speech is clear, organized with pressure. Patient made fair eye contact 09/10/17 Patient presents childlike, cooperative but guared, affect blunted. Patient seen in day room. Patient is medication compliant, eating and sleeping ok. Patient continues to report internal stimulation to harm self. Patient continues to meet criteria. Doctor is putting patient on [facility] list. 09/12/17 Patient is doing remarkably well. Patient is participating in groups, denies suicidal and homicidal ideation, pleasant and cooperative. Patient is being discharged home. will follow up [facility] Group Spec/RT/OT/WEST Present: JENNA Cooper, Patricio Robb, OT Group Spec/RT/OT/WEST Input: Patient does not attend groups 09/10/17 Patient does not attend groups 09/12/17 Patient is attending Cece KelseyJanusz Sep 12, 2017 15:31
== END 2017-09-12 17:10 | disposition home or self-care (01) | DRG 885 ==
LOC: NEPD 12:23 → NEDA 19:23 → H260 21:10
PROVIDERS: ADMIT Psychiatry & Neurology Psychiatry; ATTEND Psychiatry & Neurology Psychiatry
DX: F25.1 Schizoaffective disorder, depressive type (principal); B20 Human immunodeficiency virus [HIV] disease; R45.851 Suicidal ideations; Z68.41 Body mass index [BMI] 40.0-44.9, adult; N39.0 Urinary tract infection, site not specified; R07.89 Other chest pain; J45.909 Unspecified asthma, uncomplicated; F41.9 Anxiety disorder, unspecified; I10 Essential (primary) hypertension; E66.9 Obesity, unspecified; E87.6 Hypokalemia; F12.90 Cannabis use, unspecified, uncomplicated; M54.2 Cervicalgia; R51 Headache; R00.0 Tachycardia, unspecified; Z87.891 Personal history of nicotine dependence; Z91.14 Patient's other noncompliance with medication regimen
CPT/HCPCS: 80048; 80053; 80061; 80307; 81001; 82550; 83036; 83735; 84100; 84443; 84484; 85007; 85025; 85027; 86355; 86357; 86359; 86360; 87077; 87086; 87186; 93005; 96372; J0696

== ENCOUNTER 2018-05-09 20:16 | Inpatient (IN) ==
--- NOTE | 2018-05-10 00:51 | ED ---
HPI General Chief Complaint: Psychiatric Symptoms Stated Complaint: psych eval/voluntary Time Seen by Provider: 05/10/18 10:25 Source: patient Mode of arrival: ambulatory Limitations: no limitations History of Present Illness HPI Narrative: 32-year-old black female with a history of schizophrenia presents emergency department stating that she is feeling suicidal and she was discharged to [place] from [facility] yesterday. She states that she feels depressed. She has not taken her medicine since she was discharged yesterday. She does not report any homicidal ideation. She states that she had put a knife to her neck yesterday but did not cut herself. She presents voluntarily for evaluation and would like to be readmitted. She denies any medical complaints. No toxic ingestions. Related Data Home Medications Medication Instructions Recorded Confirmed No Known Home Medications 05/05/18 05/10/18 Allergies Allergy/AdvReac Type Severity Reaction Status Date / Time No Known Allergies Allergy Verified 05/04/18 22:54 Review of Systems ROS: all other systems reviewed are negative [facility] Medical History Medical History AIDS (Acute) Hypertension (Acute) Schizophrenia (Acute) Surgical History Surgical History History of mandibular surgery (Acute) Social History Social History Substance History: Active Abuse Second Hand Smoke Exposure: Yes Smoking Status: Never smoker Tobacco Type: Cigarettes How Often Do You Have a Drink Containing Alcohol: 2 to 3 times a week Recent Travel in [facility] within the Last 8 Weeks: No Recent Out of Country Travel within the Last 8 Weeks: No Immunization History Tetanus Immunization: Unsure Course Initial Documented Vital Signs Temperature 97.8 F 05/09/18 21:13 Pulse Rate 86 05/09/18 21:13 Respiratory Rate 16 05/09/18 21:13 Blood Pressure 112/58 L 05/09/18 21:13 Pulse Oximetry 100 05/09/18 21:13 Last Documented Vital Signs Temperature 98.3 F 05/10/18 16:15 Pulse Rate 91 H 05/10/18 16:15 Respiratory Rate 16 05/10/18 05:46 Blood Pressure 121/57 L 05/10/18 15:24 Pulse Oximetry 100 05/10/18 16:15 Medical Decision Making MDM Narrative Medical decision making narrative: The patient was just discharged yesterday from [facility]. I do not believe any additional labs will be indicated at this time. Patient will be considered medically stable and be evaluated by the psych screener Differential Diagnosis Differential Diagnosis: MDM: High Differential diagnoses: Schizophrenia, schizoaffective disorder, bipolar, anxiety, depression, adjustment reaction, mood disorder NOS, ODD, depressive disorder NOS, psychosis NOS, substance induced mood disorder, DMDD, Asperger syndrome, infection,electrolyte abnormality, malingering. Mental health screening discussed with the patient. Psychiatric screen ordered. Discharge Plan Discharge Disposition Patient Disposition: Discharge Home Discharge Condition Condition: Stable Discharge Order Discharge Orders: Discharge Order (Routine); Ordered 05/10/18 Ordered By: Samy Reyes Physicians Team ED Provider: Stefano Dunbar ED Midlevel Provider: Samy Reyes Primary Care Provider: UNKNOWN, Attending Provider: Peter Al Discharge Interventions Interventions: ED Discharge Assessment Last Done: 05/10/18 10:51 Status ED Status: Discharged Discharge Information Discharge Date/Time: 05/10/18 11:06
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
[2018-05-10] MEDS ORDERED: Aluminum/Magnesium/Simethacone Susp 30 ML UDC PO PRN (10:51)
[2018-05-11 08:00] LABS: Anion Gap 7 meq/L (5-15); Blood Urea Nitrogen 9 mg/dL (7-18); Calcium 8.6 mg/dL (8.5-10.1); Carbon Dioxide 25.8 meq/L (21.0-32.0); Chloride 104 meq/L (98-107); Cholesterol 124 mg/dL (120-200); Glomerular Filtration Rate Greater Than 89 mL/min (>89); Glucose,Random 74 mg/dL (74-106); Sodium 137 meq/L (136-145); Triglycerides 135 mg/dL (42-150)
[2018-05-11 08:03] LABS: Chol/HDL Ratio 2.66 Ratio; HDL Cholesterol 46.5 mg/dL (40.0-60.0); LDL Cholesterol,Calculated 51 mg/dL (0-99)
--- NOTE | 2018-05-11 09:10 | MH ---
cc: Benton Johnston MD DATE OF ADMISSION: 05/10/2018 ADMITTING DIAGNOSES: 1. Unspecified psychosis, rule out component of malingering, F29 2. History of substance use disorder. LEGAL STATUS: The patient is capacitated to consent for medication/treatment as well as admission. Voluntary status. HISTORY OF PRESENT ILLNESS: Ms. Dhaliwal is a 32-year-old female with a chart history of psychotic illness, who presented to the emergency department voluntarily complaining of suicidal ideation. She told the emergency department provider that she was "discharged too early from [facility] yesterday." She told the ED provider that she was feeling depressed and that she put a knife to her neck the day prior to presenting. She was evaluated by the psychiatric nurse practitioner in the ED. Reviewing the electronic medical record, I note the patient was psychiatrically admitted most recently in 10/[address] Al. The patient seen and examined with counselor and nurse. Chart reviewed. Case discussed with counselor and nurse. On my examination this morning, the patient is lying calmly in bed. She does not appear internally stimulated. Despite this, she complains of command auditory hallucinations to kill herself. She endorses suicidal ideation with plans to cut herself. She does note that she has no desire to hurt herself on the inpatient unit. She contracts for safety on the inpatient unit. She denies command auditory hallucinations to hurt others. She endorses paranoia. She endorses a history of childhood trauma and describes poor sleep and nightmares associated with this. Mood is somewhat depressed, but I can elicit no severe depressive or hypomanic/manic symptoms. Regarding her voices, she says that these are continuous and occur inside her head. She is overall a somewhat vague historian. The remainder of the psychiatric ROS is negative. The patient has some complaints of dental pain, but otherwise no acute physical complaints. PAST PSYCHIATRIC HISTORY: The patient has a history of psychotic illness, although I do see a historical diagnosis of malingering. She reports that she is not presently under the care of a psychiatrist initially, but then says that she is following with [facility]. I did call over to [facility], and I note the patient was written a prescription on 05/09/2018 for Wellbutrin 150 mg daily and Abilify 5 mg at bedtime. The patient reports most recent psychiatric admission was here at [place], although apparently she told the ED provider that she had been on the [facility] at [facility]. She reports three previous suicide attempts by cutting. She denies a history of violent behavior. FAMILY HISTORY: The patient reports a family history of bipolar disorder in the family. She denies any family history of suicide. CHEMICAL DEPENDENCY HISTORY: The patient reports a history of crack cocaine use, last use was 1 week ago. She is unable to tell me her longest sober time. She denies any other substance use. SOCIAL HISTORY: The patient reports that she is homeless. She is single. She has 4 children. She has a 10th grade education. She collects SSI. She denies any history. Denies any legal history. Denies any access to guns or firearms. Denies any sabianism or spiritual beliefs. She does report a history of childhood trauma as I said. PAST MEDICAL HISTORY: Includes a history of HIV. MEDICATIONS: 1. Prezcobix 800 mg - 150 mg daily. 2. Descovy 200 - 25 mg tablets, 1 tablet by mouth daily. 3. Wellbutrin 150 mg daily. 4. Abilify 5 mg at bedtime. ALLERGIES: NO KNOWN ALLERGIES. REVIEW OF SYSTEMS: The patient reports a macular rash on her bilateral arms times several months. She also has the complaints of dental pain. Otherwise, except as noted in the HPI, this is negative. PHYSICAL EXAMINATION: VITAL SIGNS: Temperature is 98.8, pulse 79, respirations 16, blood pressure 95/53, pulse oximetry is 100% on room air. GENERAL: Physical examination was completed by the ED provider. On my examination today, the patient appears to be in no acute physical distress. She does have oral dyskinesias, although this may be reflective of her dental complaints, but the patient does note that she has had these continuously regardless of whether or not she was having dental problems. No other motor abnormalities noted. LABORATORY DATA: Reviewed: BMP is unremarkable. Lipid panel unremarkable. Hemoglobin A1c is pending. I have additionally ordered a test, CBC, LFTs as well as the urinalysis, as I note most recent urinalysis was potentially concerning for UTI. MENTAL STATUS EXAMINATION: The patient is in hospital attire. She is fairly well groomed. She is awake, alert and oriented x3. No motor abnormalities noted except for the oral dyskinesias. Speech is within normal limits for rate, tone, and volume. Language and fund of knowledge are average. Focus and concentration are intact. Memory is grossly intact on clinical exam. Mood is somewhat depressed and affect is blunted. Thought process is linear. No loosening of associations. The patient complains of some mild paranoia. No other delusional material. She reports command auditory hallucinations as detailed above, but does not appear internally stimulated. She endorses suicidal ideation with plan to cut herself, but denies any suicidal intent on the inpatient unit. Denies homicidal ideation, intent or plan. Insight and judgment are fair. ASSESSMENT AND PLAN: This is a 32-year-old female with psychiatric history as detailed above, who presents voluntarily for psychiatric admission. On my examination today, the patient describes continuous command auditory hallucinations to hurt herself occurring inside her head. There are several red flags for a potentially malingered auditory hallucinations in this patient, and I do note that the patient has a history of suspected malingering of physical symptoms in the past. However, given the gravity of her reported symptoms as well as associated depression and possible nightmares and poor sleep from traumatic history, I will plan to admit the patient to the inpatient unit for observation for any impairments and safety as well as for medication adjustment. Admit inpatient. Voluntary status. Titrate Abilify to 7.5 mg at bedtime to target reported psychotic symptoms. Continue Wellbutrin as ordered. Atarax as needed for anxiety. Trazodone as needed for sleep. I will continue the patient's antiretrovirals. Followup laboratories as noted above. The patient reports that her rash is chronic, and we will monitor this. We will additionally monitor the patient's complaints of dental pain. If there is a leukocytosis or if the patient becomes febrile and there is evidence of infection associated with the dental issue, we will plan to consult the hospitalist. Vitals every shift. Counselor to see. Disposition planning. ESTIMATED LENGTH OF STAY: 3-5 days. PATIENT STRENGTHS: Able to access clinical care. Verbally fluent. MD ADELINA Neri/shannon , 08:35 AM , 08:49 AM DOROTHY
[2018-05-11 09:50] LABS: Baso % (Auto) 0.8 % (0.0-2.0); Eos # (Auto) 0.1 th/mm3 (0.0-0.4); Eos % (Auto) 2.7 % (0.0-4.0); Hematocrit 27.5 % (35.0-46.0); Hemoglobin 8.9 gm/dL (11.6-15.3); Lymph # (Auto) 0.5 th/mm3 (1.0-4.8); Lymph % (Auto) 15.3 % (9.0-44.0); Mean Corpuscular HGB Conc 32.4 % (32.0-36.0); Mean Corpuscular Hemoglobin 27.8 pg (27.0-34.0); Mean Corpuscular Volume 85.9 fL (80.0-100.0); Mean Platelet Volume 7.8 fL (7.0-11.0); Mono # (Auto) 0.5 th/mm3 (0.0-0.9); Mono % (Auto) 16.7 % (0.0-8.0); Neut # (Auto) 1.9 th/mm3 (1.8-7.7); Neut % (Auto) 64.5 % (16.0-70.0); Platelet Count 237 th/mm3 (150-450); Red Cell Distribution Width 14.6 % (11.6-17.2)
[2018-05-11 10:02] LABS: Alanine Aminotransferase 50 U/L (10-53); Albumin 2.7 g/dL (3.4-5.0); Aspartate Aminotransferase 46 U/L (15-37)
[2018-05-11 10:05] LABS: Alkaline Phosphatase 53 U/L (45-117); Total Protein 6.6 g/dL (6.4-8.2)
[2018-05-11] MEDS: buPROPion 150 MG 12 HR Tablet PO SCH (10:55)
[2018-05-11] MEDS: DARUNAVIR PO SCH (10:56)
[2018-05-11] MEDS: COBICISTAT PO SCH (10:56)
[2018-05-11] MEDS: [UNRECOGNIZED DRUG - OTHER] PO SCH (10:56)
[2018-05-11] MEDS: [UNRECOGNIZED DRUG - OTHER] PO SCH (10:56)
[2018-05-11 13:04] LABS: Hemoglobin A1c 5.4 % (4.3-6.0)
[2018-05-11 14:35] LABS: Bilirubin,Urine Negative (Negative); Clarity,Urine Clear (Clear); Color,Urine Colorless (Yellw/Straw); Glucose,Urine (UA) Negative (Negative); Leukocyte Esterase,Urine Negative (Negative); Mucus,Urine Few /lpf (Occasional); Nitrite,Urine Negative (Negative); Specific Gravity,Urine 1.001 (1.002-1.035); Squamous Epithelial Cell,Urine 1 /hpf (0-5)
[2018-05-11] MEDS: traZODone 50 MG Tablet PO PRN (20:39)
[2018-05-11] MEDS: Acetaminophen 325 MG Tablet PO PRN (20:39)
[2018-05-11] MEDS: ARIPiprazole 5 MG Tablet PO SCH (20:39)
[2018-05-12] MEDS: [UNRECOGNIZED DRUG - OTHER] PO SCH (10:12)
[2018-05-12] MEDS: buPROPion 150 MG 12 HR Tablet PO SCH (10:12)
[2018-05-12] MEDS: DARUNAVIR PO SCH (10:13)
[2018-05-12] MEDS: COBICISTAT PO SCH (10:13)
[2018-05-12] MEDS: [UNRECOGNIZED DRUG - OTHER] PO SCH (10:13)
--- NOTE | 2018-05-12 12:31 | P.PNPSY ---
Subjective Remarks: Patient was seen and case discussed with nursing. Patient is minimally engaged during the interview. Blunted affect. There is some concern she is malingering. She is clear and logical. Patient says she has fleeting auditory hallucinations telling her to kill herself. She denies any of doing so. Tolerating medications well. Patient has a rash throughout her body and we will get a consult Mental Status Examination Appearance: Disheveled Consciousness: Alert Orientation: x4 Motor Activity: Normal gait Speech: Unremarkable, Rapid Fund of Knowledge: Adequate Attention and Concentration: Adequate Memory: Unremarkable Mood: Appropriate Affect: Appropriate Thought Process & Associations: Intact Thought Content: Appropriate Hallucination Type: Auditory (to kill herself), Visual ("animals") Delusion Type: None Suicidal Ideation: No Suicidal Plan: No Suicidal Intention: No Homicidal Ideation: No Homicidal Plan: No Homicidal Intention: No Insight: Fair Judgment: Impulsive Assessment and Plan - Plan Plan: Medical consult for rash, hydrocortisone cream Justification for Continued Inpatient Stay: Patient would decompensate in a less restrictive setting
[2018-05-12] MEDS: ARIPiprazole 5 MG Tablet PO SCH (21:19)
[2018-05-12] MEDS: Acetaminophen 325 MG Tablet PO PRN (21:20)
[2018-05-12] MEDS: traZODone 50 MG Tablet PO PRN (21:20)
[2018-05-13] MEDS: Acetaminophen 325 MG Tablet PO PRN ×3 (04:36→21:20)
[2018-05-13] MEDS: [UNRECOGNIZED DRUG - OTHER] PO SCH (09:08)
[2018-05-13] MEDS: COBICISTAT PO SCH (09:09)
[2018-05-13] MEDS: DARUNAVIR PO SCH (09:09)
[2018-05-13] MEDS: [UNRECOGNIZED DRUG - OTHER] PO SCH (09:09)
[2018-05-13] MEDS: buPROPion 150 MG 12 HR Tablet PO SCH (09:09)
--- NOTE | 2018-05-13 12:20 | P.CON ---
History of Present Illness Service: [facility] Consult date: 05/12/18 Requesting Physician: Benton Johnston Reason for Consult: Rash Primary Care Provider: UNKNOWN Family Provider: UNKNOWN Chief Complaint: "I am itchy" History of Present Illness: 32-year-old -Micron[place] female with past medical history significant for schizophrenia, hypertension, and AIDS who presents to the emergency department on a voluntary basis after reporting that she was recently discharged from [facility] and patient then began to feel depressed. Patient was seen and evaluated in the emergency department and cleared medically, admitted to inpatient psychiatry for further evaluation. [facility] consulted due to rash. Patient is seen ambulating in the [place] without assistive devices, examined in her room. She reports that her rash first began about 1 month ago, denies any new changes in medications. She endorses pruritus, denies any fevers, chills, nausea, vomiting, diarrhea, cough, shortness of breath, headache or dizziness. She reports that she frequently scratches due to constant itching. Patient is also requesting dandruff shampoo. Review of Systems All other systems reviewed negative except as stated in HPI PMFSH - History History Provided By: Patient, Medical Record - Medical History Medical History: Medical History (Last Reviewed 05/13/18 @ 13:02 by Pasha Starkey) AIDS (Acute) Hypertension (Acute) Schizophrenia (Acute) - Surgical History Surgical History: Surgical History (Last Updated 05/13/18 @ 13:02 by Pasha Starkey) History of mandibular surgery (Acute) Hx of section Hx of tubal ligation - Tobacco History Second Hand Smoke Exposure: Yes Tobacco Use In Past 30 Days: No Smoking Status: Never smoker Tobacco Type: Cigarettes - Alcohol History How Often Do You Have a Drink Containing Alcohol: 2 to 3 times a week - Substance Use History Substance History: Active Abuse - Substance Use Type Crack/Cocaine Status: Active Route Used: Inhalation Reason for Use: Feels Good - Travel History Recent Travel in the [place] Within the Last 8 Weeks: No Recent Travel Out of the Country Within the Last 8 Weeks: No - Immunization History Tetanus Immunization: Unsure Medications and Allergies Active Medications: Active Medications Acetaminophen (Tylenol) 650 mg PO Q4H PRN PRN Reason: PAIN 1-10 AND/OR FEVER >101F Last Admin: 05/13/18 09:10 Dose: 650 mg Al Hydrox/Mg Hydrox/Simethicone (Mag-Al Plus Susp Liq) 30 ml PO Q6H PRN PRN Reason: DYSPEPSIA Last Admin: 05/10/18 20:59 Dose: 30 ml Aripiprazole (Abilify) 7.5 mg PO HS [facility] Last Admin: 05/12/18 21:19 Dose: 7.5 mg Benzocaine (Baby Orajel 7.5% Oral Gel) 1 applic OROPHARYNG Q6H PRN PRN Reason: tooth pain Bupropion HCl (Wellbutrin Sr) 150 mg PO DAILY [facility] Last Admin: 05/13/18 09:09 Dose: 150 mg Hydroxyzine HCl (Atarax) 50 mg PO Q6H PRN PRN Reason: ANXIETY Last Admin: 05/13/18 09:10 Dose: 50 mg Lactulose (Lactulose Liq) 30 ml PO DAILY PRN PRN Reason: SEVERE CONSITIPATION Miscellaneous (Pill Splitter) 1 each OTHER PRN PRN PRN Reason: SEE LABEL COMMENTS [place]: Descovy 200 Mg/25 Mg, 1 Tablet By Mouth Daily 1 each PO DAILY [facility] Last Admin: 05/13/18 09:08 Dose: 1 each [place]: Prezcobix 800 Mg/150 Mg, 1 Tablet By Mouth Daily 1 each PO DAILY [facility] Last Admin: 05/13/18 09:09 Dose: 1 each Trazodone HCl (Desyrel) 50 mg PO HS PRN PRN Reason: Insomnia Last Admin: 05/12/18 21:20 Dose: 50 mg Allergies Allergy/AdvReac Type Severity Reaction Status Date / Time No Known Allergies Allergy Verified 05/04/18 22:54 Home Medications Medication Instructions Recorded Confirmed Type aripiprazole 5 mg PO DAILY 05/11/18 05/11/18 History bupropion HCl 150 mg PO DAILY 05/11/18 05/11/18 History darunavir-cobicistat [Prezcobix] 1 tab PO DAILY 05/11/18 05/11/18 History emtricitabine-tenofovir alafen 1 tab PO DAILY 05/11/18 05/11/18 History [Descovy] Physical Exam Vital signs: Vital Signs 05/12/18 18:31 05/12/18 22:20 05/13/18 01:48 Temperature 98 F Pulse Rate 82 Respiratory Rate 16 16 16 Blood Pressure 101/59 L Pulse Oximetry 99 05/13/18 05:35 05/13/18 06:00 Temperature 97.6 F Pulse Rate 97 H Respiratory Rate 18 17 Blood Pressure 149/79 H Pulse Oximetry 99 Intake & Output 05/12/18 05/13/18 05/13/18 18:59 06:59 18:59 Weight 108.2 kg Narrative: GENERAL: Well-developed obese -[place]ron[place] female. SKIN: Warm and dry. Dry skin throughout, scattered hyperpigmented lesions noted throughout entire body, scattered open areas secondary to pruritus. Lesions appear as if they are healing with residual hyperpigmentation. HEAD: Atraumatic. Normocephalic. EYES: Pupils equal and round. No scleral icterus or drainage. ENT: No nasal bleeding or discharge. Mucous membranes pink and moist. NECK: Trachea midline. No JVD. CARDIOVASCULAR: Regular rate and rhythm. RESPIRATORY: No accessory muscle use. Clear to auscultation. Breath sounds equal bilaterally. GASTROINTESTINAL: Abdomen soft, non-tender, nondistended. Hepatic and splenic margins not palpable. MUSCULOSKELETAL: Extremities without clubbing, cyanosis, or edema. No obvious deformities. NEUROLOGICAL: Awake and alert. No obvious cranial nerve deficits. Motor grossly within normal limits. Normal speech. PSYCHIATRIC: Flat affect. Assessment and Plan - Plan 32-year-old -[place]ron[place] female with past medical history significant for schizophrenia, hypertension, and AIDS who presents to the emergency department on a voluntary basis after reporting that she was recently discharged from [facility] and patient then began to feel depressed. Patient was seen and evaluated in the emergency department and cleared medically, admitted to inpatient psychiatry for further evaluation. [facility] consulted due to rash. Schizophrenia -Treatment plan per psychiatry Rash -This appears as if it is healing with hyperpigmentation areas left behind. Few scattered open areas secondary to pruritus. -Benadryl cream to pruritic areas -Aquaphor ointment twice daily HIV -Continue Descovy and Prezcobix Dandruff-selenium shampoo DVT prophylaxis-ambulation Thank you Dr. Boo for this consultation, will continue to follow along. Discussed Condition With: Patient, RN, and .
--- NOTE | 2018-05-13 12:32 | P.PNPSY ---
Subjective Remarks: Patient seen and examined with nurse. Chart reviewed. Case discussed with nursing staff. Patient complaining of dental pain, and nurse notes that R lower molar appears abscessed. I note some purulent drainage on my exam as well. I have started amoxicillin and have asked the nurse to have hospitalist follow up on this issue. On my exam, patient continues to complain of CAH to self-injure. She denies any SI/HI. She does not appear internally stimulated. She does report a feeling of "stuff crawling inside" her body. No other reported perceptual disturbances. No delusional material. No side effects from medications. Besides the dental pain and ongoing issues with rash, being addressed by hospitalist, no acute physical complaints. Vital Signs Temp Pulse Resp BP Pulse Ox 05/13/18 06:00 97.6 F 97 H 17 149/79 H 99 05/13/18 05:35 18 05/13/18 01:48 16 05/12/18 22:20 16 05/12/18 18:31 98 F 82 16 101/59 L 99 Intake and Output 05/13/18 05/13/18 05/13/18 06:59 14:59 22:59 Other: Weight 108.2 kg Labs reviewed. No new labs. Review of Systems All other systems reviewed negative except as stated in HPI Mental Status Examination Appearance: Disheveled Consciousness: Alert Orientation: x4 Motor Activity: Normal gait, Other (Oral dyskinetic movements. ?R/t dental issues? No other motor abnormalities.) Speech: Unremarkable Language: Adequate Fund of Knowledge: Adequate Attention and Concentration: Adequate Memory: Unremarkable Mood: Appropriate Affect: Appropriate Thought Process & Associations: Intact Thought Content: Appropriate Hallucination Type: Auditory (to kill herself), Tactile Delusion Type: None Suicidal Ideation: No Suicidal Plan: No Suicidal Intention: No Homicidal Ideation: No Homicidal Plan: No Homicidal Intention: No Insight: Fair Judgment: Impulsive Assessment and Plan - Assessment (1) Unspecified psychosis Code(s): F29 - Unspecified psychosis not due to a substance or known physiological condition Status: Acute - Plan Plan: Discussed pharmacotherapeutic options for management of reported psychiatric symptoms with patient. Given decreased clearance of Abilify secondary to patient's antiretrovirals, she is likely already on the equivalent of a maximal or near-maximal dose of this agent without symptomatic improvement (although I do have some suspicion for malingering). I have investigated other antipsychotic options, and it appears that Geodon does not have the decreased clearance issue with ARV. I will therefore discontinue Abilify and start Geodon 40mg BID with plans to titrate to effect. Hospitalist input appreciated. Continue to monitor on inpatient unit. Continue other care as ordered. Justification for Continued Inpatient Stay: Med change. Reported impairment in reality construction. Risk for decompensation in less restrictive setting. Discharge Planning: Pending psychiatric stabilization. Request Healthcare Surrogate/Guardian Advocate?: No
[2018-05-13] MEDS: diphenhydrAMINE 2%/Zinc Cream 30 GM Tube TOPICAL PRN (17:36)
[2018-05-14] MEDS: Acetaminophen 325 MG Tablet PO PRN (04:45)
[2018-05-14] MEDS: buPROPion 150 MG 12 HR Tablet PO SCH (08:57)
[2018-05-14] MEDS: [UNRECOGNIZED DRUG - OTHER] PO SCH (08:58)
[2018-05-14] MEDS: COBICISTAT PO SCH (10:06)
[2018-05-14] MEDS: DARUNAVIR PO SCH (10:06)
[2018-05-14] MEDS: [UNRECOGNIZED DRUG - OTHER] PO SCH (10:06)
--- NOTE | 2018-05-14 13:39 | P.PNPSY ---
Subjective Remarks: Patient seen and examined with nurse. Chart reviewed. Case discussed with nursing staff. Case discussed in treatment team. On my examination today, the patient denies any SI or HI. She denies any AVH at this point. No side effects from medications. No physical complaints. She says that she is receptive to some sort of placement, and I have conveyed this to the counselor. Vital Signs Temp Pulse Resp BP Pulse Ox 05/14/18 07:00 98.3 F 65 17 120/70 100 05/13/18 18:00 97.1 F L 104 H 18 105/72 Intake and Output 05/13/18 05/14/18 05/14/18 22:59 06:59 14:59 Other: Date of Last Bowel Movement 05/13/18 Labs reviewed. No new labs. Review of Systems All other systems reviewed negative except as stated in HPI Mental Status Examination Appearance: Other (Fair) Consciousness: Alert Orientation: x4 Motor Activity: Normal gait, Other (No motor abnormalities noted today.) Speech: Unremarkable Language: Adequate Fund of Knowledge: Adequate Attention and Concentration: Adequate Memory: Unremarkable Mood: Appropriate Affect: Blunt Thought Process & Associations: Intact Thought Content: Appropriate Hallucination Type: None Delusion Type: None Suicidal Ideation: No Suicidal Plan: No Suicidal Intention: No Homicidal Ideation: No Homicidal Plan: No Homicidal Intention: No Insight: Fair Judgment: Impulsive Assessment and Plan - Assessment (1) Unspecified psychosis Code(s): F29 - Unspecified psychosis not due to a substance or known physiological condition Status: Acute - Plan Plan: Continue current psychotropics as ordered. To consider titration of patient's Geodon although psychotic symptoms are reportedly fairly well controlled. Ongoing suspicion for a component of malingering. Await hospitalist follow-up. Continue other medications and care as ordered. Justification for Continued Inpatient Stay: Risk for decompensation in less restrictive environment. Discharge Planning: Counselor to pursue placement Request Healthcare Surrogate/Guardian Advocate?: No
--- NOTE | 2018-05-14 17:31 | P.PN ---
Subjective Interval history: Follow-up visit tooth abscess/dental caries, HIV associated eosinophilic folliculitis, HIV. Patient seen and examined today. Reports right tooth abscess/dental caries has been bothering her. States that her rash throughout her body has been present for several months now. Itching on and off. Denies SOB/ dyspnea. Denies chest pain, palpitations, headaches, dizziness. Denies fevers, chills, n/v/d. Denies dysuria. Physical Exam Vital signs: Vital Signs 05/13/18 18:00 05/14/18 07:00 Temperature 97.1 F L 98.3 F Pulse Rate 104 H 65 Respiratory Rate 18 17 Blood Pressure 105/72 120/70 Pulse Oximetry 100 Intake & Output 05/13/18 05/14/18 05/14/18 18:59 06:59 18:59 Other: Date of Last Bowel Movement 05/13/18 Narrative: GENERAL: Well-developed obese -[place] female. SKIN: Warm and dry. Dry skin throughout, scattered hyperpigmented lesions noted throughout entire body, scattered open areas, Lesions appear in various healing stages. HEAD: Atraumatic. Normocephalic. EYES: Pupils equal and round. No scleral icterus or drainage. ENT: No nasal bleeding or discharge. Mucous membranes pink and moist. Pulpitis , gingivitis, tooth caries right molar -periapical abscess NECK: Trachea midline. No JVD. CARDIOVASCULAR: Regular rate and rhythm. RESPIRATORY: No accessory muscle use. Clear to auscultation. Breath sounds equal bilaterally. GASTROINTESTINAL: Abdomen soft, non-tender, nondistended. Hepatic and splenic margins not palpable. MUSCULOSKELETAL: Extremities without clubbing, cyanosis, or edema. No obvious deformities. NEUROLOGICAL: Awake and alert. No obvious cranial nerve deficits. Motor grossly within normal limits. Normal speech. PSYCHIATRIC: Flat affect. Results - Labs CBC & Chem 7: 05/11/18 07:14 05/11/18 07:14 Assessment and Plan - Plan 32-year-old -[place] female with past medical history significant for schizophrenia, hypertension, and AIDS who presents to the emergency department on a voluntary basis after reporting that she was recently discharged from [facility] and patient then began to feel depressed. Patient was seen and evaluated in the emergency department and cleared medically, admitted to inpatient psychiatry for further evaluation. [facility] consulted due to rash. Schizophrenia -Managed by psychiatry team HIV associated eosinophilic folliculitis -Benadryl cream to pruritic areas -Aquaphor ointment twice daily -Add betamethasone cream twice daily Right Molar, pulpitis, periapical abscess -Amoxicillin started -Chlorhexidine mouth wash -Ibuprofen for pain HIV -Continue Descovy and Prezcobix Dandruff -selenium shampoo DVT prophylaxis-ambulation Code Status: Full code Discussed Condition With: Patient, nursing Discharge Planning: DC disposition by primary team
[2018-05-14] MEDS: Ibuprofen 600 MG Tablet PO PRN (20:37)
[2018-05-15] MEDS: buPROPion 150 MG 12 HR Tablet PO SCH (08:45)
[2018-05-15] MEDS: diphenhydrAMINE 2%/Zinc Cream 30 GM Tube TOPICAL PRN ×2 (08:48→20:45)
[2018-05-15] MEDS: [UNRECOGNIZED DRUG - OTHER] PO SCH (08:50)
[2018-05-15] MEDS: COBICISTAT PO SCH (08:50)
[2018-05-15] MEDS: DARUNAVIR PO SCH (08:50)
[2018-05-15] MEDS: [UNRECOGNIZED DRUG - OTHER] PO SCH (08:51)
--- NOTE | 2018-05-15 11:24 | P.PNPSY ---
Subjective Remarks: Patient seen and examined with nurse. Chart reviewed. Case discussed with nursing staff. On my examination today, the patient continues to complain of intermittent auditory hallucinations to self-injure, last earlier today. Ongoing suicidal ideation without specific plan at this point. Says she won't hurt herself on the unit "because I like everybody here." Mood is reportedly fair, but affect is a little irritable. Denies side effects from medications. No physical complaints. Vital Signs Temp Pulse Resp BP Pulse Ox 05/15/18 06:00 97.9 F 69 17 112/74 100 05/14/18 18:04 98.3 F 87 16 114/67 100 Labs reviewed. No new labs. Review of Systems All other systems reviewed negative except as stated in HPI (Limitation: Psychosis.) Mental Status Examination Appearance: Other (Fair) Consciousness: Alert Orientation: x4 Motor Activity: Other (No abnormal motor movements noted) Speech: Unremarkable Language: Adequate Fund of Knowledge: Adequate Attention and Concentration: Adequate Memory: Unremarkable Mood: Appropriate Affect: Irritable Thought Process & Associations: Intact Thought Content: Appropriate Hallucination Type: Auditory (Command to self injure. Now intermittent) Delusion Type: None Suicidal Ideation: Yes Suicidal Plan: No Suicidal Intention: No Homicidal Ideation: No Homicidal Plan: No Homicidal Intention: No Insight: Fair Judgment: Impulsive Assessment and Plan - Assessment (1) Unspecified psychosis Code(s): F29 - Unspecified psychosis not due to a substance or known physiological condition Status: Acute - Plan Plan: Titrate Geodon to 60 mg twice daily with meals to target residual psychotic symptoms. Hospitalist input noted and appreciated. Continue to monitor on the inpatient unit. Continue other medications and care as ordered. Justification for Continued Inpatient Stay: Medication changes. Impairment in reality construction. High risk for decompensation in less restrictive environment. Discharge Planning: Pending psychiatric stabilization. Hopeful for discharge by the end of the week. Request Healthcare Surrogate/Guardian Advocate?: No
--- NOTE | 2018-05-15 14:26 | P.PN ---
Subjective Interval history: Follow-up visit tooth abscess/dental caries, HIV associated eosinophilic folliculitis, HIV. Patient seen and examined today. Continues to complain of right dental abscess. When asked patient states she does not brush her teeth. Discuss oral care. Denies SOB/ dyspnea. Denies chest pain, palpitations, headaches, dizziness. Denies fevers, chills, n/v/d. Denies dysuria. Physical Exam Vital signs: Vital Signs 05/14/18 18:04 05/15/18 06:00 Temperature 98.3 F 97.9 F Pulse Rate 87 69 Respiratory Rate 16 17 Blood Pressure 114/67 112/74 Pulse Oximetry 100 100 Intake & Output 05/14/18 05/15/18 05/15/18 18:59 06:59 18:59 Other: Date of Last Bowel Movement 05/13/18 Narrative: GENERAL: Well-developed obese -Hond[place] female. SKIN: Warm and dry. Dry skin throughout, scattered hyperpigmented lesions noted throughout entire body, scattered open areas, Lesions appear in various healing stages. ENT: No nasal bleeding or discharge. Mucous membranes pink and moist. Pulpitis , gingivitis, tooth caries right molar -periapical abscess NECK: Trachea midline. No JVD. CARDIOVASCULAR: Regular rate and rhythm. RESPIRATORY: No accessory muscle use. Clear to auscultation. Breath sounds equal bilaterally. GASTROINTESTINAL: Abdomen soft, non-tender, nondistended. Hepatic and splenic margins not palpable. MUSCULOSKELETAL: Extremities without clubbing, cyanosis, or edema. No obvious deformities. NEUROLOGICAL: Awake and alert. No obvious cranial nerve deficits. Motor grossly within normal limits. Normal speech. Results - Labs CBC & Chem 7: 05/11/18 07:14 05/11/18 07:14 Assessment and Plan - Plan 32-year-old -Honduran female with past medical history significant for schizophrenia, hypertension, and AIDS who presents to the emergency department on a voluntary basis after reporting that she was recently discharged from [facility] and patient then began to feel depressed. Patient was seen and evaluated in the emergency department and cleared medically, admitted to inpatient psychiatry for further evaluation. [facility] consulted due to rash. Schizophrenia -Managed by psychiatry team HIV associated eosinophilic folliculitis -Benadryl cream to pruritic areas -Aquaphor ointment twice daily -Add betamethasone cream twice daily Right Molar, pulpitis, periapical abscess This can also be with gingivitis associated with HIV -Amoxicillin started by psychiatry team, switch to Augmentin BID -Chlorhexidine mouth wash -Ibuprofen for pain -Encourage oral care. HIV -Continue Descovy and Prezcobix Dandruff -selenium shampoo DVT prophylaxis-ambulation Code Status: Full code Discussed Condition With: Patient, nurse Discharge Planning: DC disposition by primary team
[2018-05-15] MEDS: Chlorhexidine Gluconate 0.12% Liq 15 ML UDC SWISH-SPIT SCH ×4 (17:38→22:51)
[2018-05-15] MEDS: Amoxicillin/Clavulanate 875/125 MG Tablet PO SCH (20:43)
[2018-05-16] MEDS: Chlorhexidine Gluconate 0.12% Liq 15 ML UDC SWISH-SPIT SCH ×3 (06:14→21:34)
[2018-05-16] MEDS: Amoxicillin/Clavulanate 875/125 MG Tablet PO SCH ×2 (09:11→21:34)
[2018-05-16] MEDS: [UNRECOGNIZED DRUG - OTHER] PO SCH (09:13)
[2018-05-16] MEDS: [UNRECOGNIZED DRUG - OTHER] PO SCH (09:13)
[2018-05-16] MEDS: DARUNAVIR PO SCH (09:13)
[2018-05-16] MEDS: buPROPion 150 MG 12 HR Tablet PO SCH (09:13)
[2018-05-16] MEDS: COBICISTAT PO SCH (09:13)
--- NOTE | 2018-05-16 12:46 | P.PNPSY ---
Subjective Remarks: Patient seen and examined with nurse. Chart reviewed. Case discussed with nursing staff. Patient told nursing staff that she was experiencing ongoing command auditory hallucinations to hurt herself. Case discussed with counselor who reports that placement will be exceedingly difficult for the patient given her substance use history. On my examination today, the patient says that she has not heard auditory hallucinations for several days. She does endorse suicidal ideation with plan to cut herself, although she has no reported urge to hurt herself on the inpatient unit. Less irritable today. Of note, counselor had reportedly apprised patient of difficulties with placement prior to my interview with patient. She denies side effects from medications. No physical complaints. Vital Signs Temp Pulse Resp BP Pulse Ox 05/16/18 05:40 98.7 F 71 16 110/57 L 99 05/15/18 17:56 97.7 F 83 18 102/61 98 Intake and Output 05/15/18 05/16/18 05/16/18 22:59 06:59 14:59 Intake Total 360 / 360 Balance 360 / 360 Intake: Oral 360 / 360 Other: Weight 108.4 kg Labs reviewed. No new labs. Review of Systems All other systems reviewed negative except as stated in HPI Mental Status Examination Appearance: Appropriate Consciousness: Alert Orientation: x4 Motor Activity: Other (No motor abnormalities noted) Speech: Unremarkable Language: Adequate Fund of Knowledge: Adequate Attention and Concentration: Adequate Memory: Unremarkable Mood: Appropriate Affect: Blunt Thought Process & Associations: Intact Thought Content: Appropriate Hallucination Type: None Delusion Type: None Suicidal Ideation: Yes Suicidal Plan: Yes (cut self) Suicidal Intention: No Homicidal Ideation: No Homicidal Plan: No Homicidal Intention: No Insight: Fair Judgment: Impulsive Assessment and Plan - Assessment (1) Unspecified psychosis Code(s): F29 - Unspecified psychosis not due to a substance or known physiological condition Status: Acute - Plan Plan: High degree of suspicion for exaggeration or malingering of psychiatric symptoms to extend hospital stay. I do think some sort of gestural self-injury is possible if discharged homeless, and so I would like to give the counselor more time to exhaust possible placement options, although it may cross tie turner that a homeless discharge may be all that can be arranged. Continue to monitor on inpatient unit. Continue current medications and care as ordered. Justification for Continued Inpatient Stay: Monitoring for impairment in safety, none noted Discharge Planning: Anticipate discharge tomorrow or shortly after the weekend. Request Healthcare Surrogate/Guardian Advocate?: No
--- NOTE | 2018-05-16 15:53 | P.PN ---
Subjective Interval history: Follow-up visit tooth abscess/dental caries, HIV associated eosinophilic folliculitis, HIV. Patient seen and examined today. Reports improved pain. Denies SOB/ dyspnea. Denies chest pain, palpitations, headaches, dizziness. Denies fevers, chills, n/v/d. Denies dysuria. Physical Exam Vital signs: Vital Signs 05/15/18 17:56 05/16/18 05:40 Temperature 97.7 F 98.7 F Pulse Rate 83 71 Respiratory Rate 18 16 Blood Pressure 102/61 110/57 L Pulse Oximetry 98 99 Intake & Output 05/15/18 05/16/18 05/16/18 18:59 06:59 18:59 Intake Total 360 / 360 Balance 360 / 360 Weight 108.4 kg Intake: Oral 360 / 360 Narrative: GENERAL: Well-developed obese -[place] female. SKIN: Warm and dry. Dry skin throughout, scattered hyperpigmented lesions noted throughout entire body, scattered open areas, Lesions appear in various healing stages. ENT: No nasal bleeding or discharge. Mucous membranes pink and moist. Pulpitis , gingivitis, tooth caries right molar -periapical abscess NECK: Trachea midline. No JVD. CARDIOVASCULAR: Regular rate and rhythm. RESPIRATORY: No accessory muscle use. Clear to auscultation. Breath sounds equal bilaterally. GASTROINTESTINAL: Abdomen soft, non-tender, nondistended. Hepatic and splenic margins not palpable. MUSCULOSKELETAL: Extremities without clubbing, cyanosis, or edema. No obvious deformities. NEUROLOGICAL: Awake and alert. No obvious cranial nerve deficits. Motor grossly within normal limits. Normal speech. Results - Labs CBC & Chem 7: 05/11/18 07:14 05/11/18 07:14 Assessment and Plan - Plan 32-year-old -[place] female with past medical history significant for schizophrenia, hypertension, and AIDS who presents to the emergency department on a voluntary basis after reporting that she was recently discharged from [facility] and patient then began to feel depressed. Patient was seen and evaluated in the emergency department and cleared medically, admitted to inpatient psychiatry for further evaluation. [facility] consulted due to rash. Schizophrenia -Managed by psychiatry team HIV associated eosinophilic folliculitis -Benadryl cream to pruritic areas -Aquaphor ointment twice daily -Betamethasone cream twice daily Right Molar, pulpitis, periapical abscess This can also be with gingivitis associated with HIV -Amoxicillin started by psychiatry team, switch to Augmentin BID -Chlorhexidine mouth wash -Ibuprofen for pain -Encourage oral care. -Improving HIV -Continue Descovy and Prezcobix Dandruff -selenium shampoo DVT prophylaxis-ambulation Code Status: Full Code Discussed Condition With: Patient, nursing Discharge Planning: DC disposition by primary team
[2018-05-17] MEDS: Chlorhexidine Gluconate 0.12% Liq 15 ML UDC SWISH-SPIT SCH ×3 (06:44→21:19)
[2018-05-17] MEDS: buPROPion 150 MG 12 HR Tablet PO SCH (08:07)
[2018-05-17] MEDS: Amoxicillin/Clavulanate 875/125 MG Tablet PO SCH ×2 (08:07→21:15)
[2018-05-17] MEDS: [UNRECOGNIZED DRUG - OTHER] PO SCH (08:08)
[2018-05-17] MEDS: COBICISTAT PO SCH (08:09)
[2018-05-17] MEDS: DARUNAVIR PO SCH (08:09)
[2018-05-17] MEDS: [UNRECOGNIZED DRUG - OTHER] PO SCH (08:09)
--- NOTE | 2018-05-17 14:10 | P.PN ---
Subjective Interval history: Follow-up visit tooth abscess/dental caries, HIV associated eosinophilic folliculitis, HIV. Patient seen and examined today. Reports improved oral pain. Denies SOB/ dyspnea. Denies chest pain, palpitations, headaches, dizziness. Denies fevers, chills, n/v/d. Denies dysuria. Physical Exam Vital signs: Vital Signs 05/16/18 17:14 05/17/18 05:45 Temperature 98.6 F 98.3 F Pulse Rate 69 72 Respiratory Rate 17 16 Blood Pressure 123/83 121/58 L Pulse Oximetry 100 Intake & Output 05/16/18 05/17/18 05/17/18 18:59 06:59 18:59 Intake Total 480 / 480 Balance 480 / 480 Intake: Oral 480 / 480 Narrative: GENERAL: Well-developed obese -Serbian female. SKIN: Warm and dry. Dry skin throughout, scattered hyperpigmented lesions noted throughout entire body, scattered open areas, Lesions appear in various healing stages. ENT: No nasal bleeding or discharge. Mucous membranes pink and moist. Pulpitis , gingivitis, tooth caries right molar -periapical abscess-significantly improved NECK: Trachea midline. No JVD. CARDIOVASCULAR: Regular rate and rhythm. RESPIRATORY: No accessory muscle use. Clear to auscultation. Breath sounds equal bilaterally. GASTROINTESTINAL: Abdomen soft, non-tender, nondistended. Hepatic and splenic margins not palpable. MUSCULOSKELETAL: Extremities without clubbing, cyanosis, or edema. No obvious deformities. NEUROLOGICAL: Awake and alert. No obvious cranial nerve deficits. Motor grossly within normal limits. Normal speech. Results - Labs CBC & Chem 7: 05/11/18 07:14 05/11/18 07:14 Assessment and Plan - Plan 32-year-old -Serbian female with past medical history significant for schizophrenia, hypertension, and AIDS who presents to the emergency department on a voluntary basis after reporting that she was recently discharged from [facility] and patient then began to feel depressed. Patient was seen and evaluated in the emergency department and cleared medically, admitted to inpatient psychiatry for further evaluation. [facility] consulted due to rash. Schizophrenia -Managed by psychiatry team HIV associated eosinophilic folliculitis -Benadryl cream to pruritic areas -Aquaphor ointment twice daily -Betamethasone cream twice daily Right Molar, pulpitis, periapical abscess This can also be with gingivitis associated with HIV -Amoxicillin started by psychiatry team, switch to Augmentin BID, complete treatment as recommended -Chlorhexidine mouth wash -Ibuprofen for pain -Encourage oral care. -Improving HIV -Continue Descovy and Prezcobix Dandruff -selenium shampoo DVT prophylaxis-ambulation Stable from Hospitalist standpoint. We will sign off. Reconsult as needed. Code Status: Full code Discussed Condition With: Patient, nurse Discharge Planning: DC disposition by primary team
--- NOTE | 2018-05-17 15:48 | P.PNPSY ---
Subjective Remarks: Patient seen in her room with nurse, chart reviewed, patient compliant medication. Patient continues to isolate with minimal interaction, though she is no behavior problems. She remains almost was causing her some anxiety. She does deny suicidality and voices at this time Review of Systems All other systems reviewed negative except as stated in HPI Mental Status Examination Appearance: Appropriate Consciousness: Alert Orientation: x4 Motor Activity: Other (No motor abnormalities noted) Speech: Unremarkable Language: Adequate Fund of Knowledge: Adequate Attention and Concentration: Adequate Memory: Unremarkable Mood: Appropriate Affect: Blunt Thought Process & Associations: Intact Thought Content: Appropriate Hallucination Type: None Delusion Type: None Suicidal Ideation: No Suicidal Plan: No Suicidal Intention: No Homicidal Ideation: No Homicidal Plan: No Homicidal Intention: No Insight: Fair Judgment: Impulsive Assessment and Plan - Assessment (1) Unspecified psychosis Code(s): F29 - Unspecified psychosis not due to a substance or known physiological condition Status: Acute - Plan Plan: Patient remains depressed but improving, now denies voices or visions or suicidality Justification for Continued Inpatient Stay: At this time patient would decompensate a place to a lower level of care Discharge Planning: Patient homeless Request Healthcare Surrogate/Guardian Advocate?: No (1) Unspecified psychosis Qualifiers: Psychosis type: brief psychotic disorder Qualified Code(s): F23 - Brief psychotic disorder
[2018-05-17] MEDS: traZODone 50 MG Tablet PO PRN (21:33)
[2018-05-18] MEDS: Chlorhexidine Gluconate 0.12% Liq 15 ML UDC SWISH-SPIT SCH ×2 (05:47→14:02)
[2018-05-18] MEDS: Amoxicillin/Clavulanate 875/125 MG Tablet PO SCH ×2 (08:00→20:09)
[2018-05-18] MEDS: buPROPion 150 MG 12 HR Tablet PO SCH (08:01)
[2018-05-18] MEDS: COBICISTAT PO SCH (08:01)
[2018-05-18] MEDS: [UNRECOGNIZED DRUG - OTHER] PO SCH (08:01)
[2018-05-18] MEDS: DARUNAVIR PO SCH (08:01)
[2018-05-18] MEDS: [UNRECOGNIZED DRUG - OTHER] PO SCH (08:02)
[2018-05-18] MEDS: diphenhydrAMINE 2%/Zinc Cream 30 GM Tube TOPICAL PRN (08:02)
--- NOTE | 2018-05-18 13:42 | P.PNPSY ---
Subjective Remarks: Pt seen and discussed with staff. Pt has been pleasant and cooperative with medications and care. She denies suicidal ideations today. She engages minmally and is isolative. She c/o of intermittent AH telling her to harm self. Mental Status Examination Appearance: Appropriate Consciousness: Alert Orientation: x4 Motor Activity: Other (No motor abnormalities noted) Speech: Unremarkable Language: Adequate Fund of Knowledge: Adequate Attention and Concentration: Adequate Memory: Unremarkable Mood: Appropriate Affect: Blunt Thought Process & Associations: Intact Thought Content: Appropriate Hallucination Type: None Delusion Type: None Suicidal Ideation: No Suicidal Plan: No Suicidal Intention: No Homicidal Ideation: No Homicidal Plan: No Homicidal Intention: No Insight: Fair Judgment: Impulsive Assessment and Plan - Assessment (1) Unspecified psychosis Code(s): F29 - Unspecified psychosis not due to a substance or known physiological condition Status: Acute - Plan Plan: continue current tx plan Justification for Continued Inpatient Stay: impairments in reality testing Request Healthcare Surrogate/Guardian Advocate?: No (1) Unspecified psychosis Qualifiers: Psychosis type: brief psychotic disorder Qualified Code(s): F23 - Brief psychotic disorder
[2018-05-18] MEDS: Ibuprofen 600 MG Tablet PO PRN (20:08)
[2018-05-19] MEDS: Chlorhexidine Gluconate 0.12% Liq 15 ML UDC SWISH-SPIT SCH ×4 (03:51→22:09)
[2018-05-19] MEDS: Amoxicillin/Clavulanate 875/125 MG Tablet PO SCH ×2 (08:32→20:12)
[2018-05-19] MEDS: buPROPion 150 MG 12 HR Tablet PO SCH (08:33)
[2018-05-19] MEDS: [UNRECOGNIZED DRUG - OTHER] PO SCH (08:34)
[2018-05-19] MEDS: COBICISTAT PO SCH (08:35)
[2018-05-19] MEDS: DARUNAVIR PO SCH (08:35)
[2018-05-19] MEDS: [UNRECOGNIZED DRUG - OTHER] PO SCH (08:35)
--- NOTE | 2018-05-19 13:14 | P.PNPSY ---
Subjective Remarks: Pt seen and discussed with staff. She has been in bed most of the day. She has been compliant with medications. No aggression or agitation today. She denies SI /HI She is noted to have prominent perioral mouth movements today. Pt states that this has been occurring intermittently but is a poor historian regarding onset. She was given one time dose of cogentin 1mg IM X1 for relief. Mental Status Examination Appearance: Appropriate Consciousness: Alert Orientation: x4 Motor Activity: Other (No motor abnormalities noted) Speech: Unremarkable Language: Adequate Fund of Knowledge: Adequate Attention and Concentration: Adequate Memory: Unremarkable Mood: Appropriate Affect: Blunt Thought Process & Associations: Intact Thought Content: Appropriate Hallucination Type: None Delusion Type: None Suicidal Ideation: No Suicidal Plan: No Suicidal Intention: No Homicidal Ideation: No Homicidal Plan: No Homicidal Intention: No Insight: Fair Judgment: Impulsive Assessment and Plan - Assessment (1) Unspecified psychosis Code(s): F29 - Unspecified psychosis not due to a substance or known physiological condition Status: Acute - Plan Plan: Will add scheduled cogentin to regimen for eps. Monitor closely for return of eps. Justification for Continued Inpatient Stay: risk of decompensation Request Healthcare Surrogate/Guardian Advocate?: No (1) Unspecified psychosis Qualifiers: Psychosis type: brief psychotic disorder Qualified Code(s): F23 - Brief psychotic disorder
[2018-05-19] MEDS ORDERED: Benztropine Inj 2 MG/2 ML Ampul IM ONE (14:16)
[2018-05-19] MEDS: Ibuprofen 600 MG Tablet PO PRN (20:11)
[2018-05-20 05:39] VITALS: BP 107/68; PULSE 66; RESP 16; TEMP 98.3; O2SAT 98
[2018-05-20] MEDS: Chlorhexidine Gluconate 0.12% Liq 15 ML UDC SWISH-SPIT SCH (06:03)
[2018-05-20] MEDS: Amoxicillin/Clavulanate 875/125 MG Tablet PO SCH (08:41)
[2018-05-20] MEDS: COBICISTAT PO SCH (08:42)
[2018-05-20] MEDS: [UNRECOGNIZED DRUG - OTHER] PO SCH (08:42)
[2018-05-20] MEDS: [UNRECOGNIZED DRUG - OTHER] PO SCH (08:42)
[2018-05-20] MEDS: DARUNAVIR PO SCH (08:42)
[2018-05-20] MEDS: buPROPion 150 MG 12 HR Tablet PO SCH (09:24)
--- NOTE | 2018-05-20 13:40 | P.DSPSY ---
Psychiatry Discharge Summary Inpatient Psychiatric care?: Yes Advance Directives: No Mental Health Advance Directive: No Health Care Proxy: No - Admission Admission Date: May 10, 2018 10:49 - Admission Diagnosis (1) Unspecified psychosis Code(s): F29 - Unspecified psychosis not due to a substance or known physiological condition Brief History: Ms. Dhaliwal is a 32-year-old female with a chart history of psychotic illness, who presented to the emergency department voluntarily complaining of suicidal ideation. She told the emergency department provider that she was "discharged too early from [facility] yesterday." She told the ED provider that she was feeling depressed and that she put a knife to her neck the day prior to presenting. She was evaluated by the psychiatric nurse practitioner in the ED. Reviewing the electronic medical record, I note the patient was psychiatrically admitted most recently in 10/[address] Al. The patient seen and examined with counselor and nurse. Chart reviewed. Case discussed with counselor and nurse. On my examination this morning, the patient is lying calmly in bed. She does not appear internally stimulated. Despite this, she complains of command auditory hallucinations to kill herself. She endorses suicidal ideation with plans to cut herself. She does note that she has no desire to hurt herself on the inpatient unit. She contracts for safety on the inpatient unit. She denies command auditory hallucinations to hurt others. She endorses paranoia. She endorses a history of childhood trauma and describes poor sleep and nightmares associated with this. Mood is somewhat depressed, but I can elicit no severe depressive or hypomanic/manic symptoms. Regarding her voices, she says that these are continuous and occur inside her head. She is overall a somewhat vague historian. The remainder of the psychiatric ROS is negative. The patient has some complaints of dental pain, but otherwise no acute physical complaints. Tobacco Use In Past 30 Days: No How Often Do You Have a Drink Containing Alcohol: 2 to 3 times a week Hospital Course: Patient was admitted to a locked, inpatient psychiatric unit. A general medical consultation was obtained. Appropriate precautions were in place throughout patient's hospital stay. Patient was seen and examined on the unit by psychiatry and also visited by counselor. Psychotropic medications were adjusted. Abilify was replaced with Geodon which was titrated to effect. Patient had improvement in presenting psychiatric symptomatology during the course of her hospital stay. There was no evidence of any suicidality or homicidality on the inpatient unit. There was no evidence of significant self- care deficit. Counselor made attempts to place the patient, as it was felt that more structured living environment would help reduce risk for elaboration of psychiatric symptoms and subsequent rehospitalization, but she was ultimately unsuccessful. On the day of discharge: Patient seen and examined with nurse. Chart reviewed. Case discussed with nursing staff. No behavioral issues noted overnight. Case discussed with counselor. On my examination today , the patient denies any suicidal or homicidal ideation, intent or plan. She contracts for safety. I can elicit no severe depressive or hypomanic/manic symptoms. She denies audiovisual hallucinations and does not appear internally stimulated. I can appreciate no delusional material. She denies side effects from medications. No acute physical complaints. Suicide and violence risk assessment on day of discharge both suggest lower imminent risk from mental illness, and there is no evidence of significant self-care deficit from mental illness. Patient has maximized benefit from this inpatient psychiatric hospital stay. She will be discharged today with psychiatric follow-up as arranged by counselor. Patient is also to follow up with primary care and with dentistry. I have counseled the patient to abstain from substances of abuse. I have counseled the patient to return to the psychiatric emergency room for any concerning symptoms as part of a general safety plan. Malingering for senior care is suspected to have driven a significant component of the psychiatric symptomatology present at admission. As the patient remains without stable housing at this time, it is possible that she will continue to malinger psychiatric symptoms for senior care and may even make some sort of gesture to gain admission to the inpatient unit. However, avoiding such an occurrence is not a valid reason to retain the patient on the inpatient unit now , and moreover it would be counter-therapeutic to the patient's overall case to retain the patient for this reason. - Discharge Discharge Date: 05/20/18 - Discharge Diagnosis (1) Unspecified psychosis Diagnosis: Principal (component of malingering suspected) Code(s): F29 - Unspecified psychosis not due to a substance or known physiological condition Status: Acute Discharge Disposition: [facility] - Discharge Instructions Discharge Diet: Heart Healthy Diet Activities You Can Perform: Weight Bearing As Tolerat - Discharge Time <= 30 minutes Mental Status Examination Appearance: Appropriate Consciousness: Alert Orientation: x4 Motor Activity: Normal gait, Other (No abnormal motor movements noted) Speech: Unremarkable Language: Adequate Fund of Knowledge: Adequate Attention and Concentration: Adequate Memory: Unremarkable Mood: Appropriate Affect: Irritable (Mild) Thought Process & Associations: Intact, Logical, Goal directed, Linear Thought Content: Appropriate Hallucination Type: None Delusion Type: None Suicidal Ideation: No Suicidal Plan: No Suicidal Intention: No Homicidal Ideation: No Homicidal Plan: No Homicidal Intention: No Mental Status Exam Remarks: Insight and judgment are likely chronically fair to poor at best. Discharge/Advance Care Plan - Results Vital Signs: Last Vital Signs Temp 98.3 F 05/20/18 05:37 Pulse 66 05/20/18 05:37 Resp 16 05/20/18 05:37 BP 107/68 05/20/18 05:37 Pulse Ox 98 05/20/18 05:37 Lab Results: Laboratory Results Hemoglobin A1c 5.4 % (4.3-6.0) 05/11/18 07:14 Triglycerides 135 mg/dL (42-150) 05/11/18 07:14 Cholesterol 124 mg/dL (120-200) 05/11/18 07:14 LDL Cholesterol, Calc 51 mg/dL (0-99) 05/11/18 07:14 HDL Cholesterol 46.5 mg/dL (40.0-60.0) 05/11/18 07:14 Urine Culture Comments Culture not ind 05/11/18 13:59 Summary of Procedures: None done. Pending Results: None - Medications Number of antipsychotic medications at discharge: 1 - Discharge Care Plan Goals to Promote Your Health: * To prevent worsening of your condition and complications * To maintain your health at the optimal level Directions to Meet Your Goals: Take your medications as prescribed Follow your dietary instruction Follow activity as directed Keep your appointments as scheduled Take your immunizations and boosters as scheduled If your symptoms worsen call your PCP, if no PCP go to Urgent Care Center or Emergency Room For 24/ questions related to your inpatient stay or results of tests pending at discharge, please contact Dr. Benton Johnston MD at Smoking is Dangerous to Your Health. Avoid second hand smoking
== END 2018-05-20 14:38 | disposition home or self-care (01) ==
LOC: NEPD 20:16 → NEDA 05-10 10:49 → H260 05-10 11:27
PROVIDERS: ADMIT Psychiatry & Neurology Psychiatry; ATTEND Psychiatry & Neurology Psychiatry

== ENCOUNTER 2018-08-03 18:51 | Inpatient (IN) ==
--- NOTE | 2018-08-03 23:14 | ED ---
HPI General Chief Complaint: Psychiatric Symptoms Stated Complaint: psych eval Time Seen by Provider: 08/03/18 22:31 Source: patient Mode of arrival: ambulatory Limitations: no limitations History of Present Illness HPI Narrative: 32-year-old black female presents emergency department on a voluntary basis requesting psychiatric evaluation. Patient states that she has been feeling increasingly depressed and having suicidal thoughts. She also states that she is hearing voices telling her to "do it". Patient states that she is contemplated suicide. She does not have an active plan currently. She states that she has attempted to cut herself in the past but has not done that today. Patient reports that she was seen for a psychological evaluation approximately 2 weeks ago but never followed up with [facility] nor did she fill any prescriptions. She states that she has been out of her psychiatric medicine for some time. She does take medicines for her HIV. She states that she feels that it is poorly controlled. She does not know what her last CD4 or what her viral load is. The patient does have a runny nose, congestion and slight sore throat. She does request something to eat. Patient also does report having social issues at home with her boyfriend's girlfriend for which she lives with. On direct questioning there is some concern that she may be asked to leave the apartment. Related Data Home Medications Medication Instructions Recorded Confirmed aripiprazole 10 mg PO DAILY 07/24/18 07/24/18 azithromycin 600 mg PO 3XW 07/24/18 07/24/18 qimglnoan-xyprjtrn-imfohtb ala 1 tab PO DAILY 07/24/18 07/24/18 [Biktarvy] bupropion HCl 300 mg PO QAM 07/24/18 07/24/18 mirtazapine 30 mg PO DAILY 07/24/18 07/24/18 sulfamethoxazole-trimethoprim 1 tab PO BID 07/24/18 07/24/18 Previous Rx's Medication Instructions Recorded albuterol sulfate 1 inh INHALATION Q6H PRN #18 g 07/24/18 Allergies Allergy/AdvReac Type Severity Reaction Status Date / Time No Known Allergies Allergy Verified 07/24/18 17:03 Review of Systems ROS: all other systems reviewed are negative [facility] Medical History Medical History Asthma (Acute) AIDS (Acute) Hypertension (Acute) Schizophrenia (Acute) Surgical History Surgical History Hx of section (Acute) Hx of tubal ligation (Acute) History of mandibular surgery (Acute) Social History Social History Substance History: Past History Second Hand Smoke Exposure: No Smoking Status: Former smoker Tobacco Type: Cigarettes How Often Do You Have a Drink Containing Alcohol: Never Recent Travel in [facility] within the Last 8 Weeks: No Recent Out of Country Travel within the Last 8 Weeks: No Immunization History Tetanus Immunization: Unsure Exam Narrative Exam Narrative: GENERAL: Well-nourished, well-developed patient. Patient is eating chips in the room on my presentation. SKIN: Warm and dry. HEAD: Normocephalic and atraumatic. EYES: No scleral icterus. No injection or drainage. ENT: No nasal drainage noted. Mucous membranes pink. Airway patent. NECK: Supple, trachea midline. Moves head freely without obvious discomfort. CARDIOVASCULAR: Regular rate and rhythm without murmurs, gallops, or rubs. RESPIRATORY: Breath sounds equal bilaterally. No accessory muscle use. GASTROINTESTINAL: Abdomen soft, non-tender, nondistended. EXTREMITIES: No cyanosis or edema. BACK: Nontender without obvious deformity. No CVA tenderness. NEURO: Patient is alert and oriented. no sensorimotor deficits. Nonfocal. Normal speech. PSYCH: No delusions. No visual hallucinations. Positive auditory hallucinations. Course Initial Documented Vital Signs Temperature 98.2 F 08/03/18 19:13 Pulse Rate 76 08/03/18 19:13 Respiratory Rate 16 08/03/18 19:13 Blood Pressure 113/64 08/03/18 19:13 Pulse Oximetry 100 08/03/18 19:13 Last Documented Vital Signs Temperature 96.3 F L 08/04/18 14:02 Pulse Rate 88 08/04/18 14:02 Respiratory Rate 18 08/04/18 14:02 Blood Pressure 138/70 08/04/18 14:02 Pulse Oximetry 100 08/04/18 14:02 Medical Decision Making MDM Narrative Medical decision making narrative: We will perform routine laboratory testing for medical clearance Medical Screen Exam Complete: Yes Emergency Medical Condition: Yes Differential Diagnosis Differential Diagnosis: MDM: High Differential diagnoses: Schizophrenia, schizoaffective disorder, bipolar, anxiety, depression, adjustment reaction, mood disorder NOS, ODD, depressive disorder NOS, psychosis NOS, substance induced mood disorder, infection, electrolyte abnormality, malingering. Mental health screening discussed with the patient. Psychiatric screen ordered. Lab Data Result diagrams: 08/03/18 22:50 08/03/18 22:50 POC Results POC Urine Results Negative Lab Results 08/03/18 08/03/18 08/03/18 Range/Units 22:50 22:50 22:50 WBC 6.1 (4.0-11.0) th/mm3 RBC 3.51 L (4.00-5.30) mil/mm3 Hgb 10.7 L (11.6-15.3) gm/dL Hct 31.7 L (35.0-46.0) % MCV 90.3 (80.0-100.0) fL MCH 30.6 (27.0-34.0) pg MCHC 33.9 (32.0-36.0) % RDW 14.2 (11.6-17.2) % Plt Count 310 (150-450) th/mm3 MPV 7.1 (7.0-11.0) fL Neut % (Auto) 65.4 (16.0-70.0) % Lymph % (Auto) 25.7 (9.0-44.0) % [place] % (Auto) 5.8 (0.0-8.0) % Eos % (Auto) 1.4 (0.0-4.0) % Baso % (Auto) 1.7 (0.0-2.0) % Neut # (Auto) 4.0 (1.8-7.7) th/mm3 Lymph # (Auto) 1.6 (1.0-4.8) th/mm3 [place] # (Auto) 0.4 (0.0-0.9) th/mm3 Eos # (Auto) 0.1 (0.0-0.4) th/mm3 Baso # (Auto) 0.1 (0.0-0.2) th/mm3 WBC Differential . Differential Comment Auto diff final Sodium 141 (136-145) meq/L Potassium 3.4 L (3.5-5.1) meq/L Chloride 107 (98-107) meq/L Carbon Dioxide 27.5 (21.0-32.0) meq/L Anion Gap 7 (5-15) meq/L BUN 8 (7-18) mg/dL Creatinine 0.98 (0.50-1.00) mg/dL Estimated GFR 81 L (>89) mL/min Random Glucose 74 (74-106) mg/dL Calcium 8.2 L (8.5-10.1) mg/dL Magnesium 1.8 (1.5-2.5) mg/dL Total Bilirubin 0.2 (0.2-1.0) mg/dL AST 11 L (15-37) U/L ALT 19 (10-53) U/L Alkaline Phosphatase 76 (45-117) U/L Total Protein 8.0 (6.4-8.2) g/dL Albumin 3.3 L (3.4-5.0) g/dL TSH 2.980 (0.358-3.740) uIU/mL Urine Opiates Screen Neg (Neg) Ur Barbiturates Screen Neg (Neg) Ur Amphetamines Screen Neg (Neg) U Benzodiazepines Scrn Neg (Neg) Urine Cocaine Screen Neg (Neg) U Cannabinoids Screen Neg (Neg) Serum Alcohol Less than 3 (0-5) mg/dL Discharge Plan Discharge Disposition Patient Disposition: 30 Still Patient Discharge Condition Condition: Stable Physicians Team ED Provider: Bisi Rocha ED Midlevel Provider: Samy Reyes Primary Care Provider: Primary Care Monse Valadez Attending Provider: Sanchez Flanagan Status ED Status: Left Department Discharge Information Discharge Date/Time: 08/04/18 14:10
[2018-08-03 23:58] LABS: Baso # (Auto) 0.1 th/mm3 (0.0-0.2); Baso % (Auto) 1.7 % (0.0-2.0); Eos # (Auto) 0.1 th/mm3 (0.0-0.4); Eos % (Auto) 1.4 % (0.0-4.0); Hematocrit 31.7 % (35.0-46.0); Hemoglobin 10.7 gm/dL (11.6-15.3); Lymph # (Auto) 1.6 th/mm3 (1.0-4.8); Lymph % (Auto) 25.7 % (9.0-44.0); Mean Corpuscular HGB Conc 33.9 % (32.0-36.0); Mean Corpuscular Hemoglobin 30.6 pg (27.0-34.0); Mean Corpuscular Volume 90.3 fL (80.0-100.0); Mean Platelet Volume 7.1 fL (7.0-11.0); Mono # (Auto) 0.4 th/mm3 (0.0-0.9); Mono % (Auto) 5.8 % (0.0-8.0); Neut % (Auto) 65.4 % (16.0-70.0); Platelet Count 310 th/mm3 (150-450); Red Blood Count 3.51 mil/mm3 (4.00-5.30); Red Cell Distribution Width 14.2 % (11.6-17.2); White Blood Count 6.1 th/mm3 (4.0-11.0)
[2018-08-04 00:06] LABS: Amphetamine Screen,Urine Neg (Neg); Barbiturate Screen,Urine Neg (Neg); Cannabinoid Screen,Urine Neg (Neg); Cocaine Screen,Urine Neg (Neg); Opiate Screen,Urine Neg (Neg)
[2018-08-04 00:12] LABS: Alanine Aminotransferase 19 U/L (10-53); Albumin 3.3 g/dL (3.4-5.0); Anion Gap 7 meq/L (5-15); Aspartate Aminotransferase 11 U/L (15-37); Blood Urea Nitrogen 8 mg/dL (7-18); Calcium 8.2 mg/dL (8.5-10.1); Carbon Dioxide 27.5 meq/L (21.0-32.0); Chloride 107 meq/L (98-107); Glomerular Filtration Rate 81 mL/min (>89); Glucose,Random 74 mg/dL (74-106); Magnesium 1.8 mg/dL (1.5-2.5); Potassium 3.4 meq/L (3.5-5.1); Sodium 141 meq/L (136-145)
[2018-08-04 00:23] LABS: Alkaline Phosphatase 76 U/L (45-117)
[2018-08-04] MEDS ORDERED: Bisacodyl 10 MG Supp RECTAL PRN (11:05)
[2018-08-04] MEDS ORDERED: Aluminum/Magnesium/Simethacone Susp 30 ML UDC PO PRN (11:05)
--- NOTE | 2018-08-04 11:05 | P.HPPSY ---
Provisional Diagnosis Admission Date: August 03, 2018 18:51 [place].: Schizophrenia Competence Certification of Person's Competence To Provide Express and Informed Consent I have personally examined Meera Dhaliwal, a person being served at [facility] onAugust 04, 2018 1058. Express and informed consent means consent voluntarily given in writing, by a competent person, after sufficient explanation and disclosure of the subject matter involved to enable the person to make a knowing and willful decision without any element of force, fraud, deceit, duress, or other form of constraint or coercion. This person is 18 years of age or older, is not now known to be incompetent to consent to treatment with a guardian advocate, and does not have a health care surrogate or proxy currently making medical treatment decisions. I have found this person to be one of the following: [x] Competent to provide express and informed consent, as defined above, for voluntary admission to this facility and is competent to provide express and informed consent for treatment. He/she has the consistent capacity to make well reasoned, willful, and knowing decisions concerning his or her medical or mental health treatment. The person fully and consistently understands the purpose of the admission for examination/placement and is fully capable of personally exercising all rights assured [place] Incompetent to provide express and informed consent to voluntary admission, and this is incompetent to provide express and informed consent to treatment. The person must be transferred to involuntary status and a petition for a guardian advocate filed with the Circuit Court. [] Refusing to provide express and informed consent to voluntary admission but is competent to provide express and informed consent for treatment. The person must be discharged or transferred to involuntary status. Form shall be completed within 24 hours of a person's arrival at the receiving facility and filed in the clinical record of each person: 1. Admitted on a voluntary basis 2. Permitted to provide express and informed consent to his/her own treatment 3. Allowed to transfer from involuntary to voluntary status 4. Prior to permitting a person to consent to his or her own treatment after having been previously found incompetent to consent to treatment. History of Present Illness Capacity: Has capacity History of Present Illness: The patient is a 32-year-old -[place] woman, domiciled with her sister- in-law, single, unemployed, supported by [facility], with an extensive psychiatric history of schizophrenia, schizoaffective disorder, multiple psychiatric hospitalizations, suicide attempts, self-cutting behavior, poor impulse control , aggressive behavior, she is not in psychotropic at the moment, she used to be in Abilify 30 mg, Wellbutrin 150 mg twice daily, medical history hypertension, AIDS, who present emergency department on a voluntary basis requesting psychiatric evaluation. Patient states that she has been feeling increasingly depressed and having suicidal thoughts, she also has been hearing voices telling her to kill herself in the context of noncompliant with medications and daily stress due to multiple arguments with her sister and. Patient states that she is contemplated suicide. She does not have an active plan currently. She states that she has attempted to cut herself in the past but has not done that today. Patient reports that she was seen for a psychological evaluation approximately 2 weeks ago but never followed up with [facility] nor did she fill any prescriptions. She states that she has been out of her psychiatric medicine for some time, at least for tree months. She does take medicines for her HIV. She states that she feels that it is poorly controlled. She does not know what her last CD4 or what her viral load is. She reports to be in acute distress at the moment, very anxious, feeling hopeless, helpless , worthless, hearing the voices multiple times during the day, voices are loud, derogatory, commanding type, distressing. The patient seems to be internally preoccupied, also a little bit paranoid, but her thought process is linear and goal-directed. She denies the use of illegal drugs or alcohol. PPHx: extensive psychiatric history of schizophrenia, schizoaffective disorder, multiple psychiatric hospitalizations, suicide attempts, self-cutting behavior, poor impulse control, aggressive behavior, she is not in psychotropic at the moment, she used to be in Abilify 30 mg, Wellbutrin 150 mg twice daily PMHx: medical history hypertension, AIDS Substance Hx : Denies the use of illegal drugs Family Hx: Her father has scheduled for Social Hx: Patient was born and raised in [place], she lives in [place] with her [id number], single, unemployed, supported by [facility], she is the mother of 4 kids that are under adoption, her highest level of education is 10th grade Review of Systems All other systems reviewed negative except as stated in HPI Skin/Breast: Reports dry skin, Reports itching, Reports lesions Psychiatric: Reports anxiety, Reports depression, Reports hopelessness, Reports irritability, Reports seeing things others do not see, Reports thoughts of hurting/killing yourself [facility] - History History Provided By: Patient - Medical History Medical History: Medical History (Last Reviewed 08/03/18 @ 23:14 by SANDY Thomas) Asthma (Acute) AIDS (Acute) Hypertension (Acute) Schizophrenia (Acute) - Surgical History Surgical History: Surgical History (Last Reviewed 08/03/18 @ 23:15 by SANDY Thomas) Hx of section (Acute) Hx of tubal ligation (Acute) History of mandibular surgery (Acute) - Tobacco History Second Hand Smoke Exposure: No Smoking Status: Former smoker Tobacco Type: Cigarettes - Alcohol History How Often Do You Have a Drink Containing Alcohol: Never - Substance Use History Substance History: No History of Abuse - Travel History Recent Travel in the [place] Within the Last 8 Weeks: No Recent Travel Out of the Country Within the Last 8 Weeks: No - Immunization History Tetanus Immunization: Unsure Medications and Allergies Allergies Allergy/AdvReac Type Severity Reaction Status Date / Time No Known Allergies Allergy Verified 07/24/18 17:03 Home Medications Medication Instructions Recorded Confirmed Type aripiprazole 10 mg PO DAILY 07/24/18 07/24/18 History azithromycin 600 mg PO 3XW 07/24/18 07/24/18 History bjcnvokix-deegeqkl-fhijhfw ala 1 tab PO DAILY 07/24/18 07/24/18 History [Biktarvy] bupropion HCl 300 mg PO QAM 07/24/18 07/24/18 History mirtazapine 30 mg PO DAILY 07/24/18 07/24/18 History sulfamethoxazole-trimethoprim 1 tab PO BID 07/24/18 07/24/18 History Results - Labs CBC & Chem 7: 08/03/18 22:50 08/03/18 22:50 Labs: Laboratory Results - last 24 hr 08/03/18 08/03/18 08/03/18 22:50 22:50 22:50 WBC 6.1 RBC 3.51 L Hgb 10.7 L Hct 31.7 L MCV 90.3 MCH 30.6 MCHC 33.9 RDW 14.2 Plt Count 310 MPV 7.1 Neut % (Auto) 65.4 Lymph % (Auto) 25.7 [place] % (Auto) 5.8 Eos % (Auto) 1.4 Baso % (Auto) 1.7 Neut # (Auto) 4.0 Lymph # (Auto) 1.6 [place] # (Auto) 0.4 Eos # (Auto) 0.1 Baso # (Auto) 0.1 WBC Differential . Differential Comment Auto diff final Sodium 141 Potassium 3.4 L Chloride 107 Carbon Dioxide 27.5 Anion Gap 7 BUN 8 Creatinine 0.98 Estimated GFR 81 L Random Glucose 74 Calcium 8.2 L Magnesium 1.8 Total Bilirubin 0.2 AST 11 L ALT 19 Alkaline Phosphatase 76 Total Protein 8.0 Albumin 3.3 L TSH 2.980 Urine Opiates Screen Neg Ur Barbiturates Screen Neg Ur Amphetamines Screen Neg U Benzodiazepines Scrn Neg Urine Cocaine Screen Neg U Cannabinoids Screen Neg Serum Alcohol Less than 3 Exam Vital signs: Vital Signs 08/03/18 19:13 08/04/18 00:34 08/04/18 02:09 Temperature 98.2 F 97.7 F 98.2 F Pulse Rate 76 83 94 H Respiratory Rate 16 15 18 Blood Pressure 113/64 131/76 121/68 Pulse Oximetry 100 100 100 08/04/18 06:11 Temperature Pulse Rate 90 Respiratory Rate 18 Blood Pressure 120/57 L Pulse Oximetry 100 Intake & Output 08/03/18 08/04/18 08/04/18 19:59 06:59 18:59 Weight Narrative: No tremors, no EPS, no psychomotor agitation or retardation, no catatonia, no withdrawal - Constitutional moderate distress - Routine HEENT Exam Head: Present: normocephalic, atraumatic Eye: Present: EOMI, PERRL ENT: Present: mucous membranes moist Mental Status Examination Appearance: Dirty, Disheveled Consciousness: Alert Orientation: x4 Motor Activity: Normal gait Speech: Unremarkable Language: Adequate Fund of Knowledge: Adequate Attention and Concentration: Adequate Memory: Unremarkable Mood: Irritable Affect: Flat Thought Process & Associations: Goal directed Thought Content: Bizarre thinking, Thought blocking Hallucination Type: Auditory Delusion Type: None Suicidal Ideation: Yes Suicidal Plan: No Suicidal Intention: No Homicidal Ideation: No Homicidal Plan: No Homicidal Intention: No Insight: Poor Judgment: Poor Assessment and Plan - Assessment (1) Schizophrenia Code(s): F20.9 - Schizophrenia, unspecified Status: Acute - Plan Plan: On psychiatric evaluation today the patient presents with symptomatology of depression, guiltiness, anhedonia, hopelessness, helplessness, irritability, mood swings, suicidal ideation with a plan of overdosing or jumping off a bridge , but also commanding type auditory hallucinations of voices telling her to kill herself in the context of frequent disagreement with [id number] and noncompliant with her psychotropics. The patient has a psychiatric history of schizophrenia, multiple psychiatric admissions, suicide attempts, poor impulse control, noncompliant with medications, and at this moment she has an elevated risk of danger to self and others and she will be admitted in psychiatry. We will start Abilify 5 mg for psychosis. Will be transferred to 2700 unit. Will consult medicine to help with medication for HIV. Support, motivational psych education provided Justification for Continued Inpatient Stay: Continue admission
[2018-08-04] MEDS ORDERED: Influenza (Quadrivalent) Vaccine 0.5 ML Syringe IM ONE (15:00)
[2018-08-04] MEDS: Senna/Docusate Sodium 8.6/50 MG Tablet PO SCH (21:17)
[2018-08-05 07:18] LABS: Anion Gap 8 meq/L (5-15); Blood Urea Nitrogen 10 mg/dL (7-18); Calcium 8.6 mg/dL (8.5-10.1); Carbon Dioxide 26.8 meq/L (21.0-32.0); Chloride 105 meq/L (98-107); Glomerular Filtration Rate Greater Than 89 mL/min (>89); Glucose,Random 78 mg/dL (74-106); Potassium 3.7 meq/L (3.5-5.1); Sodium 140 meq/L (136-145)
[2018-08-05 07:20] LABS: Cholesterol 111 mg/dL (120-200); Triglycerides 94 mg/dL (42-150)
[2018-08-05 07:22] LABS: Chol/HDL Ratio 2.99 Ratio; HDL Cholesterol 37.1 mg/dL (40.0-60.0); LDL Cholesterol,Calculated 55 mg/dL (0-99)
[2018-08-05] MEDS: ARIPiprazole 10 MG Tablet PO SCH (08:34)
[2018-08-05] MEDS: Senna/Docusate Sodium 8.6/50 MG Tablet PO SCH ×2 (08:37→20:53)
[2018-08-05] MEDS ORDERED: Aluminum/Magnesium/Simethacone Susp 30 ML UDC PO PRN (11:13)
--- NOTE | 2018-08-05 11:25 | P.PNPSY ---
Subjective Remarks: Patient initially admitted by Dr. Loera's H&P reviewed and agreed with. Patient has been allowed to sign voluntary. I have completed the initial psychiatric admission orders template. And also reviewed the med reconciliation. Patient is HIV positive not on her medications also consult with infectious disease. It appears to be be some issues related to placement once patient leaves here. Need event at the present time patient shows some mild confusion about her follow-up from prior psychiatric hospitalizations compliance with medication and outpatient appointments. We need to verify that was also. Perhaps need to look at long-acting injectables. For now continue medications no change Review of Systems All other systems reviewed negative except as stated in HPI Mental Status Examination Appearance: Dirty, Disheveled Consciousness: Alert Orientation: x4 Motor Activity: Normal gait Speech: Unremarkable Language: Adequate Fund of Knowledge: Adequate Attention and Concentration: Adequate Memory: Unremarkable Mood: Sad, Irritable Affect: Flat Thought Process & Associations: Goal directed Thought Content: Bizarre thinking, Thought blocking Hallucination Type: Auditory (Level command nature telling her to harm herself) Delusion Type: None Suicidal Ideation: Yes Suicidal Plan: No Suicidal Intention: No Homicidal Ideation: No Homicidal Plan: No Homicidal Intention: No Insight: Poor Judgment: Poor Assessment and Plan - Assessment (1) Schizophrenia Code(s): F20.9 - Schizophrenia, unspecified Status: Acute (2) Schizoaffective disorder, depressive type Code(s): F25.1 - Schizoaffective disorder, depressive type Status: Acute - Plan Plan: Patient remains depressed and psychotic is vague about her willingness to take the suicide pill. There appears to be some dynamic issues also related to patient's living situation. Question also related to her compliance with medication and appointments in the community Justification for Continued Inpatient Stay: At this time patient would decompensate a place to a lower level of care Discharge Planning: To be determined Request Healthcare Surrogate/Guardian Advocate?: No
[2018-08-05] MEDS: buPROPion 150 MG 12 HR Tablet PO SCH ×2 (13:41→20:53)
[2018-08-05 17:31] LABS: Hemoglobin A1c 5.2 % (4.3-6.0)
[2018-08-05] MEDS: Sulfamethoxazole/Trimethoprim 400/80 MG Tablet PO SCH (20:53)
[2018-08-06] MEDS: Senna/Docusate Sodium 8.6/50 MG Tablet PO SCH ×2 (09:09→20:56)
[2018-08-06] MEDS: buPROPion 150 MG 12 HR Tablet PO SCH ×2 (09:09→20:56)
[2018-08-06] MEDS: Sulfamethoxazole/Trimethoprim 400/80 MG Tablet PO SCH ×2 (09:09→20:56)
[2018-08-06] MEDS: ARIPiprazole 10 MG Tablet PO SCH (09:09)
[2018-08-06] MEDS: Mirtazapine 15 MG Tablet PO SCH (09:10)
--- NOTE | 2018-08-06 12:57 | P.PNPSY ---
Subjective Remarks: Patient seen today in her room with nurse Paulina, chart reviewed, patient compliant medications. Patient today denies suicidal ideation, denies voices or visions. She feels medication is helping. She states she does have a place to stay with roommates. He states in the past she has followed through with [facility]. If patient continues to do well, is sleeping better, her appetite is sufficient. Consider discharge tomorrow Review of Systems All other systems reviewed negative except as stated in HPI Mental Status Examination Appearance: Appropriate Consciousness: Alert Orientation: x4 Motor Activity: Normal gait Speech: Unremarkable Language: Adequate Fund of Knowledge: Adequate Attention and Concentration: Adequate Memory: Unremarkable Mood: Sad Affect: Other (Slight decreased range and intensity) Thought Process & Associations: Intact, Goal directed Thought Content: Appropriate, Thought blocking (Markedly improved) Hallucination Type: Auditory (Denies today) Delusion Type: None Suicidal Ideation: Yes (Denies today) Suicidal Plan: No Suicidal Intention: No Homicidal Ideation: No Homicidal Plan: No Homicidal Intention: No Insight: Fair Judgment: Adequate (Fair) Assessment and Plan - Assessment (1) Schizophrenia Code(s): F20.9 - Schizophrenia, unspecified Status: Acute (2) Schizoaffective disorder, depressive type Code(s): F25.1 - Schizoaffective disorder, depressive type Status: Acute - Plan Plan: Patient now denies suicidality voices or visions, compliant with medications, she continues to improve consider discharge tomorrow Justification for Continued Inpatient Stay: The patient continues to improve consider discharge tomorrow Discharge Planning: Possible discharge tomorrow Request Healthcare Surrogate/Guardian Advocate?: No
--- NOTE | 2018-08-06 17:52 | P.PNID ---
Infectious Disease Brief Note Chart review documentation and dw and RN for patient. Patient clinically stable with plan for discharge in am. Patient has been non compliant with HIV follow ups and meds. HIV issues can be managed outpatient by referral to outpatient HIV provider at health department. Likely her psych issues need to be controlled first before initiating any therapy as outpatient to ensure compliance as HIV virus gets easily resistant by missing even a dose or two Roly Núñez no acute issues to cancel ID consult. Dw patients RN as well. Will sign off please call back if any change in clinical condition or questions.
[2018-08-07] MEDS: Senna/Docusate Sodium 8.6/50 MG Tablet PO SCH ×2 (08:32→20:21)
[2018-08-07] MEDS: buPROPion 150 MG 12 HR Tablet PO SCH ×2 (08:32→20:21)
[2018-08-07] MEDS: Acetaminophen 325 MG Tablet PO PRN (08:32)
[2018-08-07] MEDS: ARIPiprazole 10 MG Tablet PO SCH ×2 (08:33→20:21)
[2018-08-07] MEDS: Mirtazapine 15 MG Tablet PO SCH ×2 (08:34→20:24)
[2018-08-07] MEDS: Sulfamethoxazole/Trimethoprim 400/80 MG Tablet PO SCH (09:09)
--- NOTE | 2018-08-07 10:41 | P.TTN ---
- Patient Problems Problems: 1. Discharge planning 2. Medication compliance 3. Knowledge deficit 4. Lack of coping skills - Progress Toward Goals Provider Present: Dr. Donis Roberson (Patient is depressed, Dr. Roberson is titrating medications, patient needs to remain for further stabilization at this time.) Psychiatric Counselors Present: Khris Patterson Jr., [facility] (Patient reports she will return to her apartment where she is domiciled in the [facility] upon discharge.) Group Spec/RT/OT/WEST Present: RODGER Alvarez (Patient attends select groups and is redirectable.) - Documentation Teaching Recipient: Patient
--- NOTE | 2018-08-07 13:04 | P.PNPSY ---
Subjective Remarks: Patient seen and hamilton with nurse Cecelia, chart reviewed, patient compliant medication. We will patient did consider discharge today there is some increased thought blocking. She acknowledges some increased auditory hallucinations today of a command nature. That are causing her to have some vague increased suicidal ideation she is also appearing to be more honest with the situation where she was planning on going with her [id number]. There appears to be drugs in that house that she feels would be quite a bad situation for her. For now will increase Abilify to 10 mg twice daily. Switch her Remeron to at bedtime. Continue to work with her with possible sober living facility placement Review of Systems All other systems reviewed negative except as stated in HPI Mental Status Examination Appearance: Appropriate Consciousness: Alert Orientation: x4 Motor Activity: Normal gait Speech: Unremarkable Language: Adequate Fund of Knowledge: Adequate Attention and Concentration: Adequate Memory: Unremarkable Mood: Sad Affect: Other (Slight decreased range and intensity) Thought Process & Associations: Intact, Goal directed Thought Content: Appropriate, Thought blocking (Markedly improved) Hallucination Type: Auditory (Increased voices today somewhat command vague increased suicidal ideation) Delusion Type: None Suicidal Ideation: Yes (There is increased vague suicidal ideation secondary to increased auditory hallucinations) Suicidal Plan: No Suicidal Intention: No Homicidal Ideation: No Homicidal Plan: No Homicidal Intention: No Insight: Fair Judgment: Adequate (Fair) Assessment and Plan - Assessment (1) Schizophrenia Code(s): F20.9 - Schizophrenia, unspecified Status: Acute (2) Schizoaffective disorder, depressive type Code(s): F25.1 - Schizoaffective disorder, depressive type Status: Acute - Plan Plan: Patient's depression appears somewhat more intense she acknowledges some increased auditory hallucinations today was somewhat command nature with vague increased suicidal ideation Justification for Continued Inpatient Stay: At this time patient would decompensate a place to a lower level of care Discharge Planning: To be determined Request Healthcare Surrogate/Guardian Advocate?: No
[2018-08-07] MEDS: BIKTARVY PO SCH ×2 (20:19→21:05)
[2018-08-08] MEDS: BIKTARVY PO SCH (08:21)
[2018-08-08] MEDS: ARIPiprazole 10 MG Tablet PO SCH ×2 (08:22→21:05)
[2018-08-08] MEDS: Acetaminophen 325 MG Tablet PO PRN (08:22)
[2018-08-08] MEDS: buPROPion 150 MG 12 HR Tablet PO SCH ×2 (08:22→21:05)
[2018-08-08] MEDS: Senna/Docusate Sodium 8.6/50 MG Tablet PO SCH ×2 (08:22→21:05)
--- NOTE | 2018-08-08 12:34 | P.PNPSY ---
Subjective Remarks: Patient seen in her room with RN laying in bed with covers to her chin. Patient states slept better last night, appetite okay, vaguely denies suicidality, is somewhat vague about persistent auditory hallucinations. She is compliant with the medications. I question if there may be a degree of manipulation with this lady at this time were for now continue treatment no change Review of Systems All other systems reviewed negative except as stated in HPI Mental Status Examination Appearance: Appropriate Consciousness: Alert Orientation: x4 Motor Activity: Normal gait Speech: Unremarkable Language: Adequate Fund of Knowledge: Adequate Attention and Concentration: Adequate Memory: Unremarkable Mood: Sad Affect: Other (Slight decreased range and intensity) Thought Process & Associations: Intact, Goal directed Thought Content: Appropriate, Thought blocking (Markedly improved) Hallucination Type: Auditory (Increased voices today somewhat command vague increased suicidal ideation) Delusion Type: None Suicidal Ideation: Yes (There is increased vague suicidal ideation secondary to increased auditory hallucinations) Suicidal Plan: No Suicidal Intention: No Homicidal Ideation: No Homicidal Plan: No Homicidal Intention: No Insight: Fair Judgment: Adequate (Fair) Assessment and Plan - Assessment (1) Schizophrenia Code(s): F20.9 - Schizophrenia, unspecified Status: Acute (2) Schizoaffective disorder, depressive type Code(s): F25.1 - Schizoaffective disorder, depressive type Status: Acute - Plan Plan: Patient remains somewhat depressed today is somewhat vague about suicidality and voices. Compliant medication. For now continue treatment Justification for Continued Inpatient Stay: At this time patient would decompensate a place to a lower level of care Discharge Planning: To be determined Request Healthcare Surrogate/Guardian Advocate?: No
[2018-08-08] MEDS: Mirtazapine 15 MG Tablet PO SCH ×2 (21:05→21:08)
[2018-08-09] MEDS: ARIPiprazole 10 MG Tablet PO SCH (10:18)
[2018-08-09] MEDS: Senna/Docusate Sodium 8.6/50 MG Tablet PO SCH ×2 (10:18→20:37)
[2018-08-09] MEDS: buPROPion 150 MG 12 HR Tablet PO SCH ×2 (10:18→20:37)
[2018-08-09] MEDS: BIKTARVY PO SCH (10:19)
--- NOTE | 2018-08-09 12:45 | P.PNPSY ---
Subjective Remarks: Patient seen and hamilton with nurse Chelle, chart reviewed, patient compliant medication. Patient acknowledges continued auditory hallucinations that are somewhat disturbing today, continues depressed with vague suicidal ideation. There appears to be some increased anxiety also related to the fact that she feels quite uncomfortable considering going back with his [id number]. We continue to work and try to find her more appropriate placement Review of Systems All other systems reviewed negative except as stated in HPI Mental Status Examination Appearance: Appropriate Consciousness: Alert Orientation: x4 Motor Activity: Normal gait Speech: Unremarkable Language: Adequate Fund of Knowledge: Adequate Attention and Concentration: Adequate Memory: Unremarkable Mood: Sad Affect: Other (Slight decreased range and intensity) Thought Process & Associations: Intact, Goal directed Thought Content: Appropriate, Thought blocking (Markedly improved) Hallucination Type: Auditory (Increased voices today somewhat command vague increased suicidal ideation) Delusion Type: None Suicidal Ideation: Yes (There is increased vague suicidal ideation secondary to increased auditory hallucinations) Suicidal Plan: No Suicidal Intention: No Homicidal Ideation: No Homicidal Plan: No Homicidal Intention: No Insight: Fair Judgment: Adequate (Fair) Assessment and Plan - Assessment (1) Schizophrenia Code(s): F20.9 - Schizophrenia, unspecified Status: Acute (2) Schizoaffective disorder, depressive type Code(s): F25.1 - Schizoaffective disorder, depressive type Status: Acute - Plan Plan: Patient continues somewhat depressed with vague suicidality and auditory hallucinations we will increase Abilify to 15 mg twice daily Justification for Continued Inpatient Stay: At this time patient would decompensate a place to a lower level of care Discharge Planning: To be determined Request Healthcare Surrogate/Guardian Advocate?: No
[2018-08-09] MEDS: Mirtazapine 15 MG Tablet PO SCH (20:37)
[2018-08-10] MEDS: BIKTARVY PO SCH (08:30)
[2018-08-10] MEDS: buPROPion 150 MG 12 HR Tablet PO SCH ×2 (08:31→20:45)
[2018-08-10] MEDS: Senna/Docusate Sodium 8.6/50 MG Tablet PO SCH ×2 (08:31→20:45)
--- NOTE | 2018-08-10 12:06 | P.PNPSY ---
Subjective Remarks: Patient was seen and case discussed with nursing. Patient is asking for trazodone for sleep. She continues to have chronic auditory hallucinations telling her to kill herself. She denies any thoughts, ideation, intent of hurting herself. Compliant with her medications. Behaving well on the unit. Interacting with others Mental Status Examination Appearance: Appropriate Consciousness: Alert Orientation: x4 Motor Activity: Normal gait Speech: Unremarkable Language: Adequate Fund of Knowledge: Adequate Attention and Concentration: Adequate Memory: Unremarkable Mood: Sad Affect: Other (Slight decreased range and intensity) Thought Process & Associations: Intact, Goal directed Thought Content: Appropriate, Thought blocking (Markedly improved) Hallucination Type: Auditory (Increased voices today somewhat command vague increased suicidal ideation) Delusion Type: None Suicidal Ideation: Yes (There is increased vague suicidal ideation secondary to increased auditory hallucinations) Suicidal Plan: No Suicidal Intention: No Homicidal Ideation: No Homicidal Plan: No Homicidal Intention: No Insight: Fair Judgment: Adequate (Fair) Assessment and Plan - Assessment (1) Schizophrenia Code(s): F20.9 - Schizophrenia, unspecified Status: Acute (2) Schizoaffective disorder, depressive type Code(s): F25.1 - Schizoaffective disorder, depressive type Status: Acute - Plan Plan: DC Remeron, start trazodone 100 mg p.o. nightly Justification for Continued Inpatient Stay: Patient would decompensate in a less restrictive setting Request Healthcare Surrogate/Guardian Advocate?: No
[2018-08-10 17:22] VITALS: O2SAT 100
[2018-08-10] MEDS: traZODone 100 MG Tablet PO SCH (20:45)
[2018-08-11] MEDS: Acetaminophen 325 MG Tablet PO PRN ×2 (04:10→08:46)
[2018-08-11] MEDS: buPROPion 150 MG 12 HR Tablet PO SCH ×2 (08:34→20:52)
[2018-08-11] MEDS: Senna/Docusate Sodium 8.6/50 MG Tablet PO SCH ×2 (08:34→20:52)
[2018-08-11] MEDS: BIKTARVY PO SCH (08:34)
--- NOTE | 2018-08-11 12:42 | P.PNPSY ---
Subjective Remarks: Medical record reviewed and discussed with nursing staff. Patient in day room eating lunch. Rounded with JAMI Frazier. Patient endorses command auditory hallucinations telling her to kill herself. She continues to be very depressed with a blunted affect. She feels that she is not receiving adequate sleep. Trazodone was added to medication list by Dr. Boo yesterday. Vague feelings of suicidal ideations, not accompanied by a plan. Review of Systems All other systems reviewed negative except as stated in HPI Mental Status Examination Appearance: Appropriate Consciousness: Alert Orientation: x4 Motor Activity: Normal gait Speech: Unremarkable Language: Adequate Fund of Knowledge: Adequate Attention and Concentration: Adequate Memory: Unremarkable Mood: Sad Affect: Other (Slight decreased range and intensity) Thought Process & Associations: Intact, Goal directed Thought Content: Appropriate, Thought blocking (Markedly improved) Hallucination Type: Auditory (Increased voices today somewhat command vague increased suicidal ideation) Delusion Type: None Suicidal Ideation: Yes (There is increased vague suicidal ideation secondary to increased auditory hallucinations) Suicidal Plan: No Suicidal Intention: No Homicidal Ideation: No Homicidal Plan: No Homicidal Intention: No Insight: Fair Judgment: Adequate (Fair) Assessment and Plan - Assessment (1) Schizophrenia Code(s): F20.9 - Schizophrenia, unspecified Status: Acute (2) Schizoaffective disorder, depressive type Code(s): F25.1 - Schizoaffective disorder, depressive type Status: Acute - Plan Plan: Continue current treatment plan. Justification for Continued Inpatient Stay: Moving patient to a less restrictive environment may result in her decompensation. Request Healthcare Surrogate/Guardian Advocate?: No
[2018-08-11 17:40] VITALS: RESP 16
[2018-08-11] MEDS: traZODone 100 MG Tablet PO SCH (20:52)
[2018-08-12 05:20] VITALS: BP 108/64; PULSE 79; TEMP 98
[2018-08-12] MEDS: Senna/Docusate Sodium 8.6/50 MG Tablet PO SCH (08:31)
[2018-08-12] MEDS: buPROPion 150 MG 12 HR Tablet PO SCH (08:31)
[2018-08-12] MEDS: BIKTARVY PO SCH (08:35)
--- NOTE | 2018-08-12 09:45 | P.TTN ---
- Patient Problems Problems: 1. Discharge planning 2. Medication compliance 3. Knowledge deficit 4. Lack of coping skills - Progress Toward Goals Provider Present: Dr. Donis Roberson (Patient is depressed, Dr. Roberson is titrating medications, patient needs to remain for further stabilization at this time. Patient appears to be behavioral, Dr. Roberson will meet with the patient to assess for a potential discharge today.) Psychiatric Counselors Present: Khris Patterson Jr., [facility] (Patient reports she will return to her apartment where she is domiciled in the [facility] upon discharge. Patient will return to her apartment where she is domiciled with her family upon discharge.) Group Spec/RT/OT/WEST Present: RODGER Alvarez (Patient attends select groups and is redirectable.), JENNA Dunlap (Patient does not attend groups and remained seclusive to her room.) - Documentation Teaching Recipient: Patient
--- NOTE | 2018-08-12 13:03 | P.DSPSY ---
Psychiatry Discharge Summary Inpatient Psychiatric care?: Yes Advance Directives: No Mental Health Advance Directive: No Health Care Proxy: No - Admission Admission Date: August 04, 2018 11:30 - Admission Diagnosis (1) Schizoaffective disorder, depressive type Code(s): F25.1 - Schizoaffective disorder, depressive type (2) AIDS Code(s): B20 - Human immunodeficiency virus [HIV] disease Brief History: The patient is a 32-year-old -[place] woman, domiciled with her sister- in-law, single, unemployed, supported by [facility], with an extensive psychiatric history of schizophrenia, schizoaffective disorder, multiple psychiatric hospitalizations, suicide attempts, self-cutting behavior, poor impulse control , aggressive behavior, she is not in psychotropic at the moment, she used to be in Abilify 30 mg, Wellbutrin 150 mg twice daily, medical history hypertension, AIDS, who present emergency department on a voluntary basis requesting psychiatric evaluation. Patient states that she has been feeling increasingly depressed and having suicidal thoughts, she also has been hearing voices telling her to kill herself in the context of noncompliant with medications and daily stress due to multiple arguments with her sister and. Patient states that she is contemplated suicide. She does not have an active plan currently. She states that she has attempted to cut herself in the past but has not done that today. Patient reports that she was seen for a psychological evaluation approximately 2 weeks ago but never followed up with [facility] nor did she fill any prescriptions. She states that she has been out of her psychiatric medicine for some time, at least for tree months. She does take medicines for her HIV. She states that she feels that it is poorly controlled. She does not know what her last CD4 or what her viral load is. She reports to be in acute distress at the moment, very anxious, feeling hopeless, helpless , worthless, hearing the voices multiple times during the day, voices are loud, derogatory, commanding type, distressing. The patient seems to be internally preoccupied, also a little bit paranoid, but her thought process is linear and goal-directed. She denies the use of illegal drugs or alcohol. PPHx: extensive psychiatric history of schizophrenia, schizoaffective disorder, multiple psychiatric hospitalizations, suicide attempts, self-cutting behavior, poor impulse control, aggressive behavior, she is not in psychotropic at the moment, she used to be in Abilify 30 mg, Wellbutrin 150 mg twice daily PMHx: medical history hypertension, AIDS Substance Hx : Denies the use of illegal drugs Family Hx: Her father has scheduled for Social Hx: Patient was born and raised in [place], she lives in [facility] with her [id number], single, unemployed, supported by [facility], she is the mother of 4 kids that are under adoption, her highest level of education is 10th grade Tobacco Use In Past 30 Days: No How Often Do You Have a Drink Containing Alcohol: Never Hospital Course: Patient's hospital course was uneventful, patient showed minimal socialization though she was no behavioral problem. She showed compliance with medication. At times towards the latter part of her admission it appears she was somewhat reluctant to cooperate with discharge plans. The point where he felt the may be some manipulation related to her unwillingness to go back to her family situation where she was prior to admission. She made vague statements about suicidality and voices that were intermittent. Patient tolerated the weekend well without problems. Today patient denies suicidality homicidality voice or visions. States she is going to be discharged and return back to the family situation. At this time I feel patient is reached maximum benefit of this hospitalization thus patient will be discharged today to herself with Rx times 1 month to follow-up [facility] outpatient medication management and follow-up with PCP for medical issues - Discharge Discharge Date: 08/12/18 - Discharge Diagnosis (1) Schizoaffective disorder, depressive type Diagnosis: Principal Code(s): F25.1 - Schizoaffective disorder, depressive type Status: Acute (2) AIDS Diagnosis: Secondary Code(s): B20 - Human immunodeficiency virus [HIV] disease Status: Acute Discharge Disposition: Home - Discharge Instructions Discharge Diet: Regular Diet Activities You Can Perform: Regular- No Restrictions - Discharge Time > 30 minutes Mental Status Examination Appearance: Appropriate Consciousness: Alert Orientation: x4 Motor Activity: Normal gait Speech: Unremarkable Language: Adequate Fund of Knowledge: Adequate Attention and Concentration: Adequate Memory: Unremarkable Mood: Sad Affect: Other (Slight decreased range and intensity) Thought Process & Associations: Intact, Goal directed Thought Content: Appropriate, Thought blocking (Markedly improved) Hallucination Type: Auditory (Increased voices today somewhat command vague increased suicidal ideation) Delusion Type: None Suicidal Ideation: Yes (There is increased vague suicidal ideation secondary to increased auditory hallucinations) Suicidal Plan: No Suicidal Intention: No Homicidal Ideation: No Homicidal Plan: No Homicidal Intention: No Insight: Fair Judgment: Adequate (Fair) Discharge/Advance Care Plan - Results Vital Signs: Last Vital Signs Temp 98 F 08/12/18 05:19 Pulse 79 08/12/18 05:19 Resp 16 08/12/18 05:19 BP 108/64 08/12/18 05:19 Pulse Ox 100 08/12/18 05:19 Lab Results: Laboratory Results Hemoglobin A1c 5.2 % (4.3-6.0) 08/05/18 06:18 Triglycerides 94 mg/dL (42-150) 08/05/18 06:18 Cholesterol 111 mg/dL (120-200) L 08/05/18 06:18 LDL Cholesterol, Calc 55 mg/dL (0-99) 08/05/18 06:18 HDL Cholesterol 37.1 mg/dL (40.0-60.0) L 08/05/18 06:18 TSH 2.980 uIU/mL (0.358-3.740) 08/03/18 22:50 Summary of Procedures: None done Pending Results: None - Medications Number of antipsychotic medications at discharge: 1 - Discharge Care Plan Goals to Promote Your Health: * To prevent worsening of your condition and complications * To maintain your health at the optimal level Directions to Meet Your Goals: Take your medications as prescribed Follow your dietary instruction Follow activity as directed Keep your appointments as scheduled Take your immunizations and boosters as scheduled If your symptoms worsen call your PCP, if no PCP go to Urgent Care Center or Emergency Room For 23/04 questions related to your inpatient stay or results of tests pending at discharge, please contact Dr. Fredo Roberson MD at Smoking is Dangerous to Your Health. Avoid second hand smoking
== END 2018-08-12 14:00 | disposition home or self-care (01) ==
LOC: NEPD 18:51 → NEDA 08-04 11:30 → H270 08-04 14:00 → H260 08-05 14:40
PROVIDERS: ADMIT Psychiatry & Neurology Psychiatry; ATTEND Psychiatry & Neurology Psychiatry

== ENCOUNTER 2018-09-11 19:44 | Inpatient (IN) ==
--- NOTE | 2018-09-11 20:20 | XR ---
EXAM DATE: 09/11/2018 8:17 PM EST AGE/SEX: 32 years / Female INDICATIONS: Chest pain with palpations for 1 hour. CLINICAL DATA: This is the patient's initial encounter. Patient reports that signs and symptoms have been present for 1 day and indicates a pain score of 6/10. MEDICAL/SURGICAL HISTORY: Hypertension. None. COMPARISON: [facility] [place]ST 1V SINGLE AP, 08/17/2018. . FINDINGS: A single AP view of the chest demonstrates the lungs to be symmetrically aerated without evidence of mass, infiltrate or effusion. The cardiomediastinal contours are unremarkable. Osseous structures a re intact. CONCLUSION: No acute cardiopulmonary disease. Electronically signed by: Ben Whitfield MD 09/11/2018 8:18 PM EST
[2018-09-11 20:22] LABS: Baso # (Auto) 0.1 th/mm3 (0.0-0.2); Baso % (Auto) 0.9 % (0.0-2.0); Eos # (Auto) 0.1 th/mm3 (0.0-0.4); Eos % (Auto) 2.3 % (0.0-4.0); Hematocrit 32.7 % (35.0-46.0); Hemoglobin 10.8 gm/dL (11.6-15.3); Lymph # (Auto) 1.6 th/mm3 (1.0-4.8); Lymph % (Auto) 26.3 % (9.0-44.0); Mean Corpuscular HGB Conc 33.1 % (32.0-36.0); Mean Corpuscular Hemoglobin 30.8 pg (27.0-34.0); Mono # (Auto) 0.3 th/mm3 (0.0-0.9); Mono % (Auto) 5.5 % (0.0-8.0); Platelet Count 318 th/mm3 (150-450); Red Blood Count 3.51 mil/mm3 (4.00-5.30); Red Cell Distribution Width 15.9 % (11.6-17.2); White Blood Count 6.2 th/mm3 (4.0-11.0)
[2018-09-11 20:30] LABS: Activated Partial Thrombo Time 26.3 sec (23.4-31.7); Prothrombin Time 10.2 sec (9.8-11.6)
--- NOTE | 2018-09-11 20:46 | ED ---
HPI General Chief Complaint: Chest Pain Stated Complaint: Chest pain Time Seen by Provider: 09/11/18 19:52 Source: patient and EMS Mode of arrival: EMS Limitations: no limitations History of Present Illness HPI narrative: Ms Dhaliwal is a 32 year old female who presents to the ED for evaluation of chest pain for 2 hours. She states that she has a pressure like pain over her sternum that is 10/10 and is occasionally sharp. She also complains of palpitations, SOB, nausea, lightheadedness, and intermittent blurred vision. She states that the SOB is worse with inspiration and the chest pain intermittently radiates to the back. The patient denies vomiting, dizziness , syncope, diarrhea, constipation, or abdominal pain. She was given ASA and nitroglycerin by [facility]. Her PMH is significant for schizophrenia, AIDs, depression, anxiety, and HTN. The patient denies tobacco or alcohol use, and states she used to use cocaine but has not in several years. Related Data Home Medications Medication Instructions Recorded Confirmed sulfamethoxazole-trimethoprim 1 tab PO BID 08/17/18 09/11/18 [Bactrim DS] Previous Rx's Medication Instructions Recorded albuterol sulfate 1 inh INHALATION Q6H PRN #18 g 08/12/18 azithromycin 600 mg PO MoWeFr #14 tab 08/12/18 anwssoqqg-umxlhrea-vlfiedw ala 1 tab PO DAILY #30 tab 08/12/18 [Biktarvy] bupropion HCl [Wellbutrin SR] 150 mg PO BID #60 tab 08/12/18 Allergies Allergy/AdvReac Type Severity Reaction Status Date / Time No Known Allergies Allergy Verified 08/17/18 21:06 Review of Systems ROS: all other systems reviewed are negative [facility] Medical History Medical History Asthma (Acute) AIDS (Acute) Hypertension (Acute) Schizophrenia (Acute) HIV disease (Acute) Surgical History Surgical History Hx of section (Acute) Hx of tubal ligation (Acute) History of mandibular surgery (Acute) Family History Family History Mother Type 2 diabetes mellitus Social History Social History Substance History: Past History (last use over 1 year ago) Second Hand Smoke Exposure: No Smoking Status: Former smoker Tobacco Type: Cigarettes How Often Do You Have a Drink Containing Alcohol: Monthly or less Recent Travel in [facility] within the Last 8 Weeks: No Recent Out of Country Travel within the Last 8 Weeks: No Immunization History Tetanus Immunization: >5 Years Exam Narrative Exam Narrative: GENERAL: Patient is a well developed well nourished female in [facility]. SKIN: Warm and dry. HEAD: Atraumatic. Normocephalic. EYES: Pupils equal and round and reactive to light. No scleral icterus. No injection or drainage. ENT: No nasal bleeding or discharge. Mucous membranes pink and moist. NECK: Trachea midline. No JVD. CARDIOVASCULAR: Regular rate and rhythm. No murmurs rubs or gallops. Pain with palpation over the sternum. RESPIRATORY: No accessory muscle use. Clear to auscultation. Breath sounds equal bilaterally. GASTROINTESTINAL: Abdomen soft and nondistended. Pain with deep palpation of the epigastric area and RUQ. Hepatic and splenic margins not palpable. MUSCULOSKELETAL: Extremities without clubbing, cyanosis, or edema. No obvious deformities. Pain with palpation of the bilateral paraspinal musculature in the lumbar region. Full ROM of the upper and lower extremities bilaterally. 2+ pulses in the upper and lower extremities bilaterally. NEUROLOGICAL: Awake and alert. No obvious cranial nerve deficits. Motor grossly within normal limits. Five out of 5 muscle strength in the arms and legs. Normal speech. PSYCHIATRIC: Appropriate mood and affect; insight and judgment normal. Course Initial Documented Vital Signs Temperature 98.5 F 09/11/18 19:48 Pulse Rate 96 H 09/11/18 19:48 Respiratory Rate 18 09/11/18 19:48 Blood Pressure 127/61 09/11/18 19:48 Pulse Oximetry 100 09/11/18 19:48 Last Documented Vital Signs Temperature 98.4 F 09/14/18 20:00 Pulse Rate 85 09/14/18 20:00 Respiratory Rate 16 09/14/18 20:00 Blood Pressure 98/54 L 09/14/18 20:00 Pulse Oximetry 100 09/14/18 20:00 Medical Decision Making ESTRELLA Attestation ESTRELLA supervised visit: Yes Attestation: I, Dr. Hilliard, have reviewed the advance practice practitioner's documentation and am in agreement, met with the patient face to face, made the diagnosis, and the medical decision making was done by me. *My assessment and Findings: Acute cholecystitis. Cholelithiasis. MDM Narrative Medical decision making narrative: 32-year-old female that presents to the ED for evaluation of chest pain via [facility]. Patient was properly examined and was found to have signs and symptoms of unclear etiology. Some concern for cardiac of the patient is young for this. Labs and imaging were ordered. Labs and imaging showed no sign of acute disease. Patient is complains of epigastric pain. Patient does have some palpable possible pain although she is not really guarding she does complain of pain in the epigastric area. She is somewhat difficult to obtain a history as she does appear to have underlying psychiatric illness. At this time CT scan was ordered to vital sign of significant disease. Patient agrees with this. CT scan showed gallbladder stone and some tickening as well as abnormal right ovary. US ordered. Case signed out to my attending pending disposition. 1:20 AM. I spoke and examined the patient. Patient has intermittent epigastric abdominal pain with radiation to the substernal area for the past several months. Examination today patient has mild tenderness palpation epigastric and right upper quadrant of the abdomen. CT abdomen pelvis and gallbladder ultrasound consistent with gallbladder stone and gallbladder wall thickening. Typical of acute cholecystitis. Normal saline solution 125 cc an hour. Protonix 40 mg IV. Zosyn 3.375 g IV given. Patient will be admitted to medical service with surgical consultation. Medical Screen Exam Complete: Yes Emergency Medical Condition: Yes Differential Diagnosis Differential Diagnosis: Chest pain versus typical chest pain versus abdominal pain versus epigastric pain versus normal exam versus [facility] Medical Records Medical records reviewed: Yes I reviewed the patient's medical records. Lab Data Lab results reviewed: Yes I reviewed the patient's lab results. Result diagrams: 09/14/18 13:11 09/14/18 13:11 POC Results POC Urine Results Negative Lab Results 09/11/18 09/11/18 09/11/18 Range/Units 20:01 20:01 20:01 WBC 6.2 (4.0-11.0) th/mm3 RBC 3.51 L (4.00-5.30) mil/mm3 Hgb 10.8 L (11.6-15.3) gm/dL Hct 32.7 L (35.0-46.0) % MCV 93.0 (80.0-100.0) fL MCH 30.8 (27.0-34.0) pg MCHC 33.1 (32.0-36.0) % RDW 15.9 (11.6-17.2) % Plt Count 318 (150-450) th/mm3 MPV 7.0 (7.0-11.0) fL Prelim Diff (Auto) Neut % (Auto) 65.0 (16.0-70.0) % Lymph % (Auto) 26.3 (9.0-44.0) % Pitt % (Auto) 5.5 (0.0-8.0) % Eos % (Auto) 2.3 (0.0-4.0) % Baso % (Auto) 0.9 (0.0-2.0) % Neut # (Auto) 4.0 (1.8-7.7) th/mm3 Lymph # (Auto) 1.6 (1.0-4.8) th/mm3 Pitt # (Auto) 0.3 (0.0-0.9) th/mm3 Eos # (Auto) 0.1 (0.0-0.4) th/mm3 Baso # (Auto) 0.1 (0.0-0.2) th/mm3 WBC Differential . Seg Neuts % (Manual) (16-70) % Lymphocytes % (Manual) (9-44) % Monocytes % (Manual) (0-8) % Eosinophils % (Manual) (0-4) % Basophils % (Manual) (0-2) % Abs Neuts (Manual) (1.8-7.7) th/mm3 Differential Comment Auto diff final Platelet Estimate (Normal) Platelet Morphology (Normal) RBC Morphology (Normal) PT 10.2 (9.8-11.6) sec INR 1.0 Ratio APTT 26.3 (23.4-31.7) sec Sodium 137 (136-145) meq/L Potassium 4.0 (3.5-5.1) meq/L Chloride 106 (98-107) meq/L Carbon Dioxide 22.6 (21.0-32.0) meq/L Anion Gap 8 (5-15) meq/L BUN 18 (7-18) mg/dL Creatinine 1.22 H (0.50-1.00) mg/dL Estimated GFR 63 L (>89) mL/min Random Glucose 95 (74-106) mg/dL Calcium 8.6 (8.5-10.1) mg/dL Total Bilirubin 0.3 (0.2-1.0) mg/dL AST 11 L (15-37) U/L ALT 15 (10-53) U/L Alkaline Phosphatase 78 (45-117) U/L Total Creatine Kinase 96 (26-192) U/L Troponin I Less than 0.02 L (0.02-0.05) ng/mL Total Protein 7.8 (6.4-8.2) g/dL Albumin 3.3 L (3.4-5.0) g/dL Lipase 192 (73-393) U/L 09/13/18 09/13/18 09/13/18 Range/Units 05:18 05:18 12:28 WBC 8.8 7.6 (4.0-11.0) th/mm3 RBC 3.45 L 3.18 L (4.00-5.30) mil/mm3 Hgb 10.8 L 9.9 L (11.6-15.3) gm/dL Hct 32.7 L 30.2 L (35.0-46.0) % MCV 94.6 94.7 (80.0-100.0) fL MCH 31.2 31.2 (27.0-34.0) pg MCHC 33.0 33.0 (32.0-36.0) % RDW 15.8 16.0 (11.6-17.2) % Plt Count 328 294 (150-450) th/mm3 MPV 7.0 6.8 L (7.0-11.0) fL Prelim Diff (Auto) Neut % (Auto) 79.6 H 79.7 H (16.0-70.0) % Lymph % (Auto) 14.5 13.2 (9.0-44.0) % Pitt % (Auto) 5.6 6.3 (0.0-8.0) % Eos % (Auto) 0.1 0.5 (0.0-4.0) % Baso % (Auto) 0.2 0.3 (0.0-2.0) % Neut # (Auto) 7.0 6.1 (1.8-7.7) th/mm3 Lymph # (Auto) 1.3 1.0 (1.0-4.8) th/mm3 Pitt # (Auto) 0.5 0.5 (0.0-0.9) th/mm3 Eos # (Auto) 0.0 0.0 (0.0-0.4) th/mm3 Baso # (Auto) 0.0 0.0 (0.0-0.2) th/mm3 WBC Differential . . Seg Neuts % (Manual) (16-70) % Lymphocytes % (Manual) (9-44) % Monocytes % (Manual) (0-8) % Eosinophils % (Manual) (0-4) % Basophils % (Manual) (0-2) % Abs Neuts (Manual) (1.8-7.7) th/mm3 Differential Comment Auto diff final Auto diff final Platelet Estimate (Normal) Platelet Morphology (Normal) RBC Morphology (Normal) PT (9.8-11.6) sec INR Ratio APTT (23.4-31.7) sec Sodium 138 (136-145) meq/L Potassium 4.3 (3.5-5.1) meq/L Chloride 107 (98-107) meq/L Carbon Dioxide 22.9 (21.0-32.0) meq/L Anion Gap 8 (5-15) meq/L BUN 13 (7-18) mg/dL Creatinine 1.04 H (0.50-1.00) mg/dL Estimated GFR 75 L (>89) mL/min Random Glucose 113 H (74-106) mg/dL Calcium 8.2 L (8.5-10.1) mg/dL Total Bilirubin 0.3 (0.2-1.0) mg/dL AST 113 H (15-37) U/L ALT 132 H (10-53) U/L Alkaline Phosphatase 118 H (45-117) U/L Total Creatine Kinase (26-192) U/L Troponin I (0.02-0.05) ng/mL Total Protein 7.5 (6.4-8.2) g/dL Albumin 2.9 L (3.4-5.0) g/dL Lipase (73-393) U/L 09/13/18 09/14/18 09/14/18 Range/Units 12:28 13:11 13:11 WBC 5.2 (4.0-11.0) th/mm3 RBC 2.92 L (4.00-5.30) mil/mm3 Hgb 9.4 L (11.6-15.3) gm/dL Hct 27.8 L (35.0-46.0) % MCV 95.2 (80.0-100.0) fL MCH 32.0 (27.0-34.0) pg MCHC 33.6 (32.0-36.0) % RDW 16.5 (11.6-17.2) % Plt Count 277 (150-450) th/mm3 MPV 7.0 (7.0-11.0) fL Prelim Diff (Auto) Manual diff required Neut % (Auto) (16.0-70.0) % Lymph % (Auto) (9.0-44.0) % Pitt % (Auto) (0.0-8.0) % Eos % (Auto) (0.0-4.0) % Baso % (Auto) (0.0-2.0) % Neut # (Auto) (1.8-7.7) th/mm3 Lymph # (Auto) (1.0-4.8) th/mm3 Pitt # (Auto) (0.0-0.9) th/mm3 Eos # (Auto) (0.0-0.4) th/mm3 Baso # (Auto) (0.0-0.2) th/mm3 WBC Differential Manual diff final Seg Neuts % (Manual) 73 H (16-70) % Lymphocytes % (Manual) 20 (9-44) % Monocytes % (Manual) 3 (0-8) % Eosinophils % (Manual) 3 (0-4) % Basophils % (Manual) 1 (0-2) % Abs Neuts (Manual) 3.8 (1.8-7.7) th/mm3 Differential Comment . Platelet Estimate Normal (Normal) Platelet Morphology Normal (Normal) RBC Morphology Normal (Normal) PT (9.8-11.6) sec INR Ratio APTT (23.4-31.7) sec Sodium 139 139 (136-145) meq/L Potassium 4.0 4.0 (3.5-5.1) meq/L Chloride 109 H 109 H (98-107) meq/L Carbon Dioxide 24.3 25.3 (21.0-32.0) meq/L Anion Gap 6 5 (5-15) meq/L BUN 16 12 (7-18) mg/dL Creatinine 1.01 H 0.99 (0.50-1.00) mg/dL Estimated GFR 78 L 80 L (>89) mL/min Random Glucose 102 99 (74-106) mg/dL Calcium 8.2 L 7.9 L (8.5-10.1) mg/dL Total Bilirubin 0.2 0.2 (0.2-1.0) mg/dL AST 73 H 30 (15-37) U/L ALT 107 H 67 H (10-53) U/L Alkaline Phosphatase 102 74 (45-117) U/L Total Creatine Kinase (26-192) U/L Troponin I (0.02-0.05) ng/mL Total Protein 7.0 6.5 (6.4-8.2) g/dL Albumin 2.8 L 2.6 L (3.4-5.0) g/dL Lipase (73-393) U/L Imaging Data Radiologist's impression: Chest X-Ray 09/11/18 19:54 CONCLUSION: No acute cardiopulmonary disease. Abdomen/Pelvis CT 09/11/18 22:02 CONCLUSION: 1. Large gallstone again identified the gallbladder. Mild nonspecific gallbladder wall thickening. No pericholecystic inflammatory changes. 2. New bilobed mixed solid and cystic elongated area in the right adnexa. Differential diagnosis includes cystic adnexal mass, hydrosalpinx, or ruptured/ hemorrhagic ovarian cyst. Findings could be further evaluated with pelvic ultrasound. Gallbladder Ultrasound 09/11/18 23:30 CONCLUSION: Large calculus in the gallbladder neck. Mild nonspecific diffuse gallbladder wall thickening. Pelvis Ultrasound 09/11/18 23:30 CONCLUSION: 1. Heterogeneous enlarged hypervascular right ovary. It measures 4.8 x 2.8 x 2.3 cm on ultrasound. Correlation with recent CT shows that CT measurements of the ovary are likely 4.9 x 4.4 cm. A well-defined mass is not seen. However there is a subtle heterogeneous rounded area with decreased vascularity within the ovary that may represent a hemorrhagic cyst. In addition there is adjacent free fluid in the cul-de-sac that is slightly hyperdense on CT suggesting that this may represent a ruptured hemorrhagic cyst. There is color Doppler flow within the right ovary. Particularly given that the patient is immunocompromised , infection would also be in the differential diagnosis. 2. Left ovary and uterus within normal limits. Discharge Plan Discharge Disposition Patient Disposition: ED Admit(ED Internal Use Only) Discharge Order Discharge Orders: General Surgery Clear for Discharge (Routine); Ordered 09/13/18 Ordered By: Stefano Gallardo ED Use Only Admit Order (Routine); Ordered 09/12/18 Ordered By: Levon Hilliard Discharge Details Diagnosis: Acute cholecystitis, Cholelithiasis Physicians Team ED Provider: Bisi Rocha ED Midlevel Provider: Yo Horvath Primary Care Provider: Rishi Dial Attending Provider: Rishi Dial Other Providers: Stefano Gallardo ; WilmarBill Status ED Status: Left Department Discharge Information Discharge Date/Time: 09/12/18 04:00
[2018-09-11 21:06] LABS: Alanine Aminotransferase 15 U/L (10-53); Albumin 3.3 g/dL (3.4-5.0); Anion Gap 8 meq/L (5-15); Aspartate Aminotransferase 11 U/L (15-37); Blood Urea Nitrogen 18 mg/dL (7-18); Calcium 8.6 mg/dL (8.5-10.1); Carbon Dioxide 22.6 meq/L (21.0-32.0); Chloride 106 meq/L (98-107); Glomerular Filtration Rate 63 mL/min (>89); Glucose,Random 95 mg/dL (74-106); Lipase 192 U/L (73-393); Sodium 137 meq/L (136-145)
[2018-09-11 21:11] LABS: Alkaline Phosphatase 78 U/L (45-117); Total Protein 7.8 g/dL (6.4-8.2)
[2018-09-11 21:13] LABS: Creatine Kinase 96 U/L (26-192)
[2018-09-11] MEDS ORDERED: Morphine Inj 4 MG/ML Vial IV.PUSH ONE (21:55)
--- NOTE | 2018-09-11 23:28 | CT ---
EXAM DATE: 09/11/2018 11:11 PM EST AGE/SEX: 32 years / Female INDICATIONS: Abdominal pain. CLINICAL DATA: This is the patient's initial encounter. Patient reports that signs and symptoms have been present for 1 day and indicates a pain score of 6/10. MEDICAL/SURGICAL HISTORY: Hypertension. AIDS Tubal ligation. ORAL CONTRAST: No oral contrast ingested. RADIATION DOSE: 14.58 CTDI (mGy) COMPARISON: [facility] [place], CT ABDOMEN & PELVIS W CONTRAST, 09/14/2016. . TECHNIQUE: Multiple contiguous axial images were obtained through the abdomen and pelvis following b olus infusion of 90 ml Omnipaque 350 (iohexol) nonionic water-soluble contrast as a single exam dos e. No oral contrast ingested. Using automated exposure control and adjustment of the mA and/or kV ac cording to patient size, radiation dose was kept as low as reasonably achievable to obtain optimal di agnostic quality images. DICOM format image data is available electronically for review and comparis on. FINDINGS: Lower Lungs: The visualized lower lungs are clear. Liver: 2.4 cm gallstone in the gallbladder. Mild nonspecific gallbladder wall thickening. No perichol ecystic inflammatory changes identified. Liver is homogeneous and within normal limits. Spleen: Homogeneous density without enlargement. Pancreas: Unremarkable without mass or calcification. Kidneys: Normal in size and shape. No evidence of mass or hydronephrosis. Adrenal Glands: Unremarkable. Aorta: The aorta and proximal iliac vessels are grossly unremarkable without aneurysmal dilation. Bowel/Mesentery: No evidence of bowel dilatation. No free air or free fluid. Appendix within normal limits. Abdominal Wall: Intact. Retroperitoneum: Unremarkable. Bladder: Contours are smooth. Reproductive Organs: 7.8 x 3.8 cm bilobed heterogeneous solid and cystic area in the right adnexa Inguinal: The inguinal region is unremarkable without evidence of adenopathy. Bony Structures: Unremarkable. CONCLUSION: 1. Large gallstone again identified the gallbladder. Mild nonspecific gallbladder wall thickening. N o pericholecystic inflammatory changes. 2. New bilobed mixed solid and cystic elongated area in the right adnexa. Differential diagnosis inc ludes cystic adnexal mass, hydrosalpinx, or ruptured/hemorrhagic ovarian cyst. Findings could be furt her evaluated with pelvic ultrasound. Electronically signed by: Isaac Reed MD 09/11/2018 11:26 PM EST
--- NOTE | 2018-09-12 00:44 | US ---
EXAM DATE: 09/12/2018 12:36 AM EST AGE/SEX: 32 years / Female INDICATIONS: Abdominal pain. CLINICAL DATA: This is the patient's initial encounter. Patient reports that signs and symptoms have been present for 1 day and indicates a pain score of 6/10. MEDICAL/SURGICAL HISTORY: . AIDS. Asthma. Hypertension. Schizophrenia. . Mandibular surgery . section. Tubal ligation. COMPARISON: No prior exams available for comparison. MEASUREMENTS: Liver:__ 15.8 cm. Common Bile Duct:__ 6mm. FINDINGS: Liver: Normal echogenicity without focal lesion or ductal dilatation. Portal Vein: Hepatopedal flow seen in portal vein. Common Duct: No intraluminal mass or stone visualized. Gallbladder: 2.5 cm shadowing gallstone in the gallbladder neck. Diffuse mild gallbladder wall thick ening measuring 3 mm. No pericholecystic fluid identified. Pancreas: The visualized portions are within normal limits Right Kidney: Normal echogenicity and cortical thickness. No mass or hydronephrosis. CONCLUSION: Large calculus in the gallbladder neck. Mild nonspecific diffuse gallbladder wall thickening. Electronically signed by: Isaac Reed MD 09/12/2018 12:43 AM EST
--- NOTE | 2018-09-12 00:57 | US ---
EXAM DATE: 09/12/2018 12:44 AM EST AGE/SEX: 32 years / Female INDICATIONS: Right adnexal mass seen on recent CT. CLINICAL DATA: This is the patient's initial encounter. Patient reports that signs and symptoms have been present for 1 day and indicates a pain score of 0/10. MEDICAL/SURGICAL HISTORY: . AIDS. Asthma. Hypertension. Schizophrenia. . Mandibular surgery . section. tubal ligation. COMPARISON: [facility] [place], [place] ABDOMEN & PELVIS W CONTRAST, 09/11/2018. . MEASUREMENTS: Uterus:__10.9 x 4.7 x 5.5 cm Endometrial Stripe:__15 mm Right Ovary:__ 4.3 x 2.3 x 2.8 cm Left Ovary:__ 3.5 x 1.6 x 2.2 cm FINDINGS: Uterus: The myometrium has homogeneous echotexture without mass. Endometrial Stripe: The endometrial stripe displays homogeneous echotexture. Right Ovary: Right ovary is somewhat prominent in size measuring 4.8 x 2.3 x 2.8 cm. It is mildly he terogeneous and demonstrates prominent internal color Doppler flow. There is a rounded less vascular heterogeneous area measuring approximately 2 cm thick could represent hemorrhagic cyst. Adjacent free fluid in the cul-de-sac slightly greater than typically seen with physiologic fluid. Left Ovary: Ovary contains no mass. Follicles are present. Fluid: Free fluid in the cul-de-sac Other: None. CONCLUSION: 1. Heterogeneous enlarged hypervascular right ovary. It measures 4.8 x 2.8 x 2.3 cm on ultrasound. C orrelation with recent CT shows that CT measurements of the ovary are likely 4.9 x 4.4 cm. A well-def ined mass is not seen. However there is a subtle heterogeneous rounded area with decreased vascularit y within the ovary that may represent a hemorrhagic cyst. In addition there is adjacent free fluid in the cul-de-sac that is slightly hyperdense on CT suggesting that this may represent a ruptured hemor rhagic cyst. There is color Doppler flow within the right ovary. Particularly given that the patient is immunocompromised, infection would also be in the differential diagnosis. 2. Left ovary and uterus within normal limits. Electronically signed by: Isaac Reed MD 09/12/2018 12:55 AM EST
[2018-09-12] MEDS ORDERED: Piperacil/Tazo 3.375 GM Premix 50 ML IV.SIG ONE (01:21)
[2018-09-12] MEDS ORDERED: Pantoprazole Inj 40 MG Vial IV.PUSH ONE (01:21)
[2018-09-12] MEDS: Sod Chloride 0.9% Inj 1,000 ML IV.CONT SCH ×3 (01:40→17:44)
[2018-09-12] MEDS ORDERED: Bisacodyl 10 MG Supp RECTAL PRN (01:53)
--- NOTE | 2018-09-12 06:56 | ECG ---
Date Performed: 09/11/2018 Time Performed: 19:56:35 PTAGE: 32 years EKG: Marked baseline artifact Sinus rhythm NORMAL ECG Within the constraints of artifact I see no definite change. PREVIOUS TRACING : 08/17/2018 21.10 DOCTOR: Walt Gutierrez Interpretating Date/Time 09/12/2018 06:56:00
[2018-09-12] MEDS ORDERED: Piperacil/Tazo 3.375 GM Premix 50 ML IV.SIG SCH (08:00)
--- NOTE | 2018-09-12 09:45 | P.HP ---
History of Present Illness Primary Care Physician: Rishi Dial MD Chief Complaint: epigastric pain History of Present Illness: 32-year-old female with history of HIV, schizophrenia, anxiety, depression, hypertension, presents with acute onset of epigastric pain. Patient reports she was in her normal state of health yesterday ate some baked chicken, and was at her home, when she all of a sudden developed 10/10 sharp stabbing pains in the epigastric and lower sternum area, with some occasional radiation to her back. The pain continued for couple hours, therefore she called for an ambulance and was transported to the ER via [facility]. She was given aspirin and nitroglycerin in route. She reports some nausea, but no vomiting. States her bowel movements have been normal. Denies fevers or chills. Denies any palpitations or shortness of breath. She denies any similar episodes in the past. She denies ever being told she has any gallbladder disease. She states she wants her gallbladder removed if this is what causing her pain. She has no other medical complaints at this time. Inpatient Certification: I certify that the inpatient services were ordered in accordance with Medicare regulations governing the order. This includes certification that hospital inpatient services are reasonable and necessary and in the case of services not specified as inpatient-only under 42 CFR 419.22(n), that they are appropriately provided as inpatient services in accordance to with the 2-midnight benchmark under 43 CFR 412.3(e) Estimated Total Length of Stay (Days): 3 Plans for Post Hospital Care: Home Review of Systems All other systems reviewed negative except as stated in HPI [facility] - History History Provided By: Patient - Medical History Medical History: Medical History (Last Updated 09/12/18 @ 10:19 by Salena Baeza) Asthma (Acute) AIDS (Acute) Hypertension (Acute) Schizophrenia (Acute) HIV disease - Surgical History Surgical History: Surgical History (Last Reviewed 09/12/18 @ 10:19 by Salena Baeza) Hx of section (Acute) Hx of tubal ligation (Acute) History of mandibular surgery (Acute) - Family History Family History: Family History (Last Updated 09/12/18 @ 10:19 by Salena Baeza) Mother Type 2 diabetes mellitus - Social History I have reviewed the patient's Social History: Yes - Tobacco History Second Hand Smoke Exposure: No Tobacco Use In Past 30 Days: No Smoking Status: Former smoker Tobacco Type: Cigarettes - Alcohol History How Often Do You Have a Drink Containing Alcohol: Monthly or less - Substance Use History Substance History: Past History (last use over 1 year ago) - Substance Use Type Crack/Cocaine Type: cocaine - Travel History Recent Travel in the [place] Within the Last 8 Weeks: No Recent Travel Out of the Country Within the Last 8 Weeks: No - Immunization History Tetanus Immunization: >5 Years Medications and Allergies Active Medications: Active Medications Acetaminophen (Tylenol) 650 mg PO Q4H PRN PRN Reason: Temp > 100.4 Al Hydroxide/Mg Hydroxide (Milk Of Magnesia Liq) 30 ml PO Q12H PRN PRN Reason: Mild Constipation Bisacodyl (Dulcolax Supp) 10 mg RECTAL DAILY PRN PRN Reason: SEVERE CONSITIPATION Sodium Chloride (Ns Inj) 1,000 mls @ 125 mls/hr IV.CONT .Q8H [facility] Last Admin: 09/12/18 09:23 Dose: 125 mls/hr Piperacillin/Tazobactam/Dextrose (Zosyn 3.375 Gm Premix) 50 mls @ 100 mls/hr IV.SIG Q6H [facility] Last Infusion: 09/12/18 08:20 Dose: Infused Metronidazole/Sodium Chloride (Flagyl 500 Mg Inj) 100 mls @ 100 mls/hr IV.SIG Q8H [facility] Last Admin: 09/12/18 09:22 Dose: 100 mls/hr Lactulose (Lactulose Liq) 30 ml PO DAILY PRN PRN Reason: SEVERE CONSITIPATION Levofloxacin (Levaquin) 750 mg PO DAILY [facility] Ondansetron HCl (Zofran Inj) 4 mg IV.PUSH Q6H PRN PRN Reason: NAUSEA OR VOMITING Sennosides (Senokot) 17.2 mg PO Q12H PRN PRN Reason: Moderate Constipation Sodium Chloride (Ns Flush) 2 ml IV.FLUSH BID [facility] Last Admin: 09/12/18 09:23 Dose: Not Given Sodium Chloride (Ns Flush) 2 ml IV.FLUSH PRN PRN PRN Reason: FLUSH AFTER USING IV ACCESS Allergies Allergy/AdvReac Type Severity Reaction Status Date / Time No Known Allergies Allergy Verified 08/17/18 21:06 Home Medications Medication Instructions Recorded Confirmed Type sulfamethoxazole-trimethoprim 1 tab PO BID 08/17/18 09/11/18 History [Bactrim DS] Exam Vital signs: Vital Signs 09/11/18 19:48 09/11/18 19:56 09/11/18 23:53 Temperature 98.5 F Pulse Rate 96 H 79 Respiratory Rate 18 21 Blood Pressure 127/61 124/68 Pulse Oximetry 100 100 100 09/12/18 03:38 09/12/18 04:00 09/12/18 07:46 Temperature 98.5 F 97.6 F Pulse Rate 70 70 77 Respiratory Rate 18 20 14 Blood Pressure 114/60 104/54 L 94/55 L Pulse Oximetry 98 100 98 Intake & Output 09/11/18 09/12/18 09/12/18 18:59 06:59 18:59 Intake Total 150 / 150 1050 / 1050 Balance 150 / 150 1050 / 1050 Weight 113.398 kg Intake: IV 150 / 150 1050 / 1050 NS Inj 1,000 ML @ 125 mls/hr IV 1000 / 1000 .CONT .Q8H [facility] Rx#:[id number] Zosyn 3.375 GM Premix 50 ML @ 50 / 50 50 / 50 100 mls/hr IV.SIG Q6H [facility] Rx#: [id number] Flagyl 500 MG Inj 100 ML @ 100 100 / 100 mls/hr IV.SIG Q8H [facility] Rx#: [id number] Oral 0 / 0 Other: # Voids 2 2 Date of Last Bowel Movement 09/11/18 Weight On Admission 113.398 kg Narrative: GENERAL: Well-nourished, well-developed young AA female patient in [facility]. SKIN: Warm and dry. No rash. Dry skin. HEENT: Normocephalic. Atraumatic. Pupils equal and round. Mucous membranes pink and moist. NECK: Supple. Trachea midline. CARDIOVASCULAR: Regular rate and rhythm. No murmur appreciated. RESPIRATORY: No accessory muscle use. Clear to auscultation. Breath sounds equal bilaterally. GASTROINTESTINAL: Abdomen soft, nondistended, TTP at epigastric and RUQ. Normoactive bowel sounds x4. MUSCULOSKELETAL: No obvious deformities. Extremities without clubbing, cyanosis , or edema. NEUROLOGICAL: Awake and alert. No obvious cranial nerve deficits. Moving all extremities spontaneously. Normal speech. PSYCHIATRIC: Appropriate mood and affect; insight and judgment normal. Results - Labs CBC & Chem 7: 09/11/18 20:01 12/12/18 20:01 Labs: Laboratory Results - last 24 hr 09/11/18 09/11/18 09/11/18 20:01 20:01 20:01 WBC 6.2 RBC 3.51 L Hgb 10.8 L Hct 32.7 L MCV 93.0 MCH 30.8 MCHC 33.1 RDW 15.9 Plt Count 318 MPV 7.0 Neut % (Auto) 65.0 Lymph % (Auto) 26.3 [place] % (Auto) 5.5 Eos % (Auto) 2.3 Baso % (Auto) 0.9 Neut # (Auto) 4.0 Lymph # (Auto) 1.6 [place] # (Auto) 0.3 Eos # (Auto) 0.1 Baso # (Auto) 0.1 WBC Differential . Differential Comment Auto diff final PT 10.2 INR 1.0 APTT 26.3 Sodium 137 Potassium 4.0 Chloride 106 Carbon Dioxide 22.6 Anion Gap 8 BUN 18 Creatinine 1.22 H Estimated GFR 63 L Random Glucose 95 Calcium 8.6 Total Bilirubin 0.3 AST 11 L ALT 15 Alkaline Phosphatase 78 Total Creatine Kinase 96 Troponin I Less than 0.02 L Total Protein 7.8 Albumin 3.3 L Lipase 192 - Imaging Impressions Chest X-Ray 09/11/18 19:54 CONCLUSION: No acute cardiopulmonary disease. Abdomen/Pelvis CT 09/11/18 22:02 CONCLUSION: 1. Large gallstone again identified the gallbladder. Mild nonspecific gallbladder wall thickening. No pericholecystic inflammatory changes. 2. New bilobed mixed solid and cystic elongated area in the right adnexa. Differential diagnosis includes cystic adnexal mass, hydrosalpinx, or ruptured/ hemorrhagic ovarian cyst. Findings could be further evaluated with pelvic ultrasound. Gallbladder Ultrasound 09/11/18 23:30 CONCLUSION: Large calculus in the gallbladder neck. Mild nonspecific diffuse gallbladder wall thickening. Pelvis Ultrasound 09/11/18 23:30 CONCLUSION: 1. Heterogeneous enlarged hypervascular right ovary. It measures 4.8 x 2.8 x 2.3 cm on ultrasound. Correlation with recent CT shows that CT measurements of the ovary are likely 4.9 x 4.4 cm. A well-defined mass is not seen. However there is a subtle heterogeneous rounded area with decreased vascularity within the ovary that may represent a hemorrhagic cyst. In addition there is adjacent free fluid in the cul-de-sac that is slightly hyperdense on CT suggesting that this may represent a ruptured hemorrhagic cyst. There is color Doppler flow within the right ovary. Particularly given that the patient is immunocompromised , infection would also be in the differential diagnosis. 2. Left ovary and uterus within normal limits. Caprini VTE Risk Assessment Caprini VTE Risk Assessment: No/Low Risk (score <= 1) Caprini Risk Assessment Model: Point Value = 1 Point Value = 2 Point Value = 3 Point Value = 5 Age 41-60 Minor surgery BMI > 25 kg/m2 Swollen legs Varicose veins or History of unexplained or recurrent spontaneous Oral contraceptives or hormone replacement Sepsis (< 1 month) Serious lung disease, including pneumonia (< 1 month) Abnormal pulmonary function Acute myocardial infarction Congestive heart failure (< 1 month) History of inflammatory bowel disease Medical patient at bed rest Age 61-74 Arthroscopic surgery Major open surgery (> 45 min) Laparoscopic surgery (> 45 min) Malignancy Confined to bed (> 72 hours) Immobilizing plaster cast Central venous access Age >= 75 History of VTE Family history of VTE Factor V Leiden Prothrombin [id number] Lupus anticoagulant Anticardiolipin antibodies Elevated serum homocysteine Heparin-induced thrombocytopenia Other congenital or acquired thrombophilia Stroke (< 1 month) Elective arthroplasty Hip, pelvis, or leg fracture Acute spinal cord injury (< 1 month) Prophylaxis Regimen: Total Risk Factor Score Risk Level Prophylaxis Regimen 0-1 Low Early ambulation 2 Moderate Order ONE of the following: *Sequential Compression Device (SCD) *Heparin 5000 units SQ BID 3-4 Higher Order ONE of the following medications: *Heparin 5000 units SQ TID *Enoxaparin/Lovenox 40 mg SQ daily (WT < 150 kg, CrCl > 30 mL/min) *Enoxaparin/Lovenox 30 mg SQ daily (WT < 150 kg, CrCl > 10-29 mL/min) *Enoxaparin/Lovenox 30 mg SQ BID (WT < 150 kg, CrCl > 30 mL/min) AND/OR *Sequential Compression Device (SCD) 5 or more Highest Order ONE of the following medications: *Heparin 5000 units SQ TID (Preferred with Epidurals) *Enoxaparin/Lovenox 40 mg SQ daily (WT < 150 kg, CrCl > 30 mL/min) *Enoxaparin/Lovenox 30 mg SQ daily (WT < 150 kg, CrCl > 10-29 mL/min) *Enoxaparin/Lovenox 30 mg SQ BID (WT < 150 kg, CrCl > 30 mL/min) AND *Sequential Compression Device (SCD) Assessment and Plan - Plan 32-year-old female with history of HIV, schizophrenia, anxiety, depression, hypertension, presents with acute onset of epigastric pain. Acute Cholecystitis: -CT abd/pelvis reviewed, shows Large gallstone in the gallbladder. Mild gallbladder wall thickening. No pericholecystic inflammatory changes. -GB U/S showed Large calculus in the gallbladder neck. Mild nonspecific diffuse gallbladder wall thickening. -Started on antibiotics with IV Zosyn -Supportive treatment with IVF, antiemetics, and pain control as needed -Keep NPO -Consult general surgery to consider cholecystectomy Right Adnexal Cyst vs Mass: acute. No vaginal bleeding reported by the patient. Endorses monthly menstrual cycle lasting 3-7days. -CT abd/pelvis showed New bilobed mixed solid and cystic elongated area in the right adnexa. Differential diagnosis includes cystic adnexal mass, hydrosalpinx, or ruptured/hemorrhagic ovarian cyst. -Pelvic U/S showed Heterogeneous enlarged hypervascular right ovary; well- defined mass is not seen; subtle heterogeneous rounded area with decreased vascularity within the ovary that may represent a hemorrhagic cyst. In addition there is adjacent free fluid in the cul-de-sac that is slightly hyperdense on CT suggesting that this may represent a ruptured hemorrhagic cyst. There is color Doppler flow within the right ovary. Particularly given that the patient is immunocompromised, infection would also be in the differential diagnosis. Left ovary and uterus within normal limits. -On antibiotics with IV Zosyn as above -Hgb stable at 10.8, continue to monitor -Consult gynecology, appreciate assistance KERRY: Cr 1.22, no reported CKD -give IVF hydration -avoid nephrotoxins -repeat BMP in am Schizophrenia/Anxiety/Depression: chronic -continue patient's Wellbutrin HIV: chronic -continue patient's HAART, Azithro, Bactrim -continue outpatient f/up Dry Skin/Pruritus: acute on chronic -give lac-hydrin lotion bid -Benadryl po prn itching DVT Prophylaxis: teds/SCDs; avoid chemical prophylaxis with possible upcoming procedure
[2018-09-12] MEDS ORDERED: Bupivacaine/Epinephrine Inj 0.25% 50 ML Vial ONE (10:49)
--- NOTE | 2018-09-12 11:07 | P.CONGS ---
[facility] Gen Surgery Consult Note Consult date: 09/12/18 Reason for consult: gallstones Narrative: The patient is a 32-year-old female who presented yesterday with severe substernal and epigastric abdominal pain radiating to the back associated with shortness of breath and nausea. White blood count and LFTs are normal. Troponins were drawn and are normal. She underwent gallbladder ultrasound which showed a large gallstone in the neck of the gallbladder with wall thickening. CT of the abdomen pelvis confirmed these findings as well. 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 Previous abdominal surgeries include and tubal ligation. Review of Systems All other systems reviewed negative except as stated in [facility] - History History Provided By: Patient - Medical History Medical History: Medical History (Last Updated 09/12/18 @ 10:19 by Salena Baeza) Asthma (Acute) AIDS (Acute) Hypertension (Acute) Schizophrenia (Acute) HIV disease - Surgical History Surgical History: Surgical History (Last Reviewed 09/12/18 @ 10:19 by Saelna Baeza) Hx of section (Acute) Hx of tubal ligation (Acute) History of mandibular surgery (Acute) - Family History Family History: Family History (Last Updated 09/12/18 @ 10:19 by Salena Baeza) Mother Type 2 diabetes mellitus - Tobacco History Second Hand Smoke Exposure: No Tobacco Use In Past 30 Days: No Smoking Status: Former smoker Tobacco Type: Cigarettes - Alcohol History How Often Do You Have a Drink Containing Alcohol: Monthly or less - Substance Use History Substance History: Past History (last use over 1 year ago) - Substance Use Type Crack/Cocaine Type: cocaine - Travel History Recent Travel in the [place] Within the Last 8 Weeks: No Recent Travel Out of the Country Within the Last 8 Weeks: No - Immunization History Tetanus Immunization: >5 Years Medications and Allergies Active Medications: Active Medications Acetaminophen (Tylenol) 650 mg PO Q4H PRN PRN Reason: Temp > 100.4 Al Hydroxide/Mg Hydroxide (Milk Of Magnesia Liq) 30 ml PO Q12H PRN PRN Reason: Mild Constipation Bisacodyl (Dulcolax Supp) 10 mg RECTAL DAILY PRN PRN Reason: SEVERE CONSITIPATION Diphenhydramine HCl (Benadryl) 25 mg PO Q6H PRN PRN Reason: ITCHING Last Admin: 09/12/18 10:56 Dose: 25 mg Sodium Chloride (Ns Inj) 1,000 mls @ 125 mls/hr IV.CONT .Q8H [facility] Last Admin: 09/12/18 09:23 Dose: 125 mls/hr Piperacillin/Tazobactam/Dextrose (Zosyn 3.375 Gm Premix) 50 mls @ 100 mls/hr IV.SIG Q6H [facility] Last Infusion: 09/12/18 08:20 Dose: Infused Metronidazole/Sodium Chloride (Flagyl 500 Mg Inj) 100 mls @ 100 mls/hr IV.SIG Q8H [facility] Last Infusion: 09/12/18 10:25 Dose: Infused Lactic Acid (Lac-Hydrin 12% Lotion) 1 applicatio TOPICAL BID [facility] Lactulose (Lactulose Liq) 30 ml PO DAILY PRN PRN Reason: SEVERE CONSITIPATION Levofloxacin (Levaquin) 750 mg PO DAILY [facility] Ondansetron HCl (Zofran Inj) 4 mg IV.PUSH Q6H PRN PRN Reason: NAUSEA OR VOMITING Sennosides (Senokot) 17.2 mg PO Q12H PRN PRN Reason: Moderate Constipation Sodium Chloride (Ns Flush) 2 ml IV.FLUSH BID [facility] Last Admin: 09/12/18 09:23 Dose: Not Given Sodium Chloride (Ns Flush) 2 ml IV.FLUSH PRN PRN PRN Reason: FLUSH AFTER USING IV ACCESS Allergies Allergy/AdvReac Type Severity Reaction Status Date / Time No Known Allergies Allergy Verified 08/17/18 21:06 Home Medications Medication Instructions Recorded Confirmed Type sulfamethoxazole-trimethoprim 1 tab PO BID 08/17/18 09/11/18 History [Bactrim DS] Exam Vital signs: Vital Signs 09/11/18 19:48 09/11/18 19:56 09/11/18 23:53 Temperature 98.5 F Pulse Rate 96 H 79 Respiratory Rate 18 21 Blood Pressure 127/61 124/68 Pulse Oximetry 100 100 100 09/12/18 03:38 09/12/18 04:00 09/12/18 07:46 Temperature 98.5 F 97.6 F Pulse Rate 70 70 77 Respiratory Rate 18 20 14 Blood Pressure 114/60 104/54 L 94/55 L Pulse Oximetry 98 100 98 09/12/18 08:00 Temperature Pulse Rate Respiratory Rate Blood Pressure Pulse Oximetry 97 Intake & Output 09/11/18 09/12/18 09/12/18 18:59 06:59 18:59 Intake Total 150 / 150 1150 / 1150 Balance 150 / 150 1150 / 1150 Weight 113.398 kg Intake: IV 150 / 150 1150 / 1150 NS Inj 1,000 ML @ 125 mls/hr IV 1000 / 1000 .CONT .Q8H [facility] Rx#:[id number] Zosyn 3.375 GM Premix 50 ML @ 50 / 50 50 / 50 100 mls/hr IV.SIG Q6H [facility] Rx#: [id number] Flagyl 500 MG Inj 100 ML @ 100 100 / 100 100 / 100 mls/hr IV.SIG Q8H [facility] Rx#: [id number] Oral 0 / 0 Other: # Voids 2 2 Date of Last Bowel Movement 09/11/18 Weight On Admission 113.398 kg Narrative: GENERAL: Awake and alert. No acute distress. Cooperative. Obese HEAD: Normocephalic. Atraumatic. EYES: Pupils equal round and reactive to light bilaterally. No scleral icterus. ENT: Moist oral mucosa. NECK: Trachea midline. CHEST: Nonlabored breathing. No respiratory distress. CARDIOVASCULAR: Regular rate and rhythm. ABDOMEN: Moderate tenderness to palpation in the right upper quadrant. No rebound or guarding. EXTREMITIES: No cyanosis or edema. SKIN: Warm, dry, nonjaundiced. Results - Labs 09/11/18 20:01 09/11/18 20:01 Laboratory Results - last 24 hr 09/11/18 09/11/18 09/11/18 20:01 20:01 20:01 WBC 6.2 RBC 3.51 L Hgb 10.8 L Hct 32.7 L MCV 93.0 MCH 30.8 MCHC 33.1 RDW 15.9 Plt Count 318 MPV 7.0 Neut % (Auto) 65.0 Lymph % (Auto) 26.3 [place] % (Auto) 5.5 Eos % (Auto) 2.3 Baso % (Auto) 0.9 Neut # (Auto) 4.0 Lymph # (Auto) 1.6 [place] # (Auto) 0.3 Eos # (Auto) 0.1 Baso # (Auto) 0.1 WBC Differential . Differential Comment Auto diff final PT 10.2 INR 1.0 APTT 26.3 Sodium 137 Potassium 4.0 Chloride 106 Carbon Dioxide 22.6 Anion Gap 8 BUN 18 Creatinine 1.22 H Estimated GFR 63 L Random Glucose 95 Calcium 8.6 Total Bilirubin 0.3 AST 11 L ALT 15 Alkaline Phosphatase 78 Total Creatine Kinase 96 Troponin I Less than 0.02 L Total Protein 7.8 Albumin 3.3 L Lipase 192 - Imaging Imaging: ITS Impressions Chest X-Ray 09/11/18 19:54 CONCLUSION: No acute cardiopulmonary disease. Abdomen/Pelvis CT 09/11/18 22:02 CONCLUSION: 1. Large gallstone again identified the gallbladder. Mild nonspecific gallbladder wall thickening. No pericholecystic inflammatory changes. 2. New bilobed mixed solid and cystic elongated area in the right adnexa. Differential diagnosis includes cystic adnexal mass, hydrosalpinx, or ruptured/ hemorrhagic ovarian cyst. Findings could be further evaluated with pelvic ultrasound. Gallbladder Ultrasound 09/11/18 23:30 CONCLUSION: Large calculus in the gallbladder neck. Mild nonspecific diffuse gallbladder wall thickening. Pelvis Ultrasound 09/11/18 23:30 CONCLUSION: 1. Heterogeneous enlarged hypervascular right ovary. It measures 4.8 x 2.8 x 2.3 cm on ultrasound. Correlation with recent CT shows that CT measurements of the ovary are likely 4.9 x 4.4 cm. A well-defined mass is not seen. However there is a subtle heterogeneous rounded area with decreased vascularity within the ovary that may represent a hemorrhagic cyst. In addition there is adjacent free fluid in the cul-de-sac that is slightly hyperdense on CT suggesting that this may represent a ruptured hemorrhagic cyst. There is color Doppler flow within the right ovary. Particularly given that the patient is immunocompromised , infection would also be in the differential diagnosis. 2. Left ovary and uterus within normal limits. CT scan - abdomen: report reviewed CT scan - pelvis: report reviewed US - abdomen: report reviewed Assessment and Plan - Assessment (1) Acute cholecystitis Code(s): K81.0 - Acute cholecystitis Status: Acute (2) Cholelithiasis Code(s): K80.20 - Calculus of gallbladder without cholecystitis without obstruction Status: Acute Qualifiers: Cholelithiasis location: gallbladder Cholecystitis presence: with cholecystitis Cholecystitis acuity: acute Biliary obstruction: without biliary obstruction Qualified Code(s): K80.00 - Calculus of gallbladder with acute cholecystitis without obstruction - Plan The patient has an evaluation consistent with acute cholecystitis. I recommend to proceed to the operating room for laparoscopic possible open cholecystectomy. Discussed details and risks and rationale of surgery with the patient. She desires to proceed.
--- NOTE | 2018-09-12 13:18 | P.OP ---
- Preoperative Diagnosis (1) Acute cholecystitis (2) Cholelithiasis - Postoperative Diagnosis (1) Acute cholecystitis (2) Cholelithiasis Date of procedure: 09/12/18 Procedure: Laparoscopic cholecystectomy Anesthesia: ROBIN Surgeon: Stefano Gallardo MD Time Stamp Assembler: Cali LARES Estimated blood loss (mL): 20 Pathology: other (gallbladder) Operation and Findings: Operative findings: Right ovarian cyst appears benign- viewed intraop by Dr. Singh who recommends follow up u/s in 3-4 months. Acute gallbladder inflammation with large stone in neck. Procedure in detail: The patient was taken to the operating room and placed in the supine position. General endotracheal anesthesia was induced. The abdomen was prepped and draped in usual sterile fashion and a surgical timeout was performed to verify correct patient procedure and site. Appropriate perioperative antibiotics were administered. Local anesthetic was injected in the skin and subcutaneous tissue superior to the umbilicus and a 5 mm incision performed. The abdomen was entered using the Optiview 5 mm trocar with direct laparoscopic visualization. The abdomen was then insufflated to 15 mmHg with CO2 gas which the patient tolerated well. Next a 12 mm port was placed in the epigastrium and two 5 mm ports in the right upper quadrant and right lateral abdomen. The patient was placed in reverse Trendelenburg position and turned slightly to the left. Attention was turned to the right upper quadrant and the dome of the gallbladder was grasped and retracted cephalad. The infundibulum was retracted laterally to expose Calot's triangle. Blunt dissection and judicious use of electrocautery was used to expose the cystic duct and the cystic artery directly entering the gallbladder. Two clips were placed proximally on each of these structures and one distally and they were transected. The gallbladder was then removed from the liver bed using electrocautery. Hemostasis was achieved. The gallbladder was then removed from the abdomen using an Endo Catch bag. The clips were in place on the cystic duct and cystic artery stumps with no bleeding or bile leakage. The right ovary was visualized due to preop imaging. There was an approximately 4 cm benign appearing cyst. THis was visualized intraop by Dr. Singh and he feels this appears benign. At this point, the abdomen was allowed to desufflate and trochars were removed. The fascia at the 12 mm port site was closed with 0 Vicryl suture. Skin was closed with subcuticular 4-0 Monocryl as well as Dermabond. The patient tolerated the procedure well and was extubated and taken to PACU in stable condition. All sponge and instrument counts were correct.
[2018-09-12] MEDS ORDERED: fentaNYL Citrate Inj 100 MCG/2 ML Ampul ONE (13:50)
[2018-09-12] MEDS ORDERED: Morphine Inj 4 MG/ML Vial ONE (13:50)
[2018-09-12] MEDS ORDERED: *morphine SULFATE 4 MG/ML PERIprocedure ONLY ONE (14:11)
[2018-09-12] MEDS ORDERED: HYDROmorphone PF Inj 0.5 MG/0.5 ML Syringe ONE ×2 (14:25→16:00)
[2018-09-12] MEDS ORDERED: diphenhydrAMINE HCl 50 MG/ML VIAL IV.PUSH ONE (15:35)
[2018-09-12] MEDS: Ketorolac 10 MG Tablet PO SCH (17:46)
[2018-09-12] MEDS ORDERED: levoFLOXacin 750 MG Tablet PO SCH (21:00)
[2018-09-12] MEDS: buPROPion 150 MG 12 HR Tablet PO SCH (22:00)
[2018-09-13] MEDS: Ketorolac 10 MG Tablet PO SCH ×4 (00:20→17:23)
[2018-09-13] MEDS: Sod Chloride 0.9% Inj 1,000 ML IV.CONT SCH ×4 (00:31→18:36)
--- NOTE | 2018-09-13 00:44 | P.CONOB ---
History of Present Illness Consult date: 09/12/18 Reason for Consult: Ovarian cyst Primary Care Physician: Rishi Dial MD Chief Complaint: epigastric pain History of Present Illness: 32-year-old female with history of HIV, schizophrenia, anxiety, depression, hypertension, presents with acute onset of epigastric pain. Patient reports she was in her normal state of health yesterday ate some baked chicken, and was at her home, when she all of a sudden developed 10/10 sharp stabbing pains in the epigastric and lower sternum area, with some occasional radiation to her back. The pain continued for couple hours, therefore she called for an ambulance and was transported to the ER via [facility]. She was given aspirin and nitroglycerin in route. She reports some nausea, but no vomiting. States her bowel movements have been normal. Denies fevers or chills. Denies any palpitations or shortness of breath. She denies any similar episodes in the past. She denies ever being told she has any gallbladder disease. She states she wants her gallbladder removed if this is what causing her pain. She has no other medical complaints at this time. RENTAL CAR FERRY DRIVER attending note-RENTAL CAR FERRY DRIVER consult was called secondary to ovarian cyst seen on ultrasound-initially went to see the patient in the ED but she had been taken for emergent lap jerrica. Patient now seen on the floor postoperatively complaining of incisional pain. She initially reports that she had pelvic pain as well. 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 Review of Systems All other systems reviewed negative except as stated in HPI PMFSH - History History Provided By: Patient - Medical History Medical History: Medical History (Last Updated 09/12/18 @ 10:19 by Salena Baeza) Asthma (Acute) AIDS (Acute) Hypertension (Acute) Schizophrenia (Acute) HIV disease - Surgical History Surgical History: Surgical History (Last Reviewed 09/12/18 @ 10:19 by Salena Baeza) Hx of section (Acute) Hx of tubal ligation (Acute) History of mandibular surgery (Acute) - Family History Family History: Family History (Last Updated 09/12/18 @ 10:19 by Salena Baeza) Mother Type 2 diabetes mellitus - Tobacco History Second Hand Smoke Exposure: No Tobacco Use In Past 30 Days: No Smoking Status: Former smoker Tobacco Type: Cigarettes - Alcohol History How Often Do You Have a Drink Containing Alcohol: Monthly or less - Substance Use History Substance History: Past History (last use over 1 year ago) - Substance Use Type Crack/Cocaine Type: cocaine - Travel History Recent Travel in the [place] Within the Last 8 Weeks: No Recent Travel Out of the Country Within the Last 8 Weeks: No - Immunization History Tetanus Immunization: >5 Years Medications and Allergies Active Medications: Active Medications Acetaminophen (Tylenol) 650 mg PO Q4H PRN PRN Reason: Temp > 100.4 Al Hydroxide/Mg Hydroxide (Milk Of Magnesia Liq) 30 ml PO Q12H PRN PRN Reason: Mild Constipation Albuterol (Ventolin Hfa Inh) 1 puff INH Q6H PRN PRN Reason: SHORTNESS OF BREATH/WHEEZING Azithromycin (Zithromax) 600 mg PO MoWeFr [facility] Bisacodyl (Dulcolax Supp) 10 mg RECTAL DAILY PRN PRN Reason: SEVERE CONSITIPATION Bupropion HCl (Wellbutrin Sr) 150 mg PO BID [facility] Last Admin: 09/12/18 22:00 Dose: 150 mg Diphenhydramine HCl (Benadryl) 25 mg PO Q6H PRN PRN Reason: ITCHING Last Admin: 09/13/18 00:31 Dose: 25 mg Sodium Chloride (Ns Inj) 1,000 mls @ 125 mls/hr IV.CONT .Q8H [facility] Last Admin: 09/13/18 00:31 Dose: 125 mls/hr Ketorolac Tromethamine (Toradol) 10 mg PO Q6HR [facility] Stop: 09/17/18 17:59 Last Admin: 09/13/18 00:20 Dose: 10 mg Lactic Acid (Lac-Hydrin 12% Lotion) 1 applicatio TOPICAL BID [facility] Lactulose (Lactulose Liq) 30 ml PO DAILY PRN PRN Reason: SEVERE CONSITIPATION Miscellaneous Information (Misc Nursing Information) 0 each OTHER UNSCH PRN PRN Reason: SEE LABEL COMMENTS Stop: 09/13/18 13:37 Non-Formulary Medication (Toaobispk-Ubjsdzbv-Uwygksc Ala [Biktarvy]) 1 tab PO DAILY [facility] Ondansetron HCl (Zofran Inj) 4 mg IV.PUSH Q6H PRN PRN Reason: NAUSEA OR VOMITING Sennosides (Senokot) 17.2 mg PO Q12H PRN PRN Reason: Moderate Constipation Sodium Chloride (Ns Flush) 2 ml IV.FLUSH BID [facility] Last Admin: 09/12/18 22:00 Dose: 2 ml Sodium Chloride (Ns Flush) 2 ml IV.FLUSH PRN PRN PRN Reason: FLUSH AFTER USING IV ACCESS Trimethoprim/Sulfamethoxazole (Bactrim Ds) 1 tab PO BID [facility] Last Admin: 09/12/18 21:59 Dose: 1 tab Allergies Allergy/AdvReac Type Severity Reaction Status Date / Time No Known Allergies Allergy Verified 08/17/18 21:06 Home Medications Medication Instructions Recorded Confirmed Type sulfamethoxazole-trimethoprim 1 tab PO BID 08/17/18 09/11/18 History [Bactrim DS] Exam Vital signs: Vital Signs 09/12/18 03:38 09/12/18 04:00 09/12/18 07:46 Temperature 98.5 F 97.6 F Pulse Rate 70 70 77 Respiratory Rate 18 20 14 Blood Pressure 114/60 104/54 L 94/55 L Pulse Oximetry 98 100 98 09/12/18 08:00 09/12/18 13:36 09/12/18 13:45 Temperature 97.5 F L Pulse Rate 83 79 Respiratory Rate 24 18 Blood Pressure 126/65 122/60 Pulse Oximetry 97 96 96 09/12/18 14:00 09/12/18 14:15 09/12/18 14:30 Temperature Pulse Rate 73 77 74 Respiratory Rate 18 17 16 Blood Pressure 118/59 L 117/59 L 110/58 L Pulse Oximetry 97 98 98 09/12/18 14:45 09/12/18 15:05 09/12/18 16:00 Temperature 97.7 F Pulse Rate 73 79 Respiratory Rate 15 17 22 Blood Pressure 109/55 L 112/64 Pulse Oximetry 98 98 09/12/18 16:40 09/12/18 16:45 09/12/18 20:00 Temperature 97.5 F L Pulse Rate 73 76 Respiratory Rate 15 15 18 Blood Pressure 106/57 L 117/67 Pulse Oximetry 98 100 Intake & Output 09/12/18 09/12/18 09/13/18 06:59 18:59 06:59 Intake Total 150 / 150 2800 / 2800 1000 / 1000 Output Total 195 / 195 Balance 150 / 150 2605 / 2605 1000 / 1000 Weight 113.398 kg Intake: IV 150 / 150 2150 / 2150 1000 / 1000 NS Inj 1,000 ML @ 125 mls/hr IV 2000 / 1999 1000 / 1000 .CONT .Q8H [facility] Rx#:[id number] Zosyn 3.375 GM Premix 50 ML @ 50 / 50 50 / 50 100 mls/hr IV.SIG Q6H [facility] Rx#: [id number] Flagyl 500 MG Inj 100 ML @ 100 100 / 100 100 / 100 mls/hr IV.SIG Q8H [facility] Rx#: [id number] Oral 0 / 0 Anesthesia Amount 650 / 650 Output: Urine 175 / 175 Estimated Blood Loss Other: # Voids 2 1 Date of Last Bowel Movement 09/11/18 Weight On Admission 113.398 kg - Constitutional no acute distress - Routine HEENT Exam Head: Present: normocephalic ENT: Present: mucous membranes moist - Routine Neck Exam Present: supple - Routine Chest/Breast/Axilla Exam Chest wall: Absent: tenderness - Routine Exam Comments: Pelvic exam deferred - Routine Extremities Exam Absent: cyanosis - Routine Neurological Exam Present: alert, oriented X3 Results - Labs CBC & Chem 7: 09/11/18 20:01 09/11/18 20:01 - Imaging Impressions Gallbladder Ultrasound 09/11/18 23:30 CONCLUSION: Large calculus in the gallbladder neck. Mild nonspecific diffuse gallbladder wall thickening. Pelvis Ultrasound 09/11/18 23:30 CONCLUSION: 1. Heterogeneous enlarged hypervascular right ovary. It measures 4.8 x 2.8 x 2.3 cm on ultrasound. Correlation with recent CT shows that CT measurements of the ovary are likely 4.9 x 4.4 cm. A well-defined mass is not seen. However there is a subtle heterogeneous rounded area with decreased vascularity within the ovary that may represent a hemorrhagic cyst. In addition there is adjacent free fluid in the cul-de-sac that is slightly hyperdense on CT suggesting that this may represent a ruptured hemorrhagic cyst. There is color Doppler flow within the right ovary. Particularly given that the patient is immunocompromised , infection would also be in the differential diagnosis. 2. Left ovary and uterus within normal limits. Assessment and Plan - Diagnosis (1) Hemorrhagic ovarian cyst Code(s): N83.209 - Unspecified ovarian cyst, unspecified side Status: Acute - Plan I have reviewed the films-consistent with ruptured hemorrhagic ovarian cyst uterus is normal size right ovary 14.77 left ovary 6.41 Dopplers are unremarkable free fluid in the [id number]-patient reports menstrual cycle approximately 2 weeks ago. Clinically and radiographically this is consistent with a ruptured ovarian cyst which will resorb. No further RENTAL CAR FERRY DRIVER intervention needed at this time. Discussed with the patient if pain persists we will schedule outpatient follow-up otherwise no intervention needed. Cleared from RENTAL CAR FERRY DRIVER
[2018-09-13] MEDS ORDERED: Morphine Inj 4 MG/ML Vial IV.PUSH ONE (04:25)
[2018-09-13 05:49] LABS: Baso % (Auto) 0.2 % (0.0-2.0); Eos % (Auto) 0.1 % (0.0-4.0); Hematocrit 32.7 % (35.0-46.0); Hemoglobin 10.8 gm/dL (11.6-15.3); Lymph # (Auto) 1.3 th/mm3 (1.0-4.8); Lymph % (Auto) 14.5 % (9.0-44.0); Mean Corpuscular Hemoglobin 31.2 pg (27.0-34.0); Mean Corpuscular Volume 94.6 fL (80.0-100.0); Mono # (Auto) 0.5 th/mm3 (0.0-0.9); Mono % (Auto) 5.6 % (0.0-8.0); Neut % (Auto) 79.6 % (16.0-70.0); Platelet Count 328 th/mm3 (150-450); Red Blood Count 3.45 mil/mm3 (4.00-5.30); Red Cell Distribution Width 15.8 % (11.6-17.2); White Blood Count 8.8 th/mm3 (4.0-11.0)
[2018-09-13 06:36] LABS: Alanine Aminotransferase 132 U/L (10-53); Albumin 2.9 g/dL (3.4-5.0); Alkaline Phosphatase 118 U/L (45-117); Anion Gap 8 meq/L (5-15); Aspartate Aminotransferase 113 U/L (15-37); Blood Urea Nitrogen 13 mg/dL (7-18); Calcium 8.2 mg/dL (8.5-10.1); Carbon Dioxide 22.9 meq/L (21.0-32.0); Chloride 107 meq/L (98-107); Glomerular Filtration Rate 75 mL/min (>89); Glucose,Random 113 mg/dL (74-106); Potassium 4.3 meq/L (3.5-5.1); Sodium 138 meq/L (136-145); Total Protein 7.5 g/dL (6.4-8.2)
[2018-09-13] MEDS: buPROPion 150 MG 12 HR Tablet PO SCH ×2 (08:28→21:48)
--- NOTE | 2018-09-13 09:09 | P.PNGS ---
Subjective Interval history: She is doing well this morning. Tolerating diet. Pain controlled. Physical Exam Vital signs: Vital Signs 09/12/18 13:36 09/12/18 13:45 09/12/18 14:00 Temperature 97.5 F L Pulse Rate 83 79 73 Respiratory Rate 24 18 18 Blood Pressure 126/65 122/60 118/59 L Pulse Oximetry 96 96 97 09/12/18 14:15 09/12/18 14:30 09/12/18 14:45 Temperature 97.7 F Pulse Rate 77 74 73 Respiratory Rate 17 16 15 Blood Pressure 117/59 L 110/58 L 109/55 L Pulse Oximetry 98 98 98 09/12/18 15:05 09/12/18 16:00 09/12/18 16:40 Temperature Pulse Rate 79 Respiratory Rate 17 22 15 Blood Pressure 112/64 Pulse Oximetry 98 09/12/18 16:45 09/12/18 20:00 09/13/18 00:00 Temperature 97.5 F L 98.4 F Pulse Rate 73 76 75 Respiratory Rate 15 18 18 Blood Pressure 106/57 L 117/67 106/58 L Pulse Oximetry 98 100 100 09/13/18 04:00 Temperature 98.8 F Pulse Rate 101 H Respiratory Rate 18 Blood Pressure 152/65 H Pulse Oximetry 100 Intake & Output 09/12/18 09/13/18 09/13/18 18:59 06:59 18:59 Intake Total 2800 / 2800 1472 / 1472 Output Total 195 / 195 Balance 2605 / 2605 1472 / 1472 Weight 113.398 kg Intake: IV 2150 / 2150 1000 / 1000 NS Inj 1,000 ML @ 125 mls/hr IV 1999 / 1999 1000 / 1000 .CONT .Q8H [facility] Rx#:[id number] Zosyn 3.375 GM Premix 50 ML @ 50 / 50 100 mls/hr IV.SIG Q6H [facility] Rx#: [id number] Flagyl 500 MG Inj 100 ML @ 100 100 / 100 mls/hr IV.SIG Q8H [facility] Rx#: [id number] Oral 472 / 472 Anesthesia Amount 650 / 650 Output: Urine 175 / 175 Estimated Blood Loss 20 / 20 Other: # Voids 1 3 Narrative: NAD Abd: inc c/d/i, soft Results - Labs 09/13/18 05:18 09/13/18 05:18 Laboratory Results - last 24 hr 09/13/18 09/13/18 05:18 05:18 WBC 8.8 RBC 3.45 L Hgb 10.8 L Hct 32.7 L MCV 94.6 MCH 31.2 MCHC 33.0 RDW 15.8 Plt Count 328 MPV 7.0 Neut % (Auto) 79.6 H Lymph % (Auto) 14.5 [place] % (Auto) 5.6 Eos % (Auto) 0.1 Baso % (Auto) 0.2 Neut # (Auto) 7.0 Lymph # (Auto) 1.3 [place] # (Auto) 0.5 Eos # (Auto) 0.0 Baso # (Auto) 0.0 WBC Differential . Differential Comment Auto diff final Sodium 138 Potassium 4.3 Chloride 107 Carbon Dioxide 22.9 Anion Gap 8 BUN 13 Creatinine 1.04 H Estimated GFR 75 L Random Glucose 113 H Calcium 8.2 L Total Bilirubin 0.3 AST 113 H ALT 132 H Alkaline Phosphatase 118 H Total Protein 7.5 Albumin 2.9 L - Imaging Imaging: ITS Impressions Chest X-Ray 09/11/18 19:54 CONCLUSION: No acute cardiopulmonary disease. Abdomen/Pelvis CT 09/11/18 22:02 CONCLUSION: 1. Large gallstone again identified the gallbladder. Mild nonspecific gallbladder wall thickening. No pericholecystic inflammatory changes. 2. New bilobed mixed solid and cystic elongated area in the right adnexa. Differential diagnosis includes cystic adnexal mass, hydrosalpinx, or ruptured/ hemorrhagic ovarian cyst. Findings could be further evaluated with pelvic ultrasound. Gallbladder Ultrasound 09/11/18 23:30 CONCLUSION: Large calculus in the gallbladder neck. Mild nonspecific diffuse gallbladder wall thickening. Pelvis Ultrasound 09/11/18 23:30 CONCLUSION: 1. Heterogeneous enlarged hypervascular right ovary. It measures 4.8 x 2.8 x 2.3 cm on ultrasound. Correlation with recent CT shows that CT measurements of the ovary are likely 4.9 x 4.4 cm. A well-defined mass is not seen. However there is a subtle heterogeneous rounded area with decreased vascularity within the ovary that may represent a hemorrhagic cyst. In addition there is adjacent free fluid in the cul-de-sac that is slightly hyperdense on CT suggesting that this may represent a ruptured hemorrhagic cyst. There is color Doppler flow within the right ovary. Particularly given that the patient is immunocompromised , infection would also be in the differential diagnosis. 2. Left ovary and uterus within normal limits. Assessment and Plan - Assessment (1) Acute cholecystitis Code(s): K81.0 - Acute cholecystitis Status: Acute (2) Cholelithiasis Code(s): K80.20 - Calculus of gallbladder without cholecystitis without obstruction Status: Acute - Plan POD 1 s/p lap jerrica. Doing well. Tolerating diet. Ovarian cyst was visualized during surgery by myself and Dr. Kayli Singh. This appears to be benign. At most she would need a f/u ultrasound as an outpatient in 3-[address] Singh. Discussed with the patient. F/u with me in two weeks. (2) Cholelithiasis Qualifiers: Cholelithiasis location: gallbladder Cholecystitis presence: with cholecystitis Cholecystitis acuity: acute Biliary obstruction: without biliary obstruction Qualified Code(s): K80.00 - Calculus of gallbladder with acute cholecystitis without obstruction
[2018-09-13] MEDS: Lactic Acid (Ammonium Lactate) 12% Lotion 225 GM Bottle TOPICAL SCH (10:27)
--- NOTE | 2018-09-13 11:02 | P.PN ---
Subjective Interval history: Patient s/p Laparoscopic cholecystectomy c/o pain at operation site tolerating food no acute issue. Physical Exam Vital signs: Vital Signs 09/12/18 13:36 09/12/18 13:45 09/12/18 14:00 Temperature 97.5 F L Pulse Rate 83 79 73 Respiratory Rate 24 18 18 Blood Pressure 126/65 122/60 118/59 L Pulse Oximetry 96 96 97 09/12/18 14:15 09/12/18 14:30 09/12/18 14:45 Temperature 97.7 F Pulse Rate 77 74 73 Respiratory Rate 17 16 15 Blood Pressure 117/59 L 110/58 L 109/55 L Pulse Oximetry 98 98 98 09/12/18 15:05 09/12/18 16:00 09/12/18 16:40 Temperature Pulse Rate 79 Respiratory Rate 17 22 15 Blood Pressure 112/64 Pulse Oximetry 98 09/12/18 16:45 09/12/18 20:00 09/13/18 00:00 Temperature 97.5 F L 98.4 F Pulse Rate 73 76 75 Respiratory Rate 15 18 18 Blood Pressure 106/57 L 117/67 106/58 L Pulse Oximetry 98 100 100 09/13/18 04:00 09/13/18 08:00 Temperature 98.8 F 97.9 F Pulse Rate 101 H 80 Respiratory Rate 18 16 Blood Pressure 152/65 H 120/60 Pulse Oximetry 100 97 Intake & Output 09/12/18 09/13/18 09/13/18 18:59 06:59 18:59 Intake Total 2800 / 2800 1472 / 1472 1000 / 1000 Output Total 195 / 195 Balance 2605 / 2605 1472 / 1472 1000 / 1000 Weight 113.398 kg Intake: IV 2150 / 2150 1000 / 1000 1000 / 1000 NS Inj 1,000 ML @ 125 mls/hr IV 2000 / 2000 1000 / 1000 1000 / 1000 .CONT .Q8H [facility] Rx#:[id number] Zosyn 3.375 GM Premix 50 ML @ 50 / 50 100 mls/hr IV.SIG Q6H [facility] Rx#: [id number] Flagyl 500 MG Inj 100 ML @ 100 100 / 100 mls/hr IV.SIG Q8H [facility] Rx#: [id number] Oral 472 / 472 Anesthesia Amount 650 / 650 Output: Urine 175 / 175 Estimated Blood Loss 20 / 20 Other: # Voids 1 3 - Constitutional no acute distress - Routine HEENT Exam Head: Present: normocephalic, atraumatic ENT: Present: mucous membranes moist - Routine Neck Exam Present: supple, full ROM - Routine Respiratory Exam Present: CTA bilaterally - Routine Cardiovascular Exam Present: RRR, S1, S2 - Routine Abdominal Exam Present: soft Comments: Tender at operation site. - Routine Skin Exam Present: dry, warm - Routine Neurological Exam Present: alert, oriented X3, CN II-XII intact, moving all extremities, vision grossly intact, hearing grossly intact, normal speech - Detailed Neurological Exam: Coma Scale Eye Opening: Spontaneous Verbal Response: Oriented Motor Response: Obey commands [place] Coma Scale Total: 15 - Routine Psychiatric Exam Present: normal affect, normal thought process, good judgment Results - Labs CBC & Chem 7: 09/13/18 12:28 09/13/18 12:28 Laboratory Results - last 24 hr 09/13/18 09/13/18 05:18 05:18 WBC 8.8 RBC 3.45 L Hgb 10.8 L Hct 32.7 L MCV 94.6 MCH 31.2 MCHC 33.0 RDW 15.8 Plt Count 328 MPV 7.0 Neut % (Auto) 79.6 H Lymph % (Auto) 14.5 [place] % (Auto) 5.6 Eos % (Auto) 0.1 Baso % (Auto) 0.2 Neut # (Auto) 7.0 Lymph # (Auto) 1.3 [place] # (Auto) 0.5 Eos # (Auto) 0.0 Baso # (Auto) 0.0 WBC Differential . Differential Comment Auto diff final Sodium 138 Potassium 4.3 Chloride 107 Carbon Dioxide 22.9 Anion Gap 8 BUN 13 Creatinine 1.04 H Estimated GFR 75 L Random Glucose 113 H Calcium 8.2 L Total Bilirubin 0.3 AST 113 H ALT 132 H Alkaline Phosphatase 118 H Total Protein 7.5 Albumin 2.9 L Assessment and Plan - Plan Assessment and Plan 32-year-old female with history of HIV, schizophrenia, anxiety, depression, hypertension, presents with acute onset of epigastric pain. Acute Cholecystitis: -CT abd/pelvis reviewed, shows Large gallstone in the gallbladder. Mild gallbladder wall thickening. No pericholecystic inflammatory changes. -GB U/S showed Large calculus in the gallbladder neck. Mild nonspecific diffuse gallbladder wall thickening. - on antibiotics with IV Zosyn -Supportive treatment with IVF, antiemetics, and pain control as needed S/P cholecystectomy General Surgery input noted. Right Adnexal Cyst vs Mass: acute. No vaginal bleeding reported by the patient. Endorses monthly menstrual cycle lasting 3-7 days. -CT abd/pelvis showed New bilobed mixed solid and cystic elongated area in the right adnexa. Differential diagnosis includes cystic adnexal mass, hydrosalpinx, or ruptured/hemorrhagic ovarian cyst. -Pelvic U/S showed Heterogeneous enlarged hypervascular right ovary; well- defined mass is not seen; subtle heterogeneous rounded area with decreased vascularity within the ovary that may represent a hemorrhagic cyst. In addition there is adjacent free fluid in the cul-de-sac that is slightly hyperdense on CT suggesting that this may represent a ruptured hemorrhagic cyst. There is color Doppler flow within the right ovary. Particularly given that the patient is immunocompromised, infection would also be in the differential diagnosis. Left ovary and uterus within normal limits. -On antibiotics with IV Zosyn as above -Hgb stable at 10.8, continue to monitor - gynecology, appreciate assistance.. 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 KERRY: Cr 1.22, no reported CKD -give IVF hydration -avoid nephrotoxins -repeat BMP in am Schizophrenia/Anxiety/Depression: chronic -continue patient's Wellbutrin HIV: chronic -continue patient's HAART, Azithro, Bactrim -continue outpatient f/up Dry Skin/Pruritus: acute on chronic -give lac-hydrin lotion bid -Benadryl po prn itching Check CBC with diff CMP in AM. DVT Prophylaxis: teds/SCDs; avoid chemical prophylaxis with possible upcoming procedure
[2018-09-13] MEDS: BIKTARVY PO SCH (12:00)
[2018-09-13 12:53] LABS: Baso % (Auto) 0.3 % (0.0-2.0); Eos % (Auto) 0.5 % (0.0-4.0); Hematocrit 30.2 % (35.0-46.0); Hemoglobin 9.9 gm/dL (11.6-15.3); Lymph % (Auto) 13.2 % (9.0-44.0); Mean Corpuscular Hemoglobin 31.2 pg (27.0-34.0); Mean Corpuscular Volume 94.7 fL (80.0-100.0); Mean Platelet Volume 6.8 fL (7.0-11.0); Mono # (Auto) 0.5 th/mm3 (0.0-0.9); Mono % (Auto) 6.3 % (0.0-8.0); Neut # (Auto) 6.1 th/mm3 (1.8-7.7); Neut % (Auto) 79.7 % (16.0-70.0); Platelet Count 294 th/mm3 (150-450); Red Blood Count 3.18 mil/mm3 (4.00-5.30); White Blood Count 7.6 th/mm3 (4.0-11.0)
[2018-09-13 13:15] LABS: Alanine Aminotransferase 107 U/L (10-53); Albumin 2.8 g/dL (3.4-5.0); Anion Gap 6 meq/L (5-15); Aspartate Aminotransferase 73 U/L (15-37); Blood Urea Nitrogen 16 mg/dL (7-18); Calcium 8.2 mg/dL (8.5-10.1); Carbon Dioxide 24.3 meq/L (21.0-32.0); Chloride 109 meq/L (98-107); Glomerular Filtration Rate 78 mL/min (>89); Glucose,Random 102 mg/dL (74-106); Sodium 139 meq/L (136-145)
[2018-09-13 13:18] LABS: Alkaline Phosphatase 102 U/L (45-117)
[2018-09-14] MEDS: Ketorolac 10 MG Tablet PO SCH ×4 (00:10→17:21)
[2018-09-14] MEDS: Sod Chloride 0.9% Inj 1,000 ML IV.CONT SCH ×4 (02:25→18:42)
[2018-09-14] MEDS: Lactic Acid (Ammonium Lactate) 12% Lotion 225 GM Bottle TOPICAL SCH ×4 (06:28→20:40)
[2018-09-14] MEDS: buPROPion 150 MG 12 HR Tablet PO SCH ×2 (08:54→20:35)
[2018-09-14] MEDS: Acetaminophen 325 MG Tablet PO PRN ×2 (08:54→20:39)
[2018-09-14] MEDS: BIKTARVY PO SCH (08:55)
--- NOTE | 2018-09-14 11:35 | P.PN ---
Subjective Interval history: Patient feel better still have abdominal pain at surgery site. Passenger Screener and General surgery input noted. Physical Exam Vital signs: Vital Signs 09/13/18 12:00 09/13/18 16:00 09/13/18 20:00 Temperature 98.0 F 98.1 F 98.9 F Pulse Rate 88 89 88 Respiratory Rate 15 16 17 Blood Pressure 93/52 L 115/58 L 106/51 L Pulse Oximetry 99 100 97 09/14/18 00:00 Temperature 99.2 F Pulse Rate 82 Respiratory Rate 20 Blood Pressure 109/54 L Pulse Oximetry 98 Intake & Output 09/13/18 09/14/18 09/14/18 18:59 06:59 18:59 Intake Total 1999 1580 / 1580 Balance 1999 1580 / 1580 Weight 113 kg Intake: IV 1999 1000 / 1000 NS Inj 1,000 ML @ 125 mls/hr IV 1999 1000 / 1000 .CONT .Q8H [facility] Rx#:[id number] Oral 580 / 580 Other: # Voids 3 - Constitutional no acute distress - Routine HEENT Exam Head: Present: normocephalic, atraumatic Eye: Present: EOMI, PERRL ENT: Present: mucous membranes moist - Routine Neck Exam Present: supple, full ROM - Routine Respiratory Exam Present: CTA bilaterally - Routine Cardiovascular Exam Present: RRR, S1, S2 - Routine Abdominal Exam Present: soft, normoactive bowel sounds - Routine Extremities Exam Present: full ROM, pulses intact - Routine Skin Exam Present: intact, dry, warm - Routine Neurological Exam Present: alert, oriented X3, CN II-XII intact, moving all extremities, vision grossly intact, hearing grossly intact, normal speech - Detailed Neurological Exam: Coma Scale Eye Opening: Spontaneous Verbal Response: Oriented Motor Response: Obey commands [place] Coma Scale Total: 15 - Routine Psychiatric Exam Present: normal affect, normal thought process, good judgment Results - Labs CBC & Chem 7: 09/13/18 12:28 09/13/18 12:28 Laboratory Results - last 24 hr 09/13/18 09/13/18 12:28 12:28 WBC 7.6 RBC 3.18 L Hgb 9.9 L Hct 30.2 L MCV 94.7 MCH 31.2 MCHC 33.0 RDW 16.0 Plt Count 294 MPV 6.8 L Neut % (Auto) 79.7 H Lymph % (Auto) 13.2 [place] % (Auto) 6.3 Eos % (Auto) 0.5 Baso % (Auto) 0.3 Neut # (Auto) 6.1 Lymph # (Auto) 1.0 [place] # (Auto) 0.5 Eos # (Auto) 0.0 Baso # (Auto) 0.0 WBC Differential . Differential Comment Auto diff final Sodium 139 Potassium 4.0 Chloride 109 H Carbon Dioxide 24.3 Anion Gap 6 BUN 16 Creatinine 1.01 H Estimated GFR 78 L Random Glucose 102 Calcium 8.2 L Total Bilirubin 0.2 AST 73 H ALT 107 H Alkaline Phosphatase 102 Total Protein 7.0 Albumin 2.8 L Assessment and Plan - Plan Assessment and Plan 32-year-old female with history of HIV, schizophrenia, anxiety, depression, hypertension, presents with acute onset of epigastric pain. Acute Cholecystitis: -CT abd/pelvis reviewed, shows Large gallstone in the gallbladder. Mild gallbladder wall thickening. No pericholecystic inflammatory changes. -GB U/S showed Large calculus in the gallbladder neck. Mild nonspecific diffuse gallbladder wall thickening. - on antibiotics with IV Zosyn -Supportive treatment with antiemetics, and pain control as needed S/P cholecystectomy General Surgery input noted. Right Adnexal Cyst vs Mass: acute. No vaginal bleeding reported by the patient. Endorses monthly menstrual cycle lasting 3-7 days. -CT abd/pelvis showed New bilobed mixed solid and cystic elongated area in the right adnexa. Differential diagnosis includes cystic adnexal mass, hydrosalpinx, or ruptured/hemorrhagic ovarian cyst. -Pelvic U/S showed Heterogeneous enlarged hypervascular right ovary; well- defined mass is not seen; subtle heterogeneous rounded area with decreased vascularity within the ovary that may represent a hemorrhagic cyst. In addition there is adjacent free fluid in the cul-de-sac that is slightly hyperdense on CT suggesting that this may represent a ruptured hemorrhagic cyst. There is color Doppler flow within the right ovary. Particularly given that the patient is immunocompromised, infection would also be in the differential diagnosis. Left ovary and uterus within normal limits. -On antibiotics with IV Zosyn as above -Hgb stable at 10.8, continue to monitor - gynecology, appreciate assistance.. Per Applied Researcher benign cyst. KERRY: Cr 1.22, no reported CKD -give IVF hydration -avoid nephrotoxins -repeat BMP in am Schizophrenia/Anxiety/Depression: chronic -continue patient's Wellbutrin HIV: chronic -continue patient's HAART, Azithro, Bactrim -continue outpatient f/up Dry Skin/Pruritus: acute on chronic -give lac-hydrin lotion bid -Benadryl po prn itching Check CBC with diff CMP in AM. Acute blood loss anemia secondary to surgery. DVT Prophylaxis: teds/SCDs; avoid chemical prophylaxis with possible upcoming procedure Discharge plan tomorrow.
[2018-09-14 13:36] LABS: Hematocrit 27.8 % (35.0-46.0); Hemoglobin 9.4 gm/dL (11.6-15.3); Mean Corpuscular HGB Conc 33.6 % (32.0-36.0); Mean Corpuscular Volume 95.2 fL (80.0-100.0); Platelet Count 277 th/mm3 (150-450); Red Blood Count 2.92 mil/mm3 (4.00-5.30); Red Cell Distribution Width 16.5 % (11.6-17.2); White Blood Count 5.2 th/mm3 (4.0-11.0)
[2018-09-14 13:58] LABS: Alanine Aminotransferase 67 U/L (10-53); Albumin 2.6 g/dL (3.4-5.0); Anion Gap 5 meq/L (5-15); Aspartate Aminotransferase 30 U/L (15-37); Blood Urea Nitrogen 12 mg/dL (7-18); Calcium 7.9 mg/dL (8.5-10.1); Carbon Dioxide 25.3 meq/L (21.0-32.0); Chloride 109 meq/L (98-107); Glomerular Filtration Rate 80 mL/min (>89); Glucose,Random 99 mg/dL (74-106); Sodium 139 meq/L (136-145)
[2018-09-14 14:00] LABS: Alkaline Phosphatase 74 U/L (45-117); Total Protein 6.5 g/dL (6.4-8.2)
[2018-09-14 14:09] LABS: Eosinophils 3 % (0-4); Lymphocytes 20 % (9-44); Monocytes 3 % (0-8)
[2018-09-14 14:10] LABS: Platelet Estimate Normal (Normal); Platelet Morphology Normal (Normal); RBC Morphology Normal (Normal)
[2018-09-15] MEDS: Ketorolac 10 MG Tablet PO SCH ×5 (00:06→23:35)
[2018-09-15] MEDS: Sod Chloride 0.9% Inj 1,000 ML IV.CONT SCH ×3 (01:40→17:46)
[2018-09-15] MEDS: buPROPion 150 MG 12 HR Tablet PO SCH ×2 (09:08→20:52)
[2018-09-15] MEDS: BIKTARVY PO SCH (09:09)
[2018-09-15] MEDS: Lactic Acid (Ammonium Lactate) 12% Lotion 225 GM Bottle TOPICAL SCH ×2 (09:09→20:52)
--- NOTE | 2018-09-15 13:07 | P.PN ---
Subjective Interval history: patient c/o pain at operation area tolerating food. no acute issue. Physical Exam Vital signs: Vital Signs 09/14/18 16:00 09/14/18 20:00 09/15/18 00:00 Temperature 97.9 F 98.4 F 98.2 F Pulse Rate 79 85 78 Respiratory Rate 16 16 18 Blood Pressure 97/56 L 98/54 L 118/56 L Pulse Oximetry 99 100 98 09/15/18 01:40 09/15/18 08:00 09/15/18 12:00 Temperature 98.0 F 98 F Pulse Rate 80 18 L Respiratory Rate 18 19 Blood Pressure 118/70 93/53 L Pulse Oximetry 100 100 Intake & Output 09/14/18 09/15/18 09/15/18 18:59 06:59 18:59 Intake Total 1000 / 1000 1720 / 1720 Balance 1000 / 1000 1720 / 1720 Weight 126.5 kg Intake: IV 1000 / 1000 1000 / 1000 NS Inj 1,000 ML @ 125 mls/hr IV 1000 / 1000 1000 / 1000 .CONT .Q8H [facility] Rx#:[id number] Oral 720 / 720 Other: # Voids 2 Date of Last Bowel Movement 09/15/18 - Constitutional no acute distress - Routine HEENT Exam Head: Present: normocephalic, atraumatic Eye: Present: EOMI, PERRL ENT: Present: mucous membranes moist - Routine Neck Exam Present: supple, full ROM - Routine Respiratory Exam Present: CTA bilaterally - Routine Cardiovascular Exam Present: RRR, S1, S2 - Routine Abdominal Exam Present: soft, normoactive bowel sounds Comments: Tender at surgical area. - Routine Skin Exam Present: intact, dry, warm - Routine Neurological Exam Present: alert, oriented X3, CN II-XII intact, moving all extremities, normal speech - Detailed Neurological Exam: Coma Scale Eye Opening: Spontaneous Verbal Response: Oriented Motor Response: Obey commands [place] Coma Scale Total: 15 - Routine Psychiatric Exam Present: normal affect, normal thought process, good judgment Results - Labs CBC & Chem 7: 09/14/18 13:11 09/14/18 13:11 Laboratory Results - last 24 hr 09/14/18 09/14/18 13:11 13:11 WBC 5.2 RBC 2.92 L Hgb 9.4 L Hct 27.8 L MCV 95.2 MCH 32.0 MCHC 33.6 RDW 16.5 Plt Count 277 MPV 7.0 Prelim Diff (Auto) Manual diff required WBC Differential Manual diff final Seg Neuts % (Manual) 73 H Lymphocytes % (Manual) 20 Monocytes % (Manual) 3 Eosinophils % (Manual) 3 Basophils % (Manual) 1 Abs Neuts (Manual) 3.8 Differential Comment . Platelet Estimate Normal Platelet Morphology Normal RBC Morphology Normal Sodium 139 Potassium 4.0 Chloride 109 H Carbon Dioxide 25.3 Anion Gap 5 BUN 12 Creatinine 0.99 Estimated GFR 80 L Random Glucose 99 Calcium 7.9 L Total Bilirubin 0.2 AST 30 ALT 67 H Alkaline Phosphatase 74 Total Protein 6.5 Albumin 2.6 L Assessment and Plan - Plan Assessment and Plan 32-year-old female with history of HIV, schizophrenia, anxiety, depression, hypertension, presents with acute onset of epigastric pain. Acute Cholecystitis: -CT abd/pelvis reviewed, shows Large gallstone in the gallbladder. Mild gallbladder wall thickening. No pericholecystic inflammatory changes. -GB U/S showed Large calculus in the gallbladder neck. Mild nonspecific diffuse gallbladder wall thickening. - on antibiotics with IV Zosyn -Supportive treatment with antiemetics, and pain control as needed S/P cholecystectomy General Surgery input noted. Right Adnexal Cyst vs Mass: acute. No vaginal bleeding reported by the patient. Endorses monthly menstrual cycle lasting 3-7 days. -CT abd/pelvis showed New bilobed mixed solid and cystic elongated area in the right adnexa. Differential diagnosis includes cystic adnexal mass, hydrosalpinx, or ruptured/hemorrhagic ovarian cyst. -Pelvic U/S showed Heterogeneous enlarged hypervascular right ovary; well- defined mass is not seen; subtle heterogeneous rounded area with decreased vascularity within the ovary that may represent a hemorrhagic cyst. In addition there is adjacent free fluid in the cul-de-sac that is slightly hyperdense on CT suggesting that this may represent a ruptured hemorrhagic cyst. There is color Doppler flow within the right ovary. Particularly given that the patient is immunocompromised, infection would also be in the differential diagnosis. Left ovary and uterus within normal limits. -On antibiotics with IV Zosyn as above -Hgb stable at 10.8, continue to monitor - gynecology, appreciate assistance.. 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 KERRY: Cr 1.22, no reported CKD -give IVF hydration -avoid nephrotoxins -repeat BMP in am Schizophrenia/Anxiety/Depression: chronic -continue patient's Wellbutrin HIV: chronic -continue patient's HAART, Azithro, Bactrim -continue outpatient f/up Dry Skin/Pruritus: acute on chronic -give lac-hydrin lotion bid -Benadryl po prn itching Check CBC with diff CMP in AM. Acute blood loss anemia secondary to surgery. DVT Prophylaxis: teds/SCDs; avoid chemical prophylaxis with possible upcoming procedure Discharge plan tomorrow if ok with surgery.
[2018-09-16] MEDS: Sod Chloride 0.9% Inj 1,000 ML IV.CONT SCH ×2 (03:11→11:11)
[2018-09-16] MEDS: Ketorolac 10 MG Tablet PO SCH ×2 (05:37→12:35)
[2018-09-16] MEDS: buPROPion 150 MG 12 HR Tablet PO SCH (09:10)
[2018-09-16] MEDS: BIKTARVY PO SCH (09:11)
[2018-09-16] MEDS: Lactic Acid (Ammonium Lactate) 12% Lotion 225 GM Bottle TOPICAL SCH (09:13)
--- NOTE | 2018-09-16 09:47 | P.PN ---
Subjective Interval history: Patient feel better mild pain at surgery site no acute issue ok to discharge home today. Physical Exam Vital signs: Vital Signs 09/15/18 12:00 09/15/18 16:00 09/15/18 20:00 Temperature 98 F 98.4 F 98 F Pulse Rate 18 L 72 85 Respiratory Rate 18 16 Blood Pressure 93/53 L 99/51 L 111/58 L Pulse Oximetry 100 98 99 09/16/18 00:00 Temperature 97.9 F Pulse Rate 74 Respiratory Rate 18 Blood Pressure 143/64 H Pulse Oximetry 100 Intake & Output 09/15/18 09/16/18 09/16/18 18:59 06:59 18:59 Intake Total 900 / 900 960 / 960 Balance 900 / 900 960 / 960 Weight 125.4 kg Intake: IV 900 / 900 NS Inj 1,000 ML @ 125 mls/hr IV 900 / 900 .CONT .Q8H [facility] Rx#:[id number] Oral 960 / 960 Other: # Voids 6 Date of Last Bowel Movement 09/15/18 # Bowel Movements 2 - Constitutional no acute distress - Routine HEENT Exam Head: Present: normocephalic, atraumatic Eye: Present: EOMI, PERRL ENT: Present: mucous membranes moist - Routine Neck Exam Present: supple, full ROM - Routine Respiratory Exam Present: CTA bilaterally - Routine Cardiovascular Exam Present: RRR, S1, S2 - Routine Abdominal Exam Present: soft, normoactive bowel sounds Comments: Tender at operation area. - Routine Skin Exam Present: intact, erythema, warm - Routine Neurological Exam Present: alert, oriented X3, CN II-XII intact, moving all extremities, vision grossly intact, hearing grossly intact, normal speech - Detailed Neurological Exam: Coma Scale Eye Opening: Spontaneous Verbal Response: Oriented Motor Response: Obey commands [place] Coma Scale Total: 15 - Routine Psychiatric Exam Present: normal affect, normal thought process, good judgment Results - Labs CBC & Chem 7: 09/14/18 13:11 09/14/18 13:11 Assessment and Plan - Plan Assessment and Plan 32-year-old female with history of HIV, schizophrenia, anxiety, depression, hypertension, presents with acute onset of epigastric pain. Acute Cholecystitis: -CT abd/pelvis reviewed, shows Large gallstone in the gallbladder. Mild gallbladder wall thickening. No pericholecystic inflammatory changes. -GB U/S showed Large calculus in the gallbladder neck. Mild nonspecific diffuse gallbladder wall thickening. - on antibiotics with IV Zosyn -Supportive treatment with antiemetics, and pain control as needed S/P cholecystectomy General Surgery input noted. Right Adnexal Cyst vs Mass: acute. No vaginal bleeding reported by the patient. Endorses monthly menstrual cycle lasting 3-7 days. -CT abd/pelvis showed New bilobed mixed solid and cystic elongated area in the right adnexa. Differential diagnosis includes cystic adnexal mass, hydrosalpinx, or ruptured/hemorrhagic ovarian cyst. -Pelvic U/S showed Heterogeneous enlarged hypervascular right ovary; well- defined mass is not seen; subtle heterogeneous rounded area with decreased vascularity within the ovary that may represent a hemorrhagic cyst. In addition there is adjacent free fluid in the cul-de-sac that is slightly hyperdense on CT suggesting that this may represent a ruptured hemorrhagic cyst. There is color Doppler flow within the right ovary. Particularly given that the patient is immunocompromised, infection would also be in the differential diagnosis. Left ovary and uterus within normal limits. -On antibiotics with IV Zosyn as above -Hgb stable at 10.8, continue to monitor - gynecology, appreciate assistance.. 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 KERRY: Cr 1.22, no reported CKD -give IVF hydration -avoid nephrotoxins -repeat BMP in am Schizophrenia/Anxiety/Depression: chronic -continue patient's Wellbutrin HIV: chronic -continue patient's HAART, Azithro, Bactrim -continue outpatient f/up Dry Skin/Pruritus: acute on chronic -give lac-hydrin lotion bid -Benadryl po prn itching Check CBC with diff CMP in AM. Acute blood loss anemia secondary to surgery. DVT Prophylaxis: teds/SCDs; avoid chemical prophylaxis with possible upcoming procedure Ok to discharge home today f/u with PCP/ General surgery 1 week.
--- NOTE | 2018-09-16 14:22 | MD ---
cc: Rishi Dial MD DATE OF DISCHARGE: CONDITION AT THE TIME OF DISCHARGE: Satisfactory. ACTIVITY: As tolerated. DIET: Cardiac, healthy heart diet. ALLERGIES: NO KNOWN DRUG ALLERGIES. MEDICATIONS: Include: 1. Ketorolac 10 mg p.o. every 6 hours p.r.n. pain. 2. Albuterol inhaler. 3. Azithromycin 600 mg p.o. Sunday, Sunday, Sunday. 4. Biktarvy 50/200/25 1 p.o. daily. 5. Wellbutrin 150 mg twice a day. 6. Sulfamethoxazole/trimethoprim 800/160 one p.o. b.i.d. FOLLOWUP: The patient is advised to followup with her PCP and general surgery in 1 week. ADMITTING DIAGNOSES: Abdominal pain and found out to have a large gallstone, status post laparoscopic cholecystectomy. Gallbladder ultrasound shows large calculus in the gallbladder neck, mild nonspecific diffuse gallbladder wall thickening. The patient was given empiric antibiotic. The patient also has a right adnexal cyst versus mass. [employer] MANAGER seeing the patient. For [employer] MANAGER, they observed the patient during the surgery and found a benign cyst. Dr. Singh saw the patient and the patient is to followup with Dr. Singh. Other comorbidities include a history of schizophrenia, HIV, anxiety, depression, hypertension. The patient is on HAART, azithromycin, Bactrim for HIV. The patient takes Wellbutrin for anxiety and depression. HOSPITAL COURSE: The patient remained stable after the surgery. The patient had a chest x-ray done on 09/11/2018; shows no acute abnormality. The patient had a CT abdomen and pelvis done on 09/11/2018; showed large gallstone again identified in the gallbladder, mild nonspecific gallbladder wall thickening. No pericystic inflammatory changes. new bilobed mixed solid and cystic loculated area in the right adnexa. Differential diagnosis includes cystic adnexal mass, hydrosalpinx, ruptured hemorrhagic ovarian cyst. Gallbladder ultrasound done shows a large calculus in the gallbladder neck, mild nonspecific diffuse gallbladder wall thickening. Pelvic ultrasound was done during a hospital stay; shows heterogeneous and lobulated hypervascular right ovary. This measured 4.8 cm and 2.8 cm and 2.3 cm on ultrasound. Correlation with recent CT showed that the CT measurement of the ovary are likely 4.9 cm to 4.4 cm as well-defined mass is not seen; however, there is a subpleural heterogeneous rounded area with decreased vascularity within the ovary that may represent a hemorrhagic cyst. In addition, there is adjacent free fluid in the cul-de-sac that is slightly hyperdense on CT, suggesting that it may represent a ruptured hemorrhagic cyst. There is a color Doppler flow within the right ovary, particularly given that the patient is immunocompromised, infection would also be differential diagnosis: Left ovary and uterus are normal. The patient remained stable. No acute event happened. The patient has anemia with a hemoglobin of 9.4. The patient had a creatinine of 1.22; it decreased down to 0.99. Patient had high LFTs: AST, ALT was 113 and 132, which decreased down to ALT 67, but AST became normal. Lipase was 192. Patient had a low albumin 3.3 and 2.6. The patient discharged in a satisfactory condition. Patient's PT 10.2, INR 1.0, APTT 26.3. Further details in the medical record. Rishi Dial MD EA/rudy , 01:01 PM , 01:17 PM
== END 2018-09-16 16:45 | disposition home or self-care (01) ==
LOC: NEDA 19:44 → NEPE 19:44 → OBSVTOIN 09-12 01:53 → NEPFCDU 09-12 03:59 → N07 09-12 11:14
PROVIDERS: ADMIT Family Medicine; ATTEND Family Medicine